=== PATIENT | female | born 1950 | race Caucasian/White ===

== ENCOUNTER 2017-03-22 14:26 | Emergency (ER) | payer MEDICARE, MEDICAID ==
[2017-03-22 15:14] VITALS: BP 153/77
--- NOTE | 2017-03-22 18:45 | CR ---
DATE OF SERVICE: 03/22/2017 CLINICAL DATA: FALL. LEFT KNEE Comparison is made to a prior exam dated 02/10/2016. There is diffuse osteopenia. There are tricompartment osteoarthritic changes of the knee joint with moderate narrowing of the medial compartment joint space. There is a large joint effusion. No acute fracture or dislocation. No focal lytic or blastic bone lesions. [id number] [facility]
--- NOTE | 2017-03-22 18:48 | CR ---
DATE OF SERVICE: 03/22/2017 CLINICAL DATA: FALL. LEFT WRIST There is a healed fracture through the distal radius that is fixed internally. There is diffuse osteopenia. There are osteoarthritic changes involving multiple joints of the hand and wrist. No acute fracture or dislocation. No focal lytic or blastic bone lesions. [id number] [facility]
--- NOTE | 2017-03-23 06:11 | EDM.PDOC ---
ED HPI GENERAL MEDICAL PROBLEM - General Chief Complaint: General Stated Complaint: FELL AT [employer] - LEFT KNEE INJURY/LEFT WRIST Time Seen by Provider: 03/22/17 15:15 Source of Information: Reports: Patient, Family - History of Present Illness INITIAL COMMENTS - FREE TEXT/NARRATIVE: This is a 66yo F here for a recent fall at [employer]. Patient complains of left wrist and left knee pain. Patient was unable to get up or walk without assistance. Patient has had a prior left wrist injury with a plate and screws inserted. Patient has had prior OA of the left knee. Patient denies hitting her head or other complaints today. Onset: Sudden Location: Reports: Upper Extremity, Left, Lower Extremity, Left Severity: Moderate Improves with: Reports: None Worsens with: Reports: Movement Associated Symptoms: Reports: No Other Symptoms Treatments [employer]: Reports: Insulin Knee Pain Score (Numeric/FACES): 10 - Related Data Allergies Allergy/AdvReac Type Severity Reaction Status Date / Time No Known Allergies Allergy Verified 03/22/17 16:44 Home Meds: Home Meds Nitroglycerin [Nitrostat] 0.4 mg SL ASDIRECTED PRN 07/20/15 [History] Aspirin 81 mg PO DAILY 03/22/17 [History] Furosemide [Furosemide] 20 mg PO DAILY 03/22/17 [History] Insulin Glarg,Human.Rec.Analog [Lantus Solostar] 03/22/17 [History] Insulin Glarg,Human.Rec.Analog [Lantus Solostar] 10 units SUBCUT DAILY 03/22/17 [History] Lisinopril 10 mg PO DAILY 03/22/17 [History] Sertraline HCl [Sertraline HCl] 50 mg PO DAILY 03/22/17 [History] Sertraline HCl [Zoloft] 50 mg PO DAILY 03/22/17 [History] Simvastatin [Simvastatin] 20 mg PO DAILY 03/22/17 [History] atorvaSTATin [Lipitor] 80 mg PO BEDTIME 03/22/17 [History] Past Medical History HEENT History: Reports: Impaired Vision Cardiovascular History: Reports: Angina, Hypertension Respiratory History: Reports: None Gastrointestinal History: Reports: GERD, Other (See Below) Other Gastrointestinal History: Constipation related to vicodin Genitourinary History: Reports: None 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: Musculoskeletal History: Reports: Arthritis, Back Pain, Chronic, Osteoarthritis , Osteoporosis Neurological History: Reports: CVA Other Neuro History: 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 Psychiatric History: Reports: None Endocrine/Metabolic History: Reports: Diabetes, Type II Hematologic History: Reports: B12 Deficiency, Other (See Below) Other Hematologic History: gets B 12 shots monthly Immunologic History: Reports: None Oncologic (Cancer) History: Reports: None Dermatologic History: Reports: None - Infectious Disease History Infectious Disease History: Reports: Chicken Pox - Past Surgical History Cardiovascular Surgical History: Reports: None GI Surgical History: Reports: None, Hernia, Abdominal, Hernia Repair/Other Female Surgical History: Reports: Section, Hysterectomy Neurological Surgical History: Reports: None Musculoskeletal Surgical History: Reports: Other (See Below) Social & Family History - Family History Family Medical History: Noncontributory - Tobacco Use Smoking Status *Q: Never Smoker Second Hand Smoke Exposure: Yes - Caffeine Use Caffeine Use: Reports: Coffee, Soda - Recreational Drug Use Recreational Drug Use: No ED ROS GENERAL - Review of Systems Review Of Systems: ROS reveals no pertinent complaints other than HPI. ED EXAM, GENERAL - Physical Exam Exam: See Below Exam Limited By: No Limitations General Appearance: Alert, WD/WN, Mild Distress Eye Exam: Bilateral Eye: EOMI Ears: Normal External Exam Nose: Normal Inspection Head: Atraumatic, Normocephalic Neck: Normal Inspection Extremities: Arm Pain, Leg Pain Neurological: Alert, Oriented Course - Vital Signs Last Recorded V/S: Last Vital Signs Temp 36.6 C 03/22/17 15:11 Pulse 80 03/22/17 15:11 Resp 18 03/22/17 15:11 BP 153/77 H 03/22/17 15:11 Pulse Ox 98 03/22/17 15:11 Departure - Departure Time of Disposition: 16:30 Disposition: Home, Self-Care 01 Condition: good Clinical Impression: Contusion of knee, left Qualifiers: Encounter type: initial encounter Qualified Code(s): S80.02XA - Contusion of left knee, initial encounter Left wrist sprain Qualifiers: Encounter type: initial encounter Qualified Code(s): S63.502A - Unspecified sprain of left wrist, initial encounter - Discharge Information Instructions: Knee Pain, Knee Sprain, [id number], Wrist Sprain, Wrist Pain Referrals: PCP,None [Primary Care Provider] - Forms: ED Department Discharge - Problem List Review Problem List Initiated/Reviewed/Updated: Yes - Assessment/Plan Plan: Counseled on supportive and conservative care. Patient will increase tramadol use from 1 pill QID as needed to 2 pills up to QID as needed and when symptoms resolve to return back to her 1 pill regiment. Patient counseled on side effects of increased use of tramadol and for f/u with her PCP this week and as needed if symptoms worsen or persist. Patient and family agree with plan of care and f/u.
== END 2017-03-22 15:35 | disposition home or self-care (01) ==
LOC: LB.ED 14:26
DX: S63.502A Unspecified sprain of left wrist, initial encounter (principal); S80.02XA Contusion of left knee, initial encounter; I10 Essential (primary) hypertension; K21.9 Gastro-esophageal reflux disease without esophagitis; M19.90 Unspecified osteoarthritis, unspecified site; E11.9 Type 2 diabetes mellitus without complications; Z79.82 Long term (current) use of aspirin; Z79.4 Long term (current) use of insulin; Z79.899 Other long term (current) drug therapy; Z86.73 Personal history of transient ischemic attack (TIA), and cerebral infarction without residual deficits; Z90.710 Acquired absence of both cervix and uterus; W19.XXXA Unspecified fall, initial encounter; Y92.511 Restaurant or cafe as the place of occurrence of the external cause
CPT/HCPCS: 73110-LT; 73560-LT; 99283

== ENCOUNTER 2017-03-26 18:15 | Emergency (ER) | payer MEDICARE, MEDICAID ==
[2017-03-26] MEDS ORDERED: Ketorolac 60 MG/2 ML SDV IM ONE (18:52)
[2017-03-26] MEDS ORDERED: Acetaminophen/HYDROcodone 325-5 MG Tab ONE (19:00)
[2017-03-26] MEDS ORDERED: Amoxicillin/Clavulanate K 875-125 MG Tab ONE (19:00)
[2017-03-26] MEDS ORDERED: Sodium Chloride 0.9% 1,000 ML IV ONE (19:34)
[2017-03-26] MEDS ORDERED: cefTRIAXone 1 GM in Sodium Chloride 0.9% 50 ML IV ONE (20:00)
[2017-03-26 21:05] VITALS: BP 132/64
--- NOTE | 2017-03-26 21:14 | CR ---
DATE OF SERVICE: 03/26/2017 CLINICAL DATA: Ongoing pain after falling. LEFT KNEE Comparison is made to a prior exam dated 03/22/2017. No significant changes. [id number] [facility]
--- NOTE | 2017-03-27 00:50 | ER ---
HPI: This is a 66-year-old lady who comes in by ambulance with complaints of swelling of the left knee and extreme pain. The patient fell last weekend, on Thursday. She was seen here in the emergency room for left knee injury and wrist injury. X-rays were obtained which were negative for fracture. The patient was treated conservatively and told to follow up in a week. She states that her pain is getting worse. She has been taking Ultram for pain control, which she uses chronically. The patient states that today her pain is worse, she rates it at 10/10 and she has noticed more swelling involving the left knee. She has not noticed any redness or rash areas and states that she has not been able to get in and out of her house very well. She has a few steps to do this and this is not going well. She therefore called the ambulance to come in for a recheck. PAST MEDICAL HISTORY: Includes: 1. Diabetes, insulin dependent. 2. History of osteoarthritis of the left knee and left hip. OBJECTIVE: GENERAL APPEARANCE: The patient is awake and alert. She is slightly uncomfortable at rest. VITAL SIGNS: Reviewed. Temp of 100.2 degrees, pulse is 99, initial blood pressure is 95/72, respirations are 20, O2 sats are good at 98%. Examining the left knee and leg reveals [id number] swelling involving the left knee. There is pain with palpation diffusely of the left knee that radiates up to the mid anterior thigh. Guarding is noted with even light touch. Skin is warm and dry and intact. Examining the left foot and ankle reveals the circulation is good. Skin is warm. Pedal pulse is present. Capillary refill is good involving the toes. LAB AND X-RAY: X-ray of the left knee was obtained. I do not see any acute fracture or acute bony abnormality. There is osteoarthritis fairly advanced. Labs include a CBC showing a slightly elevated white count of 12.9. Neutrophils are also elevated at 71.4. D- dimer is normal at 296. Metabolic panel is unremarkable. Lactic acid is normal at 1.43. At this point, a fluid bolus was given, about 800 mL. Toradol 60 mg was given IM and over the course of the next hour, the patient's pain dropped down to a 4. She states she is very comfortable and the pain is minimal at this point. Vital signs improved. Temp is now 99.9, blood pressure 132/64, respirations dropped to 18, and pulse is 82. Patient is feeling much better. Palpation of the left knee now reveals there is minimal tenderness. The skin is just slightly automatic line set up mechanic this area. DIAGNOSIS: 1. Contusion injury to left knee with a questionable early stage infection developing. 2. Hypotension. 3. Mild dehydration. TREATMENT PLAN: A small knee immobilizer was fitted on the patient's legs and with a walker she was able to ambulate without any increase in discomfort. At this point, she will be discharged to go home with her daughter. She does have help to get in and out of her home and she can get around the house with a walker that she has at home. I will give her hydrocodone tablets to take, 5/325, 1 tablet every 6 hours. She can alternate with the Ultram that she has at home if her pain is not as severe. I also gave the patient Rocephin 1 g here in the emergency room and she will be started on Augmentin 875 b.i.d. I want the patient to follow up early next week in the clinic. If her condition gets worse, followup is going to be in the emergency room over the weekend. The patient and her daughter agree with the treatment plan and have no further questions. SHARONA/ARABELLA /[id number]
== END 2017-03-26 21:30 | disposition home or self-care (01) ==
LOC: LB.ED 18:15
DX: S80.02XA Contusion of left knee, initial encounter (principal); I95.9 Hypotension, unspecified; E86.0 Dehydration; E11.9 Type 2 diabetes mellitus without complications; M17.12 Unilateral primary osteoarthritis, left knee; M16.12 Unilateral primary osteoarthritis, left hip; Z79.4 Long term (current) use of insulin; X58.XXXA Exposure to other specified factors, initial encounter
CPT/HCPCS: 36415; 73560; 80048; 83605; 85025; 85379; 96361; 96365; 96372; 99283; A9270; J0696; J1885; J7040; J7050; A0425; A0429

== ENCOUNTER 2017-05-21 06:30 | Emergency (ER) | payer MEDICARE, MEDICAID ==
[2017-05-21 06:43] VITALS: BP 155/86
[2017-05-21] MEDS ORDERED: Ketorolac 30 MG/ML SDV IM ONE (07:03)
--- NOTE | 2017-05-21 07:09 | EDM.PDOC ---
ED HPI GENERAL MEDICAL PROBLEM - General Chief Complaint: General Stated Complaint: LEFT KNEE PAIN Time Seen by Provider: 05/21/17 07:00 Source of Information: Reports: Patient History Limitations: Reports: No Limitations - History of Present Illness INITIAL COMMENTS - FREE TEXT/NARRATIVE: This is a 66yo F brought in by EMS for left knee pain. Patient states she has had left knee issues in the past and hurt her knee this time by falling out of bed. Per patient the bed was not very high up and she was able to get back up into bed. She states she currently is unable to put weight on the left leg but has full movement of the leg and knee with pain at the knee. Patient denies other injuries at this time. Onset: Sudden Duration: Minutes:, Constant Location: Reports: Lower Extremity, Left Quality: Reports: Ache, Same as Previous Episode Severity: Mild Improves with: Reports: None Worsens with: Reports: None Associated Symptoms: Reports: No Other Symptoms Left Knee Pain Score (Numeric/FACES): 5 - Related Data Allergies Allergy/AdvReac Type Severity Reaction Status Date / Time No Known Allergies Allergy Verified 05/21/17 07:00 Home Meds: Home Meds Nitroglycerin [Nitrostat] 0.4 mg SL ASDIRECTED PRN 07/20/15 [History] Aspirin 81 mg PO DAILY 03/22/17 [History] Furosemide [Furosemide] 20 mg PO DAILY 03/22/17 [History] Insulin Glarg,Human.Rec.Analog [Lantus Solostar] 10 unit SUBCUT QPM 03/22/17 [ History] Lisinopril 10 mg PO DAILY 03/22/17 [History] Sertraline HCl [Zoloft] 50 mg PO DAILY 03/22/17 [History] atorvaSTATin [Lipitor] 80 mg PO BEDTIME 03/22/17 [History] Clopidogrel Bisulfate [Clopidogrel] 75 mg PO DAILY 03/26/17 [History] Mirtazapine 7.5 mg PO QPM 03/26/17 [History] Past Medical History HEENT History: Reports: Impaired Vision Cardiovascular History: Reports: Angina, Hypertension Respiratory History: Reports: None Gastrointestinal History: Reports: GERD, Other (See Below) Other Gastrointestinal History: Constipation related to vicodin Genitourinary History: Reports: None 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: Musculoskeletal History: Reports: Arthritis, Back Pain, Chronic, Osteoarthritis , Osteoporosis Neurological History: Reports: CVA Other Neuro History: 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 Psychiatric History: Reports: Depression Endocrine/Metabolic History: Reports: Diabetes, Type II Hematologic History: Reports: B12 Deficiency, Other (See Below) Other Hematologic History: gets B 12 shots monthly Immunologic History: Reports: None Oncologic (Cancer) History: Reports: None Dermatologic History: Reports: None - Infectious Disease History Infectious Disease History: Reports: Chicken Pox - Past Surgical History Cardiovascular Surgical History: Reports: None GI Surgical History: Reports: None, Hernia, Abdominal, Hernia Repair/Other Female Surgical History: Reports: Section, Hysterectomy Neurological Surgical History: Reports: None Musculoskeletal Surgical History: Reports: Other (See Below) Social & Family History - Family History Family Medical History: Noncontributory - Tobacco Use Smoking Status *Q: Never Smoker Second Hand Smoke Exposure: No - Caffeine Use Caffeine Use: Reports: Coffee, Soda - Recreational Drug Use Recreational Drug Use: No ED ROS GENERAL - Review of Systems Review Of Systems: ROS reveals no pertinent complaints other than HPI. ED EXAM, GENERAL - Physical Exam Exam: See Below Exam Limited By: No Limitations General Appearance: Alert, WD/WN, No Apparent Distress Eye Exam: Bilateral Eye: EOMI, PERRL Ears: Normal External Exam Nose: Normal Inspection Throat/Mouth: Normal Inspection Head: Atraumatic, Normocephalic Neck: Normal Inspection Respiratory/Chest: No Respiratory Distress Cardiovascular: Normal Peripheral Pulses Peripheral Pulses: 2+: Dorsalis Pedis (L), Dorsalis Pedis (R) GI/Abdominal: Normal Bowel Sounds Extremities: Leg Pain Neurological: Alert, Oriented Psychiatric: Normal Affect, Normal Mood Skin Exam: Warm, Dry Course - Vital Signs Last Recorded V/S: Last Vital Signs Temp 37.2 C 05/21/17 06:53 Pulse 84 05/21/17 06:53 Resp 20 05/21/17 06:53 BP 155/86 H 05/21/17 06:53 Pulse Ox 99 05/21/17 06:53 - Orders/Labs/Meds Orders: Active Orders 24 hr Category Date Time Status Knee 1V or 2V Lt [CR] Stat Exams 05/21/17 07:02 Taken Meds: Medications Discontinued Medications Generic Name Dose Route Start Last Admin Trade Name Freq PRN Reason Stop Dose Admin Ketorolac Tromethamine 30 mg 05/21/17 07:03 05/21/17 07:06 Toradol IM 05/21/17 07:04 30 mg ONETIME ONE Administration Departure - Departure Time of Disposition: 07:51 Disposition: Home, Self-Care 01 Condition: Good Clinical Impression: Pain of left patella - Discharge Information Instructions: Knee Pain Referrals: Jermaine Moreno MD [Primary Care Provider] - Forms: ED Department Discharge Additional Instructions: Wear the brace for another 4 weeks. Be sure to take the brace off a few times a day and exercise the leg as well. Continue to take the Ultram as needed for the pain. - Problem List Review Problem List Initiated/Reviewed/Updated: Yes - My Orders Last 24 Hours: My Active Orders 05/21/17 07:02 Knee 1V or 2V Lt [CR] Stat - Assessment/Plan Last 24 Hours: My Active Orders 05/21/17 07:02 Knee 1V or 2V Lt [CR] Stat Plan: Counseled on likely left patella reinjury. No changes compared to prior xrays. Discussed supportive/conservative care and use of immobilizer she already has at home. Patient offered to be immobilized here but states she will just use the one at home. Daughter present and both agree with plan of care. F/u in clinic as routine with PCP and as needed. Counseled on fall precautions and family agree to be extremely vigilant and cautious.
--- NOTE | 2017-05-22 08:57 | CR ---
DATE OF SERVICE: 05/21/17 CLINICAL DATA: left knee injury - knee cap pain LEFT KNEE: Comparison is made to a prior exam dated 03/26/17. There is diffuse osteopenia. There are tricompartment osteoarthritic changes of the knee joint with severe narrowing of the medial compartment joint space and mild genu vara deformity. There is a large joint effusion. There is a comminuted mildly displaced fracture through the mid and upper pole of the patella. No other acute abnormalities. [id number] [facility]
== END 2017-05-21 07:42 | disposition home or self-care (01) ==
LOC: LB.ED 06:30
DX: M25.562 Pain in left knee (principal); I10 Essential (primary) hypertension; K21.9 Gastro-esophageal reflux disease without esophagitis; M19.90 Unspecified osteoarthritis, unspecified site; E11.9 Type 2 diabetes mellitus without complications; M81.0 Age-related osteoporosis without current pathological fracture; Z90.710 Acquired absence of both cervix and uterus; Z98.890 Other specified postprocedural states; Z79.82 Long term (current) use of aspirin; Z79.899 Other long term (current) drug therapy
CPT/HCPCS: 73560; 96372; 99283; A0425; A0429; J1885

== ENCOUNTER 2018-12-08 10:39 | Observation (INO) | payer MEDICARE ==
--- NOTE | 2018-12-08 11:56 | EDM.PDOC ---
ED HPI GENERAL MEDICAL PROBLEM - General Stated Complaint: AFIB; CAME OVER FROM RADIOLOGY Time Seen by Provider: 12/08/18 10:50 Source of Information: Reports: Patient History Limitations: Reports: No Limitations - History of Present Illness INITIAL COMMENTS - FREE TEXT/NARRATIVE: Pt was here for her scheduled ECHO cardiogram today for her recurrent dizziness. Apparently when she was here on [facility] it was noted that she is in Afib with RVR. Pt was sent to emergency room. Pt claims that she has had short spells of dizziness and presyncopal episodes on and off since 2006 when she had stroke. Does not feel extremely fatigue or short of breath. No chest pain or chest tightness. She claims she did have Possible heart attack several years ago and did not have stent placed, but has been on Plavix. Her only cardiology visit, seems to be from [address] Rodriguez. Pt claims that she feels fine. Onset: Today Duration: Constant Severity: Mild Improves with: Reports: None Worsens with: Reports: None Associated Symptoms: Reports: Weakness. Denies: Confusion, Chest Pain, Cough, Diaphoresis, Fever/Chills, Headaches, Nausea/Vomiting, Rash, Seizure, Shortness of Breath - Related Data Allergies Allergy/AdvReac Type Severity Reaction Status Date / Time No Known Allergies Allergy Verified 12/08/18 10:59 Home Meds: Home Meds Nitroglycerin [Nitrostat] 0.4 mg SL ASDIRECTED PRN 07/20/15 [History] Aspirin 81 mg PO DAILY 03/22/17 [History] Furosemide 20 mg PO DAILY 03/22/17 [History] Insulin Glarg,Human.Rec.Analog [Lantus Solostar] 10 unit SUBCUT QPM 03/22/17 [ History] Lisinopril 10 mg PO DAILY 03/22/17 [History] Sertraline HCl [Zoloft] 50 mg PO DAILY 03/22/17 [History] atorvaSTATin [Lipitor] 80 mg PO BEDTIME 03/22/17 [History] Clopidogrel Bisulfate [Clopidogrel] 75 mg PO DAILY 03/26/17 [History] Mirtazapine 7.5 mg PO QPM 03/26/17 [History] Clotrimazole [Clotrimazole 1%] 1 applic TOP TID PRN 12/08/18 [History] Levothyroxine 25 mcg PO ACBREAKFAST 12/08/18 [History] Triamcinolone Acetonide [Triamcinolone Acetonide 0.1% Crm] 1 applic TOP TID PRN 12/08/18 [History] traMADol HCl [Tramadol HCl] 50 mg PO Q8H PRN 12/08/18 [History] Past Medical History HEENT History: Reports: Impaired Vision Cardiovascular History: Reports: Afib, Angina, CAD, High Cholesterol, Hypertension, [place], Other (See Below) Other Cardiovascular History: Cartotid artery syndrome Respiratory History: Reports: None Gastrointestinal History: Reports: GERD Other Gastrointestinal History: Constipation related to vicodin Genitourinary History: Reports: None 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 History: Reports: Musculoskeletal History: Reports: Arthritis, Back Pain, Chronic, Fracture, Osteoarthritis, Osteoporosis Neurological History: Reports: CVA Other Neuro History: 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 Psychiatric History: Reports: Depression Endocrine/Metabolic History: Reports: Diabetes, Type II, Hypothyroidism Hematologic History: Reports: B12 Deficiency, Other (See Below) Other Hematologic History: gets B 12 shots monthly Immunologic History: Reports: None Oncologic (Cancer) History: Reports: None Dermatologic History: Reports: Eczema - Infectious Disease History Infectious Disease History: Reports: Chicken Pox - Past Surgical History Cardiovascular Surgical History: Reports: None GI Surgical History: Reports: Bariatric Procedure, Hernia, Abdominal, Hernia Repair/Other Female Surgical History: Reports: Section, Hysterectomy Neurological Surgical History: Reports: None Musculoskeletal Surgical History: Reports: Other (See Below) Other Musculoskeletal Surgeries/Procedures:: Surgery to fix L wrist Social & Family History - Family History Family Medical History: Noncontributory - Caffeine Use Caffeine Use: Reports: Coffee, Soda ED ROS GENERAL - Review of Systems Review Of Systems: See Below Constitutional: Reports: Weakness. Denies: Fever, Chills HEENT: Denies: Rhinitis, Throat Pain, Throat Swelling Respiratory: Denies: Shortness of Breath, Wheezing, Cough, Sputum Cardiovascular: Reports: Edema, Syncope. Denies: Chest Pain, Claudication, Dyspnea on Exertion, Lightheadedness Endocrine: Denies: Fatigue GI/Abdominal: Denies: Abdominal Pain, Nausea, Vomiting Musculoskeletal: Denies: Joint Pain, Joint Swelling Skin: Denies: Bruising, Pruritis, Rash Neurological: Reports: Pre-Existing Deficit (from previous stroke-minimal). Denies: Confusion, Dizziness, Headache, Numbness, Tingling ED EXAM, GENERAL - Physical Exam Exam: See Below Exam Limited By: No Limitations General Appearance: Alert, WD/WN, No Apparent Distress Eye Exam: Bilateral Eye: EOMI, PERRL Ears: Normal External Exam, Normal Canal, Hearing Grossly Normal, Normal TMs Ear Exam: Bilateral Ear: Auricle Normal, Canal Normal, TM normal Nose: Normal Inspection, Normal Mucosa, No Blood Throat/Mouth: Normal Inspection, Normal Lips, Normal Teeth, Normal Gums, Normal Oropharynx, Normal Voice, No Airway Compromise Head: Atraumatic, Normocephalic Neck: Normal Inspection, Supple, Non-Tender, Full Range of Motion Respiratory/Chest: No Respiratory Distress, Lungs Clear, Normal Breath Sounds, No Accessory Muscle Use, Chest Non-Tender Cardiovascular: Normal Peripheral Pulses, Irregularly Irregular, Other (RVR afib ) Peripheral Pulses: 2+: Carotid (L), Carotid (R), Radial (L), Radial (R) GI/Abdominal: Normal Bowel Sounds, Soft, Non-Tender, No Organomegaly, No Distention, No Abnormal Bruit, No Mass Extremities: Normal Inspection, Normal Range of Motion, Non-Tender, Normal Capillary Refill, Pedal Edema (1+ pitting lower 1/3 leg B/l) Neurological: Alert, Oriented, CN II-XII Intact Skin Exam: Warm, Intact EKG INTERPRETATION EKG Date: 12/08/18 Rhythm: A-Fib Rate (Beats/Min): 140 P-Wave: Present QRS: Normal ST-T: Normal QT: Normal EKG Interpretation Comments: Afib with RVR Course - Vital Signs Text/Narrative:: Pt was placed on monitor, she is asymptomatic. Th reason her primary care provider set her up for ECHO was for her chronic dizziness for past 11 year, which last for few seconds. No fall attack or weakness, syncope or chest pain asso with it. Her CBC, CMP are normal, troponin is normal., BNP is 1550. TSh is 4.6, has been just started on synthroid last week. Pt is not keen on hospitalization for treatment as she does not feel sick or tired. I did contact Dr. Tyler at [facility], and discuss patient with him. His recommendation for inpatient monitoring of patient on oral betablocker , considering her history of coronary artery disease. Also she is on aspirin and statin therapy. Recommended carotid ultrasound to make sure she does not have carotid stenosis or plaque. Anticoagulation for stroke prophylaxis. I have given patient the options to patient and she does prefer to be inpatient. Pt will be admitted for observation. Will start with oral metoprolol 25mg and have her on cardiac monitoring. Also will stat Xarelto 20mg daily for stroke prophylaxis. Will get carotid ultrasound. If her rate is controlled by titrating Betablocker, under 110/min, will plan on discharge and outpatient cardiology followup. Pt does agree and understand the plan. Last Recorded V/S: Last Vital Signs Temp 98.1 F 12/08/18 11:00 Pulse 141 H 12/08/18 12:32 Resp 16 12/08/18 12:04 BP 127/107 H 12/08/18 12:32 Pulse Ox 97 12/08/18 12:04 - Orders/Labs/Meds Orders: Active Orders 24 hr Category Date Time Status Carotid Comp [US] Stat Exams 12/08/18 12:34 Ordered Rivaroxaban [Xarelto] Med 12/08/18 18:00 Ordered 20 mg PO WITHDINNER Labs: Laboratory Tests 12/08/18 12/08/18 12/08/18 Range/Units 11:15 11:15 11:15 WBC 14.8 H (4.0-11.0) K/uL RBC 6.12 H (3.80-5.80) M/uL Hgb 13.4 (11.5-16.5) g/dL Hct 43.7 (37.0-47.0) % MCV 71 L (76-96) fL MCH 21.9 L (27.0-32.0) pg MCHC 30.7 L (31.0-35.0) g/dL RDW 20.6 H (11.0-16.0) % Plt Count 368 (150-500) K/uL MPV 10.8 H (6.0-10.0) fL Neut % (Auto) 72.3 H (45.0-70.0) % Lymph % (Auto) 19.4 L (20.0-40.0) % [place] % (Auto) 5.8 (3.0-10.0) % Eos % (Auto) 1.8 (1.0-5.0) % Baso % (Auto) 0.7 H (0.0-0.5) % Neut # (Auto) 10.69 H (2.00-7.50) K/uL Lymph # (Auto) 2.87 (1.50-4.00) K/uL [place] # (Auto) 0.86 H (0.20-0.80) K/uL Eos # (Auto) 0.27 (0.04-0.40) K/uL Baso # (Auto) 0.10 (0.02-0.10) K/uL Sodium (136-145) mmol/L Potassium (3.5-5.1) mmol/L Chloride (98-107) mmol/L Carbon Dioxide (21.0-32.0) mmol/L Anion Gap (5.0-15.0) mmol/L BUN (8-26) mg/dL Creatinine (0.55-1.02) mg/dL Est Cr Clr Drug Dosing Estimated GFR (MDRD) (>60) MLS/MIN BUN/Creatinine Ratio (6-25) Glucose (74-100) mg/dL Calcium (8.5-10.1) mg/dL Total Bilirubin (0.0-1.0) mg/dL AST (15-37) U/L ALT (12-78) U/L Alkaline Phosphatase (46-116) U/L Troponin I (0.000-0.060) ng/mL B-Natriuretic Peptide 1550 H (0-125) pg/mL Total Protein (6.4-8.2) g/dL Albumin (3.4-5.0) g/dL Globulin (2.2-4.2) g/dL Albumin/Globulin Ratio (0.8-2.0) TSH, Ultra Sensitive 4.857 H (0.358-3.740) uIU/mL 12/08/18 Range/Units 11:17 WBC (4.0-11.0) K/uL RBC (3.80-5.80) M/uL Hgb (11.5-16.5) g/dL Hct (37.0-47.0) % MCV (76-96) fL MCH (27.0-32.0) pg MCHC (31.0-35.0) g/dL RDW (11.0-16.0) % Plt Count (150-500) K/uL MPV (6.0-10.0) fL Neut % (Auto) (45.0-70.0) % Lymph % (Auto) (20.0-40.0) % [place] % (Auto) (3.0-10.0) % Eos % (Auto) (1.0-5.0) % Baso % (Auto) (0.0-0.5) % Neut # (Auto) (2.00-7.50) K/uL Lymph # (Auto) (1.50-4.00) K/uL [place] # (Auto) (0.20-0.80) K/uL Eos # (Auto) (0.04-0.40) K/uL Baso # (Auto) (0.02-0.10) K/uL Sodium 144 (136-145) mmol/L Potassium 3.8 D (3.5-5.1) mmol/L Chloride 107 (98-107) mmol/L Carbon Dioxide 20.8 L (21.0-32.0) mmol/L Anion Gap 20.0 H (5.0-15.0) mmol/L BUN 22 (8-26) mg/dL Creatinine 0.93 (0.55-1.02) mg/dL Est Cr Clr Drug Dosing TNP Estimated GFR (MDRD) > 60 (>60) MLS/MIN BUN/Creatinine Ratio 23.7 (6-25) Glucose 180 H (74-100) mg/dL Calcium 7.1 L (8.5-10.1) mg/dL Total Bilirubin 0.4 (0.0-1.0) mg/dL AST 19 (15-37) U/L ALT 25 (12-78) U/L Alkaline Phosphatase 290 H (46-116) U/L Troponin I 0.057 (0.000-0.060) ng/mL B-Natriuretic Peptide (0-125) pg/mL Total Protein 7.0 (6.4-8.2) g/dL Albumin 3.0 L (3.4-5.0) g/dL Globulin 4.0 (2.2-4.2) g/dL Albumin/Globulin Ratio 0.8 (0.8-2.0) TSH, Ultra Sensitive (0.358-3.740) uIU/mL Meds: Medications Discontinued Medications Generic Name Dose Route Start Last Admin Trade Name Brittany PRN Reason Stop Dose Admin Metoprolol Tartrate 25 mg 12/08/18 12:27 12/08/18 12:32 Lopressor PO 12/08/18 12:28 25 mg ONETIME ONE Administration Metoprolol Tartrate Confirm 12/08/18 12:36 Lopressor Administered 12/08/18 12:37 Dose 25 mg .ROUTE .STK-MED ONE Departure - Departure Time of Disposition: 12:30 Disposition: Refer to Observation Condition: Fair Clinical Impression: Atrial fibrillation with RVR - Discharge Information *PRESCRIPTION DRUG MONITORING PROGRAM REVIEWED*: Not Applicable *COPY OF PRESCRIPTION DRUG MONITORING REPORT IN PATIENT SUSAN: Not Applicable Instructions: Atrial Fibrillation, [id number] Referrals: Hanna Estrada DOCUMENT CONTROL COORDINATOR [Primary Care Provider] - Forms: ED Department Discharge - Problem List & Annotations (1) Atrial fibrillation with RVR SNOMED Code(s): 128791100823276 Code(s): I48.91 - UNSPECIFIED ATRIAL FIBRILLATION Status: Acute Current Visit: Yes - Problem List Review Problem List Initiated/Reviewed/Updated: Yes - My Orders Last 24 Hours: My Active Orders 12/08/18 12:34 Carotid Comp [US] Stat 12/08/18 18:00 Rivaroxaban [Xarelto] 20 mg PO WITHDINNER - Assessment/Plan Last 24 Hours: My Active Orders 12/08/18 12:34 Carotid Comp [US] Stat 12/08/18 18:00 Rivaroxaban [Xarelto] 20 mg PO WITHDINNER Assessment:: Asymptomatic Afib with RVR Plan: Pt was placed on monitor, she is asymptomatic. Th reason her primary care provider set her up for ECHO was for her chronic dizziness for past 11 year, which last for few seconds. No fall attack or weakness, syncope or chest pain asso with it. Her CBC, CMP are normal, troponin is normal., BNP is 1550. TSh is 4.6, has been just started on synthroid last week. Pt is not keen on hospitalization for treatment as she does not feel sick or tired. I did contact Dr. Tyler at [facility], and discuss patient with him. His recommendation for inpatient monitoring of patient on oral betablocker , considering her history of coronary artery disease. Also she is on aspirin and statin therapy. Recommended carotid ultrasound to make sure she does not have carotid stenosis or plaque. Anticoagulation for stroke prophylaxis. I have given patient the options to patient and she does prefer to be inpatient. Pt will be admitted for observation. Will start with oral metoprolol 25mg and have her on cardiac monitoring. Also will stat Xarelto 20mg daily for stroke prophylaxis. Will get carotid ultrasound. If her rate is controlled by titrating Betablocker, under 110/min, will plan on discharge and outpatient cardiology followup. Pt does agree and understand the plan.
[2018-12-08] MEDS ORDERED: Metoprolol Tartrate 25 MG Tab PO ONE (12:27)
[2018-12-08] MEDS ORDERED: Metoprolol Tartrate 25 MG Tab ONE (12:36)
[2018-12-08] MEDS ORDERED: Sodium Chloride 0.9% 10 ML Syringe FLUSH PRN (12:47)
[2018-12-08] MEDS ORDERED: Nitroglycerin 0.4 MG Tab.SL SL PRN (14:43)
[2018-12-08] MEDS ORDERED: Clotrimazole 1% Crm 15 GM Tube TOP PRN (14:43)
[2018-12-08] MEDS ORDERED: Triamcinolone Acetonide 0.1% Crm 15 GM Tube TOP PRN (14:43)
[2018-12-08] MEDS ORDERED: Rivaroxaban 15 MG Tab PO ONE (16:00)
[2018-12-08] MEDS ORDERED: ATORVASTATIN 80 MG PO SCH (20:00)
[2018-12-08] MEDS ORDERED: Mirtazapine 15 MG Tab*PT OWN MED PO SCH (20:00)
[2018-12-08] MEDS ORDERED: INSULIN GLARGINE HUMAN REC ANALOG 100 UNIT/ML SUBCUT SCH (20:00)
[2018-12-08] MEDS: Metoprolol Tartrate 25 MG Tab PO SCH (20:11)
[2018-12-08] MEDS: Sodium Chloride 0.9% 10 ML Syringe FLUSH SCH (21:09)
[2018-12-09] MEDS ORDERED: LEVOTHYROXINE 25 MCG PO SCH (07:00)
[2018-12-09] MEDS: Metoprolol Tartrate 25 MG Tab PO SCH (07:59)
[2018-12-09 08:00] VITALS: BP 150/94
[2018-12-09] MEDS ORDERED: Lisinopril 10 MG Tab PO SCH (08:00)
[2018-12-09] MEDS ORDERED: Aspirin 81 MG Tab.EC*PT OWN MED PO SCH (08:00)
[2018-12-09] MEDS ORDERED: Clopidogrel 75 MG Tab PO SCH (08:00)
[2018-12-09] MEDS ORDERED: Furosemide 20 MG Tab PO SCH (08:00)
[2018-12-09] MEDS ORDERED: Sertraline 50 MG Tab PO SCH (08:00)
[2018-12-09] MEDS: Sodium Chloride 0.9% 10 ML Syringe FLUSH SCH (08:03)
--- NOTE | 2018-12-09 11:29 | PCM.DCSUM1 ---
Discharge Summary - Hospital Course Free Text/Narrative:: Pt presented to emergency room in Afib with RVR of 140s. Pt was asymptomatic. Her Cardiac workup was negative. Her TSH was elevated, but she was just diagnosed with hypothyroidism last week and started on synthroid. I did contact Dr. Tyler and discuss patient with him. Per Dr. Tyler's recommendation, patient was started on oral Lopressor 25mg BID and anticoagulation for stroke prophylaxis.Pt was admitted for observation to monitor patient and to get heart rate under control. Pt has had uneventful day , here heart rate did gradually drop down to 70s over the day and continue to stay around 70s through last night. On today's visit. Pt claims she feels fine and also she does not have dizziness. Clinical exam is normal, Her EKG shows normal sinus rhythm rate controlled.. Pt did have her carotid ultrasound done today. Plan is to discharge patient home today on Lopressor 25mg BID and Xarelto 15mg daily. Bleeding precautions discussed with patient. She should followup in clinic next for recheck. Also she should have cardiology appointment scheduled in 1-2 wks for evaluation. Brief History: Presented to emergency room from Radiology department with Afib in [facility]. Kindly see H&P for details. Diagnosis: Stroke: No - Discharge Data Discharge Date: 12/09/18 Discharge Disposition: Home, Self-Care 01 Condition: Good - Discharge Diagnosis/Problem(s) (1) Atrial fibrillation with RVR SNOMED Code(s): 465192875290826 ICD Code: I48.91 - UNSPECIFIED ATRIAL FIBRILLATION Status: Acute Current Visit: Yes - Patient Instructions Diet: Heart Healthy Diet Fluid Restriction: 1500 mL Activity: As Tolerated Driving: May Drive Today Showering/Bathing: May Shower - Discharge Plan *PRESCRIPTION DRUG MONITORING PROGRAM REVIEWED*: Not Applicable *COPY OF PRESCRIPTION DRUG MONITORING REPORT IN PATIENT SUSAN: Not Applicable Prescriptions/Med Rec: Rivaroxaban [Xarelto] 15 mg PO WITHDINNER 30 Days #30 tablet Home Medications: Home Meds Nitroglycerin [Nitrostat] 0.4 mg SL ASDIRECTED PRN 07/20/15 [History] Aspirin 81 mg PO DAILY 03/22/17 [History] Furosemide 20 mg PO DAILY 03/22/17 [History] Insulin Glarg,Human.Rec.Analog [Lantus Solostar] 23 unit SUBCUT QPM 03/22/17 [ History] Lisinopril 10 mg PO DAILY 03/22/17 [History] Sertraline HCl [Zoloft] 50 mg PO DAILY 03/22/17 [History] atorvaSTATin [Lipitor] 80 mg PO BEDTIME 03/22/17 [History] Clopidogrel Bisulfate [Clopidogrel] 75 mg PO DAILY 03/26/17 [History] Mirtazapine 15 mg PO QPM 03/26/17 [History] Clotrimazole [Clotrimazole 1%] 1 applic TOP TID PRN 12/08/18 [History] Levothyroxine 25 mcg PO ACBREAKFAST 12/08/18 [History] Triamcinolone Acetonide [Triamcinolone Acetonide 0.1% Crm] 1 applic TOP TID PRN 12/08/18 [History] traMADol HCl [Tramadol HCl] 50 mg PO Q8H PRN 12/08/18 [History] Rivaroxaban [Xarelto] 15 mg PO WITHDINNER 30 Days #30 tablet 12/09/18 [Rx] Patient Handouts: Metoprolol tablets, Rivaroxaban oral tablets, Atrial Fibrillation, [id number] Forms: ED Department Discharge Referrals: Hanna Estrada PRINCIPAL PLANNER [Primary Care Provider] - - Discharge Summary/Plan Comment DC Time >30 min.: Yes Discharge Summary/Plan Comment: Plan is to discharge patient home today on Lopressor 25mg BID and Xarelto 15mg daily. Bleeding precautions discussed with patient. She should followup in clinic next for recheck. Also she should have cardiology appointment scheduled in 1-2 wks for evaluation. - General Info Date of Service: 12/09/18 Functional Status: Reports: Pain Controlled, Tolerating Diet, Ambulating, Urinating - Review of Systems General: Denies: Fever, Weakness, Fatigue HEENT: Denies: Sinus Congestion, Sore Throat, Rhinitis Pulmonary: Denies: Shortness of Breath, Sputum, Hemoptysis Cardiovascular: Denies: Chest Pain, Lightheadedness Gastrointestinal: Denies: Abdominal Pain, Nausea, Vomiting Genitourinary: Denies: Dysuria Musculoskeletal: Denies: Joint Pain, Joint Swelling Skin: Denies: Bruising, Pruritis, Rash - Patient Data Vitals - Most Recent: Last Vital Signs Temp 97.2 F 12/09/18 08:00 Pulse 68 12/09/18 08:00 Resp 16 12/09/18 08:00 BP 150/94 H 12/09/18 09:18 Pulse Ox 97 12/09/18 08:00 Weight - Most Recent: 94.619 kg I&O - Last 24 hours: Intake & Output 12/08/18 12/09/18 12/09/18 22:59 06:59 14:59 Intake Total 230 750 Output Total 300 675 Balance -70 75 Lab Results - Last 24 hrs: Laboratory Results - last 24 hr 12/08/18 12/08/18 12/08/18 Range/Units 11:15 11:15 11:15 WBC 14.8 H (4.0-11.0) K/uL RBC 6.12 H (3.80-5.80) M/uL Hgb 13.4 (11.5-16.5) g/dL Hct 43.7 (37.0-47.0) % MCV 71 L (76-96) fL MCH 21.9 L (27.0-32.0) pg MCHC 30.7 L (31.0-35.0) g/dL RDW 20.6 H (11.0-16.0) % Plt Count 368 (150-500) K/uL MPV 10.8 H (6.0-10.0) fL Neut % (Auto) 72.3 H (45.0-70.0) % Lymph % (Auto) 19.4 L (20.0-40.0) % [place] % (Auto) 5.8 (3.0-10.0) % Eos % (Auto) 1.8 (1.0-5.0) % Baso % (Auto) 0.7 H (0.0-0.5) % Neut # (Auto) 10.69 H (2.00-7.50) K/uL Lymph # (Auto) 2.87 (1.50-4.00) K/uL [place] # (Auto) 0.86 H (0.20-0.80) K/uL Eos # (Auto) 0.27 (0.04-0.40) K/uL Baso # (Auto) 0.10 (0.02-0.10) K/uL Sodium (136-145) mmol/L Potassium (3.5-5.1) mmol/L Chloride (98-107) mmol/L Carbon Dioxide (21.0-32.0) mmol/L Anion Gap (5.0-15.0) mmol/L BUN (8-26) mg/dL Creatinine (0.55-1.02) mg/dL Est Cr Clr Drug Dosing Estimated GFR (MDRD) (>60) MLS/MIN BUN/Creatinine Ratio (6-25) Glucose (74-100) mg/dL POC Glucose (74-110) mg/dL Calcium (8.5-10.1) mg/dL Total Bilirubin (0.0-1.0) mg/dL AST (15-37) U/L ALT (12-78) U/L Alkaline Phosphatase (46-116) U/L Troponin I (0.000-0.060) ng/mL B-Natriuretic Peptide 1550 H (0-125) pg/mL Total Protein (6.4-8.2) g/dL Albumin (3.4-5.0) g/dL Globulin (2.2-4.2) g/dL Albumin/Globulin Ratio (0.8-2.0) TSH, Ultra Sensitive 4.857 H (0.358-3.740) uIU/mL 12/08/18 12/09/18 Range/Units 11:17 06:51 WBC (4.0-11.0) K/uL RBC (3.80-5.80) M/uL Hgb (11.5-16.5) g/dL Hct (37.0-47.0) % MCV (76-96) fL MCH (27.0-32.0) pg MCHC (31.0-35.0) g/dL RDW (11.0-16.0) % Plt Count (150-500) K/uL MPV (6.0-10.0) fL Neut % (Auto) (45.0-70.0) % Lymph % (Auto) (20.0-40.0) % [place] % (Auto) (3.0-10.0) % Eos % (Auto) (1.0-5.0) % Baso % (Auto) (0.0-0.5) % Neut # (Auto) (2.00-7.50) K/uL Lymph # (Auto) (1.50-4.00) K/uL [place] # (Auto) (0.20-0.80) K/uL Eos # (Auto) (0.04-0.40) K/uL Baso # (Auto) (0.02-0.10) K/uL Sodium 144 (136-145) mmol/L Potassium 3.8 D (3.5-5.1) mmol/L Chloride 107 (98-107) mmol/L Carbon Dioxide 20.8 L (21.0-32.0) mmol/L Anion Gap 20.0 H (5.0-15.0) mmol/L BUN 22 (8-26) mg/dL Creatinine 0.93 (0.55-1.02) mg/dL Est Cr Clr Drug Dosing TNP Estimated GFR (MDRD) > 60 (>60) MLS/MIN BUN/Creatinine Ratio 23.7 (6-25) Glucose 180 H (74-100) mg/dL POC Glucose 96 (74-110) mg/dL Calcium 7.1 L (8.5-10.1) mg/dL Total Bilirubin 0.4 (0.0-1.0) mg/dL AST 19 (15-37) U/L ALT 25 (12-78) U/L Alkaline Phosphatase 290 H (46-116) U/L Troponin I 0.057 (0.000-0.060) ng/mL B-Natriuretic Peptide (0-125) pg/mL Total Protein 7.0 (6.4-8.2) g/dL Albumin 3.0 L (3.4-5.0) g/dL Globulin 4.0 (2.2-4.2) g/dL Albumin/Globulin Ratio 0.8 (0.8-2.0) TSH, Ultra Sensitive (0.358-3.740) uIU/mL Med Orders - Current: Current Medications Aspirin (Halfprin) 81 mg PO DAILY [facility] Last Admin: 12/09/18 08:00 Dose: 81 mg Atorvastatin Calcium (Lipitor) 80 mg PO BEDTIME [facility] Last Admin: 12/08/18 20:06 Dose: 80 mg Clopidogrel Bisulfate (Plavix) 75 mg PO DAILY [facility] Last Admin: 12/09/18 09:17 Dose: 75 mg Clotrimazole (Clotrimazole 1%) gm TOP TID PRN PRN Reason: Rash Furosemide (Lasix) 20 mg PO DAILY [facility] Last Admin: 12/09/18 09:18 Dose: 20 mg Insulin Glargine (Lantus Solostar) 23 units SUBCUT QPM [facility] Last Admin: 12/08/18 20:03 Dose: 23 units Levothyroxine Sodium (Levothyroxine) 25 mcg PO ACBREAKFAST [facility] Last Admin: 12/09/18 07:57 Dose: 25 mcg Lisinopril (Prinivil) 10 mg PO DAILY [facility] Last Admin: 12/09/18 09:18 Dose: 10 mg Metoprolol Tartrate (Lopressor) 25 mg PO Q12H [facility] Last Admin: 12/09/18 07:59 Dose: 25 mg Mirtazapine (Remeron) 15 mg PO QPM [facility] Last Admin: 12/08/18 20:06 Dose: 15 mg Nitroglycerin (Nitrostat) 0.4 mg SL ASDIRECTED PRN PRN Reason: Chest Pain [facility] Sertraline HCl (Zoloft) 50 mg PO DAILY [facility] Last Admin: 12/09/18 09:18 Dose: 50 mg Sodium Chloride (Saline Flush) 10 ml FLUSH BID [facility] Last Admin: 12/09/18 08:03 Dose: 10 ml Tramadol HCl (Ultram) 50 mg PO Q8H PRN PRN Reason: Pain Last Admin: 12/08/18 18:36 Dose: 50 mg Triamcinolone Acetonide (Triamcinolone Acetonide 0.1% Crm) gm TOP TID PRN PRN Reason: Rash Discontinued Medications Metoprolol Tartrate (Lopressor) 25 mg PO ONETIME ONE Stop: 12/08/18 12:28 Last Admin: 12/08/18 12:32 Dose: 25 mg Metoprolol Tartrate (Lopressor) Confirm Administered Dose 25 mg .ROUTE .STK-MED ONE Stop: 12/08/18 12:37 Last Admin: 12/08/18 14:16 Dose: Not Given [facility] Rivaroxaban (Xarelto) 15 mg PO ONETIME ONE Stop: 12/08/18 16:01 Last Admin: 12/08/18 16:06 Dose: 15 mg Sodium Chloride (Saline Flush) 10 ml FLUSH ASDIRECTED PRN PRN Reason: Keep Vein Open - Exam General: Reports: Alert, Oriented HEENT: Reports: Pupils Equal, Pupils Reactive, EOMI, Mucous Membr. Moist/[place] Neck: Reports: Supple Lungs: Reports: Clear to Auscultation, Normal Respiratory Effort Cardiovascular: Reports: Regular Rate, Regular Rhythm GI/Abdominal Exam: Normal Bowel Sounds, Soft, Non-Tender, No Organomegaly, No Distention, No Abnormal Bruit, No Mass, Pelvis Stable Skin: Reports: Warm, Intact Neurological: Reports: No New Focal Deficit Psy/Mental Status: Reports: Alert, Normal Affect EKG INTERPRETATION EKG Date: 12/09/18 Rhythm: NSR Rate (Beats/Min): 70 [place]: Normal P-Wave: Present QRS: Normal ST-T: Normal QT: Normal
--- NOTE | 2018-12-09 12:58 | US ---
DATE OF SERVICE: 12/09/18 CLINICAL DATA: Dizziness DUPLEX CAROTID ULTRASOUND: RIGHT CAROTID SYSTEM: There is antegrade flow. There is atherosclerotic plaquing in the carotid bulb and proximal ICA. The flow velocities are within normal limits. The findings are consistent with 0%-50% stenosis. LEFT CAROTID SYSTEM: There is antegrade flow. Minimal atherosclerotic plaquing. The flow velocities are within normal limits. The findings are consistent with 0%-50% stenosis. VERTEBRAL SYSTEM: There is bilateral antegrade vertebral flow. Incidentally noted is a left thyroid nodule. Thyroid ultrasound is recommended. [id number] [facility]
[2018-12-09] MEDS ORDERED: Rivaroxaban 15 MG Tab PO SCH (18:00)
== END 2018-12-09 13:57 | disposition home or self-care (01) ==
LOC: LB.ED 10:39 → LB.MS 12:47
PROVIDERS: ADMIT Family Medicine; ATTEND Family Medicine
DX: I48.91 Unspecified atrial fibrillation (principal); E11.9 Type 2 diabetes mellitus without complications; I10 Essential (primary) hypertension; E78.00 Pure hypercholesterolemia, unspecified; E03.9 Hypothyroidism, unspecified; K21.9 Gastro-esophageal reflux disease without esophagitis; Z86.73 Personal history of transient ischemic attack (TIA), and cerebral infarction without residual deficits; Z79.82 Long term (current) use of aspirin; Z79.02 Long term (current) use of antithrombotics/antiplatelets; Z79.4 Long term (current) use of insulin; Z79.899 Other long term (current) drug therapy
CPT/HCPCS: 36415; 80053; 82962; 83880; 84443; 84484; 85025; 93005; 93880; 99285-25; A9270-GY; G0378

== ENCOUNTER 2018-12-15 01:03 | Emergency (ER) | payer MEDICARE ==
[2018-12-15] MEDS ORDERED: Sodium Chloride 0.9% 10 ML Syringe FLUSH PRN (01:16)
[2018-12-15] MEDS ORDERED: Nitroglycerin 0.4 MG Tab.SL SL PRN ×2 (01:16→02:39)
[2018-12-15] MEDS ORDERED: Aspirin 81 MG Tab.Chew PO ONE (01:16)
--- NOTE | 2018-12-15 01:23 | EDM.PDOC ---
ED HPI GENERAL MEDICAL PROBLEM - General Chief Complaint: Chest Pain Stated Complaint: CHEST PAIN Time Seen by Provider: 12/15/18 01:18 Source of Information: Reports: Patient, EMS, Family, RN History Limitations: Reports: No Limitations - History of Present Illness INITIAL COMMENTS - FREE TEXT/NARRATIVE: 68 yr female presents with chest pain since about 12mn. States she does have a recent history of atrial fibrillation and is taking Metoprolol and blood thinner medications. States she had 4 ASA and nitro X2 in ambulance. Family is here and states she/daughter just got home from work around 1130 tonight and then the pain started when she was taking her/pt BP States she/pt has been resting today. States she recently was in to the Dr office and carotid U/S done. States her pain in the chest is 10/. Daughter states pt hasn't had her Metoprolol this afternoon. States she sometimes doesn't get this and forgets to take it. She is diabetic and takes Lantus 23 units at hs every night. States blood sugar has been under 200 but has been running high lately. States she is new to thyroid medication and started it about 1 week ago. Pt is alert and talking and moving extremities well. Chest Pain Score (Numeric/FACES): 5 - Related Data Allergies Allergy/AdvReac Type Severity Reaction Status Date / Time No Known Allergies Allergy Verified 12/15/18 01:35 Home Meds: Home Meds Nitroglycerin [Nitrostat] 0.4 mg SL ASDIRECTED PRN 07/20/15 [History] Aspirin 81 mg PO DAILY 03/22/17 [History] Furosemide 20 mg PO DAILY 03/22/17 [History] Insulin Glarg,Human.Rec.Analog [Lantus Solostar] 23 unit SUBCUT QPM 03/22/17 [ History] Lisinopril 10 mg PO DAILY 03/22/17 [History] Sertraline HCl [Zoloft] 50 mg PO DAILY 03/22/17 [History] atorvaSTATin [Lipitor] 80 mg PO BEDTIME 03/22/17 [History] Clopidogrel Bisulfate [Clopidogrel] 75 mg PO DAILY 03/26/17 [History] Mirtazapine 15 mg PO QPM 03/26/17 [History] Clotrimazole [Clotrimazole 1%] 1 applic TOP TID PRN 12/08/18 [History] Levothyroxine 25 mcg PO ACBREAKFAST 12/08/18 [History] Triamcinolone Acetonide [Triamcinolone Acetonide 0.1% Crm] 1 applic TOP TID PRN 12/08/18 [History] traMADol HCl [Tramadol HCl] 50 mg PO Q8H PRN 12/08/18 [History] Rivaroxaban [Xarelto] 15 mg PO WITHDINNER 30 Days #30 tablet 12/09/18 [Rx] Latanoprost/Pf [Latanoprost 0.005% Eye Drop] 1 drop EYEBOTH QPM 12/15/18 [ History] Metoprolol Tartrate 25 mg PO BID 12/15/18 [History] Past Medical History HEENT History: Reports: Impaired Vision Cardiovascular History: Reports: Afib, Angina, CAD, High Cholesterol, Hypertension, SD, Other (See Below) Other Cardiovascular History: Cartotid artery syndrome Respiratory History: Reports: None Gastrointestinal History: Reports: GERD Other Gastrointestinal History: Constipation related to vicodin Genitourinary History: Reports: None MANAGER SURGICAL History: Reports: Musculoskeletal History: Reports: Arthritis, Back Pain, Chronic, Fracture, Osteoarthritis, Osteoporosis Neurological History: Reports: CVA Other Neuro History: 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 Psychiatric History: Reports: Depression Endocrine/Metabolic History: Reports: Diabetes, Type II, Hypothyroidism Hematologic History: Reports: B12 Deficiency, Other (See Below) Other Hematologic History: gets B 12 shots monthly Immunologic History: Reports: None Oncologic (Cancer) History: Reports: None Dermatologic History: Reports: Eczema - Infectious Disease History Infectious Disease History: Reports: Chicken Pox - Past Surgical History Cardiovascular Surgical History: Reports: None GI Surgical History: Reports: Bariatric Procedure, Hernia, Abdominal, Hernia Repair/Other Female Surgical History: Reports: Section, Hysterectomy Neurological Surgical History: Reports: None Musculoskeletal Surgical History: Reports: Other (See Below) Other Musculoskeletal Surgeries/Procedures:: Surgery to fix L wrist Social & Family History - Family History Family Medical History: Noncontributory - Caffeine Use Caffeine Use: Reports: Coffee, Soda ED ROS GENERAL - Review of Systems Review Of Systems: See Below Constitutional: Reports: No Symptoms, Weakness HEENT: Reports: Other (pain in throat, poor dentition) Respiratory: Reports: Shortness of Breath. Denies: Cough, Sputum Cardiovascular: Reports: Chest Pain, Dyspnea on Exertion, Edema Musculoskeletal: Reports: Neck Pain, Other (states needs her walker to walk and feels unsteady, muscle rupture to right upper shoulder/chest area.) Skin: Reports: Dryness Neurological: Reports: Other (previous history of stroke and neurology visits) Hematologic/Lymphatic: Reports: Other (takes blood thinner, new to this medication) ED EXAM, GENERAL - Physical Exam Exam: See Below Exam Limited By: No Limitations General Appearance: Alert, No Apparent Distress Ears: Normal External Exam, Hearing Grossly Normal Ear Exam: Bilateral Ear: Auricle Normal Nose: Normal Inspection, Normal Mucosa. No: Nasal Tenderness, Nasal Drainage Throat/Mouth: Normal Inspection, Normal Lips, Normal Voice, No Airway Compromise Head: Atraumatic, Normocephalic Neck: Supple, Non-Tender Respiratory/Chest: No Respiratory Distress, Lungs Clear, Normal Breath Sounds Cardiovascular: Tachycardia, Other (heart rate of 164) GI/Abdominal: Normal Bowel Sounds, Soft, Non-Tender (Female) Exam: Other (wears depends) Back Exam: Normal Inspection, Full Range of Motion Extremities: Pedal Edema. No: Leg Pain Neurological: Alert, Oriented, Normal Cognition, Other (uncertain about her medications) Psychiatric: Normal Affect, Normal Mood Skin Exam: Warm, Dry. No: Diaphoretic Lymphatic: No Adenopathy EKG INTERPRETATION EKG Date: 12/15/18 Time: 01:21 Rate (Beats/Min): 164 EKG Interpretation Comments: SVT Course - Vital Signs Last Recorded V/S: Last Vital Signs Temp 98.8 F 12/15/18 06:42 Pulse 72 12/15/18 06:42 Resp 18 12/15/18 06:42 BP 109/68 12/15/18 06:42 Pulse Ox 97 12/15/18 06:42 - Orders/Labs/Meds Orders: Active Orders 24 hr Category Date Time Status Chest 1V Frontal [CR] Stat Exams 12/15/18 01:10 Taken TROPONIN I [CHEM] Routine Lab 12/15/18 07:40 Received Clopidogrel [Plavix] Med 12/15/18 08:00 Active 75 mg PO DAILY Insulin Glarg,Human.Rec.Analog [LantUS Solostar] Med 12/15/18 20:00 Active 0 units SUBCUT QPM Latanoprost [Xalatan 0.005% Ophth Soln] Med 12/15/18 20:00 Active 0 ml EYEBOTH QPM Levothyroxine Med 12/15/18 07:00 Active 25 mcg PO ACBREAKFAST Metoprolol Tartrate [Lopressor] Med 12/15/18 08:00 Active 25 mg PO BID Mirtazapine [Remeron] Med 12/15/18 20:00 Active 15 mg PO QPM Rivaroxaban [Xarelto] Med 12/15/18 18:00 Active 15 mg PO WITHDINNER Sertraline [Zoloft] Med 12/15/18 08:00 Active 50 mg PO DAILY Sodium Chloride 0.9% [Normal Saline] 1,000 ml Med 12/15/18 01:30 Active IV ASDIRECTED Sodium Chloride 0.9% [Saline Flush] Med 12/15/18 01:16 Active 10 ml FLUSH ASDIRECTED PRN Triamcinolone Acetonide [Triamcinolone Acetonide 0.1% Med 12/15/18 02:39 Pending Crm] 1 applic TOP TID PRN traMADol [Ultram] Med 12/15/18 02:39 Active 50 mg PO Q8H PRN Saline Lock Insert [OM.PC] Stat Oth 12/15/18 01:16 Ordered Medication Orders Clopidogrel Bisulfate (Plavix) 75 mg PO DAILY [facility] Sodium Chloride (Normal Saline) 1,000 mls @ 125 mls/hr IV ASDIRECTED DANN Last Admin: 12/15/18 01:26 Dose: 125 mls/hr Insulin Glargine (Lantus Solostar) 0 units SUBCUT QPM [facility] Insulin Human Regular (Humulin R) 0 unit SUBCUT TIDAC [facility]; Protocol Latanoprost (Xalatan 0.005% Ophth Soln) 0 ml EYEBOTH QPM DANN Levothyroxine Sodium (Levothyroxine) 25 mcg PO ACBREAKFAST DANN Metoprolol Tartrate (Lopressor) 25 mg PO BID DANN Mirtazapine (Remeron) 15 mg PO QPM DANN Nitroglycerin (Nitrostat) 0.4 mg SL Q5M PRN PRN Reason: Chest Pain Non-Formulary Medication (Triamcinolone Acetonide [Triamcinolone Acetonide 0.1% Crm]) 1 applic TOP TID PRN PRN Reason: Rash Rivaroxaban (Xarelto) 15 mg PO WITHDINNER DANN Sertraline HCl (Zoloft) 50 mg PO DAILY DANN Sodium Chloride (Saline Flush) 10 ml FLUSH ASDIRECTED PRN PRN Reason: Keep Vein Open Tramadol HCl (Ultram) 50 mg PO Q8H PRN PRN Reason: Pain Labs: Laboratory Tests 12/15/18 12/15/18 12/15/18 Range/Units 01:25 01:25 01:25 WBC 14.3 H (4.0-11.0) K/uL RBC 5.88 H (3.80-5.80) M/uL Hgb 12.9 (11.5-16.5) g/dL Hct 41.6 (37.0-47.0) % MCV 71 L (76-96) fL MCH 21.9 L (27.0-32.0) pg MCHC 31.0 (31.0-35.0) g/dL RDW 20.3 H (11.0-16.0) % Plt Count 342 (150-500) K/uL MPV 10.8 H (6.0-10.0) fL Neut % (Auto) 74.3 H (45.0-70.0) % Lymph % (Auto) 18.5 L (20.0-40.0) % Anson % (Auto) 4.8 (3.0-10.0) % Eos % (Auto) 1.8 (1.0-5.0) % Baso % (Auto) 0.6 H (0.0-0.5) % Neut # (Auto) 10.61 H (2.00-7.50) K/uL Lymph # (Auto) 2.64 (1.50-4.00) K/uL Anson # (Auto) 0.69 (0.20-0.80) K/uL Eos # (Auto) 0.26 (0.04-0.40) K/uL Baso # (Auto) 0.09 (0.02-0.10) K/uL PT 11.3 (9.0-11.5) sec INR 1.2 (1.0-3.5) Sodium 139 (136-145) mmol/L Potassium 3.8 (3.5-5.1) mmol/L Chloride 106 (98-107) mmol/L Carbon Dioxide 23.1 (21.0-32.0) mmol/L Anion Gap 13.7 (5.0-15.0) mmol/L BUN 20 (8-26) mg/dL Creatinine 0.97 (0.55-1.02) mg/dL Est Cr Clr Drug Dosing TNP Estimated GFR (MDRD) 57 L (>60) MLS/MIN BUN/Creatinine Ratio 20.6 (6-25) Glucose 288 H D (74-100) mg/dL Calcium 6.9 L (8.5-10.1) mg/dL Total Bilirubin 0.4 (0.0-1.0) mg/dL AST 37 (15-37) U/L ALT 33 (12-78) U/L Alkaline Phosphatase 319 H (46-116) U/L Troponin I 0.031 D (0.000-0.060) ng/mL Total Protein 6.7 (6.4-8.2) g/dL Albumin 2.9 L (3.4-5.0) g/dL Globulin 3.8 (2.2-4.2) g/dL Albumin/Globulin Ratio 0.8 (0.8-2.0) TSH, Ultra Sensitive (0.358-3.740) uIU/mL 12/15/18 Range/Units 01:25 WBC (4.0-11.0) K/uL RBC (3.80-5.80) M/uL Hgb (11.5-16.5) g/dL Hct (37.0-47.0) % MCV (76-96) fL MCH (27.0-32.0) pg MCHC (31.0-35.0) g/dL RDW (11.0-16.0) % Plt Count (150-500) K/uL MPV (6.0-10.0) fL Neut % (Auto) (45.0-70.0) % Lymph % (Auto) (20.0-40.0) % Anson % (Auto) (3.0-10.0) % Eos % (Auto) (1.0-5.0) % Baso % (Auto) (0.0-0.5) % Neut # (Auto) (2.00-7.50) K/uL Lymph # (Auto) (1.50-4.00) K/uL Anson # (Auto) (0.20-0.80) K/uL Eos # (Auto) (0.04-0.40) K/uL Baso # (Auto) (0.02-0.10) K/uL PT (9.0-11.5) sec INR (1.0-3.5) Sodium (136-145) mmol/L Potassium (3.5-5.1) mmol/L Chloride (98-107) mmol/L Carbon Dioxide (21.0-32.0) mmol/L Anion Gap (5.0-15.0) mmol/L BUN (8-26) mg/dL Creatinine (0.55-1.02) mg/dL Est Cr Clr Drug Dosing Estimated GFR (MDRD) (>60) MLS/MIN BUN/Creatinine Ratio (6-25) Glucose (74-100) mg/dL Calcium (8.5-10.1) mg/dL Total Bilirubin (0.0-1.0) mg/dL AST (15-37) U/L ALT (12-78) U/L Alkaline Phosphatase (46-116) U/L Troponin I (0.000-0.060) ng/mL Total Protein (6.4-8.2) g/dL Albumin (3.4-5.0) g/dL Globulin (2.2-4.2) g/dL Albumin/Globulin Ratio (0.8-2.0) TSH, Ultra Sensitive 7.012 H D (0.358-3.740) uIU/mL Meds: Medications Generic Name Dose Route Start Last Admin Trade Name Freq PRN Reason Stop Dose Admin Clopidogrel Bisulfate 75 mg 12/15/18 08:00 Plavix PO DAILY [facility] Sodium Chloride 1,000 mls @ 125 mls/hr 12/15/18 01:30 12/15/18 01:26 Normal Saline IV 125 mls/hr ASDIRECTED DANN Administration Insulin Glargine 0 units 12/15/18 20:00 Lantus Solostar SUBCUT QPM [facility] Insulin Human Regular 0 unit 12/15/18 07:00 Humulin R SUBCUT TIDAC [facility] Protocol Latanoprost 0 ml 02/20/19 20:00 Xalatan 0.005% Ophth Soln EYEBOTH QPM DANN Levothyroxine Sodium 25 mcg 12/15/18 07:00 Levothyroxine PO ACBREAKFAST [facility] Metoprolol Tartrate 25 mg 12/15/18 08:00 Lopressor PO BID DANN Mirtazapine 15 mg 12/15/18 20:00 Remeron PO QPM DANN Nitroglycerin 0.4 mg 12/15/18 04:10 Nitrostat SL Q5M PRN Chest Pain Non-Formulary Medication 1 applic 12/15/18 02:39 Triamcinolone Acetonide [Triamcinolone Acetonide 0.1% Crm] TOP TID PRN Rash Rivaroxaban 15 mg 12/15/18 18:00 Xarelto PO WITHDINNER [facility] Sertraline HCl 50 mg 12/15/18 08:00 Zoloft PO DAILY [facility] Sodium Chloride 10 ml 12/15/18 01:16 Saline Flush FLUSH ASDIRECTED PRN Keep Vein Open Tramadol HCl 50 mg 12/15/18 02:39 Ultram PO Q8H PRN Pain Discontinued Medications Generic Name Dose Route Start Last Admin Trade Name Freq PRN Reason Stop Dose Admin Aspirin 324 mg 12/15/18 01:16 12/15/18 01:43 Aspirin PO 12/15/18 01:17 Not Given ONETIME ONE Metoprolol Tartrate 25 mg 12/15/18 01:45 12/15/18 01:42 Lopressor PO 25 mg Q12H DANN Administration Nitroglycerin 0.4 mg 12/15/18 01:16 Nitrostat SL 12/16/18 01:17 Q5M PRN Chest Pain - Re-Assessments/Exams Free Text/Narrative Re-Assessment/Exam: 12/15/18 02:04 EKG shows SVT with rate of 164. Pt hasn't had her Metoprolol this afternoon/evening. Dose given in ER. Chest x-ray completed. Heart rate 130-160 now and pt is resting. Troponins are negative. EMS staff state chest pain was reported to start around 10/1030pm last night. Departure - Departure Time of Disposition: 02:35 Disposition: Refer to Observation Condition: Good Clinical Impression: Paroxysmal supraventricular tachycardia, Atypical chest pain - Problem List & Annotations (1) Atypical chest pain SNOMED Code(s): 550446468 Code(s): R07.89 - OTHER CHEST PAIN Status: Acute Current Visit: No (2) Paroxysmal supraventricular tachycardia SNOMED Code(s): 96793032 Code(s): I47.1 - SUPRAVENTRICULAR TACHYCARDIA Status: Acute Current Visit : No (3) Hypothyroid SNOMED Code(s): 02829323 Code(s): E03.9 - HYPOTHYROIDISM, UNSPECIFIED Status: Acute Current Visit : Yes (4) Diabetes mellitus, type II, insulin dependent SNOMED Code(s): 146987390 Code(s): E11.9 - TYPE 2 DIABETES MELLITUS WITHOUT COMPLICATIONS; Z79.4 - SNF (CURRENT) USE OF INSULIN Status: Acute Current Visit: Yes - Problem List Review Problem List Initiated/Reviewed/Updated: Yes - My Orders Last 24 Hours: My Active Orders 12/15/18 01:10 Chest 1V Frontal [CR] Stat 12/15/18 01:16 Sodium Chloride 0.9% [Saline Flush] 10 ml FLUSH ASDIRECTED PRN Saline Lock Insert [OM.PC] Stat 12/15/18 01:30 Sodium Chloride 0.9% [Normal Saline] 1,000 ml IV ASDIRECTED 12/15/18 02:39 Triamcinolone Acetonide [Triamcinolone Acetonide 0.1% Crm] 1 applic TOP TID PRN traMADol [Ultram] 50 mg PO Q8H PRN 12/15/18 07:00 Levothyroxine 25 mcg PO ACBREAKFAST 12/15/18 07:40 TROPONIN I [CHEM] Routine 12/15/18 08:00 Clopidogrel [Plavix] 75 mg PO DAILY Metoprolol Tartrate [Lopressor] 25 mg PO BID Sertraline [Zoloft] 50 mg PO DAILY 12/15/18 18:00 Rivaroxaban [Xarelto] 15 mg PO WITHDINNER 12/15/18 20:00 Insulin Glarg,Human.Rec.Analog [LantUS Solostar] 0 units SUBCUT QPM Latanoprost [Xalatan 0.005% Ophth Soln] 0 ml EYEBOTH QPM Mirtazapine [Remeron] 15 mg PO QPM - Assessment/Plan Last 24 Hours: My Active Orders 12/15/18 01:10 Chest 1V Frontal [CR] Stat 12/15/18 01:16 Sodium Chloride 0.9% [Saline Flush] 10 ml FLUSH ASDIRECTED PRN Saline Lock Insert [OM.PC] Stat 12/15/18 01:30 Sodium Chloride 0.9% [Normal Saline] 1,000 ml IV ASDIRECTED 12/15/18 02:39 Triamcinolone Acetonide [Triamcinolone Acetonide 0.1% Crm] 1 applic TOP TID PRN traMADol [Ultram] 50 mg PO Q8H PRN 12/15/18 07:00 Levothyroxine 25 mcg PO ACBREAKFAST 12/15/18 07:40 TROPONIN I [CHEM] Routine 12/15/18 08:00 Clopidogrel [Plavix] 75 mg PO DAILY Metoprolol Tartrate [Lopressor] 25 mg PO BID Sertraline [Zoloft] 50 mg PO DAILY 12/15/18 18:00 Rivaroxaban [Xarelto] 15 mg PO WITHDINNER 12/15/18 20:00 Insulin Glarg,Human.Rec.Analog [LantUS Solostar] 0 units SUBCUT QPM Latanoprost [Xalatan 0.005% Ophth Soln] 0 ml EYEBOTH QPM Mirtazapine [Remeron] 15 mg PO QPM Plan: Will place on observation for this chest pain and SVT. She had missed her evening dose of Metoprolol last night. Pt states no more chest pain. HR is 110 now. pt is resting well and daughter left her phone number and she went home. IV fluids at 125cc/hr. Will taper dose as BP is monitored. monitoring coordinator. Metoprolol 25 mg PO given and will continue bid dose. Home medications ordered. Will hold Lisinopril if BP continues to be low. Repeat troponins today in am.
[2018-12-15] MEDS: Sodium Chloride 0.9% 1,000 ML IV SCH ×2 (01:26→10:23)
[2018-12-15] MEDS ORDERED: Metoprolol Tartrate 25 MG Tab PO SCH (01:45)
[2018-12-15] MEDS ORDERED: Non-Formulary Medication 1 Each (Triamcinolone Acetonide [Triamcinolone Acetonide 0.1% Crm TOP PRN (02:39)
[2018-12-15] MEDS ORDERED: traMADol 50 MG Tab ** OWN MED PO PRN (02:39)
[2018-12-15] MEDS ORDERED: Nitroglycerin 0.4 MG Tab.SL **OWN MED SL PRN (04:10)
[2018-12-15] MEDS ORDERED: Insulin Regular, Human 100 Units/ML 3 ML Vial SUBCUT SCH (07:00)
[2018-12-15] MEDS ORDERED: Levothyroxine 25 MCG Tab **OWN MED PO SCH (07:00)
[2018-12-15] MEDS ORDERED: Clopidogrel 75 MG Tab **OWN MED PO SCH (08:00)
[2018-12-15] MEDS ORDERED: METOPROLOL TARTRATE 25 MG PO SCH (08:00)
[2018-12-15] MEDS ORDERED: Sertraline 50 MG Tab **OWN MED PO SCH (08:00)
[2018-12-15 08:01] VITALS: BP 121/64
[2018-12-15] MEDS ORDERED: Heparin Sodium/D5W 25,000 UNITS/500 ML BAG IV SCH (09:00)
--- NOTE | 2018-12-15 09:09 | CR ---
AP PORTABLE CHEST, 12/15/18 Comparison is made to a prior exam dated 05/12/13. The patient has taken a poor inspiration. The heart size is normal. There are interstitial infiltrates throughout both lungs. Pulmonary edema/ congestive failure should be considered. Interstitial pneumonia should also be considered. No pneumothorax. No pleural effusions. No areas of consolidation. [id number] MTDD
--- NOTE | 2018-12-15 09:10 | PCM.DCSUM1 ---
Discharge Summary - Hospital Course HPI Initial Comments: 68 yr female presented to ER this am with chest pain, and tachy/Afib RRR. Pt received nitro and ASA in ambulance, IV fluids started, Metoprolol given and chest pain was relieved. Pt had missed a dose of the Metoprolol last evening. Daughter had held the medication related to lower BP at home. Troponins were negative and chest pain was relieved. Placed pt on observation and repeat troponin this am are elevated 3.307. Consult with cardiology, Dr Teran and recommend transfer with chest pain, Afib w RRR, history of CHF, diabetes Type II controlled w insulin, hypothyroid and elevated troponins this am. Discussion with pt and in agreement with plan, Consult with Dr Lazar, hospitalist, [facility] and is accepting pt for transfer. Recommend start of Heparin bolus and heparin qtt and dose of Plavix this am. Will transfer pt per [facility] when a bed is available at [facility]. Diagnosis: Stroke: No - Discharge Data Discharge Date: 12/15/18 Discharge Disposition: DC/Tfer to Acute Hospital 02 Condition: Stable - Discharge Diagnosis/Problem(s) (1) Elevated troponin SNOMED Code(s): 583018764, 433758412, 400123549 ICD Code: R74.8 - ABNORMAL LEVELS OF OTHER SERUM ENZYMES Status: Acute (2) Atrial fibrillation SNOMED Code(s): 56050429 ICD Code: I48.91 - UNSPECIFIED ATRIAL FIBRILLATION Status: Acute (3) Atypical chest pain SNOMED Code(s): 994262768 ICD Code: R07.89 - OTHER CHEST PAIN Status: Acute (4) Hypothyroid SNOMED Code(s): 41699129 ICD Code: E03.9 - HYPOTHYROIDISM, UNSPECIFIED Status: Acute (5) Diabetes mellitus, type II, insulin dependent SNOMED Code(s): 673028986 ICD Code: E11.9 - TYPE 2 DIABETES MELLITUS WITHOUT COMPLICATIONS; 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 Status: Acute - Discharge Plan *PRESCRIPTION DRUG MONITORING PROGRAM REVIEWED*: Not Applicable *COPY OF PRESCRIPTION DRUG MONITORING REPORT IN PATIENT SUSAN: Not Applicable Home Medications: Home Meds Nitroglycerin [Nitrostat] 0.4 mg SL ASDIRECTED PRN 07/20/15 [History] Aspirin 81 mg PO DAILY 03/22/17 [History] Furosemide 20 mg PO DAILY 03/22/17 [History] Insulin Glarg,Human.Rec.Analog [Lantus Solostar] 23 unit SUBCUT QPM 03/22/17 [ History] Lisinopril 10 mg PO DAILY 03/22/17 [History] Sertraline HCl [Zoloft] 50 mg PO DAILY 03/22/17 [History] atorvaSTATin [Lipitor] 80 mg PO BEDTIME 03/22/17 [History] Clopidogrel Bisulfate [Clopidogrel] 75 mg PO DAILY 03/26/17 [History] Mirtazapine 15 mg PO QPM 03/26/17 [History] Clotrimazole [Clotrimazole 1%] 1 applic TOP TID PRN 12/08/18 [History] Levothyroxine 25 mcg PO ACBREAKFAST 12/08/18 [History] Triamcinolone Acetonide [Triamcinolone Acetonide 0.1% Crm] 1 applic TOP TID PRN 12/08/18 [History] traMADol HCl [Tramadol HCl] 50 mg PO Q8H PRN 12/08/18 [History] Rivaroxaban [Xarelto] 15 mg PO WITHDINNER 30 Days #30 tablet 12/09/18 [Rx] Latanoprost/Pf [Latanoprost 0.005% Eye Drop] 1 drop EYEBOTH QPM 12/15/18 [ History] Metoprolol Tartrate 25 mg PO BID 12/15/18 [History] Forms: ED Department Discharge Referrals: PCP,None [Primary Care Provider] - - Discharge Summary/Plan Comment DC Time >30 min.: Yes (Counseled on elevated troponin and atrial fibrillation and start of heparin) - General Info Date of Service: 12/15/18 Admission Dx/Problem (Free Text: chest pain, atrial fib Subjective Update: Pt states she did get some rest this am, but does have problems sleeping in hospital. States no more chest pain and is feeling improved. Functional Status: Reports: Pain Controlled - Review of Systems General: Reports: No Symptoms HEENT: Reports: Glasses (at home) Pulmonary: Denies: Shortness of Breath, Cough Cardiovascular: Reports: Edema. Denies: Chest Pain, Palpitations Gastrointestinal: Reports: No Symptoms Genitourinary: Reports: Incontinence (wears depends) Musculoskeletal: Reports: Neck Pain Skin: Reports: No Symptoms Neurological: Denies: Confusion, Headache, Trouble Speaking Psychiatric: Reports: No Symptoms - Patient Data Vitals - Most Recent: Last Vital Signs Temp 98.8 F 12/15/18 06:42 Pulse 80 12/15/18 08:01 Resp 18 12/15/18 06:42 BP 121/64 12/15/18 08:01 Pulse Ox 97 12/15/18 06:42 Weight - Most Recent: 212 lb 3.2 oz I&O - Last 24 hours: Intake & Output 12/14/18 12/15/18 12/15/18 22:59 06:59 14:59 Intake Total 336 Balance 336 Lab Results - Last 24 hrs: Laboratory Results - last 24 hr 12/15/18 12/15/18 12/15/18 Range/Units 01:25 01:25 01:25 WBC 14.3 H (4.0-11.0) K/uL RBC 5.88 H (3.80-5.80) M/uL Hgb 12.9 (11.5-16.5) g/dL Hct 41.6 (37.0-47.0) % MCV 71 L (76-96) fL MCH 21.9 L (27.0-32.0) pg MCHC 31.0 (31.0-35.0) g/dL RDW 20.3 H (11.0-16.0) % Plt Count 342 (150-500) K/uL MPV 10.8 H (6.0-10.0) fL Neut % (Auto) 74.3 H (45.0-70.0) % Lymph % (Auto) 18.5 L (20.0-40.0) % [place] % (Auto) 4.8 (3.0-10.0) % Eos % (Auto) 1.8 (1.0-5.0) % Baso % (Auto) 0.6 H (0.0-0.5) % Neut # (Auto) 10.61 H (2.00-7.50) K/uL Lymph # (Auto) 2.64 (1.50-4.00) K/uL [place] # (Auto) 0.69 (0.20-0.80) K/uL Eos # (Auto) 0.26 (0.04-0.40) K/uL Baso # (Auto) 0.09 (0.02-0.10) K/uL PT 11.3 (9.0-11.5) sec INR 1.2 (1.0-3.5) Sodium 139 (136-145) mmol/L Potassium 3.8 (3.5-5.1) mmol/L Chloride 106 (98-107) mmol/L Carbon Dioxide 23.1 (21.0-32.0) mmol/L Anion Gap 13.7 (5.0-15.0) mmol/L BUN 20 (8-26) mg/dL Creatinine 0.97 (0.55-1.02) mg/dL Est Cr Clr Drug Dosing TNP Estimated GFR (MDRD) 57 L (>60) MLS/MIN BUN/Creatinine Ratio 20.6 (6-25) Glucose 288 H D (74-100) mg/dL POC Glucose (74-110) mg/dL Calcium 6.9 L (8.5-10.1) mg/dL Total Bilirubin 0.4 (0.0-1.0) mg/dL AST 37 (15-37) U/L ALT 33 (12-78) U/L Alkaline Phosphatase 319 H (46-116) U/L Troponin I 0.031 D (0.000-0.060) ng/mL Total Protein 6.7 (6.4-8.2) g/dL Albumin 2.9 L (3.4-5.0) g/dL Globulin 3.8 (2.2-4.2) g/dL Albumin/Globulin Ratio 0.8 (0.8-2.0) TSH, Ultra Sensitive (0.358-3.740) uIU/mL 12/15/18 12/15/18 12/15/18 Range/Units 01:25 06:57 07:40 WBC (4.0-11.0) K/uL RBC (3.80-5.80) M/uL Hgb (11.5-16.5) g/dL Hct (37.0-47.0) % MCV (76-96) fL MCH (27.0-32.0) pg MCHC (31.0-35.0) g/dL RDW (11.0-16.0) % Plt Count (150-500) K/uL MPV (6.0-10.0) fL Neut % (Auto) (45.0-70.0) % Lymph % (Auto) (20.0-40.0) % [place] % (Auto) (3.0-10.0) % Eos % (Auto) (1.0-5.0) % Baso % (Auto) (0.0-0.5) % Neut # (Auto) (2.00-7.50) K/uL Lymph # (Auto) (1.50-4.00) K/uL [place] # (Auto) (0.20-0.80) K/uL Eos # (Auto) (0.04-0.40) K/uL Baso # (Auto) (0.02-0.10) K/uL PT (9.0-11.5) sec INR (1.0-3.5) Sodium (136-145) mmol/L Potassium (3.5-5.1) mmol/L Chloride (98-107) mmol/L Carbon Dioxide (21.0-32.0) mmol/L Anion Gap (5.0-15.0) mmol/L BUN (8-26) mg/dL Creatinine (0.55-1.02) mg/dL Est Cr Clr Drug Dosing Estimated GFR (MDRD) (>60) MLS/MIN BUN/Creatinine Ratio (6-25) Glucose (74-100) mg/dL POC Glucose 201 H (74-110) mg/dL Calcium (8.5-10.1) mg/dL Total Bilirubin (0.0-1.0) mg/dL AST (15-37) U/L ALT (12-78) U/L Alkaline Phosphatase (46-116) U/L Troponin I 3.307 H* D (0.000-0.060) ng/mL Total Protein (6.4-8.2) g/dL Albumin (3.4-5.0) g/dL Globulin (2.2-4.2) g/dL Albumin/Globulin Ratio (0.8-2.0) TSH, Ultra Sensitive 7.012 H D (0.358-3.740) uIU/mL Med Orders - Current: Current Medications Clopidogrel Bisulfate (Plavix) 75 mg PO DAILY DANN Last Admin: 12/15/18 08:00 Dose: 75 mg Sodium Chloride (Normal Saline) 1,000 mls @ 125 mls/hr IV ASDIRECTED [facility] Last Admin: 12/15/18 01:26 Dose: 125 mls/hr Heparin Sodium/Dextrose (Heparin 25,000 Units In D5w 500 Ml) 25,000 units in 500 mls @ 20 mls/hr IV TITRATE DANN; Protocol Insulin Aspart (Novolog) 0 unit SUBCUT TIDAC [facility]; Protocol Insulin Glargine (Lantus Solostar) 0 units SUBCUT QPM [facility] Latanoprost (Xalatan 0.005% Ophth Soln) 0 ml EYEBOTH QPM [facility] Levothyroxine Sodium (Levothyroxine) 25 mcg PO ACBREAKFAST [facility] Last Admin: 12/15/18 07:59 Dose: 25 mcg Metoprolol Tartrate (Lopressor) 25 mg PO BID [facility] Last Admin: 12/15/18 08:01 Dose: 25 mg Mirtazapine (Remeron) 15 mg PO QPM [facility] Nitroglycerin (Nitrostat) 0.4 mg SL Q5M PRN PRN Reason: Chest Pain Non-Formulary Medication (Triamcinolone Acetonide [Triamcinolone Acetonide 0.1% Crm]) 1 applic TOP TID PRN PRN Reason: Rash Rivaroxaban (Xarelto) 15 mg PO WITHDINNER [facility] Sertraline HCl (Zoloft) 50 mg PO DAILY [facility] Last Admin: 12/15/18 08:00 Dose: 50 mg Sodium Chloride (Saline Flush) 10 ml FLUSH ASDIRECTED PRN PRN Reason: Keep Vein Open Tramadol HCl (Ultram) 50 mg PO Q8H PRN PRN Reason: Pain Discontinued Medications Aspirin (Aspirin) 324 mg PO ONETIME ONE Stop: 12/15/18 01:17 Last Admin: 12/15/18 01:43 Dose: Not Given Metoprolol Tartrate (Lopressor) 25 mg PO Q12H [facility] Last Admin: 12/15/18 01:42 Dose: 25 mg Nitroglycerin (Nitrostat) 0.4 mg SL Q5M PRN PRN Reason: Chest Pain Stop: 12/16/18 01:17 - Exam General: Reports: Alert, Oriented, Cooperative HEENT: Reports: Pupils Equal, Mucous Membr. Moist/[place] Neck: Reports: Supple, Trachea Midline Lungs: Reports: Normal Respiratory Effort, Crackles (to bases) Cardiovascular: Reports: Irregular Rhythm (rate 80-100) GI/Abdominal Exam: Normal Bowel Sounds, Soft, Non-Tender (Female) Exam: Deferred Rectal (Female) Exam: Deferred Back Exam: Reports: Normal Inspection, Full Range of Motion Extremities: Non-Tender, Normal Capillary Refill, Pedal Edema Skin: Reports: Warm, Dry, Other (rash, intertrigo, under right breast) Neurological: Reports: No New Focal Deficit, Normal Speech, Reflexes Equal Bilateral Psy/Mental Status: Reports: Alert, Normal Affect, Normal Mood EKG INTERPRETATION EKG Date: 12/15/18 Rhythm: Other (sinus tachy) [place]: Normal P-Wave: Present QRS: Normal ST-T: Normal Comparison: Change From Previous EKG (Previous EKG with SVT or atrial fib w RR)
[2018-12-15] MEDS ORDERED: Heparin Sodium 5,000 UNITS/0.5 ML Syringe IVPUSH ONE (09:15)
[2018-12-15] MEDS ORDERED: Morphine 10 MG/ML Syringe ONE (10:55)
[2018-12-15] MEDS ORDERED: Ondansetron 4 MG/2 ML SDV ONE (10:55)
[2018-12-15] MEDS ORDERED: Insulin Aspart 100 Units/ML 3 ML Pen SUBCUT SCH (11:00)
[2018-12-15] MEDS ORDERED: RIVAROXABAN 15 MG PO SCH (18:00)
[2018-12-15] MEDS ORDERED: [UNRECOGNIZED DRUG - OTHER] SUBCUT SCH (20:00)
[2018-12-15] MEDS ORDERED: Mirtazapine 15 MG Tab **OWN MED PO SCH (20:00)
[2018-12-15] MEDS ORDERED: Latanoprost 0.005% Ophth **OWN MED EYEBOTH SCH (20:00)
== END 2018-12-15 11:15 ==
LOC: LB.ED 01:03 → LB.MS 02:25 → UNDOADMOB 02:25 → LB.MS 02:44
PROVIDERS: ADMIT Nurse Practitioner Family; ATTEND Nurse Practitioner Family
DX: I47.1 Supraventricular tachycardia (principal); I10 Essential (primary) hypertension; E78.00 Pure hypercholesterolemia, unspecified; I48.91 Unspecified atrial fibrillation; E11.9 Type 2 diabetes mellitus without complications; E03.9 Hypothyroidism, unspecified; F32.9 Major depressive disorder, single episode, unspecified; K21.0 Gastro-esophageal reflux disease with esophagitis; Z79.899 Other long term (current) drug therapy; Z79.82 Long term (current) use of aspirin
CPT/HCPCS: 36415; 71045; 80048; 80053; 82962; 84443; 84484; 85025; 85610; 85730; 93005; 96360; 96361; 96365; 96366; 99285-25; A0425; A0429; A9270-GY; G0378; J1644; J1644-GY; J1815-GY; J7030

== ENCOUNTER 2018-12-22 12:32 | Observation (INO) | payer MEDICARE ==
[2018-12-22] MEDS ORDERED: Sodium Chloride 0.9% 10 ML Syringe FLUSH PRN (12:35)
[2018-12-22] MEDS ORDERED: Sodium Chloride 0.9% 1,000 ML IV SCH ×2 (12:45→16:15)
--- NOTE | 2018-12-22 12:49 | EDM.PDOC ---
ED HPI GENERAL MEDICAL PROBLEM - General Chief Complaint: Neuro Symptoms/Deficits Stated Complaint: light headed and fall in the home Time Seen by Provider: 12/22/18 12:35 Source of Information: Reports: EMS, Family, RN - History of Present Illness INITIAL COMMENTS - FREE TEXT/NARRATIVE: 68 yr female presents with a fall in the home. She was standing in the kitchen and became light headed and fell and hit head on the fridge at home. She recently had 4 cardiac stents placed on Thursday and was discharged to home last night. States pt got up this am and had breakfast and medications and went to bathroom and became dizzy and came out of the room and fell. States some nausea last night. States she hurts all over. EMS reports left shoulder pain and left hip pain. Daughter reports pt is taking Cleocin and was reported to have positive blood cultures in hospital and did receive some Vancomycin while at [place]. Pt states pain to neck and left knee. Left Pain Score (Numeric/FACES): 2 - Related Data Allergies Allergy/AdvReac Type Severity Reaction Status Date / Time No Known Allergies Allergy Verified 12/22/18 13:08 Home Meds: Home Meds Nitroglycerin [Nitrostat] 0.4 mg SL ASDIRECTED PRN 07/20/15 [History] Aspirin 81 mg PO DAILY 03/22/17 [History] Furosemide 20 mg PO DAILY 03/22/17 [History] Insulin Glarg,Human.Rec.Analog [Lantus Solostar] 23 unit SUBCUT QPM 03/22/17 [ History] Lisinopril 10 mg PO DAILY 03/22/17 [History] Sertraline HCl [Zoloft] 50 mg PO DAILY 03/22/17 [History] atorvaSTATin [Lipitor] 80 mg PO BEDTIME 03/22/17 [History] Clopidogrel Bisulfate [Clopidogrel] 75 mg PO DAILY 03/26/17 [History] Mirtazapine 30 mg PO QPM 03/26/17 [History] Clotrimazole [Clotrimazole 1%] 1 applic TOP TID PRN 12/08/18 [History] Levothyroxine 12.5 mcg PO ACBREAKFAST 12/08/18 [History] Triamcinolone Acetonide [Triamcinolone Acetonide 0.1% Crm] 1 applic TOP TID PRN 12/08/18 [History] traMADol HCl [Tramadol HCl] 50 mg PO Q8H PRN 12/08/18 [History] Rivaroxaban [Xarelto] 15 mg PO WITHDINNER 30 Days #30 tablet 12/09/18 [Rx] Latanoprost/Pf [Latanoprost 0.005% Eye Drop] 1 drop EYEBOTH QPM 12/15/18 [ History] Metoprolol Tartrate 50 mg PO BID 12/15/18 [History] Carvedilol [Coreg] 50 mg PO BID 12/22/18 [History] Clindamycin HCl 450 mg PO QID 12/22/18 [History] NIFEdipine [Nifedipine ER] 60 mg PO DAILY 12/22/18 [History] Pantoprazole [ProTONIX] 40 mg PO DAILY 12/22/18 [History] Spironolactone [Aldactone] 25 mg PO DAILY 12/22/18 [History] Past Medical History HEENT History: Reports: Impaired Vision Cardiovascular History: Reports: Afib, Angina, CAD, High Cholesterol, Hypertension, [place], Other (See Below) Other Cardiovascular History: Cartotid artery syndrome Respiratory History: Reports: None Gastrointestinal History: Reports: GERD Other Gastrointestinal History: Constipation related to vicodin Genitourinary History: Reports: None 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: Musculoskeletal History: Reports: Arthritis, Back Pain, Chronic, Fracture, Osteoarthritis, Osteoporosis Neurological History: Reports: CVA Other Neuro History: 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 Psychiatric History: Reports: Depression Endocrine/Metabolic History: Reports: Diabetes, Type II, Hypothyroidism Hematologic History: Reports: B12 Deficiency, Other (See Below) Other Hematologic History: gets B 12 shots monthly Immunologic History: Reports: None Oncologic (Cancer) History: Reports: None Dermatologic History: Reports: Eczema - Infectious Disease History Infectious Disease History: Reports: Chicken Pox - Past Surgical History Cardiovascular Surgical History: Reports: None GI Surgical History: Reports: Bariatric Procedure, Hernia, Abdominal, Hernia Repair/Other Female Surgical History: Reports: Section, Hysterectomy Neurological Surgical History: Reports: None Musculoskeletal Surgical History: Reports: Other (See Below) Other Musculoskeletal Surgeries/Procedures:: Surgery to fix L wrist Social & Family History - Family History Family Medical History: Noncontributory - Caffeine Use Caffeine Use: Reports: Coffee, Soda ED ROS GENERAL - Review of Systems Review Of Systems: See Below HEENT: Reports: Other (dizziness) Cardiovascular: Reports: Blood Pressure Problem GI/Abdominal: Reports: Nausea Musculoskeletal: Reports: Neck Pain, Shoulder Pain (left ), Other (left hip pain , left knee pain) Skin: Reports: Other (various bruising to forearms from venipuncture) Neurological: Reports: Headache Psychiatric: Reports: No Symptoms ED EXAM, NEURO - Physical Exam Exam: See Below General Appearance: Other (opens eyes to voice.) Respiratory/Chest: Lungs Clear, Normal Breath Sounds Cardiovascular: Regular Rate, Rhythm, Other (mild nonpitting edema noted to legs , bilaterally) GI/Abdominal: Soft, Non-Tender EKG INTERPRETATION EKG Date: 12/22/18 Time: 12:56 Rate (Beats/Min): 92 [place]: LAD-Left [place] Deviation Course - Vital Signs Last Recorded V/S: Last Vital Signs Temp 97 F 12/22/18 16:06 Pulse 97 12/22/18 16:06 Resp 16 12/22/18 16:06 BP 141/80 H 12/22/18 16:06 Pulse Ox 97 12/22/18 16:06 - Orders/Labs/Meds Orders: Active Orders 24 hr Category Date Time Status Cardiac Monitoring [RC] .As Directed Care 12/22/18 13:57 Inactive EKG Documentation Completion [RC] ASDIRECTED Care 12/22/18 12:52 Active Cervical Spine wo Cont [CT] Stat Exams 12/22/18 13:07 Taken Sodium Chloride 0.9% [Normal Saline] 1,000 ml Med 12/22/18 12:45 Active IV ASDIRECTED Sodium Chloride 0.9% [Saline Flush] Med 12/22/18 12:35 Active 10 ml FLUSH ASDIRECTED PRN Saline Lock Insert [OM.PC] Routine Oth 12/22/18 12:35 Ordered Medication Orders Sodium Chloride (Normal Saline) 1,000 mls @ 50 mls/hr IV ASDIRECTED DANN Last Admin: 12/22/18 13:00 Dose: 125 mls/hr Sodium Chloride (Normal Saline) 1,000 mls @ 50 mls/hr IV ASDIRECTED DANN Non-Formulary Medication (Aspirin [Aspirin]) 81 mg PO DAILY DANN Non-Formulary Medication (Atorvastatin [Lipitor]) 80 mg PO BEDTIME DANN Non-Formulary Medication (Carvedilol [Coreg]) 50 mg PO BID DANN Non-Formulary Medication (Clindamycin Hcl [Clindamycin Hcl]) 450 mg PO QID DANN Non-Formulary Medication (Clopidogrel Bisulfate [Clopidogrel]) 75 mg PO DAILY DANN Non-Formulary Medication (Clotrimazole [Clotrimazole 1%]) 1 applic TOP TID PRN PRN Reason: Rash Non-Formulary Medication (Furosemide [Furosemide]) 20 mg PO DAILY DANN Non-Formulary Medication (Insulin Glarg,Human.Rec.Analog [Lantus Solostar]) 23 unit SUBCUT QPM DANN Non-Formulary Medication (Latanoprost/Pf [Latanoprost 0.005% Eye Drop]) 1 drop EYEBOTH QPM DANN Non-Formulary Medication (Levothyroxine [Levothyroxine]) 12.5 mcg PO ACBREAKFAST DANN Non-Formulary Medication (Lisinopril [Lisinopril]) 10 mg PO DAILY DANN Non-Formulary Medication (Metoprolol Tartrate [Metoprolol Tartrate]) 50 mg PO BID DANN Non-Formulary Medication (Mirtazapine [Mirtazapine]) 30 mg PO QPM DANN Non-Formulary Medication (Nifedipine [Nifedipine Er]) 60 mg PO DAILY DANN Non-Formulary Medication (Nitroglycerin [Nitrostat]) 0.4 mg SL ASDIRECTED PRN PRN Reason: Chest Pain Non-Formulary Medication (Pantoprazole [Protonix]) 40 mg PO DAILY DANN Non-Formulary Medication (Rivaroxaban [Xarelto]) 15 mg PO WITHDINNER DANN Non-Formulary Medication (Sertraline Hcl [Zoloft]) 50 mg PO DAILY DANN Non-Formulary Medication (Spironolactone [Aldactone]) 25 mg PO DAILY DANN Non-Formulary Medication (Tramadol Hcl [Tramadol Hcl]) 50 mg PO Q8H PRN PRN Reason: Pain Sodium Chloride (Saline Flush) 10 ml FLUSH ASDIRECTED PRN PRN Reason: Keep Vein Open Last Admin: 12/22/18 13:00 Dose: 10 ml Labs: Laboratory Tests 12/22/18 12/22/18 12/22/18 Range/Units 13:00 13:00 13:00 WBC 17.4 H D (4.0-11.0) K/uL RBC 6.30 H (3.80-5.80) M/uL Hgb 14.1 (11.5-16.5) g/dL Hct 44.8 (37.0-47.0) % MCV 71 L (76-96) fL MCH 22.4 L (27.0-32.0) pg MCHC 31.5 (31.0-35.0) g/dL RDW 21.3 H (11.0-16.0) % Plt Count 342 (150-500) K/uL MPV 10.9 H (6.0-10.0) fL Neut % (Auto) 86.8 H (45.0-70.0) % Lymph % (Auto) 7.2 L (20.0-40.0) % [place] % (Auto) 5.2 (3.0-10.0) % Eos % (Auto) 0.5 L (1.0-5.0) % Baso % (Auto) 0.3 (0.0-0.5) % Neut # (Auto) 15.10 H (2.00-7.50) K/uL Lymph # (Auto) 1.25 L (1.50-4.00) K/uL [place] # (Auto) 0.91 H (0.20-0.80) K/uL Eos # (Auto) 0.08 (0.04-0.40) K/uL Baso # (Auto) 0.05 (0.02-0.10) K/uL PT 12.1 H (9.0-11.5) sec INR 1.2 (1.0-3.5) Sodium 142 (136-145) mmol/L Potassium 4.1 (3.5-5.1) mmol/L Chloride 106 (98-107) mmol/L Carbon Dioxide 20.6 L (21.0-32.0) mmol/L Anion Gap 19.5 H (5.0-15.0) mmol/L BUN 16 (8-26) mg/dL Creatinine 0.88 (0.55-1.02) mg/dL Est Cr Clr Drug Dosing TNP Estimated GFR (MDRD) > 60 (>60) MLS/MIN BUN/Creatinine Ratio 18.2 (6-25) Glucose 187 H (74-100) mg/dL Calcium 7.8 L (8.5-10.1) mg/dL Total Bilirubin 0.6 D (0.0-1.0) mg/dL AST 57 H (15-37) U/L ALT 26 (12-78) U/L Alkaline Phosphatase 293 H (46-116) U/L Total Protein 6.8 (6.4-8.2) g/dL Albumin 3.0 L (3.4-5.0) g/dL Globulin 3.8 (2.2-4.2) g/dL Albumin/Globulin Ratio 0.8 (0.8-2.0) Meds: Medications Generic Name Dose Route Start Last Admin Trade Name Freq PRN Reason Stop Dose Admin Sodium Chloride 1,000 mls @ 50 mls/hr 12/22/18 12:45 12/22/18 13:00 Normal Saline IV 125 mls/hr ASDIRECTED DANN Administration Sodium Chloride 1,000 mls @ 50 mls/hr 12/22/18 16:15 Normal Saline IV ASDIRECTED DANN Non-Formulary Medication 81 mg 12/23/18 08:00 Aspirin [Aspirin] PO DAILY DANN Non-Formulary Medication 80 mg 12/22/18 20:00 Atorvastatin [Lipitor] PO BEDTIME DANN Non-Formulary Medication 50 mg 12/22/18 20:00 Carvedilol [Coreg] PO BID DANN Non-Formulary Medication 450 mg 12/22/18 20:00 Clindamycin Hcl [Clindamycin Hcl] PO QID DANN Non-Formulary Medication 75 mg 12/23/18 08:00 Clopidogrel Bisulfate [Clopidogrel] PO DAILY DANN Non-Formulary Medication 1 applic 12/22/18 16:13 Clotrimazole [Clotrimazole 1%] TOP TID PRN Rash Non-Formulary Medication 20 mg 12/23/18 08:00 Furosemide [Furosemide] PO DAILY DANN Non-Formulary Medication 23 unit 12/22/18 20:00 Insulin Glarg,Human.Rec.Analog [Lantus Solostar] SUBCUT QPM DANN Non-Formulary Medication 1 drop 12/22/18 20:00 Latanoprost/Pf [Latanoprost 0.005% Eye Drop] EYEBOTH QPM DANN Non-Formulary Medication 12.5 mcg 12/23/18 07:00 Levothyroxine [Levothyroxine] PO ACBREAKFAST [facility] Non-Formulary Medication 10 mg 12/23/18 08:00 Lisinopril [Lisinopril] PO DAILY [facility] Non-Formulary Medication 50 mg 12/22/18 20:00 Metoprolol Tartrate [Metoprolol Tartrate] PO BID [facility] Non-Formulary Medication 30 mg 12/22/18 20:00 Mirtazapine [Mirtazapine] PO QPM DANN Non-Formulary Medication 60 mg 12/23/18 08:00 Nifedipine [Nifedipine Er] PO DAILY [facility] Non-Formulary Medication 0.4 mg 12/22/18 16:13 Nitroglycerin [Nitrostat] SL ASDIRECTED PRN Chest Pain Non-Formulary Medication 40 mg 12/23/18 08:00 Pantoprazole [Protonix] PO DAILY [facility] Non-Formulary Medication 15 mg 12/22/18 18:00 Rivaroxaban [Xarelto] PO WITHDINNER [facility] Non-Formulary Medication 50 mg 12/23/18 08:00 Sertraline Hcl [Zoloft] PO DAILY [facility] Non-Formulary Medication 25 mg 12/23/18 08:00 Spironolactone [Aldactone] PO DAILY [facility] Non-Formulary Medication 50 mg 12/22/18 16:13 Tramadol Hcl [Tramadol Hcl] PO Q8H PRN Pain Sodium Chloride 10 ml 12/22/18 12:35 12/22/18 13:00 Saline Flush FLUSH 10 ml ASDIRECTED PRN Administration Keep Vein Open Discontinued Medications Generic Name Dose Route Start Last Admin Trade Name Freq PRN Reason Stop Dose Admin Hydromorphone HCl Confirm 12/22/18 14:08 12/22/18 14:37 Dilaudid Administered 12/22/18 14:09 Not Given Dose 2 mg .ROUTE .STK-MED ONE Hydromorphone HCl 0.5 mg 12/22/18 14:32 12/22/18 14:10 Dilaudid IVPUSH 12/22/18 14:33 0.5 mg ONETIME ONE Administration - Re-Assessments/Exams Free Text/Narrative Re-Assessment/Exam: 12/22/18 15:[address], neck CT, shoulder, knee and hip x-ray and labs are reviewed. No hemorrhage, no infarct, no fracture, no dislocations noted. WBC continues to be elevated. Pt had bacterimia with staph and is on Cleocin for this. Will place on observation overnight and repeat CBC in am. Will monitor vital signs and any increase in symptoms. Pt states she is feeling better and pain is improved. Departure - Departure Time of Disposition: 15:45 Disposition: Refer to Observation Condition: Good Clinical Impression: Light headedness, Head contusion - Discharge Information *PRESCRIPTION DRUG MONITORING PROGRAM REVIEWED*: Not Applicable *COPY OF PRESCRIPTION DRUG MONITORING REPORT IN PATIENT SUSAN: Not Applicable - Problem List & Annotations (1) Light headedness SNOMED Code(s): 334642998 Code(s): R42 - DIZZINESS AND GIDDINESS Status: Acute Current Visit: Yes (2) Head contusion SNOMED Code(s): 592313376 Code(s): S00.93XA - CONTUSION OF UNSPECIFIED PART OF HEAD, INITIAL ENCOUNTER Status: Acute Current Visit: Yes - Problem List Review Problem List Initiated/Reviewed/Updated: Yes - My Orders Last 24 Hours: My Active Orders 12/22/18 12:35 Sodium Chloride 0.9% [Saline Flush] 10 ml FLUSH ASDIRECTED PRN Saline Lock Insert [OM.PC] Routine 12/22/18 12:45 Sodium Chloride 0.9% [Normal Saline] 1,000 ml IV ASDIRECTED 12/22/18 12:52 EKG Documentation Completion [RC] ASDIRECTED 12/22/18 13:07 Cervical Spine wo Cont [CT] Stat 12/22/18 13:57 Cardiac Monitoring [RC] .As Directed - Assessment/Plan Last 24 Hours: My Active Orders 12/22/18 12:35 Sodium Chloride 0.9% [Saline Flush] 10 ml FLUSH ASDIRECTED PRN Saline Lock Insert [OM.PC] Routine 12/22/18 12:45 Sodium Chloride 0.9% [Normal Saline] 1,000 ml IV ASDIRECTED 12/22/18 12:52 EKG Documentation Completion [RC] ASDIRECTED 12/22/18 13:07 Cervical Spine wo Cont [CT] Stat 12/22/18 13:57 Cardiac Monitoring [RC] .As Directed Plan: Head CT, neck CT, shoulder, knee and hip x-ray and labs are reviewed. No hemorrhage, no infarct, no fracture, no dislocations noted. WBC continues to be elevated. Pt had bacterimia with staph and is on Cleocin for this. Will place on observation overnight and repeat CBC in am. Will monitor vital signs and any increase in symptoms.
[2018-12-22] MEDS ORDERED: HYDROmorphone 2 MG/ML Syringe ONE (14:08)
[2018-12-22] MEDS ORDERED: HYDROmorphone 2 MG/ML Syringe IVPUSH ONE (14:32)
[2018-12-22] MEDS ORDERED: Non-Formulary Medication 1 Each (Nitroglycerin [Nitrostat] 0.4 MG) SL PRN (16:13)
[2018-12-22] MEDS ORDERED: CLOTRIMAZOLE TOP PRN (16:13)
--- NOTE | 2018-12-22 17:47 | CT ---
UNENHANCED BRAIN CT, 12/22/18 Multislice acquisition through the brain without IV contrast was performed. Comparison is made to a prior exam dated 01/12/12. There are periventricular lucencies bilaterally consistent with small vessel ischemic change. No masses or mass effect. No intracranial hemorrhage. No evidence of acute or subacute infarct. There is minimal mucosal thickening in the right maxillary sinus and ethmoid sinuses consistent with chronic sinusitis. No osseous abnormalities. No fractures. IMPRESSION: No acute intracranial abnormalities. [id number] [facility]
--- NOTE | 2018-12-22 17:51 | CR ---
LEFT SHOULDER, 12/22/18 A single AP view was performed. There is stretcher artifact noted. There is diffuse osteopenia. There are osteoarthritic changes of the AC and glenohumeral joints. I see no evidence of acute fracture or dislocation, however, a single view is inadequate to exclude traumatic injury. [id number] [facility]
--- NOTE | 2018-12-22 17:55 | CR ---
LEFT KNEE An oblique AP and lateral view were obtained. No priors. There is diffuse osteopenia. There are tricompartment osteoarthritic changes of the knee joint. There is a small joint effusion. No acute fracture or dislocation is noted, however, the AP view is rotated. [id number] [facility]
--- NOTE | 2018-12-22 17:58 | CR ---
PELVIS AND LEFT HIP The right iliac wing and right proximal femur is cut off. There is also stretcher artifact. There is diffuse osteopenia. There are mild osteoarthritic changes of the hip joints bilaterally. I do not see a definite fracture or dislocation. [id number] [facility]
[2018-12-22] MEDS ORDERED: RIVAROXABAN 15 MG PO SCH (18:00)
[2018-12-22] MEDS ORDERED: Non-Formulary Medication 1 Each (Latanoprost/Pf [Latanoprost 0.005% Eye Drop] 1 DROP) EYEBOTH SCH (20:00)
[2018-12-22] MEDS ORDERED: INSULIN GLARGINE SUBCUT SCH (20:00)
[2018-12-22] MEDS ORDERED: Non-Formulary Medication 1 Each (Atorvastatin [Lipitor] 80 MG) PO SCH (20:00)
[2018-12-22] MEDS ORDERED: Non-Formulary Medication 1 Each (Mirtazapine [Mirtazapine] 30 MG) PO SCH (20:00)
[2018-12-22] MEDS ORDERED: [UNRECOGNIZED DRUG - OTHER] SUBCUT SCH (20:00)
[2018-12-22] MEDS: CARVEDILOL 50 MG PO SCH (20:39)
[2018-12-22] MEDS: Non-Formulary Medication 1 Each (Metoprolol Tartrate [Metoprolol Tartrate] 50 MG) PO SCH (20:39)
[2018-12-22] MEDS: CLINDAMYCIN HCL PO SCH (20:39)
[2018-12-22] MEDS: traMADol 50 MG Tab**OWN MED PO PRN (23:50)
[2018-12-23] MEDS ORDERED: LEVOTHYROXINE PO SCH (07:00)
[2018-12-23] MEDS: CARVEDILOL 50 MG PO SCH (07:50)
[2018-12-23] MEDS: CLINDAMYCIN HCL PO SCH (07:50)
[2018-12-23] MEDS: Non-Formulary Medication 1 Each (Metoprolol Tartrate [Metoprolol Tartrate] 50 MG) PO SCH (07:52)
[2018-12-23] MEDS: traMADol 50 MG Tab**OWN MED PO PRN (07:53)
[2018-12-23] MEDS ORDERED: NIFEDIPINE 60 MG PO SCH (08:00)
[2018-12-23] MEDS ORDERED: Non-Formulary Medication 1 Each (Clopidogrel Bisulfate [Clopidogrel] 75 MG) PO SCH (08:00)
[2018-12-23] MEDS ORDERED: Non-Formulary Medication 1 Each (Furosemide [Furosemide] 20 MG) PO SCH (08:00)
[2018-12-23] MEDS ORDERED: Non-Formulary Medication 1 Each (Pantoprazole [Protonix***] 40 MG) PO SCH (08:00)
[2018-12-23] MEDS ORDERED: Non-Formulary Medication 1 Each (Lisinopril [Lisinopril] 10 MG) PO SCH (08:00)
[2018-12-23] MEDS ORDERED: Non-Formulary Medication 1 Each (Spironolactone [Aldactone] 25 MG) PO SCH (08:00)
[2018-12-23] MEDS ORDERED: Non-Formulary Medication 1 Each (Aspirin [Aspirin] 81 MG) PO SCH (08:00)
[2018-12-23 08:07] VITALS: BP 118/70
--- NOTE | 2018-12-23 08:33 | PCM.DCSUM1 ---
Discharge Summary - Hospital Course HPI Initial Comments: 68 yr female presented to ER via ambulance with lightheadedness and fall in home with head contusion. CT of head and x-ray to left shoulder, left hip and left knee completed and no significant findings noted. Pt was just discharged Thursday afternoon post cardiac stent, change in medications, and bacteremia treated with Cleocin. She was place on observation over night. She has been alert and oriented and ambulatory with assist of walker and stand by assist. Minimal bruise to left cheek. WBC has improved. Will continue medications as discharged from [facility]. Cardiac rehab will contact her to set up visits. Recommend F/U with PCP next week. Pt should F/U in ER if any increase symptoms of head injury. Pt may be up as tolerated in home. Continue to monitor blood sugars. Rest and relax today and continue diet for diabetes and cardiac diet. Diagnosis: Stroke: No - Discharge Data Discharge Date: 12/23/18 Discharge Disposition: Home, Self-Care 01 Condition: Good - Discharge Diagnosis/Problem(s) (1) Light headedness SNOMED Code(s): 504577374 ICD Code: R42 - DIZZINESS AND GIDDINESS Status: Acute Current Visit: Yes (2) Head contusion SNOMED Code(s): 077551302 ICD Code: S00.93XA - CONTUSION OF UNSPECIFIED PART OF HEAD, INITIAL ENCOUNTER Status: Acute Current Visit: Yes - Patient Instructions Diet: Heart Healthy Diet, Diabetic Diet Activity: Apply Ice, Cough & Deep Breathe, No Strenuous Activities, Rest and Relax Today Driving: Do Not Drive Notify Provider of: Increased Pain, Nausea and/or Vomiting Other/Special Instructions: Make appointment next week with primary care provider. Follow instructions from cardiology and discharge from [facility]. Cardiac rehab will contact you. Apply ice to head, shoulder, hip and knee as needed. CT of head next week at PCP visit. F/U sooner if any change of increase in headache or change in mentation or one sided weakness - Discharge Plan *PRESCRIPTION DRUG MONITORING PROGRAM REVIEWED*: Not Applicable *COPY OF PRESCRIPTION DRUG MONITORING REPORT IN PATIENT SUSAN: Not Applicable Home Medications: Home Meds Nitroglycerin [Nitrostat] 0.4 mg SL ASDIRECTED PRN 07/20/15 [History] Aspirin 81 mg PO DAILY 03/22/17 [History] Furosemide 20 mg PO DAILY 03/22/17 [History] Insulin Glarg,Human.Rec.Analog [Lantus Solostar] 23 unit SUBCUT QPM 03/22/17 [ History] Lisinopril 10 mg PO DAILY 03/22/17 [History] Sertraline HCl [Zoloft] 50 mg PO DAILY 03/22/17 [History] atorvaSTATin [Lipitor] 80 mg PO BEDTIME 03/22/17 [History] Clopidogrel Bisulfate [Clopidogrel] 75 mg PO DAILY 03/26/17 [History] Mirtazapine 30 mg PO QPM 03/26/17 [History] Clotrimazole [Clotrimazole 1%] 1 applic TOP TID PRN 12/08/18 [History] Levothyroxine 12.5 mcg PO ACBREAKFAST 12/08/18 [History] Triamcinolone Acetonide [Triamcinolone Acetonide 0.1% Crm] 1 applic TOP TID PRN 12/08/18 [History] traMADol HCl [Tramadol HCl] 50 mg PO Q8H PRN 12/08/18 [History] Rivaroxaban [Xarelto] 15 mg PO WITHDINNER 30 Days #30 tablet 12/09/18 [Rx] Latanoprost/Pf [Latanoprost 0.005% Eye Drop] 1 drop EYEBOTH QPM 12/15/18 [ History] Metoprolol Tartrate 50 mg PO BID 12/15/18 [History] Clindamycin HCl 450 mg PO QID 12/22/18 [History] NIFEdipine [Nifedipine ER] 60 mg PO DAILY 12/22/18 [History] Pantoprazole [ProTONIX] 40 mg PO DAILY 12/22/18 [History] Spironolactone [Aldactone] 25 mg PO DAILY 12/22/18 [History] Forms: ED Department Discharge Referrals: PCP,None [Primary Care Provider] - - Discharge Summary/Plan Comment DC Time >30 min.: No (RTC next week w PCP or sooner to ER if symptoms of head injury.) Discharge Summary/Plan Comment: Will continue medications as discharged from [facility]. Cardiac rehab will contact her to set up visits. Recommend F/U with PCP next week. Pt should F/U in ER if any increase symptoms of head injury. Pt may be up as tolerated in home. Continue to monitor blood sugars. Rest and relax today and continue diet for diabetes and cardiac diet. Recommend CT of head next week with PCP. - General Info Date of Service: 12/23/18 Admission Dx/Problem (Free Text: lightheadedness and fall in home with head contusion Functional Status: Reports: Pain Controlled, Tolerating Diet, Ambulating, Urinating - Review of Systems General: Reports: Fatigue HEENT: Denies: Ear Pain, Eye Pain, Visual Changes Pulmonary: Denies: Shortness of Breath, Cough Cardiovascular: Denies: Chest Pain, Palpitations, Edema Gastrointestinal: Denies: Abdominal Pain, Decreased Appetite Genitourinary: Denies: Dysuria Musculoskeletal: Reports: Neck Pain Neurological: Denies: Confusion, Trouble Speaking, Difficulty Walking, Change in Speech Psychiatric: Reports: Other (states she did have some change in thoughts and did quit taking her medications in the past) - Patient Data Vitals - Most Recent: Last Vital Signs Temp 99 F 12/23/18 08:00 Pulse 68 12/23/18 08:00 Resp 18 12/23/18 08:00 BP 118/70 12/23/18 08:00 Pulse Ox 94 L 12/23/18 08:00 Weight - Most Recent: 203 lb 4 oz I&O - Last 24 hours: Intake & Output 12/22/18 12/23/18 12/23/18 22:59 06:59 14:59 Intake Total 650 240 Output Total 200 Balance 650 40 Lab Results - Last 24 hrs: Laboratory Results - last 24 hr 12/22/18 12/22/18 12/22/18 Range/Units 13:00 13:00 13:00 WBC 17.4 H D (4.0-11.0) K/uL RBC 6.30 H (3.80-5.80) M/uL Hgb 14.1 (11.5-16.5) g/dL Hct 44.8 (37.0-47.0) % MCV 71 L (76-96) fL MCH 22.4 L (27.0-32.0) pg MCHC 31.5 (31.0-35.0) g/dL RDW 21.3 H (11.0-16.0) % Plt Count 342 (150-500) K/uL MPV 10.9 H (6.0-10.0) fL Neut % (Auto) 86.8 H (45.0-70.0) % Lymph % (Auto) 7.2 L (20.0-40.0) % [place] % (Auto) 5.2 (3.0-10.0) % Eos % (Auto) 0.5 L (1.0-5.0) % Baso % (Auto) 0.3 (0.0-0.5) % Neut # (Auto) 15.10 H (2.00-7.50) K/uL Lymph # (Auto) 1.25 L (1.50-4.00) K/uL [place] # (Auto) 0.91 H (0.20-0.80) K/uL Eos # (Auto) 0.08 (0.04-0.40) K/uL Baso # (Auto) 0.05 (0.02-0.10) K/uL PT 12.1 H (9.0-11.5) sec INR 1.2 (1.0-3.5) Sodium 142 (136-145) mmol/L Potassium 4.1 (3.5-5.1) mmol/L Chloride 106 (98-107) mmol/L Carbon Dioxide 20.6 L (21.0-32.0) mmol/L Anion Gap 19.5 H (5.0-15.0) mmol/L BUN 16 (8-26) mg/dL Creatinine 0.88 (0.55-1.02) mg/dL Est Cr Clr Drug Dosing TNP Estimated GFR (MDRD) > 60 (>60) MLS/MIN BUN/Creatinine Ratio 18.2 (6-25) Glucose 187 H (74-100) mg/dL POC Glucose (74-110) mg/dL Calcium 7.8 L (8.5-10.1) mg/dL Total Bilirubin 0.6 D (0.0-1.0) mg/dL AST 57 H (15-37) U/L ALT 26 (12-78) U/L Alkaline Phosphatase 293 H (46-116) U/L Total Protein 6.8 (6.4-8.2) g/dL Albumin 3.0 L (3.4-5.0) g/dL Globulin 3.8 (2.2-4.2) g/dL Albumin/Globulin Ratio 0.8 (0.8-2.0) 12/22/18 12/23/18 12/23/18 Range/Units 19:34 07:05 07:46 WBC 13.7 H D (4.0-11.0) K/uL RBC 5.51 (3.80-5.80) M/uL Hgb 12.4 (11.5-16.5) g/dL Hct 39.5 (37.0-47.0) % MCV 72 L (76-96) fL MCH 22.5 L (27.0-32.0) pg MCHC 31.4 (31.0-35.0) g/dL RDW 20.4 H (11.0-16.0) % Plt Count 309 (150-500) K/uL MPV 10.5 H (6.0-10.0) fL Neut % (Auto) 76.0 H (45.0-70.0) % Lymph % (Auto) 16.0 L (20.0-40.0) % [place] % (Auto) 6.5 (3.0-10.0) % Eos % (Auto) 1.1 (1.0-5.0) % Baso % (Auto) 0.4 (0.0-0.5) % Neut # (Auto) 10.39 H (2.00-7.50) K/uL Lymph # (Auto) 2.19 (1.50-4.00) K/uL [place] # (Auto) 0.89 H (0.20-0.80) K/uL Eos # (Auto) 0.15 (0.04-0.40) K/uL Baso # (Auto) 0.05 (0.02-0.10) K/uL PT (9.0-11.5) sec INR (1.0-3.5) Sodium (136-145) mmol/L Potassium (3.5-5.1) mmol/L Chloride (98-107) mmol/L Carbon Dioxide (21.0-32.0) mmol/L Anion Gap (5.0-15.0) mmol/L BUN (8-26) mg/dL Creatinine (0.55-1.02) mg/dL Est Cr Clr Drug Dosing Estimated GFR (MDRD) (>60) MLS/MIN BUN/Creatinine Ratio (6-25) Glucose (74-100) mg/dL POC Glucose 217 H 106 (74-110) mg/dL Calcium (8.5-10.1) mg/dL Total Bilirubin (0.0-1.0) mg/dL AST (15-37) U/L ALT (12-78) U/L Alkaline Phosphatase (46-116) U/L Total Protein (6.4-8.2) g/dL Albumin (3.4-5.0) g/dL Globulin (2.2-4.2) g/dL Albumin/Globulin Ratio (0.8-2.0) Med Orders - Current: Current Medications Non-Formulary Medication (Aspirin [Aspirin]) 81 mg PO DAILY [facility] Last Admin: 12/23/18 07:50 Dose: 81 mg Non-Formulary Medication (Atorvastatin [Lipitor]) 80 mg PO BEDTIME [facility] Last Admin: 12/22/18 20:39 Dose: 80 mg Non-Formulary Medication (Carvedilol [Coreg]) 50 mg PO BID [facility] Last Admin: 12/23/18 07:50 Dose: Not Given Non-Formulary Medication (Clindamycin Hcl [Clindamycin Hcl]) 450 mg PO QID [facility] Last Admin: 12/23/18 07:50 Dose: 450 mg Non-Formulary Medication (Clopidogrel Bisulfate [Clopidogrel]) 75 mg PO DAILY [facility] Last Admin: 12/23/18 07:51 Dose: 75 mg Non-Formulary Medication (Clotrimazole [Clotrimazole 1%]) 1 applic TOP TID PRN PRN Reason: Rash Non-Formulary Medication (Furosemide [Furosemide]) 20 mg PO DAILY [facility] Last Admin: 12/23/18 07:51 Dose: 20 mg Non-Formulary Medication (Insulin Glarg,Human.Rec.Analog [Lantus Solostar]) 23 unit SUBCUT QPM [facility] Last Admin: 12/22/18 20:39 Dose: 23 unit Non-Formulary Medication (Latanoprost/Pf [Latanoprost 0.005% Eye Drop]) 1 drop EYEBOTH QPM [facility] Last Admin: 12/22/18 20:39 Dose: 1 drop Non-Formulary Medication (Levothyroxine [Levothyroxine]) 12.5 mcg PO ACBREAKFAST [facility] Last Admin: 12/23/18 07:49 Dose: 12.5 mcg Non-Formulary Medication (Lisinopril [Lisinopril]) 10 mg PO DAILY [facility] Last Admin: 12/23/18 07:51 Dose: 10 mg Non-Formulary Medication (Metoprolol Tartrate [Metoprolol Tartrate]) 50 mg PO BID [facility] Last Admin: 12/23/18 07:52 Dose: 50 mg Non-Formulary Medication (Mirtazapine [Mirtazapine]) 30 mg PO QPM [facility] Last Admin: 12/22/18 20:40 Dose: 30 mg Non-Formulary Medication (Nifedipine [Nifedipine Er]) 60 mg PO DAILY [facility] Last Admin: 12/23/18 07:52 Dose: 60 mg Non-Formulary Medication (Nitroglycerin [Nitrostat]) 0.4 mg SL ASDIRECTED PRN PRN Reason: Chest Pain Non-Formulary Medication (Pantoprazole [Protonix]) 40 mg PO DAILY [facility] Last Admin: 12/23/18 07:52 Dose: 40 mg Non-Formulary Medication (Rivaroxaban [Xarelto]) 15 mg PO WITHDINNER [facility] Last Admin: 12/22/18 19:26 Dose: 15 mg Non-Formulary Medication (Sertraline Hcl [Zoloft]) 50 mg PO DAILY [facility] Last Admin: 12/23/18 07:53 Dose: 50 mg Non-Formulary Medication (Spironolactone [Aldactone]) 25 mg PO DAILY [facility] Last Admin: 12/23/18 07:53 Dose: 25 mg Sodium Chloride (Saline Flush) 10 ml FLUSH ASDIRECTED PRN PRN Reason: Keep Vein Open Last Admin: 12/22/18 13:00 Dose: 10 ml Tramadol HCl (Ultram) 50 mg PO Q8H PRN PRN Reason: Pain Last Admin: 12/23/18 07:53 Dose: 50 mg Discontinued Medications Hydromorphone HCl (Dilaudid) Confirm Administered Dose 2 mg .ROUTE .STK-MED ONE Stop: 12/22/18 14:09 Last Admin: 12/22/18 14:37 Dose: Not Given Hydromorphone HCl (Dilaudid) 0.5 mg IVPUSH ONETIME ONE Stop: 12/22/18 14:33 Last Admin: 12/22/18 14:10 Dose: 0.5 mg Sodium Chloride (Normal Saline) 1,000 mls @ 50 mls/hr IV ASDIRECTED DANN Last Admin: 12/22/18 13:00 Dose: 125 mls/hr Sodium Chloride (Normal Saline) 1,000 mls @ 50 mls/hr IV ASDIRECTED DANN - Exam General: Reports: Alert, Oriented, Cooperative, No Acute Distress HEENT: Reports: Pupils Equal, Pupils Reactive, Mucous Membr. Moist/[place] Neck: Reports: Supple, Trachea Midline, No JVD Lungs: Reports: Clear to Auscultation, Normal Respiratory Effort. Denies: Rales , Rhonchi Cardiovascular: Reports: Regular Rate, Irregular Rhythm GI/Abdominal Exam: Normal Bowel Sounds, Soft, Non-Tender Back Exam: Reports: Normal Inspection. Denies: CVA Tenderness (R), CVA Tenderness (L) Extremities: Normal Inspection, Non-Tender, No Pedal Edema, Normal Capillary Refill Skin: Reports: Warm, Dry Neurological: Reports: No New Focal Deficit, Normal Gait, Normal Speech, Strength Equal Bilateral Psy/Mental Status: Reports: Alert, Normal Affect, Normal Mood
--- NOTE | 2018-12-23 10:22 | CT ---
CERVICAL SPINE CT, 12/22/18 Multislice axial acquisition was performed. Axial images and sagittal and coronal reformations are reviewed. The vertebral bodies are of average height and in good alignment. No acute fracture or dislocation. There is degenerative disk disease at multiple levels. There is a hard disk protrusion at the C6-7 level posterolaterally on the right. It does produce ventral effacement of the dural sac and contacts the spinal cord. It also encroaches the lateral recess on the right. There are degenerative changes involving the atlantoaxial articulation. There is a low density lesion in the right lobe of the thyroid. There is a partially calcified mass in the left lobe of the thyroid. Thyroid ultrasound is recommended. There are mild atelectatic changes in the dependent portion of both upper lungs. The visualized lungs are otherwise clear. No other significant findings. [id number] [facility]
== END 2018-12-23 09:55 | disposition home or self-care (01) ==
LOC: LB.ED 12:32 → UNDOADMOB 15:59 → LB.MS 15:59
PROVIDERS: ADMIT Nurse Practitioner Family; ATTEND Nurse Practitioner Family
DX: R42 Dizziness and giddiness (principal); S00.93XA Contusion of unspecified part of head, initial encounter; I10 Essential (primary) hypertension; E11.9 Type 2 diabetes mellitus without complications; K21.9 Gastro-esophageal reflux disease without esophagitis; E78.00 Pure hypercholesterolemia, unspecified; I25.10 Atherosclerotic heart disease of native coronary artery without angina pectoris; I25.2 Old myocardial infarction; E03.9 Hypothyroidism, unspecified; F32.9 Major depressive disorder, single episode, unspecified; I69.392 Facial weakness following cerebral infarction; Z79.82 Long term (current) use of aspirin; Z79.4 Long term (current) use of insulin; Z79.899 Other long term (current) drug therapy
CPT/HCPCS: 36415; 70450; 72125; 73020-LT; 73502-LT; 73560-LT; 80053; 82962; 85025; 85610; 93005; 96372; A0425; A0429; A9270-GY; J1170; J7030

== ENCOUNTER 2019-01-14 15:20 | Inpatient (IN) | payer MEDICAID, MEDICARE ==
[2019-01-14] MEDS ORDERED: Sodium Chloride 0.9% 10 ML Syringe FLUSH PRN (17:18)
[2019-01-14] MEDS ORDERED: Lactated Ringers 1,000 ML IV SCH (17:30)
[2019-01-14] MEDS ORDERED: Insulin Regular, Human 100 Units/ML 3 ML Vial IV ONE (17:54)
--- NOTE | 2019-01-14 18:06 | PCM.HP ---
H&P History of Present Illness - General Date of Service: 01/14/19 Admit Problem/Dx: Admission Diagnosis/Problem Admission Diagnosis/Problem Hyperkalemia hypercalcemia hyperglycemia Source of Information: Patient, Old Records, Provider History Limitations: Reports: No Limitations - History of Present Illness Initial Comments - Free Text/Narative: This patient presents from the outpatient clinic for admission to the medical- surgical service. She was seen in the clinic this afternoon for a post- hospitalization followup. She was recently hospitalized for atrial fibrillation with stent placements and states that she has been doing well at home. She has noticed a decreased in fatigue and has resumed most of her regular activities. She has been taking her medications as prescribed and states her daughter helps her to remember all of them. She denies headache, nausea, vomiting, diarrhea. She denies pain, palpitations, other unusual symptoms and denies other concerns or complaints. Today in the clinic, routine lab assessment found hyperkalemia, hypercalcemia, and hyperglycemia. Onset of Symptoms: Reports: Today Symptom Onset Date: 01/14/19 Symptom Onset Time: 16:00 - Related Data Allergies/Adverse Reactions: Allergies Allergy/AdvReac Type Severity Reaction Status Date / Time No Known Allergies Allergy Verified 12/22/18 13:08 Home Medications: Home Meds Furosemide 20 mg PO DAILY 03/22/17 [History] Insulin Glarg,Human.Rec.Analog [Lantus Solostar] 23 unit SUBCUT QPM 03/22/17 [ History] Sertraline HCl [Zoloft] 50 mg PO DAILY 03/22/17 [History] atorvaSTATin [Lipitor] 80 mg PO BEDTIME 03/22/17 [History] Clopidogrel Bisulfate [Clopidogrel] 75 mg PO DAILY 03/26/17 [History] Levothyroxine 12.5 mcg PO ACBREAKFAST 12/08/18 [History] traMADol HCl [Tramadol HCl] 50 mg PO Q6H PRN 12/08/18 [History] Rivaroxaban [Xarelto] 15 mg PO WITHDINNER 30 Days #30 tablet 12/09/18 [Rx] Latanoprost/Pf [Latanoprost 0.005% Eye Drop] 1 drop EYEBOTH QPM 12/15/18 [ History] Pantoprazole [ProTONIX] 40 mg PO DAILY 12/22/18 [History] Lisinopril 2.5 mg PO DAILY 01/14/19 [History] Metoprolol Tartrate 12.5 mg PO BID 01/14/19 [History] Mirtazapine 15 mg PO BEDTIME 01/14/19 [History] Past Medical History HEENT History: Reports: Impaired Vision Cardiovascular History: Reports: Afib, Angina, CAD, High Cholesterol, Hypertension, NE, Other (See Below) Other Cardiovascular History: Cartotid artery syndrome Respiratory History: Reports: None Gastrointestinal History: Reports: GERD Other Gastrointestinal History: Constipation related to vicodin Genitourinary History: Reports: None FACILITIES COORDINATOR History: Reports: Musculoskeletal History: Reports: Arthritis, Back Pain, Chronic, Fracture, Osteoarthritis, Osteoporosis Neurological History: Reports: CVA Other Neuro History: 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 Psychiatric History: Reports: Depression Endocrine/Metabolic History: Reports: Diabetes, Type II, Hypothyroidism Hematologic History: Reports: B12 Deficiency, Other (See Below) Other Hematologic History: gets B 12 shots monthly Immunologic History: Reports: None Oncologic (Cancer) History: Reports: None Dermatologic History: Reports: Eczema Other Dermatologic History: Rash under abdominal fold and breasts - Infectious Disease History Infectious Disease History: Reports: Chicken Pox - Past Surgical History Cardiovascular Surgical History: Reports: None GI Surgical History: Reports: Bariatric Procedure, Hernia, Abdominal, Hernia Repair/Other Female Surgical History: Reports: Section, Hysterectomy Neurological Surgical History: Reports: None Musculoskeletal Surgical History: Reports: Other (See Below) Other Musculoskeletal Surgeries/Procedures:: Surgery to fix L wrist Social & Family History - Family History Family Medical History: Noncontributory - Caffeine Use Caffeine Use: Reports: Coffee, Soda H&P Review of Systems - Review of Systems: Review Of Systems: See Below General: Denies: Fever, Chills, Weakness, Fatigue, Decreased Appetite HEENT: Denies: Ear Pain, Eye Pain, Headaches, Sore Throat, Visual Changes Pulmonary: Denies: Shortness of Breath, Pleuritic Chest Pain, Cough Cardiovascular: Denies: Chest Pain, Palpitations, Dyspnea on Exertion, Orthopnea , Edema, Syncope Gastrointestinal: Denies: Abdominal Pain, Constipation, Diarrhea, Decreased Appetite, Nausea, Vomiting Genitourinary: Denies: Dysuria Musculoskeletal: Denies: Arm Pain, Back Pain, Leg Pain, Joint Pain Skin: Reports: No Symptoms Neurological: Denies: Confusion, Dizziness, Numbness, Tingling Exam - Exam Exam: See Below - Exam General: Alert, Oriented, Cooperative HEENT: PERRLA, Conjunctiva Clear, EOMI, Hearing Intact, Mucosa Moist & [place], Nares Patent, Normal Nasal Septum, Posterior Pharynx Clear, Pupils Equal, Pupils Reactive, TMs Clear Neck: Supple, Trachea Midline Lungs: Clear to Auscultation, Normal Respiratory Effort Cardiovascular: Regular Rate, Regular Rhythm GI/Abdominal Exam: Normal Bowel Sounds, Soft, Non-Tender, No Distention Back Exam: Normal Inspection, Full Range of Motion Extremities: Normal Inspection, Normal Range of Motion, Non-Tender, Normal Capillary Refill Skin: Warm, Dry, Intact Neuro Extensive - Mental Status: Alert, Oriented x3, Normal Mood/Affect, Normal Cognition Psychiatric: Normal Affect - Patient Data Lab Results Last 24 hrs: Laboratory Results - last 24 hr 01/14/19 01/14/19 01/14/19 Range/Units 15:33 15:33 15:33 WBC 11.3 H (4.0-11.0) K/uL RBC 5.71 (3.80-5.80) M/uL Hgb 12.7 (11.5-16.5) g/dL Hct 41.2 (37.0-47.0) % MCV 72 L (76-96) fL MCH 22.2 L (27.0-32.0) pg MCHC 30.8 L (31.0-35.0) g/dL RDW 20.7 H (11.0-16.0) % Plt Count 289 (150-500) K/uL MPV 10.5 H (6.0-10.0) fL Neut % (Auto) 74.1 H (45.0-70.0) % Lymph % (Auto) 17.4 L (20.0-40.0) % [place] % (Auto) 5.2 (3.0-10.0) % Eos % (Auto) 2.6 (1.0-5.0) % Baso % (Auto) 0.7 H (0.0-0.5) % Neut # (Auto) 8.35 H (2.00-7.50) K/uL Lymph # (Auto) 1.96 (1.50-4.00) K/uL [place] # (Auto) 0.58 (0.20-0.80) K/uL Eos # (Auto) 0.29 (0.04-0.40) K/uL Baso # (Auto) 0.08 (0.02-0.10) K/uL Sodium 137 (136-145) mmol/L Potassium 5.9 H D (3.5-5.1) mmol/L Chloride 107 (98-107) mmol/L Carbon Dioxide 21.4 (21.0-32.0) mmol/L Anion Gap 14.5 (5.0-15.0) mmol/L BUN 19 (8-26) mg/dL Creatinine 1.01 (0.55-1.02) mg/dL Est Cr Clr Drug Dosing TNP Estimated GFR (MDRD) 55 L (>60) MLS/MIN BUN/Creatinine Ratio 18.8 (6-25) Glucose 400 H D (74-100) mg/dL Lactic Acid 1.72 H (0.90-1.70) mmol/L Calcium 6.6 L (8.5-10.1) mg/dL Total Bilirubin 0.4 D (0.0-1.0) mg/dL AST 17 (15-37) U/L ALT 30 (12-78) U/L Alkaline Phosphatase 305 H (46-116) U/L Total Protein 7.0 (6.4-8.2) g/dL Albumin 2.9 L (3.4-5.0) g/dL Globulin 4.1 (2.2-4.2) g/dL Albumin/Globulin Ratio 0.7 L (0.8-2.0) TSH, Ultra Sensitive 3.522 D (0.358-3.740) uIU/mL Result Diagrams: 01/14/19 15:33 01/14/19 15:33 EKG INTERPRETATION EKG Date: 01/14/19 Time: 17:40 Rhythm: NSR [place]: LAD-Left [place] Deviation P-Wave: Present QRS: Normal ST-T: Normal QT: Normal Comparison: No Change - Problem List (1) Hyperkalemia SNOMED Code(s): 55471558 ICD Code: E87.5 - HYPERKALEMIA Status: Acute Current Visit: Yes (2) Hypercalcemia SNOMED Code(s): 56873037 ICD Code: E83.52 - HYPERCALCEMIA Status: Acute Current Visit: Yes (3) Hyperglycemia SNOMED Code(s): 30581671 ICD Code: R73.9 - HYPERGLYCEMIA, UNSPECIFIED Status: Acute Current Visit : Yes Problem List Initiated/Reviewed/Updated: Yes Orders Last 24hrs: Active Orders 24 hr Category Date Time Status Admission Diagnosis [ADT] Routine ADT 01/14/19 17:10 Active Change Admitting Physician [ADT] Routine ADT 01/14/19 17:10 Active Patient Status [ADT] Routine ADT 01/14/19 17:10 Active EKG Documentation Completion [RC] AMPROC Care 01/15/19 08:00 Active EKG Documentation Completion [RC] ASDIRECTED Care 01/14/19 17:16 Active Intake and Output [RC] ASDIRECTED Care 01/14/19 17:10 Active POC Glucose [Blood Glucose Check, Bedside] [RC] Q4HR Care 01/14/19 17:52 Active CULTURE BLOOD [BC] Routine Lab 01/14/19 15:33 Received CULTURE BLOOD [BC] Routine Lab 01/14/19 15:55 Received Insulin Regular, Human [HumuLIN R] Med 01/14/19 17:54 Once 5 unit IV ONETIME ONE Lactated Ringers [Ringers, Lactated] 1,000 ml Med 01/14/19 17:30 Active IV ASDIRECTED Sodium Chloride 0.9% [Saline Flush] Med 01/14/19 17:18 Active 10 ml FLUSH ASDIRECTED PRN Saline Lock Insert [OM.PC] Routine Oth 01/14/19 17:18 Ordered EKG 12 Lead [EK] Routine Ther 01/14/19 17:16 Ordered Medication Orders Lactated Ringer's (Ringers, Lactated) 1,000 mls @ 250 mls/hr IV ASDIRECTED DANN Insulin Human Regular (Humulin R) 5 unit IV ONETIME ONE Stop: 01/14/19 17:55 Sodium Chloride (Saline Flush) 10 ml FLUSH ASDIRECTED PRN PRN Reason: Keep Vein Open Assessment/Plan Comment:: 1) Admit to medical-surgical; status: stable. FULL CODE 2) IVF: LR 1000 mL over 4 hours 3) POC glucose q. 4 hours 5) 5 units regular insulin IV 6) Continue all home medications as previously prescribed. Including regular insulin of 23 units q. hs. 7) Repeat electrolytes and EKG in the morning; sooner for acute change.
[2019-01-14] MEDS ORDERED: traMADol 50 MG Tab PO PRN (19:24)
[2019-01-14] MEDS ORDERED: Insulin Regular, Human 100 Units/ML 3 ML Vial ONE (19:30)
[2019-01-14] MEDS: Insulin Detemir 100 Units/ML 3 ML Pen SUBCUT SCH (21:10)
[2019-01-14] MEDS: Mirtazapine 15 MG Tab PO SCH (21:13)
[2019-01-14] MEDS: atorvaSTATin 80 MG Tab PO SCH (21:13)
[2019-01-14] MEDS: Metoprolol Tartrate 25 MG Tab PO SCH (21:13)
[2019-01-14] MEDS: Latanoprost 0.005% Ophth Soln 2.5 ML Bottle EYEBOTH SCH (21:17)
[2019-01-15] MEDS: Levothyroxine 25 MCG Tab PO SCH (06:44)
[2019-01-15] MEDS: Pantoprazole 40 MG Tab.CR PO SCH (06:45)
[2019-01-15] MEDS: Furosemide 20 MG Tab PO SCH (07:55)
[2019-01-15] MEDS: Metoprolol Tartrate 25 MG Tab PO SCH ×2 (07:56→20:17)
[2019-01-15] MEDS: Clopidogrel 75 MG Tab PO SCH (07:57)
[2019-01-15] MEDS: Lisinopril 2.5 MG Tab PO SCH (07:58)
[2019-01-15] MEDS: Sertraline 50 MG Tab PO SCH (07:58)
[2019-01-15] MEDS ORDERED: Calcium Chloride 10% 1 GM/10 ML Syringe IV ONE (11:36)
--- NOTE | 2019-01-15 12:38 | PCM.PN ---
- General Info Date of Service: 01/15/19 Admission Dx/Problem (Free Text): Admission Diagnosis/Problem Admission Diagnosis/Problem Hyperkalemia hypercalcemia hyperglycemia Subjective Update: Patient has had several loose stools since admission and is complaining of "gas pains" and states that her abdomen is rumbling. Denies abdominal pain or nausea. Afebrile, denies other concerns. Functional Status: Reports: Pain Controlled - Patient Data Vitals - Most Recent: Last Vital Signs Temp 36.6 C 01/15/19 08:00 Pulse 77 01/15/19 08:00 Resp 16 01/15/19 08:00 BP 119/73 01/15/19 08:00 Pulse Ox 100 01/15/19 08:00 Weight - Most Recent: 90.265 kg I&O - Last 24 Hours: Intake & Output 01/14/19 01/15/19 01/15/19 22:59 06:59 14:59 Intake Total 1350 Output Total 150 1850 Balance -150 -500 Lab Results Last 24 Hours: Laboratory Results - last 24 hr 01/14/19 01/14/19 01/14/19 Range/Units 15:33 15:33 15:33 WBC 11.3 H (4.0-11.0) K/uL RBC 5.71 (3.80-5.80) M/uL Hgb 12.7 (11.5-16.5) g/dL Hct 41.2 (37.0-47.0) % MCV 72 L (76-96) fL MCH 22.2 L (27.0-32.0) pg MCHC 30.8 L (31.0-35.0) g/dL RDW 20.7 H (11.0-16.0) % Plt Count 289 (150-500) K/uL MPV 10.5 H (6.0-10.0) fL Neut % (Auto) 74.1 H (45.0-70.0) % Lymph % (Auto) 17.4 L (20.0-40.0) % [place] % (Auto) 5.2 (3.0-10.0) % Eos % (Auto) 2.6 (1.0-5.0) % Baso % (Auto) 0.7 H (0.0-0.5) % Neut # (Auto) 8.35 H (2.00-7.50) K/uL Lymph # (Auto) 1.96 (1.50-4.00) K/uL [place] # (Auto) 0.58 (0.20-0.80) K/uL Eos # (Auto) 0.29 (0.04-0.40) K/uL Baso # (Auto) 0.08 (0.02-0.10) K/uL Sodium 137 (136-145) mmol/L Potassium 5.9 H D (3.5-5.1) mmol/L Chloride 107 (98-107) mmol/L Carbon Dioxide 21.4 (21.0-32.0) mmol/L Anion Gap 14.5 (5.0-15.0) mmol/L BUN 19 (8-26) mg/dL Creatinine 1.01 (0.55-1.02) mg/dL Est Cr Clr Drug Dosing TNP Estimated GFR (MDRD) 55 L (>60) MLS/MIN BUN/Creatinine Ratio 18.8 (6-25) Glucose 400 H D (74-100) mg/dL POC Glucose (74-110) mg/dL Lactic Acid 1.72 H (0.90-1.70) mmol/L Calcium 6.6 L (8.5-10.1) mg/dL Total Bilirubin 0.4 D (0.0-1.0) mg/dL AST 17 (15-37) U/L ALT 30 (12-78) U/L Alkaline Phosphatase 305 H (46-116) U/L Total Protein 7.0 (6.4-8.2) g/dL Albumin 2.9 L (3.4-5.0) g/dL Globulin 4.1 (2.2-4.2) g/dL Albumin/Globulin Ratio 0.7 L (0.8-2.0) TSH, Ultra Sensitive 3.522 D (0.358-3.740) uIU/mL 01/14/19 01/14/19 01/15/19 Range/Units 19:14 20:11 01:59 WBC (4.0-11.0) K/uL RBC (3.80-5.80) M/uL Hgb (11.5-16.5) g/dL Hct (37.0-47.0) % MCV (76-96) fL MCH (27.0-32.0) pg MCHC (31.0-35.0) g/dL RDW (11.0-16.0) % Plt Count (150-500) K/uL MPV (6.0-10.0) fL Neut % (Auto) (45.0-70.0) % Lymph % (Auto) (20.0-40.0) % [place] % (Auto) (3.0-10.0) % Eos % (Auto) (1.0-5.0) % Baso % (Auto) (0.0-0.5) % Neut # (Auto) (2.00-7.50) K/uL Lymph # (Auto) (1.50-4.00) K/uL [place] # (Auto) (0.20-0.80) K/uL Eos # (Auto) (0.04-0.40) K/uL Baso # (Auto) (0.02-0.10) K/uL Sodium (136-145) mmol/L Potassium (3.5-5.1) mmol/L Chloride (98-107) mmol/L Carbon Dioxide (21.0-32.0) mmol/L Anion Gap (5.0-15.0) mmol/L BUN (8-26) mg/dL Creatinine (0.55-1.02) mg/dL Est Cr Clr Drug Dosing Estimated GFR (MDRD) (>60) MLS/MIN BUN/Creatinine Ratio (6-25) Glucose (74-100) mg/dL POC Glucose 295 H 127 H 75 (74-110) mg/dL Lactic Acid (0.90-1.70) mmol/L Calcium (8.5-10.1) mg/dL Total Bilirubin (0.0-1.0) mg/dL AST (15-37) U/L ALT (12-78) U/L Alkaline Phosphatase (46-116) U/L Total Protein (6.4-8.2) g/dL Albumin (3.4-5.0) g/dL Globulin (2.2-4.2) g/dL Albumin/Globulin Ratio (0.8-2.0) TSH, Ultra Sensitive (0.358-3.740) uIU/mL 01/15/19 01/15/19 01/15/19 Range/Units 02:33 06:43 07:03 WBC (4.0-11.0) K/uL RBC (3.80-5.80) M/uL Hgb (11.5-16.5) g/dL Hct (37.0-47.0) % MCV (76-96) fL MCH (27.0-32.0) pg MCHC (31.0-35.0) g/dL RDW (11.0-16.0) % Plt Count (150-500) K/uL MPV (6.0-10.0) fL Neut % (Auto) (45.0-70.0) % Lymph % (Auto) (20.0-40.0) % [place] % (Auto) (3.0-10.0) % Eos % (Auto) (1.0-5.0) % Baso % (Auto) (0.0-0.5) % Neut # (Auto) (2.00-7.50) K/uL Lymph # (Auto) (1.50-4.00) K/uL [place] # (Auto) (0.20-0.80) K/uL Eos # (Auto) (0.04-0.40) K/uL Baso # (Auto) (0.02-0.10) K/uL Sodium (136-145) mmol/L Potassium (3.5-5.1) mmol/L Chloride (98-107) mmol/L Carbon Dioxide (21.0-32.0) mmol/L Anion Gap (5.0-15.0) mmol/L BUN (8-26) mg/dL Creatinine (0.55-1.02) mg/dL Est Cr Clr Drug Dosing Estimated GFR (MDRD) (>60) MLS/MIN BUN/Creatinine Ratio (6-25) Glucose (74-100) mg/dL POC Glucose 138 H 83 148 H (74-110) mg/dL Lactic Acid (0.90-1.70) mmol/L Calcium (8.5-10.1) mg/dL Total Bilirubin (0.0-1.0) mg/dL AST (15-37) U/L ALT (12-78) U/L Alkaline Phosphatase (46-116) U/L Total Protein (6.4-8.2) g/dL Albumin (3.4-5.0) g/dL Globulin (2.2-4.2) g/dL Albumin/Globulin Ratio (0.8-2.0) TSH, Ultra Sensitive (0.358-3.740) uIU/mL 01/15/19 01/15/19 Range/Units 09:00 10:59 WBC (4.0-11.0) K/uL RBC (3.80-5.80) M/uL Hgb (11.5-16.5) g/dL Hct (37.0-47.0) % MCV (76-96) fL MCH (27.0-32.0) pg MCHC (31.0-35.0) g/dL RDW (11.0-16.0) % Plt Count (150-500) K/uL MPV (6.0-10.0) fL Neut % (Auto) (45.0-70.0) % Lymph % (Auto) (20.0-40.0) % [place] % (Auto) (3.0-10.0) % Eos % (Auto) (1.0-5.0) % Baso % (Auto) (0.0-0.5) % Neut # (Auto) (2.00-7.50) K/uL Lymph # (Auto) (1.50-4.00) K/uL [place] # (Auto) (0.20-0.80) K/uL Eos # (Auto) (0.04-0.40) K/uL Baso # (Auto) (0.02-0.10) K/uL Sodium 136 (136-145) mmol/L Potassium 4.9 (3.5-5.1) mmol/L Chloride 108 H (98-107) mmol/L Carbon Dioxide 18.3 L (21.0-32.0) mmol/L Anion Gap 14.6 (5.0-15.0) mmol/L BUN 16 (8-26) mg/dL Creatinine 0.83 (0.55-1.02) mg/dL Est Cr Clr Drug Dosing TNP Estimated GFR (MDRD) > 60 (>60) MLS/MIN BUN/Creatinine Ratio 19.3 (6-25) Glucose 266 H D (74-100) mg/dL POC Glucose 137 H (74-110) mg/dL Lactic Acid (0.90-1.70) mmol/L Calcium 6.8 L (8.5-10.1) mg/dL Total Bilirubin (0.0-1.0) mg/dL AST (15-37) U/L ALT (12-78) U/L Alkaline Phosphatase (46-116) U/L Total Protein (6.4-8.2) g/dL Albumin (3.4-5.0) g/dL Globulin (2.2-4.2) g/dL Albumin/Globulin Ratio (0.8-2.0) TSH, Ultra Sensitive (0.358-3.740) uIU/mL [place] Results Last 24 Hours: Microbiology 01/15/19 04:12 Clostridioides difficile (PCR) - Final Stool / Feces NEGATIVE CDIFF TOXIN Med Orders - Current: Current Medications Atorvastatin Calcium (Lipitor) 80 mg PO BEDTIME [facility] Last Admin: 01/14/19 21:13 Dose: 80 mg Clopidogrel Bisulfate (Plavix) 75 mg PO DAILY [facility] Last Admin: 01/15/19 07:57 Dose: 75 mg Furosemide (Lasix) 20 mg PO DAILY [facility] Last Admin: 01/15/19 07:55 Dose: 20 mg Lactated Ringer's (Ringers, Lactated) 1,000 mls @ 250 mls/hr IV ASDIRECTED [facility] Last Admin: 01/14/19 18:58 Dose: 250 mls/hr Insulin Detemir (Levemir) 23 unit SUBCUT QPM [facility] Last Admin: 01/14/19 21:10 Dose: 23 unit Latanoprost (Xalatan 0.005% Ophth Soln) 0 ml EYEBOTH BEDTIME [facility] Last Admin: 01/14/19 21:17 Dose: Not Given Levothyroxine Sodium (Levothyroxine) 12.5 mcg PO ACBREAKFAST [facility] Last Admin: 01/15/19 06:44 Dose: 12.5 mcg Lisinopril (Prinivil) 2.5 mg PO DAILY [facility] Last Admin: 01/15/19 07:58 Dose: 2.5 mg Metoprolol Tartrate (Lopressor) 12.5 mg PO BID [facility] Last Admin: 01/15/19 07:56 Dose: 12.5 mg Mirtazapine (Remeron) 15 mg PO BEDTIME [facility] Last Admin: 01/14/19 21:13 Dose: 15 mg Pantoprazole Sodium (Protonix) 40 mg PO ACBREAKFAST [facility] Last Admin: 01/15/19 06:45 Dose: 40 mg Rivaroxaban (Xarelto) 15 mg PO WITHDINNER [facility] Sertraline HCl (Zoloft) 50 mg PO DAILY [facility] Last Admin: 01/15/19 07:58 Dose: 50 mg Sodium Chloride (Saline Flush) 10 ml FLUSH ASDIRECTED PRN PRN Reason: Keep Vein Open Tramadol HCl (Ultram) 50 mg PO Q6H PRN PRN Reason: Pain Discontinued Medications Calcium Chloride (Calcium Chloride 10%) 1 gm IV ONETIME ONE Stop: 01/15/19 11:37 Levofloxacin 250 mg/ Dextrose/ (Water) 110 mls @ 220 mls/hr IV DAILY [facility] Last Admin: 01/14/19 21:25 Dose: Not Given Levofloxacin 250 mg/ Dextrose/ (Water) 110 mls @ 220 mls/hr IV DAILY@1999 [facility] Last Admin: 01/14/19 21:17 Dose: 220 mls/hr Insulin Human Regular (Humulin R) 5 unit IV ONETIME ONE Stop: 01/14/19 17:55 Last Admin: 01/14/19 19:21 Dose: 5 intunit Insulin Human Regular (Humulin R) Confirm Administered Dose 300 unit .ROUTE .STK -MED ONE Stop: 01/14/19 19:31 Last Admin: 01/14/19 19:39 Dose: Not Given - Exam General: Alert, Oriented, Cooperative, No Acute Distress HEENT: Pupils Equal, Pupils Reactive, Mucous Membr. Moist/[place] Neck: Supple Lungs: Clear to Auscultation, Normal Respiratory Effort Cardiovascular: Regular Rate, Regular Rhythm GI/Abdominal Exam: Normal Bowel Sounds, Soft, Non-Tender, No Distention Extremities: Normal Range of Motion Skin: Warm, Dry Neurological: No New Focal Deficit Psy/Mental Status: Alert, Normal Affect, Normal Mood EKG INTERPRETATION EKG Date: 01/15/19 Time: 10:10 Rhythm: NSR Rate (Beats/Min): 60 [place]: LAD-Left Toyah Deviation P-Wave: Present QRS: Normal ST-T: Normal QT: Normal Comparison: No Change - Problem List & Annotations (1) Hyperkalemia SNOMED Code(s): 03268670 Code(s): E87.5 - HYPERKALEMIA Status: Resolved Current Visit: Yes (2) Hypercalcemia SNOMED Code(s): 59268233 Code(s): E83.52 - HYPERCALCEMIA Status: Acute Current Visit: Yes (3) Hyperglycemia SNOMED Code(s): 46893790 Code(s): R73.9 - HYPERGLYCEMIA, UNSPECIFIED Status: Acute Current Visit: Yes - Problem List Review Problem List Initiated/Reviewed/Updated: Yes - My Orders Last 24 Hours: My Active Orders 01/14/19 17:10 Admission Diagnosis [ADT] Routine Change Admitting Physician [ADT] Routine Patient Status [ADT] Routine Intake and Output [RC] ,18 01/14/19 17:16 EKG Documentation Completion [RC] ASDIRECTED EKG 12 Lead [EK] Routine 01/14/19 17:18 Sodium Chloride 0.9% [Saline Flush] 10 ml FLUSH ASDIRECTED PRN Saline Lock Insert [OM.PC] Routine 01/14/19 17:30 Lactated Ringers [Ringers, Lactated] 1,000 ml IV ASDIRECTED 01/14/19 17:52 POC Glucose [Blood Glucose Check, Bedside] [RC] Q4HR 01/14/19 19:24 traMADol [Ultram] 50 mg PO Q6H PRN 01/14/19 19:32 Guaiac [OCCULT BLOOD DIAGNOSTIC] [OP] Routine 01/14/19 20:00 Insulin Detemir [Levemir] 23 unit SUBCUT QPM Latanoprost [Xalatan 0.005% Ophth Soln] 0 ml EYEBOTH BEDTIME Metoprolol Tartrate [Lopressor] 12.5 mg PO BID Mirtazapine [Remeron] 15 mg PO BEDTIME atorvaSTATin [Lipitor] 80 mg PO BEDTIME 01/14/19 20:01 Cardiac Monitoring [RC] 06,08,18,20 01/15/19 07:00 CULTURE MRSA SURVEY [RM] Routine Levothyroxine 12.5 mcg PO ACBREAKFAST Pantoprazole [ProTONIX] 40 mg PO ACBREAKFAST 01/15/19 08:00 EKG Documentation Completion [RC] AMPROC Clopidogrel [Plavix] 75 mg PO DAILY Furosemide [Lasix] 20 mg PO DAILY Lisinopril [Prinivil] 2.5 mg PO DAILY Sertraline [Zoloft] 50 mg PO DAILY 01/15/19 18:00 Rivaroxaban [Xarelto] 15 mg PO WITHDINNER - Assessment Assessment:: Patient feeling good with no new concerns in particular. Hypokalemia resolved with serum K 4.9 this morning. Continues to have hypocalcemia (6.8) and hyperglycemia. Plan: 1) Calcium gluconate infusion per consultation with pharmacist. 2) Continue diabetic education and reeducation. 3) Recheck serum electrolytes on 01/16. - Plan Plan:: 1) Admit to medical-surgical; status: stable. FULL CODE 2) IVF: LR 1000 mL over 4 hours 3) POC glucose q. 4 hours 5) 5 units regular insulin IV 6) Continue all home medications as previously prescribed. Including regular insulin of 23 units q. hs. 7) Repeat electrolytes and EKG in the morning; sooner for acute change.
[2019-01-15] MEDS ORDERED: Rivaroxaban 15 MG Tab PO SCH (18:00)
[2019-01-15] MEDS ORDERED: Loperamide 2 MG Cap PO PRN (19:45)
[2019-01-15] MEDS: atorvaSTATin 80 MG Tab PO SCH (20:18)
[2019-01-15] MEDS: Latanoprost 0.005% Ophth Soln 2.5 ML Bottle EYEBOTH SCH (20:19)
[2019-01-15] MEDS: Mirtazapine 15 MG Tab PO SCH (20:19)
[2019-01-15] MEDS: Insulin Detemir 100 Units/ML 3 ML Pen SUBCUT SCH (20:28)
[2019-01-16] MEDS: Pantoprazole 40 MG Tab.CR PO SCH (09:17)
[2019-01-16] MEDS: Furosemide 20 MG Tab PO SCH (09:18)
[2019-01-16] MEDS: Metoprolol Tartrate 25 MG Tab PO SCH ×2 (09:18→09:25)
[2019-01-16] MEDS: Sertraline 50 MG Tab PO SCH (09:18)
[2019-01-16 09:22] VITALS: BP 123/66
[2019-01-16] MEDS: Levothyroxine 25 MCG Tab PO SCH (09:22)
[2019-01-16] MEDS: Lisinopril 2.5 MG Tab PO SCH (09:22)
[2019-01-16] MEDS: Clopidogrel 75 MG Tab PO SCH (09:23)
--- NOTE | 2019-01-16 11:50 | PCM.DCSUM1 ---
Discharge Summary - Hospital Course Free Text/Narrative:: This patient was hospitalized for electrolyte disturbances and hyperglycemia. 1) Hypokalemia Resolved with additional regular insulin. EKG remained unchanged. 2) Hypocalcemia Improved but still low at 7.2. Patient's past medical records reveal chronic low -low normal results for Ca. She was given 1 gram of CaCl while inpatient. Patient instructed to add daily oral supplement of calcium citrate. 3) Hyperglycemia Resolved with increased monitoring and use of regular insulin for hypokalemia. Patient was instructed to follow up with her PCP this week in the clinic. Diagnosis: Stroke: No Modified [place] Scale: No Symptoms at All Modified [place] Scale Score: 0 - Discharge Data Discharge Date: 01/16/19 Discharge Disposition: Home, Self-Care 01 Condition: Good - Discharge Diagnosis/Problem(s) (1) Hyperkalemia SNOMED Code(s): 67040978 ICD Code: E87.5 - HYPERKALEMIA Status: Resolved Current Visit: Yes (2) Hypercalcemia SNOMED Code(s): 93681643 ICD Code: E83.52 - HYPERCALCEMIA Status: Chronic Priority: Medium Current Visit: Yes (3) Hyperglycemia SNOMED Code(s): 74989458 ICD Code: R73.9 - HYPERGLYCEMIA, UNSPECIFIED Status: Chronic Priority: High Current Visit: Yes - Patient Instructions Diet: Regular Diet as Tolerated Activity: As Tolerated Notify Provider of: Fever, Increased Pain, Nausea and/or Vomiting Other/Special Instructions: Start taking oral calcium citrate daily. Continue with your regular medications as previously prescribed. Make an appointment with Hanna in the clinic for a recheck in 3-4 days. - Discharge Plan *PRESCRIPTION DRUG MONITORING PROGRAM REVIEWED*: No *COPY OF PRESCRIPTION DRUG MONITORING REPORT IN PATIENT SUSAN: No Home Medications: Home Meds Furosemide 20 mg PO DAILY 03/22/17 [History] Insulin Glarg,Human.Rec.Analog [Lantus Solostar] 23 unit SUBCUT QPM 03/22/17 [ History] Sertraline HCl [Zoloft] 50 mg PO DAILY 03/22/17 [History] atorvaSTATin [Lipitor] 80 mg PO BEDTIME 03/22/17 [History] Clopidogrel Bisulfate [Clopidogrel] 75 mg PO DAILY 03/26/17 [History] Levothyroxine 12.5 mcg PO ACBREAKFAST 12/08/18 [History] traMADol HCl [Tramadol HCl] 50 mg PO Q6H PRN 12/08/18 [History] Rivaroxaban [Xarelto] 15 mg PO WITHDINNER 30 Days #30 tablet 12/09/18 [Rx] Latanoprost/Pf [Latanoprost 0.005% Eye Drop] 1 drop EYEBOTH QPM 12/15/18 [ History] Pantoprazole [ProTONIX] 40 mg PO DAILY 12/22/18 [History] Lisinopril 2.5 mg PO DAILY 01/14/19 [History] Metoprolol Tartrate 12.5 mg PO BID 01/14/19 [History] Mirtazapine 15 mg PO BEDTIME 01/14/19 [History] Patient Handouts: Form - Daily Diabetes Record, Hyperkalemia, [id number], Coping With Diabetes, Insulin Injection Instructions, Using Insulin Pens, Adult , Type 2 Diabetes Mellitus, Self Care, Adult, [id number], Carbohydrate Counting for Diabetes Mellitus, Adult, Type 2 Diabetes Mellitus, Diagnosis, Adult, [id number], Blood Glucose Monitoring, Adult, Diabetes Mellitus and Exercise, Diabetes Mellitus and Nutrition - Discharge Summary/Plan Comment DC Time >30 min.: Yes - Patient Data Vitals - Most Recent: Last Vital Signs Temp 36.8 C 01/16/19 09:31 Pulse 67 01/16/19 09:31 Resp 16 01/16/19 09:31 BP 123/66 01/16/19 09:31 Pulse Ox 99 01/16/19 09:31 Weight - Most Recent: 90.265 kg I&O - Last 24 hours: Intake & Output 01/15/19 01/16/19 01/16/19 22:59 06:59 14:59 Intake Total 1350 300 Output Total 1250 1700 Balance 100 -1400 Lab Results - Last 24 hrs: Laboratory Results - last 24 hr 01/15/19 01/15/19 01/15/19 Range/Units 10:59 17:31 23:19 Sodium (136-145) mmol/L Potassium (3.5-5.1) mmol/L Chloride (98-107) mmol/L Carbon Dioxide (21.0-32.0) mmol/L Anion Gap (5.0-15.0) mmol/L BUN (8-26) mg/dL Creatinine (0.55-1.02) mg/dL Est Cr Clr Drug Dosing Estimated GFR (MDRD) (>60) MLS/MIN BUN/Creatinine Ratio (6-25) Glucose (74-100) mg/dL POC Glucose 137 H 204 H 234 H (74-110) mg/dL Calcium (8.5-10.1) mg/dL 01/16/19 01/16/19 Range/Units 08:14 09:25 Sodium 143 (136-145) mmol/L Potassium 4.8 (3.5-5.1) mmol/L Chloride 110 H (98-107) mmol/L Carbon Dioxide 22.9 D (21.0-32.0) mmol/L Anion Gap 14.9 (5.0-15.0) mmol/L BUN 13 (8-26) mg/dL Creatinine 0.82 (0.55-1.02) mg/dL Est Cr Clr Drug Dosing TNP Estimated GFR (MDRD) > 60 (>60) MLS/MIN BUN/Creatinine Ratio 15.9 (6-25) Glucose 101 H D (74-100) mg/dL POC Glucose 97 (74-110) mg/dL Calcium 7.2 L (8.5-10.1) mg/dL HOWIE Results - Last 24 hrs: Microbiology 01/15/19 07:00 MRSA Surveillance Culture - Final Nasal, Unspecified NO MRSA ISOLATED 01/14/19 15:55 Aerobic Blood Culture - Preliminary Blood NO GROWTH AFTER 1 DAY Anaerobic Blood Culture - Preliminary NO GROWTH AFTER 1 DAY 01/14/19 15:33 Aerobic Blood Culture - Preliminary Blood NO GROWTH AFTER 1 DAY Anaerobic Blood Culture - Preliminary NO GROWTH AFTER 1 DAY 01/15/19 04:12 Clostridioides difficile (PCR) - Final Stool / Feces NEGATIVE CDIFF TOXIN Med Orders - Current: Current Medications Discontinued Medications Atorvastatin Calcium (Lipitor) 80 mg PO BEDTIME [facility] Last Admin: 01/15/19 20:18 Dose: 80 mg Calcium Chloride (Calcium Chloride 10%) 1 gm IV ONETIME ONE Stop: 01/15/19 11:37 Last Admin: 01/15/19 13:20 Dose: 1 gm Clopidogrel Bisulfate (Plavix) 75 mg PO DAILY [facility] Last Admin: 01/16/19 09:23 Dose: 75 mg Furosemide (Lasix) 20 mg PO DAILY [facility] Last Admin: 01/16/19 09:18 Dose: 20 mg Lactated Ringer's (Ringers, Lactated) 1,000 mls @ 250 mls/hr IV ASDIRECTED [facility] Last Admin: 01/14/19 18:58 Dose: 250 mls/hr Levofloxacin 250 mg/ Dextrose/ (Water) 110 mls @ 220 mls/hr IV DAILY [facility] Last Admin: 01/14/19 21:25 Dose: Not Given Levofloxacin 250 mg/ Dextrose/ (Water) 110 mls @ 220 mls/hr IV DAILY@1999 [facility] Last Admin: 01/14/19 21:17 Dose: 220 mls/hr Insulin Detemir (Levemir) 23 unit SUBCUT QPM [facility] Last Admin: 01/15/19 20:28 Dose: 23 unit Insulin Human Regular (Humulin R) 5 unit IV ONETIME ONE Stop: 01/14/19 17:55 Last Admin: 01/14/19 19:21 Dose: 5 intunit Insulin Human Regular (Humulin R) Confirm Administered Dose 300 unit .ROUTE .K -MED ONE Stop: 01/14/19 19:31 Last Admin: 01/14/19 19:39 Dose: Not Given Latanoprost (Xalatan 0.005% Ophth Soln) 0 ml EYEBOTH BEDTIME [facility] Last Admin: 01/15/19 20:19 Dose: 1 drop Levothyroxine Sodium (Levothyroxine) 12.5 mcg PO ACBREAKFAST [facility] Last Admin: 01/16/19 09:22 Dose: 12.5 mcg Lisinopril (Prinivil) 2.5 mg PO DAILY [facility] Last Admin: 01/16/19 09:22 Dose: 2.5 mg Loperamide HCl (Imodium) 4 mg PO Q6H PRN PRN Reason: Diarrhea Last Admin: 01/15/19 20:16 Dose: 4 mg Metoprolol Tartrate (Lopressor) 12.5 mg PO BID [facility] Last Admin: 01/16/19 09:25 Dose: 12.5 mg Mirtazapine (Remeron) 15 mg PO BEDTIME [facility] Last Admin: 01/15/19 20:19 Dose: 15 mg Pantoprazole Sodium (Protonix) 40 mg PO ACBREAKFAST [facility] Last Admin: 01/16/19 09:17 Dose: 40 mg Rivaroxaban (Xarelto) 15 mg PO WITHDINNER [facility] Last Admin: 01/15/19 19:10 Dose: 15 mg Sertraline HCl (Zoloft) 50 mg PO DAILY [facility] Last Admin: 01/16/19 09:18 Dose: 50 mg Sodium Chloride (Saline Flush) 10 ml FLUSH ASDIRECTED PRN PRN Reason: Keep Vein Open Tramadol HCl (Ultram) 50 mg PO Q6H PRN PRN Reason: Pain Last Admin: 01/16/19 00:47 Dose: 50 mg
== END 2019-01-16 11:00 | disposition home or self-care (01) | DRG 641 ==
LOC: LB.CLINIC 15:20 → UNDOADMIN 16:33 → LB.MS 16:33
PROVIDERS: ADMIT Nurse Practitioner; ATTEND Nurse Practitioner
DX: E87.5 Hyperkalemia (principal); E83.51 Hypocalcemia; I48.91 Unspecified atrial fibrillation; I25.10 Atherosclerotic heart disease of native coronary artery without angina pectoris; E83.52 Hypercalcemia; R73.9 Hyperglycemia, unspecified; I10 Essential (primary) hypertension; E11.65 Type 2 diabetes mellitus with hyperglycemia; Z79.4 Long term (current) use of insulin; Z79.01 Long term (current) use of anticoagulants; E53.8 Deficiency of other specified B group vitamins; I69.998 Other sequelae following unspecified cerebrovascular disease; Z95.5 Presence of coronary angioplasty implant and graft; E78.00 Pure hypercholesterolemia, unspecified; I25.2 Old myocardial infarction; K21.9 Gastro-esophageal reflux disease without esophagitis; M19.90 Unspecified osteoarthritis, unspecified site; M54.9 Dorsalgia, unspecified; G89.29 Other chronic pain; F32.9 Major depressive disorder, single episode, unspecified; Z98.84 Bariatric surgery status; H54.7 Unspecified visual loss; Z90.710 Acquired absence of both cervix and uterus
CPT/HCPCS: 36415; 80048; 80053; 82962; 83605; 84443; 85025; 87040; 87493; 93005; A9270-GY; J1815-GY; J7060; J7120

== ENCOUNTER 2019-03-12 06:07 | Emergency (ER) | payer MEDICARE ==
--- NOTE | 2019-03-12 06:53 | EDM.PDOC ---
ED HPI GENERAL MEDICAL PROBLEM - General Chief Complaint: General Stated Complaint: FELL Time Seen by Provider: 03/12/19 06:25 Source of Information: Reports: Patient History Limitations: Reports: No Limitations - History of Present Illness INITIAL COMMENTS - FREE TEXT/NARRATIVE: According to patient she claims she woke up today morning and went to use the bath room, felt weak in her leg and fell forward and to the left, his her hip against the ground and bumped her forehead against the wall, and landed on the ground. Pt claims she might have has short episodes of loss of consciousness, woke up immediately. Could not move and hence called ambulance. C/o both shoulder pain, pain over the left hip, and c/o pain over the left forehead and posterior neck pain. No tingling or numbness in the extremities. No blurry vison, nausea or vomiting, No confusion. Generalized Pain Score (Numeric/FACES): 10 - Related Data Allergies Allergy/AdvReac Type Severity Reaction Status Date / Time No Known Allergies Allergy Verified 03/12/19 06:20 Home Meds: Home Meds Furosemide 20 mg PO DAILY 03/22/17 [History] Insulin Glarg,Human.Rec.Analog [Lantus Solostar] 23 unit SUBCUT QPM 03/22/17 [ History] Sertraline HCl [Zoloft] 50 mg PO DAILY 03/22/17 [History] atorvaSTATin [Lipitor] 80 mg PO BEDTIME 03/22/17 [History] Clopidogrel Bisulfate [Clopidogrel] 75 mg PO DAILY 03/26/17 [History] Levothyroxine 12.5 mcg PO ACBREAKFAST 12/08/18 [History] traMADol HCl [Tramadol HCl] 50 mg PO Q6H PRN 12/08/18 [History] Rivaroxaban [Xarelto] 15 mg PO WITHDINNER 30 Days #30 tablet 12/09/18 [Rx] Latanoprost/Pf [Latanoprost 0.005% Eye Drop] 1 drop EYEBOTH QPM 12/15/18 [ History] Pantoprazole [ProTONIX] 40 mg PO DAILY 12/22/18 [History] Lisinopril 2.5 mg PO DAILY 01/14/19 [History] Metoprolol Tartrate 12.5 mg PO BID 01/14/19 [History] Mirtazapine 15 mg PO BEDTIME 01/14/19 [History] Past Medical History HEENT History: Reports: Impaired Vision Cardiovascular History: Reports: Afib, Angina, CAD, High Cholesterol, Hypertension, [place], Other (See Below) Other Cardiovascular History: Cartotid artery syndrome Respiratory History: Reports: None Gastrointestinal History: Reports: GERD Other Gastrointestinal History: Constipation related to vicodin Genitourinary History: Reports: None [employer] SPECIALIST History: Reports: Musculoskeletal History: Reports: Arthritis, Back Pain, Chronic, Fracture, Osteoarthritis, Osteoporosis Neurological History: Reports: CVA Other Neuro History: 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 Psychiatric History: Reports: Depression Endocrine/Metabolic History: Reports: Diabetes, Type II, Hypothyroidism Hematologic History: Reports: B12 Deficiency, Other (See Below) Other Hematologic History: gets B 12 shots monthly Immunologic History: Reports: None Oncologic (Cancer) History: Reports: None Dermatologic History: Reports: Eczema Other Dermatologic History: Rash under abdominal fold and breasts - Infectious Disease History Infectious Disease History: Reports: Chicken Pox - Past Surgical History Cardiovascular Surgical History: Reports: None GI Surgical History: Reports: Bariatric Procedure, Hernia, Abdominal, Hernia Repair/Other Female Surgical History: Reports: Section, Hysterectomy Neurological Surgical History: Reports: None Musculoskeletal Surgical History: Reports: Other (See Below) Other Musculoskeletal Surgeries/Procedures:: Surgery to fix L wrist Social & Family History - Family History Family Medical History: Noncontributory - Tobacco Use Smoking Status *Q: Never Smoker Second Hand Smoke Exposure: No - Caffeine Use Caffeine Use: Reports: Soda - Recreational Drug Use Recreational Drug Use: No ED ROS GENERAL - Review of Systems Review Of Systems: See Below Constitutional: Denies: Fever, Chills, Malaise, Diaphoresis HEENT: Denies: Ear Pain, Rhinitis, Throat Pain Respiratory: Denies: Cough, Sputum Cardiovascular: Denies: Chest Pain, Lightheadedness GI/Abdominal: Denies: Abdominal Pain, Nausea, Vomiting Musculoskeletal: Reports: Neck Pain, Shoulder Pain, Joint Pain, Muscle Pain. Denies: Joint Swelling Skin: Denies: Bruising, Pruritis, Rash Neurological: Denies: Confusion, Dizziness, Headache, Numbness, Tingling ED EXAM, GENERAL - Physical Exam Exam: See Below Exam Limited By: No Limitations General Appearance: Alert, Mild Distress, Obese Eye Exam: Bilateral Eye: EOMI, PERRL Ears: Normal External Exam, Normal Canal, Hearing Grossly Normal, Normal TMs Ear Exam: Bilateral Ear: Auricle Normal, Canal Normal, TM normal Nose: Normal Inspection, Normal Mucosa, No Blood Throat/Mouth: Normal Inspection, Normal Lips, Normal Teeth, Normal Gums, Normal Oropharynx, Normal Voice, No Airway Compromise Head: Atraumatic, Normocephalic, Other (mild left frontal tenderness, no hematoma noted). No: Facial Swelling, Facial Tenderness, Sinus Tenderness Neck: Other (presently in Neck stablisation. tender over the lower nape of the neck.No crepitus felt.) Respiratory/Chest: No Respiratory Distress, Lungs Clear, Normal Breath Sounds, No Accessory Muscle Use, Chest Non-Tender Cardiovascular: Normal Peripheral Pulses, Regular Rate, Rhythm, No Edema, No Gallop, No JVD, No Murmur, No Rub Back Exam: Normal Inspection, Full Range of Motion Extremities: Other (Right Hip> pt is tender over the femoral head and the greater trochanter. Limited ROm around the hip. Shoulder tender over the anterior shoulder to palpation. Painful ROM of both shoulder. Head: No deformity noted, mild tenderness over the left forehead. Neck: tender over the lower cervical spine.) Neurological: Alert, Oriented, CN II-XII Intact, Normal Cognition Course - Vital Signs Text/Narrative:: Pt's Left hip And pelvis Xray appears normal. Her B/L shoulder Xray shows no fracture. Also CT head and C-spine are negative. Pt did receive dilaudid 1mg in the emergency room. Patient reassured that she does not have any acute fractures other then soft tissue injury. Pt advised cold compresses to the area of pain. Also started on vicodin 5/325 3 times daily as needed ( as patient is on palvix and Xarellto cannot used NSAIDS) and flexeril 5mg twice daily. Family to closely monitor patient for fall.. Advised to take it easy. Followup in clinic next week for recheck. Last Recorded V/S: Last Vital Signs Temp 97.8 F 03/12/19 06:15 Pulse 68 03/12/19 07:54 Resp 16 03/12/19 07:54 BP 160/70 H 03/12/19 07:54 Pulse Ox 92 L 03/12/19 07:54 - Orders/Labs/Meds Orders: Active Orders 24 hr Category Date Time Status Cervical Spine wo Cont [CT] Stat Exams 03/12/19 06:40 Taken Head wo Cont [CT] Stat Exams 03/12/19 06:40 Taken Hip Min 1V w Pelvis Lt [CR] Stat Exams 03/12/19 06:40 Taken Shoulder 1V Bi [CR] Stat Exams 03/12/19 07:18 Taken Sodium Chloride 0.9% [Saline Flush] Med 03/12/19 06:54 Active 10 ml FLUSH ASDIRECTED PRN Peripheral IV Insertion Adult [OM.PC] Routine Oth 03/12/19 06:54 Ordered Medication Orders Sodium Chloride (Saline Flush) 10 ml FLUSH ASDIRECTED PRN PRN Reason: Keep Vein Open Labs: Laboratory Tests 03/12/19 Range/Units 06:50 WBC 12.6 H (4.0-11.0) K/uL RBC 5.60 (3.80-5.80) M/uL Hgb 11.9 (11.5-16.5) g/dL Hct 38.9 (37.0-47.0) % MCV 70 L (76-96) fL MCH 21.3 L (27.0-32.0) pg MCHC 30.6 L (31.0-35.0) g/dL RDW 19.7 H (11.0-16.0) % Plt Count 306 (150-500) K/uL MPV 10.1 H (6.0-10.0) fL Neut % (Auto) 73.6 H (45.0-70.0) % Lymph % (Auto) 18.2 L (20.0-40.0) % [place] % (Auto) 5.9 (3.0-10.0) % Eos % (Auto) 1.7 (1.0-5.0) % Baso % (Auto) 0.6 H (0.0-0.5) % Neut # (Auto) 9.28 H (2.00-7.50) K/uL Lymph # (Auto) 2.30 (1.50-4.00) K/uL [place] # (Auto) 0.75 (0.20-0.80) K/uL Eos # (Auto) 0.22 (0.04-0.40) K/uL Baso # (Auto) 0.08 (0.02-0.10) K/uL Meds: Medications Generic Name Dose Route Start Last Admin Trade Name Freq PRN Reason Stop Dose Admin Sodium Chloride 10 ml 03/12/19 06:54 Saline Flush FLUSH ASDIRECTED PRN Keep Vein Open Discontinued Medications Generic Name Dose Route Start Last Admin Trade Name Freq PRN Reason Stop Dose Admin Hydromorphone HCl 1 mg 03/12/19 06:55 03/12/19 07:01 Dilaudid IM 03/12/19 06:56 1 mg ONETIME ONE Administration Departure - Departure Time of Disposition: 08:45 Disposition: Home, Self-Care 01 Condition: Good Clinical Impression: Pain of soft tissue of extremity, Neck strain, Fall - Discharge Information *PRESCRIPTION DRUG MONITORING PROGRAM REVIEWED*: Not Applicable *COPY OF PRESCRIPTION DRUG MONITORING REPORT IN PATIENT SUSAN: Not Applicable Referrals: PCP,None [Primary Care Provider] - Forms: ED Department Discharge Additional Instructions: Pt's Left hip And pelvis Xray appears normal. Her B/L shoulder Xray shows no fracture. Also CT head and C-spine are negative. Pt did receive dilaudid 1mg in the emergency room. Patient reassured that she does not have any acute fractures other then soft tissue injury. Pt advised cold compresses to the area of pain. Also started on vicodin 5/325 3 times daily as needed ( as patient is on palvix and Xarellto cannot used NSAIDS) and flexeril 5mg twice daily. Family to closely monitor patient for fall.. Advised to take it easy. Followup in clinic next week for recheck. - Problem List & Annotations (1) Fall SNOMED Code(s): 6483023, 368722246 Code(s): W19.XXXA - UNSPECIFIED FALL, INITIAL ENCOUNTER Status: Acute Current Visit: Yes (2) Neck strain SNOMED Code(s): 367592501 Code(s): S16.1XXA - STRAIN OF MUSCLE, FASCIA AND TENDON AT NECK LEVEL, INIT Status: Acute Current Visit: Yes (3) Pain of soft tissue of extremity SNOMED Code(s): 37386848, 16588983 Code(s): M79.609 - PAIN IN UNSPECIFIED LIMB Status: Acute Current Visit: Yes - Problem List Review Problem List Initiated/Reviewed/Updated: Yes - My Orders Last 24 Hours: My Active Orders 05/18/19 06:40 Cervical Spine wo Cont [CT] Stat Head wo Cont [CT] Stat Hip Min 1V w Pelvis Lt [CR] Stat 03/12/19 06:54 Sodium Chloride 0.9% [Saline Flush] 10 ml FLUSH ASDIRECTED PRN Peripheral IV Insertion Adult [OM.PC] Routine 03/12/19 07:18 Shoulder 1V Bi [CR] Stat - Assessment/Plan Last 24 Hours: My Active Orders 03/12/19 06:40 Cervical Spine wo Cont [CT] Stat Head wo Cont [CT] Stat Hip Min 1V w Pelvis Lt [CR] Stat 03/12/19 06:54 Sodium Chloride 0.9% [Saline Flush] 10 ml FLUSH ASDIRECTED PRN Peripheral IV Insertion Adult [OM.PC] Routine 03/12/19 07:18 Shoulder 1V Bi [CR] Stat Assessment:: S/P fall Neck strain Soft tissue injury of the extremities Plan: Pt's Left hip And pelvis Xray appears normal. Her B/L shoulder Xray shows no fracture. Also CT head and C-spine are negative. Pt did receive dilaudid 1mg in the emergency room. Patient reassured that she does not have any acute fractures other then soft tissue injury. Pt advised cold compresses to the area of pain. Also started on vicodin 5/325 3 times daily as needed ( as patient is on palvix and Xarellto cannot used NSAIDS) and flexeril 5mg twice daily. Family to closely monitor patient for fall.. Advised to take it easy. Followup in clinic next week for recheck.
[2019-03-12] MEDS ORDERED: Sodium Chloride 0.9% 10 ML Syringe FLUSH PRN (06:54)
[2019-03-12] MEDS ORDERED: HYDROmorphone 2 MG/ML SDV IM ONE (06:55)
[2019-03-12] MEDS ORDERED: Acetaminophen/HYDROcodone 325-5 MG Tab ONE (07:10)
[2019-03-12] MEDS ORDERED: Cyclobenzaprine 10 MG Tab ONE (07:10)
[2019-03-12 07:55] VITALS: BP 160/70
--- NOTE | 2019-03-13 10:34 | CRLCT ---
DATE OF SERVICE: 03/12/19 CLINICAL DATA: fall and hit head with short episodes of LOC UNENHANCED BRAIN CT: Nontraditional positioning was utilized. No priors. There is diffuse cerebral atrophy. There are periventricular lucencies bilaterally, consistent with small vessel ischemic change. No masses or mass effect. No intracranial hemorrhage. No evidence of acute or subacute infarct. No fractures. There is mucosal thickening in the right sphenoid and ethmoid sinuses, consistent with chronic sinusitis. No air fluid levels. IMPRESSION: No acute intracranial abnormalities. [id number] [facility]
--- NOTE | 2019-03-13 10:36 | CR ---
DATE OF SERVICE: 03/12/19 CLINICAL DATA: fall with hip pain PELVIS AND LEFT HIP: No acute fracture or dislocation. No lytic or blastic bone lesions. [id number] [facility]
--- NOTE | 2019-03-13 10:38 | CR ---
DATE OF SERVICE: 03/12/19 CLINICAL DATA: fall RIGHT SHOULDER: A single AP view was performed. There are osteoarthritic changes of the AC and glenohumeral joints. I do not see evidence of a fracture or dislocation, however a single view is inadequate to evaluate for traumatic injury. IMPRESSION: Incomplete exam. LEFT SHOULDER: A single view was performed. No evidence of fracture or dislocation, however a single view is inadequate to exclude traumatic injury. IMPRESSION: Incomplete exam. [id number] [facility]
--- NOTE | 2019-03-13 10:44 | CRLCT ---
DATE OF SERVICE: 03/12/19 CLINICAL DATA: fall with posterior neck pain CERVICAL SPINE CT: Multislice axial acquisition was performed. Axial images and sagittal and coronal reformations are reviewed. No acute fracture or dislocation. No lytic or blastic bone lesions. There is degenerative disc disease at multiple levels. There is a partially calcified nodule in the left lobe of the thyroid. Thyroid ultrasound is recommended. No other significant findings. IMPRESSION: No acute abnormalities. [id number] [facility]
== END 2019-03-12 09:10 | disposition home or self-care (01) ==
LOC: LB.ED 06:07
DX: S16.1XXA Strain of muscle, fascia and tendon at neck level, initial encounter (principal); M25.511 Pain in right shoulder; M25.512 Pain in left shoulder; M25.551 Pain in right hip; R51 Headache; I48.91 Unspecified atrial fibrillation; I25.10 Atherosclerotic heart disease of native coronary artery without angina pectoris; E78.00 Pure hypercholesterolemia, unspecified; I10 Essential (primary) hypertension; K21.9 Gastro-esophageal reflux disease without esophagitis; E11.9 Type 2 diabetes mellitus without complications; E03.9 Hypothyroidism, unspecified; Z79.899 Other long term (current) drug therapy; Z79.4 Long term (current) use of insulin; W18.39XA Other fall on same level, initial encounter; Z79.01 Long term (current) use of anticoagulants
CPT/HCPCS: 36415; 70450; 72125; 73020; 73501; 85025; 96372; 99284; A0425; A0429; A9270; J1170; 99283

== ENCOUNTER 2020-04-27 03:16 | Emergency (ER) | payer MEDICARE ==
--- NOTE | 2020-04-27 03:38 | EDM.PDOC ---
ED HPI GENERAL MEDICAL PROBLEM - General Chief Complaint: Neurological Problem Stated Complaint: unresponsive Time Seen by Provider: 04/27/20 03:16 Source of Information: Reports: Patient, EMS, Old Records History Limitations: Reports: Altered Mental Status - History of Present Illness INITIAL COMMENTS - FREE TEXT/NARRATIVE: Patient is a 69 y/o female, with PMHx significant for IDDM, HTN, HLD, AFIB (on Xarelto), CAD, [place], CVA (2006), B12 deficiency, and hypothyroidism, who presents via EMS for altered mental status. Mental alarm company was activated. Patient lives alone and it is unknown if patient is wheelchair bound. EMS talked with daughter, MAK, and she stated that patient needed help off the toilet last night and was at her baseline prior to going to bed. Patient normally alert and talking/answering questions appropriately. EMS administered narcan, as patient takes tramadol, without any improvement. EMS state that patient was initially non-verbal, but began answering yes/no questions on the ride to the ED. She occasionally would move her upper extremities, but not purposefully and was not assisting with her transport. Patient states that she is not having any pain, denies vision changes, N/V, chest pain, abdominal pain, or headache. When asked if she can move her extremities, she said no. - Related Data Allergies Allergy/AdvReac Type Severity Reaction Status Date / Time No Known Allergies Allergy Verified 03/12/19 06:20 Home Meds: Home Meds Furosemide 20 mg PO DAILY 03/22/17 [History] Insulin Glarg,Human.Rec.Analog [Lantus Solostar] 23 unit SUBCUT QPM 03/22/17 [History] Sertraline HCl [Zoloft] 50 mg PO DAILY 03/22/17 [History] atorvaSTATin [Lipitor] 80 mg PO BEDTIME 03/22/17 [History] Clopidogrel Bisulfate [Clopidogrel] 75 mg PO DAILY 03/26/17 [History] Levothyroxine 12.5 mcg PO ACBREAKFAST 12/08/18 [History] traMADol HCl [Tramadol HCl] 50 mg PO Q6H PRN 12/08/18 [History] Rivaroxaban [Xarelto] 15 mg PO WITHDINNER 30 Days #30 tablet 12/09/18 [Rx] Latanoprost/Pf [Latanoprost 0.005% Eye Drop] 1 drop EYEBOTH QPM 12/15/18 [History] Pantoprazole [ProTONIX] 40 mg PO DAILY 12/22/18 [History] Lisinopril 2.5 mg PO DAILY 01/14/19 [History] Metoprolol Tartrate 12.5 mg PO BID 01/14/19 [History] Mirtazapine 15 mg PO BEDTIME 01/14/19 [History] Past Medical History HEENT History: Reports: Impaired Vision Cardiovascular History: Reports: Afib, Angina, CAD, High Cholesterol, Hypertension, [place], Other (See Below) Other Cardiovascular History: Cartotid artery syndrome Respiratory History: Reports: None Gastrointestinal History: Reports: GERD Other Gastrointestinal History: Constipation related to vicodin Genitourinary History: Reports: None FLAT SURFACER History: Reports: Musculoskeletal History: Reports: Arthritis, Back Pain, Chronic, Fracture, Osteoarthritis, Osteoporosis Neurological History: Reports: CVA Other Neuro History: 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 Psychiatric History: Reports: Depression Endocrine/Metabolic History: Reports: Diabetes, Type II, Hypothyroidism Hematologic History: Reports: B12 Deficiency, Other (See Below) Other Hematologic History: gets B 12 shots monthly Immunologic History: Reports: None Oncologic (Cancer) History: Reports: None Dermatologic History: Reports: Eczema Other Dermatologic History: Rash under abdominal fold and breasts - Infectious Disease History Infectious Disease History: Reports: Chicken Pox - Past Surgical History Cardiovascular Surgical History: Reports: None GI Surgical History: Reports: Bariatric Procedure, Hernia, Abdominal, Hernia Repair/Other Female Surgical History: Reports: Section, Hysterectomy Neurological Surgical History: Reports: None Musculoskeletal Surgical History: Reports: Other (See Below) Other Musculoskeletal Surgeries/Procedures:: Surgery to fix L wrist Social & Family History - Family History Family Medical History: Noncontributory - Caffeine Use Caffeine Use: Reports: Soda ED ROS GENERAL - Review of Systems Review Of Systems: Comprehensive ROS is negative, except as noted in HPI. (patient states she is unable to move her extremities, but denies any sensory abnormalities) - Physical Exam Exam: See Below Exam Limited By: Altered Mental Status General Appearance: Lethargic Eye Exam: Bilateral Eye: PERRL Ears: Normal External Exam Nose: Normal Inspection, Normal Mucosa, No Blood Head Exam: Atraumatic, Normocephalic Neck: Normal Inspection, Supple, Non-Tender Respiratory/Chest: No Respiratory Distress, Lungs Clear, Normal Breath Sounds, No Accessory Muscle Use, Chest Non-Tender Cardiovascular: Normal Peripheral Pulses, No JVD, No Murmur, Tachycardia, Irregularly Irregular, Other GI/Abdominal: Normal Bowel Sounds, Soft, Non-Tender, No Distention Neuro Exam (Abbreviated): Inattentive, Sensory/Motor Deficit, Other Extremities: Normal Inspection, Normal Capillary Refill, Pedal Edema, Redness, Other Skin Exam: Warm, Dry, Rash (Large, mobile mass to right chest that is non- tender. Patient unable to squeeze my hands when asked or move lower extremities. pitting edema +2 bilateral lower extremities. Contusion to right lateral [place]. Erythematous rash under bilateral breast with white discharge. Patient lethargic, but responds with verbal stimulation and can answer yes/no questions. Winces with pain, but no purposefully movements to avoid pain. Speech isn't slurred and no facial droop. When asked to move extremities or participate in exam, patient states she can't. ) Course - Vital Signs Text/Narrative:: Patient was alert and oriented after CT HEAD. She was moving her extremities and GCS is 15 and NIH scale is 0. Labs with leukocytosis, hyperglycemia, and elevated BNP. Discussed with Dr. Acosta ([facility]). Cardizem gtt started, Rocephin and Vanco started, and 1 L bolus fluid given. COVID negative. HR is more controlled in the 110s-120s. BP improved to 113/64. Patient in the 90s on 4 L NC. No ACLS ambulance available for transport, will fly patient by helicopter to [facility] for direct admission to telemetry (accepting physician, Dr. Acosta). Patient updated, understands and agreeable to treatment plan. Left another message for daughter, Mak. - Orders/Labs/Meds Orders: Active Orders 24 hr Category Date Time Status EKG Documentation Completion [RC] ASDIRECTED Care 04/27/20 03:26 Active Chest 1V Frontal [CR] Stat Exams 04/27/20 03:19 Taken Head wo Cont [CT] Stat Exams 04/27/20 03:21 Taken CULTURE BLOOD [BC] Stat Lab 04/27/20 03:26 Received CULTURE BLOOD [BC] Stat Lab 04/27/20 04:00 Received Diltiazem [Cardizem] 100 mg Med 04/27/20 05:15 Active Sodium Chloride 0.9% [Normal Saline] 100 ml IV TITRATE cefTRIAXone [Rocephin] Med 04/27/20 05:15 Active 1 gm IVPUSH Q24H Medication Orders Ceftriaxone Sodium (Rocephin) 1 gm IVPUSH Q24H DANN Last Admin: 04/27/20 05:36 Dose: 1 gm Documented by: DOUG Diltiazem HCl 100 mg/ Sodium (Chloride) 100 mls @ 5 mls/hr IV TITRATE DANN; Protocol Last Admin: 04/27/20 05:30 Dose: 5 mg/hr, 5 mls/hr Documented by: DOUG Labs: Laboratory Tests 04/27/20 04/27/20 04/27/20 Range/Units 03:21 03:21 03:21 WBC 15.1 H (4.0-11.0) K/uL RBC 4.68 (3.80-5.80) M/uL Hgb 13.5 (11.5-16.5) g/dL Hct 42.0 (37.0-47.0) % MCV 90 D (76-96) fL MCH 28.8 D (27.0-32.0) pg MCHC 32.1 (31.0-35.0) g/dL RDW 17.5 H (11.0-16.0) % Plt Count 154 D (150-500) K/uL MPV 13.1 H (6.0-10.0) fL Neut % (Auto) 83.1 H (45.0-70.0) % Lymph % (Auto) 10.1 L (20.0-40.0) % [place] % (Auto) 4.9 (3.0-10.0) % Eos % (Auto) 1.4 (1.0-5.0) % Baso % (Auto) 0.5 (0.0-0.5) % Neut # (Auto) 12.52 H (2.00-7.50) K/uL Lymph # (Auto) 1.52 (1.50-4.00) K/uL [place] # (Auto) 0.74 (0.20-0.80) K/uL Eos # (Auto) 0.21 (0.04-0.40) K/uL Baso # (Auto) 0.08 (0.02-0.10) K/uL PT (9.0-11.5) sec INR (1.0-3.5) APTT (24.4-33.2) SECONDS Sodium 140 (136-145) mmol/L Potassium 3.9 D (3.5-5.1) mmol/L Chloride 106 (98-107) mmol/L Carbon Dioxide 26.0 (21.0-32.0) mmol/L Anion Gap 11.9 (5.0-15.0) mmol/L BUN 19 (8-26) mg/dL Creatinine 1.15 H (0.55-1.02) mg/dL Est Cr Clr Drug Dosing TNP Estimated GFR (MDRD) 47 L (>60) MLS/MIN BUN/Creatinine Ratio 16.5 (6-25) Glucose 321 H D (74-100) mg/dL Lactic Acid 2.4 H (0.4-2.0) mmol/L Calcium 8.3 L (8.5-10.1) mg/dL Total Bilirubin 0.4 (0.0-1.0) mg/dL AST 14 L (15-37) U/L ALT 24 (12-78) U/L Alkaline Phosphatase 173 H (46-116) U/L Lactate Dehydrogenase (81-234) U/L B-Natriuretic Peptide 1128 H D (0-125) pg/mL Total Protein 6.6 (6.4-8.2) g/dL Albumin 2.9 L (3.4-5.0) g/dL Globulin 3.7 (2.2-4.2) g/dL Albumin/Globulin Ratio 0.8 (0.8-2.0) Urine Color Urine Appearance (CLEAR) Urine pH (5.0-8.0) Ur Specific [place] (1.003-1.030) Urine Protein (NEGATIVE) mg/dL Urine Glucose (UA) (NEGATIVE) mg/dL Urine Ketones (NEGATIVE) mg/dL Urine Occult Blood (NEGATIVE) Urine Nitrite (NEGATIVE) Urine Bilirubin (NEGATIVE) Urine Urobilinogen (0.2-1.0) E.U./dL Ur Leukocyte Esterase (NEGATIVE) U Hyaline Cast (Auto) /HPF Urine RBC /HPF Urine WBC Ur Epithelial Cells /HPF Urine Bacteria /HPF Fine Granular Casts /HPF Urine Opiates Screen (NEGATIVE) Ur Oxycodone Screen (NEGATIVE) Urine Methadone Screen (NEGATIVE) Ur Barbiturates Screen (NEGATIVE) Ur Tricyclics Screen (NEGATIVE) Ur Phencyclidine Scrn (NEGATIVE) Ur Amphetamine Screen (NEGATIVE) U Methamphetamines Scrn (NEGATIVE) Urine MDMA Screen (NEGATIVE) U Benzodiazepines Scrn (NEGATIVE) U Cocaine Metab Screen (NEGATIVE) U Marijuana (THC) Screen (NEGATIVE) SARS-CoV-2 RNA (RT-PCR) 04/27/20 04/27/20 04/27/20 Range/Units 03:24 03:26 04:10 WBC (4.0-11.0) K/uL RBC (3.80-5.80) M/uL Hgb (11.5-16.5) g/dL Hct (37.0-47.0) % MCV (76-96) fL MCH (27.0-32.0) pg MCHC (31.0-35.0) g/dL RDW (11.0-16.0) % Plt Count (150-500) K/uL MPV (6.0-10.0) fL Neut % (Auto) (45.0-70.0) % Lymph % (Auto) (20.0-40.0) % [place] % (Auto) (3.0-10.0) % Eos % (Auto) (1.0-5.0) % Baso % (Auto) (0.0-0.5) % Neut # (Auto) (2.00-7.50) K/uL Lymph # (Auto) (1.50-4.00) K/uL [place] # (Auto) (0.20-0.80) K/uL Eos # (Auto) (0.04-0.40) K/uL Baso # (Auto) (0.02-0.10) K/uL PT 11.6 H (9.0-11.5) sec INR 1.1 (1.0-3.5) APTT 25.9 (24.4-33.2) SECONDS Sodium (136-145) mmol/L Potassium (3.5-5.1) mmol/L Chloride (98-107) mmol/L Carbon Dioxide (21.0-32.0) mmol/L Anion Gap (5.0-15.0) mmol/L BUN (8-26) mg/dL Creatinine (0.55-1.02) mg/dL Est Cr Clr Drug Dosing Estimated GFR (MDRD) (>60) MLS/MIN BUN/Creatinine Ratio (6-25) Glucose (74-100) mg/dL Lactic Acid (0.4-2.0) mmol/L Calcium (8.5-10.1) mg/dL Total Bilirubin (0.0-1.0) mg/dL AST (15-37) U/L ALT (12-78) U/L Alkaline Phosphatase (46-116) U/L Lactate Dehydrogenase 210 (81-234) U/L B-Natriuretic Peptide (0-125) pg/mL Total Protein (6.4-8.2) g/dL Albumin (3.4-5.0) g/dL Globulin (2.2-4.2) g/dL Albumin/Globulin Ratio (0.8-2.0) Urine Color Urine Appearance (CLEAR) Urine pH (5.0-8.0) Ur Specific [place] (1.003-1.030) Urine Protein (NEGATIVE) mg/dL Urine Glucose (UA) (NEGATIVE) mg/dL Urine Ketones (NEGATIVE) mg/dL Urine Occult Blood (NEGATIVE) Urine Nitrite (NEGATIVE) Urine Bilirubin (NEGATIVE) Urine Urobilinogen (0.2-1.0) E.U./dL Ur Leukocyte Esterase (NEGATIVE) U Hyaline Cast (Auto) /HPF Urine RBC /HPF Urine WBC Ur Epithelial Cells /HPF Urine Bacteria /HPF Fine Granular Casts /HPF Urine Opiates Screen Negative (NEGATIVE) Ur Oxycodone Screen Negative (NEGATIVE) Urine Methadone Screen Negative (NEGATIVE) Ur Barbiturates Screen Negative (NEGATIVE) Ur Tricyclics Screen Negative (NEGATIVE) Ur Phencyclidine Scrn Negative (NEGATIVE) Ur Amphetamine Screen Negative (NEGATIVE) U Methamphetamines Scrn Negative (NEGATIVE) Urine MDMA Screen Negative (NEGATIVE) U Benzodiazepines Scrn Negative (NEGATIVE) U Cocaine Metab Screen Negative (NEGATIVE) U Marijuana (THC) Screen Negative (NEGATIVE) SARS-CoV-2 RNA (RT-PCR) 04/27/20 04/27/20 Range/Units 04:10 05:20 WBC (4.0-11.0) K/uL RBC (3.80-5.80) M/uL Hgb (11.5-16.5) g/dL Hct (37.0-47.0) % MCV (76-96) fL MCH (27.0-32.0) pg MCHC (31.0-35.0) g/dL RDW (11.0-16.0) % Plt Count (150-500) K/uL MPV (6.0-10.0) fL Neut % (Auto) (45.0-70.0) % Lymph % (Auto) (20.0-40.0) % [place] % (Auto) (3.0-10.0) % Eos % (Auto) (1.0-5.0) % Baso % (Auto) (0.0-0.5) % Neut # (Auto) (2.00-7.50) K/uL Lymph # (Auto) (1.50-4.00) K/uL [place] # (Auto) (0.20-0.80) K/uL Eos # (Auto) (0.04-0.40) K/uL Baso # (Auto) (0.02-0.10) K/uL PT (9.0-11.5) sec INR (1.0-3.5) APTT (24.4-33.2) SECONDS Sodium (136-145) mmol/L Potassium (3.5-5.1) mmol/L Chloride (98-107) mmol/L Carbon Dioxide (21.0-32.0) mmol/L Anion Gap (5.0-15.0) mmol/L BUN (8-26) mg/dL Creatinine (0.55-1.02) mg/dL Est Cr Clr Drug Dosing Estimated GFR (MDRD) (>60) MLS/MIN BUN/Creatinine Ratio (6-25) Glucose (74-100) mg/dL Lactic Acid (0.4-2.0) mmol/L Calcium (8.5-10.1) mg/dL Total Bilirubin (0.0-1.0) mg/dL AST (15-37) U/L ALT (12-78) U/L Alkaline Phosphatase (46-116) U/L Lactate Dehydrogenase (81-234) U/L B-Natriuretic Peptide (0-125) pg/mL Total Protein (6.4-8.2) g/dL Albumin (3.4-5.0) g/dL Globulin (2.2-4.2) g/dL Albumin/Globulin Ratio (0.8-2.0) Urine Color Yellow Urine Appearance Clear (CLEAR) Urine pH 5.5 (5.0-8.0) Ur Specific [place] 1.025 (1.003-1.030) Urine Protein Trace H (NEGATIVE) mg/dL Urine Glucose (UA) 250 H (NEGATIVE) mg/dL Urine Ketones Negative (NEGATIVE) mg/dL Urine Occult Blood Negative (NEGATIVE) Urine Nitrite Negative (NEGATIVE) Urine Bilirubin Negative (NEGATIVE) Urine Urobilinogen 0.2 (0.2-1.0) E.U./dL Ur Leukocyte Esterase Negative (NEGATIVE) U Hyaline Cast (Auto) Rare /HPF Urine RBC 0-5 H /HPF Urine WBC Not Reportable Ur Epithelial Cells Few /HPF Urine Bacteria Few /HPF Fine Granular Casts Rare /HPF Urine Opiates Screen (NEGATIVE) Ur Oxycodone Screen (NEGATIVE) Urine Methadone Screen (NEGATIVE) Ur Barbiturates Screen (NEGATIVE) Ur Tricyclics Screen (NEGATIVE) Ur Phencyclidine Scrn (NEGATIVE) Ur Amphetamine Screen (NEGATIVE) U Methamphetamines Scrn (NEGATIVE) Urine MDMA Screen (NEGATIVE) U Benzodiazepines Scrn (NEGATIVE) U Cocaine Metab Screen (NEGATIVE) U Marijuana (THC) Screen (NEGATIVE) SARS-CoV-2 RNA (RT-PCR) Negative Meds: Medications Generic Name Dose Route Start Last Admin Trade Name Freq PRN Reason Stop Dose Admin Ceftriaxone Sodium 1 gm 04/27/20 05:15 04/27/20 05:36 Rocephin IVPUSH 1 gm Q24H DANN Administration Diltiazem HCl 100 mg/ Sodium 100 mls @ 5 mls/hr 04/27/20 05:15 04/27/20 05:30 Chloride IV 5 mg/hr TITRATE DANN 5 mls/hr Administration Protocol 5 MG/HR Discontinued Medications Generic Name Dose Route Start Last Admin Trade Name Freq PRN Reason Stop Dose Admin Ceftriaxone Sodium Confirm 04/27/20 05:37 Rocephin Administered 04/27/20 05:38 Dose 1 gm .ROUTE .STK-MED ONE Sodium Chloride 500 mls @ 500 mls/sec 04/27/20 04:17 04/27/20 05:44 Normal Saline IV 04/27/20 04:18 500 mls/sec .BOLUS ONE Administration Vancomycin HCl 1 gm/ Sodium 250 mls @ 167 mls/hr 04/27/20 05:07 Chloride IV 04/27/20 06:36 ONETIME ONE Departure - Departure Time of Disposition: 07:00 Disposition: DC/Tfer to [facility] 02 Condition: Fair Clinical Impression: Sepsis Qualifiers: Sepsis type: sepsis due to unspecified organism Sepsis acute organ dysfunction status: unspecified Qualified Code(s): A41.9 - Sepsis, unspecified organism - Discharge Information *PRESCRIPTION DRUG MONITORING PROGRAM REVIEWED*: Not Applicable *COPY OF PRESCRIPTION DRUG MONITORING REPORT IN PATIENT SUSAN: Not Applicable - My Orders Last 24 Hours: My Active Orders 04/27/20 03:19 Chest 1V Frontal [CR] Stat 04/27/20 03:21 Head wo Cont [CT] Stat 04/27/20 03:26 EKG Documentation Completion [RC] ASDIRECTED CULTURE BLOOD [BC] Stat 04/27/20 04:00 CULTURE BLOOD [BC] Stat 04/27/20 05:15 Diltiazem [Cardizem] 100 mg Sodium Chloride 0.9% [Normal Saline] 100 ml IV TITRATE cefTRIAXone [Rocephin] 1 gm IVPUSH Q24H - Assessment/Plan Last 24 Hours: My Active Orders 04/27/20 03:19 Chest 1V Frontal [CR] Stat 04/27/20 03:21 Head wo Cont [CT] Stat 04/27/20 03:26 EKG Documentation Completion [RC] ASDIRECTED CULTURE BLOOD [BC] Stat 04/27/20 04:00 CULTURE BLOOD [BC] Stat 04/27/20 05:15 Diltiazem [Cardizem] 100 mg Sodium Chloride 0.9% [Normal Saline] 100 ml IV TITRATE cefTRIAXone [Rocephin] 1 gm IVPUSH Q24H Assessment:: Patient with altered mental status and unable to participate in examination. Patient tachycardic, hypoxic (requiring 4 L via NC), and hypotensive (105/58). Infection vs Stroke. Plan: Called daughter, MAK, and left message to call back ([phone]). CBC, CMP, LACTATE, BLOOD CULTURES X2, PTT, PT/INR, UA, DRUG SCREEN, EKG, CXR, CT HEAD W/O CONTRAST.
[2020-04-27] MEDS: Diltiazem 100 MG in Sodium Chloride 0.9% 100 ML IV SCH (05:30)
[2020-04-27] MEDS: cefTRIAXone 1 GM Vial IVPUSH SCH (05:36)
[2020-04-27] MEDS: Sodium Chloride 0.9% 500 ML IV ONE (05:44)
[2020-04-27 06:53] VITALS: BP 96/72; PULSE 125
--- NOTE | 2020-04-27 08:07 | CT ---
DATE OF SERVICE: 04/27/20 CLINICAL DATA: decreased LOC UNENHANCED BRAIN CT: Multislice acquisition through the brain without IV contrast was performed. Comparison is made to a prior exam dated 03/12/19. There is diffuse cerebral atrophy. There is a basal ganglia lucency on the right consistent with an old lacunar infarct. There are periventricular lucencies bilaterally consistent with small vessel ischemic change. No masses or mass effect. No intracranial hemorrhage. No evidence of acute or subacute infarct. No osseous abnormalities. IMPRESSION: No acute intracranial abnormalities. [id number] [facility]
--- NOTE | 2020-04-27 08:21 | CR ---
DATE OF SERVICE: 04/27/20 CLINICAL DATA: SOB AP CHEST: Comparison is made to a prior exam dated 12/15/18. The patient has taken a poor inspiration. The heart size is within normal limits. There is a subtle ground glass opacity in the right perihilar region suspicious for pneumonia/pneumonitis. The lungs are otherwise clear. No peripheral consolidation or effusions. No pneumothorax. No other significant findings. [id number] [facility]
[2020-04-30] MEDS: cefTRIAXone 1 GM Vial ONE (00:31)
== END 2020-04-27 07:45 ==
LOC: LB.ED 03:16
DX: A41.9 Sepsis, unspecified organism (principal); I48.91 Unspecified atrial fibrillation; I25.10 Atherosclerotic heart disease of native coronary artery without angina pectoris; E78.00 Pure hypercholesterolemia, unspecified; I10 Essential (primary) hypertension; I25.2 Old myocardial infarction; K21.9 Gastro-esophageal reflux disease without esophagitis; E11.9 Type 2 diabetes mellitus without complications; E03.9 Hypothyroidism, unspecified; F32.9 Major depressive disorder, single episode, unspecified; Z79.02 Long term (current) use of antithrombotics/antiplatelets; Z79.01 Long term (current) use of anticoagulants; Z79.4 Long term (current) use of insulin; Z79.899 Other long term (current) drug therapy; Z20.828 Contact with and (suspected) exposure to other viral communicable diseases; Z86.73 Personal history of transient ischemic attack (TIA), and cerebral infarction without residual deficits
CPT/HCPCS: 36415; 70450; 71045; 80053; 80307; 81001; 83605; 83615; 83880; 85025; 85610; 85730; 87040; 93005; 96361; 96365; 96366; 96368; 99285; A0425; A0429; J0696; J3370; J3490; J7040; J7050; U0002

== ENCOUNTER 2020-05-02 09:43 | Inpatient (IN) | payer MEDICARE, OTHER ==
[2020-05-02] MEDS ORDERED: Tuberculin, PPD 5 Units/0.1 ML 1 ML MDV IDERM ONE (19:30)
--- NOTE | 2020-05-02 21:05 | PCM.HP.2 ---
H&P History of Present Illness - General Date of Service: 05/02/20 Admit Problem/Dx: Admission Diagnosis/Problem Admission Diagnosis/Problem Weakness Source of Information: Patient, Old Records History Limitations: Reports: No Limitations - History of Present Illness Initial Comments - Free Text/Narative: pt was originally seen in [place] [facility] for Afib with RVR and transferred to [facility] where she was treated with amlodipine and her metoprolol was changed to succinate and dose increased to 50mg. during her hospital course she was found to be quite physically deconditioned with a Vit D deficiency. pt also treated for cellulitis with rocephin then changed to keflex upon discharge from inpatient. pt states she experiences most of her problems with balance and is here for therapy to improve that. - Related Data Allergies/Adverse Reactions: Allergies Allergy/AdvReac Type Severity Reaction Status Date / Time No Known Allergies Allergy Verified 03/12/19 06:20 Home Medications: Home Meds Furosemide 20 mg PO DAILY 03/22/17 [History] Insulin Glarg,Human.Rec.Analog [Lantus Solostar] 23 unit SUBCUT QPM 03/22/17 [History] Sertraline HCl [Zoloft] 50 mg PO DAILY 03/22/17 [History] atorvaSTATin [Lipitor] 80 mg PO BEDTIME 03/22/17 [History] Clopidogrel Bisulfate [Clopidogrel] 75 mg PO DAILY 03/26/17 [History] Levothyroxine 12.5 mcg PO ACBREAKFAST 12/08/18 [History] traMADol HCl [Tramadol HCl] 50 mg PO Q6H PRN 12/08/18 [History] Rivaroxaban [Xarelto] 15 mg PO WITHDINNER 30 Days #30 tablet 12/09/18 [Rx] Latanoprost/Pf [Latanoprost 0.005% Eye Drop] 1 drop EYEBOTH QPM 12/15/18 [History] Pantoprazole [ProTONIX] 40 mg PO DAILY 12/22/18 [History] Lisinopril 2.5 mg PO DAILY 01/14/19 [History] Metoprolol Tartrate 12.5 mg PO BID 01/14/19 [History] Mirtazapine 15 mg PO BEDTIME 01/14/19 [History] Past Medical History HEENT History: Reports: Impaired Vision Cardiovascular History: Reports: Afib, Angina, CAD, High Cholesterol, Hypertension, [place], Other (See Below) Other Cardiovascular History: Cartotid artery syndrome Respiratory History: Reports: None Gastrointestinal History: Reports: GERD Other Gastrointestinal History: Constipation related to vicodin Genitourinary History: Reports: None [employer] History: Reports: Musculoskeletal History: Reports: Arthritis, Back Pain, Chronic, Fracture, Osteoarthritis, Osteoporosis Neurological History: Reports: CVA Other Neuro History: 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 Psychiatric History: Reports: Depression Endocrine/Metabolic History: Reports: Diabetes, Type II, Hypothyroidism Hematologic History: Reports: B12 Deficiency, Other (See Below) Other Hematologic History: gets B 12 shots monthly Immunologic History: Reports: None Oncologic (Cancer) History: Reports: None Dermatologic History: Reports: Eczema Other Dermatologic History: Rash under abdominal fold and breasts - Infectious Disease History Infectious Disease History: Reports: Chicken Pox - Past Surgical History Cardiovascular Surgical History: Reports: None GI Surgical History: Reports: Bariatric Procedure, Hernia, Abdominal, Hernia Repair/Other Female Surgical History: Reports: Section, Hysterectomy Neurological Surgical History: Reports: None Musculoskeletal Surgical History: Reports: Other (See Below) Other Musculoskeletal Surgeries/Procedures:: Surgery to fix L wrist Social & Family History - Family History Family Medical History: Noncontributory - Tobacco Use Smoking Status *Q: Never Smoker Second Hand Smoke Exposure: Yes - Caffeine Use Caffeine Use: Reports: Coffee, Soda H&P Review of Systems - Review of Systems: Review Of Systems: Comprehensive ROS is negative, except as noted in HPI. Exam - Exam Exam: See Below - Vital Signs Weight: 250 lb - Exam Quality Assessment: Supplemental Oxygen General: Alert, Oriented HEENT: PERRLA, EOMI, Hearing Intact Lungs: Clear to Auscultation, Normal Respiratory Effort Cardiovascular: Regular Rate, Regular Rhythm, Normal S1, Normal S2, Other (+2 pitting edema bilateral LE) Extremities: Leg Pain (bilateral), Redness (right LE cellulitis. erythema retreating from previous skin marker lines.) Peripheral Pulses: 2+: Radial (L), Radial (R) Skin: Warm, Dry, Intact Neuro Extensive - Mental Status: Alert, Oriented x3 Neuro Extensive - Motor, Sensory, Reflexes: CN II-XII Intact Psychiatric: Alert, Normal Affect, Normal Mood Sepsis Event Note - Focused Exam Date Exam was Performed: 05/02/20 Time Exam was Performed: 20:59 - Problem List (1) Physical deconditioning SNOMED Code(s): 31967587862608 ICD Code: R53.81 - OTHER MALAISE Status: Acute Current Visit: Yes (2) Diabetes mellitus, type II, insulin dependent SNOMED Code(s): 591058232 ICD Code: E11.9 - TYPE 2 DIABETES MELLITUS WITHOUT COMPLICATIONS; Z79.4 - CORRECTION (CURRENT) USE OF INSULIN Status: Acute Current Visit: Yes (3) Cellulitis of lower leg SNOMED Code(s): 170461640 ICD Code: L03.119 - CELLULITIS OF UNSPECIFIED PART OF LIMB Status: Acute Current Visit: Yes Problem List Initiated/Reviewed/Updated: Yes Orders Last 24hrs: Active Orders 24 hr Category Date Time Status Patient Status [ADT] Routine ADT 05/02/20 20:42 Ordered Blood Glucose Check, Bedside [RC] TIDMEALS Care 05/02/20 20:54 Ordered Oxygen Therapy [RC] PRN Care 05/02/20 20:42 Ordered Oxygen Therapy [RC] PRN Care 05/02/20 20:54 Ordered Up With Assistance [RC] ASDIRECTED Care 05/02/20 20:54 Ordered VTE/DVT Education [RC] Per Unit Routine Care 05/02/20 20:42 Ordered Vital Signs [RC] Q4H Care 05/02/20 20:42 Ordered OT Evaluation and Treatment [CONS] Routine Cons 05/02/20 20:54 Ordered PT Evaluation and Treatment [CONS] Routine Cons 05/02/20 20:54 Ordered Heart Healthy Diet [DIET] Diet 05/03/20 Breakfast Ordered CULTURE MRSA SURVEY [RM] Routine Lab 05/02/20 19:30 Ordered Clopidogrel [Plavix] Med 05/03/20 08:00 Ordered 75 mg PO DAILY Clotrimazole [Clotrimazole 1%] Med 05/03/20 08:00 Ordered See Dose Instructions TOP BID Furosemide [Lasix] Med 05/03/20 08:00 Ordered 20 mg PO DAILY Insulin Glarg,Human.Rec.Analog [LantUS Solostar] Med 05/03/20 20:00 Ordered 25 units SUBCUT QPM Latanoprost/Pf [Latanoprost 0.005% Eye Drop] Med 05/03/20 20:00 Ordered 1 drop EYEBOTH QPM Levothyroxine Med 05/03/20 07:00 Ordered 12.5 mcg PO ACBREAKFAST Metoprolol Succinate [Toprol XL] Med 05/03/20 08:00 Ordered 50 mg PO DAILY Mirtazapine [Remeron] Med 05/03/20 20:00 Ordered 15 mg PO BEDTIME Pantoprazole [ProTONIX] Med 05/03/20 08:00 Ordered 40 mg PO DAILY Rivaroxaban [Xarelto] Med 05/03/20 18:00 Ordered 15 mg PO WITHDINNER Sertraline [Zoloft] Med 05/03/20 08:00 Ordered 50 mg PO DAILY amLODIPine [Norvasc] Med 05/03/20 08:00 Ordered 5 mg PO DAILY atorvaSTATin [Lipitor] Med 05/03/20 20:00 Ordered 80 mg PO BEDTIME cephALEXin [Keflex] Med 05/03/20 08:00 Ordered 500 mg PO BID glipiZIDE [Glucotrol] Med 05/03/20 08:00 Ordered 5 mg PO DAILY lisinopriL [Prinivil] Med 05/03/20 08:00 Ordered 2.5 mg PO DAILY traMADol [Ultram] Med 05/02/20 20:24 Ordered 50 mg PO Q6H PRN Resuscitation Status Routine Resus Stat 05/02/20 20:42 Ordered Medication Orders Amlodipine Besylate (Norvasc) 5 mg PO DAILY DANN Atorvastatin Calcium (Lipitor) 80 mg PO BEDTIME DANN Cephalexin (Keflex) 500 mg PO BID [facility] Clopidogrel Bisulfate (Plavix) 75 mg PO DAILY [facility] Clotrimazole (Clotrimazole 1%) 0 gm TOP BID DANN Furosemide (Lasix) 20 mg PO DAILY D[facility] Glipizide (Glucotrol) 5 mg PO DAILY D[facility] Insulin Glargine (Lantus Solostar) 25 units SUBCUT QPM D[facility] Levothyroxine Sodium (Levothyroxine) 12.5 mcg PO ACBREAKFAST DANN Lisinopril (Prinivil) 2.5 mg PO DAILY D[facility] Metoprolol Succinate (Toprol Xl) 50 mg PO DAILY D[facility] Mirtazapine (Remeron) 15 mg PO BEDTIME DANN Non-Formulary Medication (Latanoprost/Pf [Latanoprost 0.005% Eye Drop]) 1 drop EYEBOTH QPM [facility] Pantoprazole Sodium (Protonix) 40 mg PO DAILY [facility] Rivaroxaban (Xarelto) 15 mg PO WITHDINNER [facility] Sertraline HCl (Zoloft) 50 mg PO DAILY [facility] Tramadol HCl (Ultram) 50 mg PO Q6H PRN PRN Reason: Pain Assessment/Plan Comment:: assessment/plan: 1. deconditioning; PT OT starting tomorrow 2. diabetes; TID blood glucose monitoring x24 hours then daily 3. cellulitis of right lower leg: PO keflex, monitor for treatment success. - Mortality Measure Prognosis:: Good
[2020-05-02] MEDS ORDERED: Clotrimazole 1% Crm 15 GM Tube ONE (21:58)
[2020-05-03] MEDS: Cephalexin 500 MG Cap PO SCH ×3 (05:35→19:34)
[2020-05-03] MEDS: Pantoprazole 40 MG Tab.CR PO SCH (07:24)
[2020-05-03] MEDS: Levothyroxine 25 MCG Tab PO SCH (07:24)
[2020-05-03] MEDS: Clopidogrel 75 MG Tab PO SCH (09:00)
[2020-05-03] MEDS: Furosemide 20 MG Tab PO SCH (09:00)
[2020-05-03] MEDS: Lisinopril 2.5 MG Tab PO SCH (09:00)
[2020-05-03] MEDS: Sertraline 50 MG Tab PO SCH (09:00)
[2020-05-03] MEDS: glipiZIDE 5 MG Tab PO SCH (09:00)
[2020-05-03] MEDS: amLODIPine 5 MG Tab PO SCH (09:00)
[2020-05-03] MEDS: Metoprolol Succinate 50 MG Tab.ER PO SCH (09:00)
[2020-05-03] MEDS: Clotrimazole 1% Crm 15 GM Tube TOP SCH ×2 (11:01→21:03)
[2020-05-03] MEDS: traMADol 50 MG Tab PO PRN (15:51)
[2020-05-03] MEDS ORDERED: Rivaroxaban 15 MG Tab PO SCH (18:00)
[2020-05-03] MEDS ORDERED: Rivaroxaban 10 MG Tab ONE (18:23)
[2020-05-03] MEDS: Mirtazapine 15 MG Tab PO SCH (19:34)
[2020-05-03] MEDS: atorvaSTATin 80 MG Tab PO SCH (19:34)
[2020-05-03] MEDS: Insulin Glargine,Human Rec. Analog 100 Units/ML 3 ML Pen SUBCUT SCH (19:38)
[2020-05-03] MEDS: Latanoprost 0.005% Ophth Soln 2.5 ML Bottle EYEBOTH SCH (19:43)
[2020-05-04] MEDS: Pantoprazole 40 MG Tab.CR PO SCH (06:50)
[2020-05-04] MEDS: Levothyroxine 25 MCG Tab PO SCH (06:50)
[2020-05-04] MEDS: traMADol 50 MG Tab PO PRN ×2 (06:50→16:38)
[2020-05-04] MEDS: Metoprolol Succinate 50 MG Tab.ER PO SCH (07:44)
[2020-05-04] MEDS: Furosemide 20 MG Tab PO SCH (07:44)
[2020-05-04] MEDS: amLODIPine 5 MG Tab PO SCH (07:47)
[2020-05-04] MEDS: Lisinopril 2.5 MG Tab PO SCH (07:47)
[2020-05-04] MEDS: Sertraline 50 MG Tab PO SCH (07:48)
[2020-05-04] MEDS: Clopidogrel 75 MG Tab PO SCH (07:48)
[2020-05-04] MEDS: Cephalexin 500 MG Cap PO SCH ×2 (07:48→19:19)
[2020-05-04] MEDS: glipiZIDE 5 MG Tab PO SCH (07:48)
[2020-05-04] MEDS ORDERED: Cyanocobalamin (Vitamin B12) 1,000 MCG/ML SDV IM ONE (09:44)
[2020-05-04] MEDS: Clotrimazole 1% Crm 15 GM Tube TOP SCH ×2 (10:31→20:08)
[2020-05-04] MEDS ORDERED: Rivaroxaban 10 MG Tab PO SCH (18:00)
[2020-05-04] MEDS ORDERED: Rivaroxaban 15 MG Tab PO SCH (18:00)
[2020-05-04] MEDS: Mirtazapine 15 MG Tab PO SCH (19:18)
[2020-05-04] MEDS: Acetaminophen 650 MG Tab.ER PO PRN (19:18)
[2020-05-04] MEDS: atorvaSTATin 80 MG Tab PO SCH (19:18)
[2020-05-04] MEDS: Rivaroxaban 10 MG Tab PO SCH (19:18)
[2020-05-04] MEDS: Insulin Glargine,Human Rec. Analog 100 Units/ML 3 ML Pen SUBCUT SCH (19:24)
[2020-05-05] MEDS: traMADol 50 MG Tab PO PRN ×2 (02:50→20:15)
[2020-05-05] MEDS: Pantoprazole 40 MG Tab.CR PO SCH (07:12)
[2020-05-05] MEDS: Levothyroxine 25 MCG Tab PO SCH (07:12)
[2020-05-05] MEDS: Furosemide 20 MG Tab PO SCH (08:06)
[2020-05-05] MEDS: Sertraline 50 MG Tab PO SCH (08:06)
[2020-05-05] MEDS: Lisinopril 2.5 MG Tab PO SCH (08:07)
[2020-05-05] MEDS: Metoprolol Succinate 50 MG Tab.ER PO SCH (08:07)
[2020-05-05] MEDS: amLODIPine 5 MG Tab PO SCH (08:08)
[2020-05-05] MEDS: Cephalexin 500 MG Cap PO SCH ×2 (08:09→20:10)
[2020-05-05] MEDS: glipiZIDE 5 MG Tab PO SCH (08:09)
[2020-05-05] MEDS: Clopidogrel 75 MG Tab PO SCH (08:11)
[2020-05-05] MEDS: Clotrimazole 1% Crm 15 GM Tube TOP SCH ×2 (16:32→20:48)
[2020-05-05] MEDS: Rivaroxaban 10 MG Tab PO SCH (17:17)
[2020-05-05] MEDS: Insulin Glargine,Human Rec. Analog 100 Units/ML 3 ML Pen SUBCUT SCH (20:12)
[2020-05-05] MEDS: atorvaSTATin 80 MG Tab PO SCH (20:15)
[2020-05-05] MEDS: Acetaminophen 650 MG Tab.ER PO PRN (20:16)
[2020-05-05] MEDS: Mirtazapine 15 MG Tab PO SCH (20:16)
[2020-05-05] MEDS ORDERED: Clotrimazole 1% Crm 15 GM Tube TOP PRN (20:51)
[2020-05-06] MEDS: Pantoprazole 40 MG Tab.CR PO SCH (07:22)
[2020-05-06] MEDS: Levothyroxine 25 MCG Tab PO SCH (07:22)
[2020-05-06] MEDS: Lisinopril 2.5 MG Tab PO SCH (08:54)
[2020-05-06] MEDS: amLODIPine 5 MG Tab PO SCH (08:54)
[2020-05-06] MEDS: Sertraline 50 MG Tab PO SCH (08:54)
[2020-05-06] MEDS: glipiZIDE 5 MG Tab PO SCH (08:54)
[2020-05-06] MEDS: Cephalexin 500 MG Cap PO SCH ×2 (08:54→19:32)
[2020-05-06] MEDS: Furosemide 20 MG Tab PO SCH (08:55)
[2020-05-06] MEDS: Clopidogrel 75 MG Tab PO SCH (08:55)
[2020-05-06] MEDS: Metoprolol Succinate 50 MG Tab.ER PO SCH (08:55)
[2020-05-06] MEDS: traMADol 50 MG Tab PO PRN ×2 (12:53→19:32)
[2020-05-06] MEDS: Acetaminophen 650 MG Tab.ER PO PRN (15:59)
[2020-05-06] MEDS: Rivaroxaban 10 MG Tab PO SCH (17:10)
[2020-05-06] MEDS: atorvaSTATin 80 MG Tab PO SCH (19:32)
[2020-05-06] MEDS: Mirtazapine 15 MG Tab PO SCH (19:32)
[2020-05-06] MEDS: Insulin Glargine,Human Rec. Analog 100 Units/ML 3 ML Pen SUBCUT SCH (19:36)
[2020-05-07] MEDS: Acetaminophen 650 MG Tab.ER PO PRN ×2 (03:01→09:28)
[2020-05-07] MEDS: traMADol 50 MG Tab PO PRN ×3 (03:01→17:16)
[2020-05-07] MEDS: Pantoprazole 40 MG Tab.CR PO SCH (06:27)
[2020-05-07] MEDS: Levothyroxine 25 MCG Tab PO SCH (06:27)
[2020-05-07] MEDS: amLODIPine 5 MG Tab PO SCH (08:22)
[2020-05-07] MEDS: Clopidogrel 75 MG Tab PO SCH (08:22)
[2020-05-07] MEDS: Furosemide 20 MG Tab PO SCH (08:22)
[2020-05-07] MEDS: glipiZIDE 5 MG Tab PO SCH (08:22)
[2020-05-07] MEDS: Lisinopril 2.5 MG Tab PO SCH (08:23)
[2020-05-07] MEDS: Metoprolol Succinate 50 MG Tab.ER PO SCH (08:23)
[2020-05-07] MEDS: Sertraline 50 MG Tab PO SCH (08:24)
[2020-05-07] MEDS: Cephalexin 500 MG Cap PO SCH ×2 (08:24→19:30)
--- NOTE | 2020-05-07 08:32 | PCM.PN ---
- General Info Date of Service: 05/07/20 Functional Status: Reports: Pain Controlled, Tolerating Diet, Ambulating - Review of Systems General: Reports: Weakness HEENT: Reports: No Symptoms Pulmonary: Reports: No Symptoms Cardiovascular: Reports: No Symptoms Gastrointestinal: Reports: No Symptoms Genitourinary: Reports: No Symptoms Musculoskeletal: Reports: No Symptoms Skin: Reports: No Symptoms Neurological: Reports: Weakness - Patient Data Vitals - Most Recent: Last Vital Signs Temp 36.3 C 05/06/20 10:00 Pulse 63 05/07/20 08:23 Resp 20 05/06/20 10:00 BP 133/64 05/07/20 08:23 Pulse Ox 95 05/06/20 10:00 Weight - Most Recent: 111.584 kg Lab Results Last 24 Hours: Laboratory Results - last 24 hr 05/06/20 Range/Units 18:35 POC Glucose 170 H (74-110) mg/dL Med Orders - Current: Current Medications Acetaminophen (Tylenol Arthritis Pain) 650 mg PO Q6HR PRN PRN Reason: Pain Last Admin: 05/07/20 03:01 Dose: 650 mg Documented by: Amlodipine Besylate (Norvasc) 5 mg PO DAILY [facility] Last Admin: 05/07/20 08:22 Dose: 5 mg Documented by: Atorvastatin Calcium (Lipitor) 80 mg PO BEDTIME [facility] Last Admin: 05/06/20 19:32 Dose: 80 mg Documented by: Cephalexin (Keflex) 500 mg PO BID [facility] Stop: 05/10/20 08:01 Last Admin: 05/07/20 08:24 Dose: 500 mg Documented by: Clopidogrel Bisulfate (Plavix) 75 mg PO DAILY [facility] Last Admin: 05/07/20 08:22 Dose: 75 mg Documented by: Clotrimazole (Clotrimazole 1%) 0 gm TOP BID PRN PRN Reason: Rash Ergocalciferol (Vitamin D2) 1.25 mg PO Q7D [facility] Stop: 07/24/20 08:01 Furosemide (Lasix) 20 mg PO DAILY [facility] Last Admin: 05/07/20 08:22 Dose: 20 mg Documented by: Glipizide (Glucotrol) 5 mg PO DAILY [facility] Last Admin: 05/07/20 08:22 Dose: 5 mg Documented by: Insulin Glargine (Lantus Solostar) 25 units SUBCUT QPM [facility] Last Admin: 05/06/20 19:36 Dose: 25 units Documented by: Latanoprost (Xalatan 0.005% Ophth Soln) 0 ml EYEBOTH QPM [facility] Last Admin: 05/03/20 19:43 Dose: Not Given Documented by: Levothyroxine Sodium (Levothyroxine) 12.5 mcg PO ACBREAKFAST [facility] Last Admin: 05/07/20 06:27 Dose: 12.5 mcg Documented by: Lisinopril (Prinivil) 2.5 mg PO DAILY [facility] Last Admin: 05/07/20 08:23 Dose: 2.5 mg Documented by: Metoprolol Succinate (Toprol Xl) 50 mg PO DAILY [facility] Last Admin: 05/07/20 08:23 Dose: 50 mg Documented by: Mirtazapine (Remeron) 15 mg PO BEDTIME [facility] Last Admin: 05/06/20 19:32 Dose: 15 mg Documented by: Pantoprazole Sodium (Protonix) 40 mg PO ACBREAKFAST [facility] Last Admin: 05/07/20 06:27 Dose: 40 mg Documented by: Rivaroxaban (Xarelto) 15 mg PO WITHDINNER [facility] Last Admin: 05/06/20 17:10 Dose: 15 mg Documented by: Sertraline HCl (Zoloft) 50 mg PO DAILY [facility] Last Admin: 05/07/20 08:24 Dose: 50 mg Documented by: Tramadol HCl (Ultram) 50 mg PO Q6H PRN PRN Reason: Pain Last Admin: 05/07/20 03:01 Dose: 50 mg Documented by: Discontinued Medications Cephalexin (Keflex) 500 mg PO BID [facility] Last Admin: 05/03/20 19:34 Dose: 500 mg Documented by: Clotrimazole (Clotrimazole 1%) 0 gm TOP BID [facility] Last Admin: 05/05/20 20:48 Dose: Not Given Documented by: Clotrimazole (Clotrimazole 1%) Confirm Administered Dose 15 gm .ROUTE .STK-MED ONE Stop: 05/02/20 21:59 Last Admin: 05/02/20 22:24 Dose: 1 applic Documented by: Cyanocobalamin (Vitamin B12) 1,000 mcg IM ONETIME ONE Stop: 05/04/20 09:45 Last Admin: 05/04/20 11:24 Dose: 1,000 mcg Documented by: Rivaroxaban (Xarelto) 15 mg PO WITHDINNER [facility] Last Admin: 05/03/20 18:27 Dose: 15 mg Documented by: Rivaroxaban (Xarelto) Confirm Administered Dose 20 mg .ROUTE .STK-MED ONE Stop: 05/03/20 18:24 Last Admin: 05/03/20 18:26 Dose: Not Given Documented by: Rivaroxaban (Xarelto) 15 mg PO WITHDINNER [facility] Rivaroxaban (Xarelto) 15 mg PO WITHDINNER [facility] Tuberculin PPD (Aplisol) 5 unit IDERM ONETIME ONE Stop: 05/02/20 19:31 Last Admin: 05/02/20 21:10 Dose: 5 unit Documented by: - Exam General: Alert, Oriented, Cooperative HEENT: Pupils Equal, Pupils Reactive, EOMI Neck: Supple Lungs: Clear to Auscultation, Normal Respiratory Effort Cardiovascular: Regular Rate, Irregular Rhythm Extremities: Normal Inspection Skin: Warm, Dry, Intact Neurological: No New Focal Deficit Sepsis Event Note - Evaluation Sepsis Screening Result: No Definite Risk - Focused Exam Vital Signs: Vital Signs Pulse BP 05/07/20 08:23 63 133/64 05/07/20 08:22 133/64 Date Exam was Performed: 05/07/20 Time Exam was Performed: 08:27 - Problem List & Annotations (1) Generalized muscle weakness SNOMED Code(s): 09563082, 39666554 Code(s): M62.81 - MUSCLE WEAKNESS (GENERALIZED) Status: Acute Current Visit: Yes (2) Atrial fibrillation with RVR SNOMED Code(s): 593788844655408 Code(s): I48.91 - UNSPECIFIED ATRIAL FIBRILLATION Status: Acute Current Visit: No - Problem List Review Problem List Initiated/Reviewed/Updated: Yes - My Orders Last 24 Hours: My Active Orders 05/06/20 16:40 Skin Care [OM.PC] DAILY 05/07/20 16:40 Skin Care [OM.PC] DAILY 05/08/20 16:40 Skin Care [OM.PC] DAILY 05/09/20 16:40 Skin Care [OM.PC] DAILY 05/10/20 16:40 Skin Care [OM.PC] DAILY 05/11/20 16:40 Skin Care [OM.PC] DAILY 05/12/20 16:40 Skin Care [OM.PC] DAILY - Plan Plan:: assessment/plan: 1. deconditioning; PT OT starting tomorrow 2. diabetes; TID blood glucose monitoring x24 hours then daily 3. cellulitis of right lower leg: PO keflex, monitor for treatment success. 05/07/20 Patient to continue PT/OT for generalized weakness and deconditioning. Improvement gradual, no changes to this plan of care. Continue with current DM monitoring and schedule. F/u Cellulitis as directed. Improvement seen with no changes to care.
[2020-05-07] MEDS: Rivaroxaban 10 MG Tab PO SCH (17:12)
[2020-05-07] MEDS: Mirtazapine 15 MG Tab PO SCH (19:30)
[2020-05-07] MEDS: Insulin Glargine,Human Rec. Analog 100 Units/ML 3 ML Pen SUBCUT SCH (19:30)
[2020-05-07] MEDS: atorvaSTATin 80 MG Tab PO SCH (19:30)
[2020-05-08] MEDS: traMADol 50 MG Tab PO PRN ×3 (00:10→17:37)
[2020-05-08] MEDS: Levothyroxine 25 MCG Tab PO SCH (07:38)
[2020-05-08] MEDS: Pantoprazole 40 MG Tab.CR PO SCH (07:38)
[2020-05-08] MEDS: glipiZIDE 5 MG Tab PO SCH (08:22)
[2020-05-08] MEDS: Cephalexin 500 MG Cap PO SCH ×2 (08:24→20:02)
[2020-05-08] MEDS: Furosemide 20 MG Tab PO SCH (08:24)
[2020-05-08] MEDS: Clopidogrel 75 MG Tab PO SCH (08:25)
[2020-05-08] MEDS: Sertraline 50 MG Tab PO SCH (08:27)
[2020-05-08] MEDS: Metoprolol Succinate 50 MG Tab.ER PO SCH (08:33)
[2020-05-08] MEDS: Lisinopril 2.5 MG Tab PO SCH (08:34)
[2020-05-08] MEDS: amLODIPine 5 MG Tab PO SCH (08:34)
[2020-05-08] MEDS: Acetaminophen 650 MG Tab.ER PO PRN ×2 (08:36→17:36)
[2020-05-08] MEDS: Ergocalciferol (Vitamin D2) 1.25 MG Cap PO SCH (12:46)
--- NOTE | 2020-05-08 16:56 | PCM.PRNOTE ---
- Free Text/Narrative Note: Prepped right big toe nail sterilely and injected 1% lidocaine around nail bed and nail. Spatula used to lift nail and hemostat used to remove nail. Phenol used at nailbed. Dressed, bacitracin used and wrapped. No complications.
[2020-05-08] MEDS: Rivaroxaban 10 MG Tab PO SCH (17:36)
[2020-05-08] MEDS: atorvaSTATin 80 MG Tab PO SCH (20:02)
[2020-05-08] MEDS: Mirtazapine 15 MG Tab PO SCH (20:02)
[2020-05-08] MEDS: Insulin Glargine,Human Rec. Analog 100 Units/ML 3 ML Pen SUBCUT SCH (20:04)
[2020-05-09] MEDS: Acetaminophen 650 MG Tab.ER PO PRN ×3 (03:15→19:42)
[2020-05-09] MEDS: traMADol 50 MG Tab PO PRN ×3 (03:15→19:42)
[2020-05-09] MEDS: Pantoprazole 40 MG Tab.CR PO SCH (06:37)
[2020-05-09] MEDS: Levothyroxine 25 MCG Tab PO SCH (06:38)
[2020-05-09] MEDS: Metoprolol Succinate 50 MG Tab.ER PO SCH (09:04)
[2020-05-09] MEDS: Cephalexin 500 MG Cap PO SCH ×2 (09:04→19:42)
[2020-05-09] MEDS: Lisinopril 2.5 MG Tab PO SCH (09:09)
[2020-05-09] MEDS: Clopidogrel 75 MG Tab PO SCH (09:10)
[2020-05-09] MEDS: amLODIPine 5 MG Tab PO SCH (09:10)
[2020-05-09] MEDS: Sertraline 50 MG Tab PO SCH (09:11)
[2020-05-09] MEDS: Furosemide 20 MG Tab PO SCH (09:11)
[2020-05-09] MEDS: glipiZIDE 5 MG Tab PO SCH (09:14)
[2020-05-09] MEDS: Rivaroxaban 10 MG Tab PO SCH (17:33)
[2020-05-09] MEDS: atorvaSTATin 80 MG Tab PO SCH (19:41)
[2020-05-09] MEDS: Mirtazapine 15 MG Tab PO SCH (19:42)
[2020-05-09] MEDS: Insulin Glargine,Human Rec. Analog 100 Units/ML 3 ML Pen SUBCUT SCH (19:46)
[2020-05-10] MEDS: Pantoprazole 40 MG Tab.CR PO SCH ×2 (05:32→06:04)
[2020-05-10] MEDS: Acetaminophen 650 MG Tab.ER PO PRN ×2 (05:32→19:38)
[2020-05-10] MEDS: Levothyroxine 25 MCG Tab PO SCH ×2 (05:32→06:04)
[2020-05-10] MEDS: Clopidogrel 75 MG Tab PO SCH (07:27)
[2020-05-10] MEDS: Sertraline 50 MG Tab PO SCH (07:27)
[2020-05-10] MEDS: Furosemide 20 MG Tab PO SCH (07:27)
[2020-05-10] MEDS: Lisinopril 2.5 MG Tab PO SCH (07:27)
[2020-05-10] MEDS: amLODIPine 5 MG Tab PO SCH (07:28)
[2020-05-10] MEDS: glipiZIDE 5 MG Tab PO SCH (07:28)
[2020-05-10] MEDS: Metoprolol Succinate 50 MG Tab.ER PO SCH (07:28)
[2020-05-10] MEDS: Cephalexin 500 MG Cap PO SCH (07:28)
[2020-05-10 09:45] LABS: HEMOGLOBIN A1C 8.8 % (< 5.7)
[2020-05-10] MEDS: Rivaroxaban 10 MG Tab PO SCH (18:54)
[2020-05-10] MEDS: Insulin Glargine,Human Rec. Analog 100 Units/ML 3 ML Pen SUBCUT SCH (19:35)
[2020-05-10] MEDS: Mirtazapine 15 MG Tab PO SCH (19:38)
[2020-05-10] MEDS: traMADol 50 MG Tab PO PRN (19:38)
[2020-05-10] MEDS: atorvaSTATin 80 MG Tab PO SCH (19:38)
[2020-05-10] MEDS: Latanoprost 0.005% Ophth Soln 2.5 ML Bottle EYEBOTH SCH (21:26)
[2020-05-11] MEDS: traMADol 50 MG Tab PO PRN ×3 (01:02→18:26)
[2020-05-11] MEDS: Acetaminophen 650 MG Tab.ER PO PRN (06:33)
[2020-05-11] MEDS: Pantoprazole 40 MG Tab.CR PO SCH (07:16)
[2020-05-11] MEDS: Levothyroxine 25 MCG Tab PO SCH (07:17)
[2020-05-11] MEDS: Metoprolol Succinate 50 MG Tab.ER PO SCH (08:00)
[2020-05-11] MEDS: Lisinopril 2.5 MG Tab PO SCH (08:49)
[2020-05-11] MEDS: glipiZIDE 5 MG Tab PO SCH (08:49)
[2020-05-11] MEDS: amLODIPine 5 MG Tab PO SCH (08:52)
[2020-05-11] MEDS: Clopidogrel 75 MG Tab PO SCH (08:53)
[2020-05-11] MEDS: Furosemide 20 MG Tab PO SCH (08:53)
[2020-05-11] MEDS: Sertraline 50 MG Tab PO SCH (08:53)
[2020-05-11] MEDS: Rivaroxaban 10 MG Tab PO SCH (18:00)
[2020-05-11] MEDS: Mirtazapine 15 MG Tab PO SCH (20:12)
[2020-05-11] MEDS: atorvaSTATin 80 MG Tab PO SCH (20:12)
[2020-05-11] MEDS: Insulin Glargine,Human Rec. Analog 100 Units/ML 3 ML Pen SUBCUT SCH (20:12)
[2020-05-12] MEDS: Pantoprazole 40 MG Tab.CR PO SCH (07:18)
[2020-05-12] MEDS: traMADol 50 MG Tab PO PRN ×3 (07:18→22:53)
[2020-05-12] MEDS: Levothyroxine 25 MCG Tab PO SCH (07:20)
[2020-05-12] MEDS: glipiZIDE 5 MG Tab PO SCH (08:04)
[2020-05-12] MEDS: Sertraline 50 MG Tab PO SCH (08:05)
[2020-05-12] MEDS: amLODIPine 5 MG Tab PO SCH (08:05)
[2020-05-12] MEDS: Lisinopril 2.5 MG Tab PO SCH (08:05)
[2020-05-12] MEDS: Furosemide 20 MG Tab PO SCH (08:06)
[2020-05-12] MEDS: Metoprolol Succinate 50 MG Tab.ER PO SCH (08:06)
[2020-05-12] MEDS: Clopidogrel 75 MG Tab PO SCH (08:06)
[2020-05-12] MEDS: Rivaroxaban 10 MG Tab PO SCH (17:42)
[2020-05-12] MEDS: Insulin Glargine,Human Rec. Analog 100 Units/ML 3 ML Pen SUBCUT SCH (19:46)
[2020-05-12] MEDS: Mirtazapine 15 MG Tab PO SCH (19:46)
[2020-05-12] MEDS: atorvaSTATin 80 MG Tab PO SCH (19:46)
[2020-05-13] MEDS: amLODIPine 5 MG Tab PO SCH (07:42)
[2020-05-13] MEDS: Sertraline 50 MG Tab PO SCH (07:42)
[2020-05-13] MEDS: Clopidogrel 75 MG Tab PO SCH (07:42)
[2020-05-13] MEDS: glipiZIDE 5 MG Tab PO SCH (07:42)
[2020-05-13] MEDS: Pantoprazole 40 MG Tab.CR PO SCH (07:42)
[2020-05-13] MEDS: Lisinopril 2.5 MG Tab PO SCH (07:42)
[2020-05-13] MEDS: Levothyroxine 25 MCG Tab PO SCH (07:42)
[2020-05-13] MEDS: Furosemide 20 MG Tab PO SCH (07:43)
[2020-05-13] MEDS: Metoprolol Succinate 50 MG Tab.ER PO SCH (07:43)
[2020-05-13] MEDS: traMADol 50 MG Tab PO PRN ×2 (07:43→17:14)
[2020-05-13] MEDS: Latanoprost 0.005% Ophth Soln 2.5 ML Bottle EYEBOTH SCH ×3 (10:02→19:41)
[2020-05-13] MEDS: Rivaroxaban 10 MG Tab PO SCH (19:56)
[2020-05-13] MEDS: Mirtazapine 15 MG Tab PO SCH (19:57)
[2020-05-13] MEDS: atorvaSTATin 80 MG Tab PO SCH (19:57)
[2020-05-13] MEDS: Insulin Glargine,Human Rec. Analog 100 Units/ML 3 ML Pen SUBCUT SCH (19:59)
[2020-05-14] MEDS: traMADol 50 MG Tab PO PRN ×5 (00:24→21:54)
[2020-05-14] MEDS: Acetaminophen 650 MG Tab.ER PO PRN ×4 (06:06→21:54)
[2020-05-14] MEDS: amLODIPine 5 MG Tab PO SCH (08:00)
[2020-05-14] MEDS: Levothyroxine 25 MCG Tab PO SCH (08:00)
[2020-05-14] MEDS: Sertraline 50 MG Tab PO SCH (08:00)
[2020-05-14] MEDS: Clopidogrel 75 MG Tab PO SCH (08:00)
[2020-05-14] MEDS: Pantoprazole 40 MG Tab.CR PO SCH (08:00)
[2020-05-14] MEDS: Furosemide 20 MG Tab PO SCH (08:00)
[2020-05-14] MEDS: Metoprolol Succinate 50 MG Tab.ER PO SCH (09:28)
[2020-05-14] MEDS: glipiZIDE 5 MG Tab PO SCH (09:32)
[2020-05-14] MEDS: Lisinopril 2.5 MG Tab PO SCH (09:32)
[2020-05-14] MEDS: Rivaroxaban 10 MG Tab PO SCH (18:14)
[2020-05-14] MEDS: Insulin Glargine,Human Rec. Analog 100 Units/ML 3 ML Pen SUBCUT SCH (19:48)
[2020-05-14] MEDS: Mirtazapine 15 MG Tab PO SCH (19:48)
[2020-05-14] MEDS: atorvaSTATin 80 MG Tab PO SCH (19:48)
[2020-05-14] MEDS: Latanoprost 0.005% Ophth Soln 2.5 ML Bottle EYEBOTH SCH (21:50)
[2020-05-15] MEDS ORDERED: Menthol/Zinc Oxide Ointment 113 GM Tube TOP ONE (04:04)
[2020-05-15] MEDS: traMADol 50 MG Tab PO PRN ×3 (04:09→23:07)
[2020-05-15] MEDS: Levothyroxine 25 MCG Tab PO SCH (07:45)
[2020-05-15] MEDS: glipiZIDE 5 MG Tab PO SCH (07:45)
[2020-05-15] MEDS: Sertraline 50 MG Tab PO SCH (07:45)
[2020-05-15] MEDS: Clopidogrel 75 MG Tab PO SCH (07:46)
[2020-05-15] MEDS: Metoprolol Succinate 50 MG Tab.ER PO SCH (07:46)
[2020-05-15] MEDS: Lisinopril 2.5 MG Tab PO SCH (07:46)
[2020-05-15] MEDS: amLODIPine 5 MG Tab PO SCH (07:46)
[2020-05-15] MEDS: Pantoprazole 40 MG Tab.CR PO SCH (07:46)
[2020-05-15] MEDS: Furosemide 20 MG Tab PO SCH ×2 (07:47→09:45)
[2020-05-15] MEDS: Ergocalciferol (Vitamin D2) 1.25 MG Cap PO SCH (09:56)
[2020-05-15] MEDS: Menthol/Zinc Oxide Ointment 113 GM Tube TOP PRN (09:57)
--- NOTE | 2020-05-15 14:11 | PCM.PN ---
- General Info Date of Service: 05/15/20 Admission Dx/Problem (Free Text): Admission Diagnosis/Problem Admission Diagnosis/Problem Weakness Subjective Update: Patient is currently swing bed status at [facility] for strengthening and ADL techniques with physical therapy and Occupational Therapy. Therapies states patient is not successful currently with activities daily living such as self care including transfers to wheelchair, transfers to toilet, ambulation. When questioned to this patient states earning factor is her left great toe and the toenail that was removed, patient states that this is keeping her from pivoting, but she states that her activity and tolerance is improving.. Patient denies shortness of breath, fever, chest pain, cough. Functional Status: Reports: Pain Controlled, Tolerating Diet, Urinating - Review of Systems General: Reports: No Symptoms HEENT: Reports: No Symptoms Pulmonary: Reports: No Symptoms Cardiovascular: Reports: No Symptoms Gastrointestinal: Reports: No Symptoms Genitourinary: Reports: No Symptoms Musculoskeletal: Reports: Foot Pain (Left foot great toe pain) Neurological: Reports: No Symptoms Psychiatric: Reports: No Symptoms - Patient Data Vitals - Most Recent: Last Vital Signs Temp 97.3 F 05/15/20 07:54 Pulse 59 L 05/15/20 07:54 Resp 18 05/15/20 07:54 BP 137/50 L 05/15/20 07:54 Pulse Ox 98 05/15/20 07:54 Weight - Most Recent: 255 lb 4 oz Lab Results Last 24 Hours: Laboratory Results - last 24 hr 05/14/20 05/14/20 05/15/20 Range/Units 17:09 18:43 06:41 POC Glucose 278 H 183 H 76 (74-110) mg/dL 05/15/20 Range/Units 10:42 POC Glucose 88 (74-110) mg/dL Med Orders - Current: Current Medications Acetaminophen (Tylenol Arthritis Pain) 650 mg PO Q6HR PRN PRN Reason: Pain Last Admin: 05/14/20 21:54 Dose: 650 mg Documented by: Amlodipine Besylate (Norvasc) 5 mg PO DAILY [facility] Last Admin: 05/15/20 07:46 Dose: 5 mg Documented by: Atorvastatin Calcium (Lipitor) 80 mg PO BEDTIME [facility] Last Admin: 05/14/20 19:48 Dose: 80 mg Documented by: Calamine/Phenol (Calmoseptine) 0 gm TOP QID PRN PRN Reason: Rash Last Admin: 05/15/20 09:57 Dose: 1 applic Documented by: Clopidogrel Bisulfate (Plavix) 75 mg PO DAILY [facility] Last Admin: 05/15/20 07:46 Dose: 75 mg Documented by: Clotrimazole (Clotrimazole 1%) 0 gm TOP BID PRN PRN Reason: Rash Last Admin: 05/13/20 09:56 Dose: 1 applic Documented by: Ergocalciferol (Vitamin D2) 1.25 mg PO Q7D [facility] Stop: 07/24/20 08:01 Last Admin: 05/15/20 09:56 Dose: 1.25 mg Documented by: Furosemide (Lasix) 20 mg PO DAILY [facility] Last Admin: 05/15/20 07:47 Dose: 20 mg Documented by: Furosemide (Lasix) 20 mg PO DAILY [facility] Stop: 05/18/20 10:00 Glipizide (Glucotrol) 5 mg PO DAILY [facility] Last Admin: 05/15/20 07:45 Dose: 5 mg Documented by: Insulin Glargine (Lantus Solostar) 20 units SUBCUT QPM [facility] Last Admin: 05/14/20 19:48 Dose: 20 units Documented by: Latanoprost (Xalatan 0.005% Ophth Soln) 0 ml EYEBOTH QPM [facility] Last Admin: 05/14/20 21:50 Dose: Not Given Documented by: Levothyroxine Sodium (Levothyroxine) 12.5 mcg PO ACBREAKFAST [facility] Last Admin: 05/15/20 07:45 Dose: 12.5 mcg Documented by: Lisinopril (Prinivil) 2.5 mg PO DAILY [facility] Last Admin: 05/15/20 07:46 Dose: 2.5 mg Documented by: Metoprolol Succinate (Toprol Xl) 50 mg PO DAILY [facility] Last Admin: 05/15/20 07:46 Dose: 50 mg Documented by: Mirtazapine (Remeron) 15 mg PO BEDTIME [facility] Last Admin: 05/14/20 19:48 Dose: 15 mg Documented by: Pantoprazole Sodium (Protonix) 40 mg PO ACBREAKFAST [facility] Last Admin: 05/15/20 07:46 Dose: 40 mg Documented by: Rivaroxaban (Xarelto) 15 mg PO WITHDINNER [facility] Last Admin: 05/14/20 18:14 Dose: 15 mg Documented by: Sertraline HCl (Zoloft) 50 mg PO DAILY [facility] Last Admin: 05/15/20 07:45 Dose: 50 mg Documented by: Tramadol HCl (Ultram) 50 mg PO Q6H PRN PRN Reason: Pain Last Admin: 05/15/20 04:09 Dose: 50 mg Documented by: Discontinued Medications Calamine/Phenol (Calmoseptine) Confirm Administered Dose 113 gm TOP .STK-MED ONE Stop: 05/15/20 04:05 Last Admin: 05/15/20 04:17 Dose: Not Given Documented by: Cephalexin (Keflex) 500 mg PO BID [facility] Last Admin: 05/03/20 19:34 Dose: 500 mg Documented by: Cephalexin (Keflex) 500 mg PO BID [facility] Stop: 05/10/20 08:01 Last Admin: 05/10/20 07:28 Dose: 500 mg Documented by: Clotrimazole (Clotrimazole 1%) 0 gm TOP BID [facility] Last Admin: 05/05/20 20:48 Dose: Not Given Documented by: Clotrimazole (Clotrimazole 1%) Confirm Administered Dose 15 gm .ROUTE .STK-MED ONE Stop: 05/02/20 21:59 Last Admin: 05/02/20 22:24 Dose: 1 applic Documented by: Cyanocobalamin (Vitamin B12) 1,000 mcg IM ONETIME ONE Stop: 05/04/20 09:45 Last Admin: 05/04/20 11:24 Dose: 1,000 mcg Documented by: Insulin Glargine (Lantus Solostar) 25 units SUBCUT QPM [facility] Last Admin: 05/09/20 19:46 Dose: 25 units Documented by: [facility] Last Admin: 05/03/20 18:27 Dose: 15 mg Documented by: Rivaroxaban (Xarelto) Confirm Administered Dose 20 mg .ROUTE .STK-MED ONE Stop: 05/03/20 18:24 Last Admin: 05/03/20 18:26 Dose: Not Given Documented by: Rivaroxaban (Xarelto) 15 mg PO [facility] Rivaroxaban (Xarelto) 15 mg PO [facility] Tuberculin PPD (Aplisol) 5 unit IDERM ONETIME ONE Stop: 05/02/20 19:31 Last Admin: 05/02/20 21:10 Dose: 5 unit Documented by: - Exam General: Alert, Oriented, Cooperative, No Acute Distress HEENT: Pupils Equal, Pupils Reactive, EOMI Lungs: Clear to Auscultation, Normal Respiratory Effort Cardiovascular: Regular Rate, Regular Rhythm GI/Abdominal Exam: Soft, Non-Tender Extremities: Normal Inspection, Normal Range of Motion, Non-Tender, Pedal Edema (2+ bilateral) Peripheral Pulses: 2+: Radial (L), Radial (R), Posterior Tibial (L), Posterior Tibial (R) Skin: Warm, Dry, Intact Wound/Incisions: Other (Resolution of cellulitis noted. Left great toe dressing remains clean dry and intact.) Neurological: No New Focal Deficit Psy/Mental Status: Alert, Normal Affect, Normal Mood Sepsis Event Note - Evaluation Sepsis Screening Result: No Definite Risk - Focused Exam Vital Signs: Vital Signs Temp Pulse Pulse Resp BP BP Pulse Ox 05/15/20 07:54 97.3 F 59 L 18 137/50 L 98 05/15/20 07:46 59 L 137/50 L Date Exam was Performed: 05/15/20 Time Exam was Performed: 14:05 - Problem List & Annotations (1) Physical deconditioning SNOMED Code(s): 54438836353480 Code(s): R53.81 - OTHER MALAISE Status: Acute Current Visit: Yes (2) Diabetes mellitus, type II, insulin dependent SNOMED Code(s): 326809662 Code(s): E11.9 - TYPE 2 DIABETES MELLITUS WITHOUT COMPLICATIONS; Z79.4 - RESIDENTIAL (CURRENT) USE OF INSULIN Status: Acute Current Visit: Yes (3) Cellulitis of lower leg SNOMED Code(s): 970075210 Code(s): L03.119 - CELLULITIS OF UNSPECIFIED PART OF LIMB Status: Resolved Current Visit: Yes (4) Congestive heart failure (CHF) SNOMED Code(s): 24175990 Code(s): I50.9 - HEART FAILURE, UNSPECIFIED Status: Acute Current Visit: Yes Qualifiers: Heart failure type: diastolic Heart failure chronicity: chronic Qualified Code(s): I50.32 - Chronic diastolic (congestive) heart failure - Problem List Review Problem List Initiated/Reviewed/Updated: Yes - My Orders Last 24 Hours: My Active Orders 05/15/20 03:57 Menthol/Zinc Oxide [Calmoseptine] See Dose Instructions TOP QID PRN 05/15/20 09:45 Furosemide [Lasix] 20 mg PO DAILY - Plan Plan:: assessment/plan: 1. deconditioning; PT OT starting tomorrow 2. diabetes; TID blood glucose monitoring x24 hours then daily 3. cellulitis of right lower leg: Resolved 4. Congestive heart failure: Currently Lasix 20 mg daily, will change to 40 mg daily as patient is exhibiting increased lower leg edema and lung sounds reveal bilateral rales 05/15/20 Patient to continue PT/OT for generalized weakness and deconditioning. Improvement gradual, no changes to this plan of care. Continue with current DM monitoring and schedule. Discharge planning currently as are expecting patient to not be approved for another swing bed rotation. Patient and family refuse fdc or correction facility admission with patient showing very little improvement with ADLs since her swing bed admit. Recommendation from social work, physical and Occupational Therapy and myself is correction facility admission where patient can receive 24-hour care, if not permanently then at least until patient can transfer safely to wheelchair and bathroom on her own. Patient does state she has a 7-year-old granddaughter who can assist with some ADLs while at home while her older children and grandchildren are away.
[2020-05-15] MEDS: Rivaroxaban 10 MG Tab PO SCH (18:49)
[2020-05-15] MEDS: Insulin Glargine,Human Rec. Analog 100 Units/ML 3 ML Pen SUBCUT SCH (19:20)
[2020-05-15] MEDS: atorvaSTATin 80 MG Tab PO SCH (19:23)
[2020-05-15] MEDS: Mirtazapine 15 MG Tab PO SCH (19:23)
[2020-05-15] MEDS: Acetaminophen 650 MG Tab.ER PO PRN (19:24)
[2020-05-15] MEDS: Latanoprost 0.005% Ophth Soln 2.5 ML Bottle EYEBOTH SCH (19:52)
[2020-05-16] MEDS: Acetaminophen 650 MG Tab.ER PO PRN ×2 (02:04→14:18)
[2020-05-16] MEDS: Pantoprazole 40 MG Tab.CR PO SCH (06:52)
[2020-05-16] MEDS: Levothyroxine 25 MCG Tab PO SCH (06:52)
[2020-05-16] MEDS: Furosemide 20 MG Tab PO SCH ×2 (07:26)
[2020-05-16] MEDS: Clopidogrel 75 MG Tab PO SCH (07:26)
[2020-05-16] MEDS: glipiZIDE 5 MG Tab PO SCH (07:26)
[2020-05-16] MEDS: Lisinopril 2.5 MG Tab PO SCH (07:27)
[2020-05-16] MEDS: Sertraline 50 MG Tab PO SCH (07:27)
[2020-05-16] MEDS: Metoprolol Succinate 50 MG Tab.ER PO SCH (07:27)
[2020-05-16] MEDS: amLODIPine 5 MG Tab PO SCH (07:27)
[2020-05-16] MEDS: traMADol 50 MG Tab PO PRN ×2 (09:35→18:51)
[2020-05-16] MEDS: Rivaroxaban 10 MG Tab PO SCH (19:26)
[2020-05-16] MEDS: Mirtazapine 15 MG Tab PO SCH (20:14)
[2020-05-16] MEDS: Insulin Glargine,Human Rec. Analog 100 Units/ML 3 ML Pen SUBCUT SCH (20:14)
[2020-05-16] MEDS: atorvaSTATin 80 MG Tab PO SCH (20:14)
[2020-05-17] MEDS: Pantoprazole 40 MG Tab.CR PO SCH (07:22)
[2020-05-17] MEDS: Levothyroxine 25 MCG Tab PO SCH (07:22)
[2020-05-17] MEDS: Furosemide 20 MG Tab PO SCH ×2 (08:04→08:05)
[2020-05-17] MEDS: Lisinopril 2.5 MG Tab PO SCH (08:05)
[2020-05-17] MEDS: Metoprolol Succinate 50 MG Tab.ER PO SCH (08:06)
[2020-05-17] MEDS: Sertraline 50 MG Tab PO SCH (08:06)
[2020-05-17] MEDS: amLODIPine 5 MG Tab PO SCH (08:06)
[2020-05-17] MEDS: Clopidogrel 75 MG Tab PO SCH (08:06)
[2020-05-17] MEDS: glipiZIDE 5 MG Tab PO SCH (08:31)
[2020-05-17] MEDS: Menthol/Zinc Oxide Ointment 113 GM Tube TOP PRN (10:45)
[2020-05-17] MEDS: traMADol 50 MG Tab PO PRN ×2 (14:17→20:44)
[2020-05-17] MEDS ORDERED: Calcium Carbonate 500 MG Tab.Chew PO PRN (14:46)
[2020-05-17] MEDS ORDERED: Calcium Carbonate 500 MG Tab.Chew ONE (14:50)
[2020-05-17] MEDS: Rivaroxaban 10 MG Tab PO SCH (17:55)
[2020-05-17] MEDS: Mirtazapine 15 MG Tab PO SCH (19:40)
[2020-05-17] MEDS: atorvaSTATin 80 MG Tab PO SCH (19:40)
[2020-05-17] MEDS: Insulin Glargine,Human Rec. Analog 100 Units/ML 3 ML Pen SUBCUT SCH (19:41)
[2020-05-18] MEDS: Acetaminophen 650 MG Tab.ER PO PRN ×3 (02:06→13:57)
[2020-05-18] MEDS: Pantoprazole 40 MG Tab.CR PO SCH (07:21)
[2020-05-18] MEDS: Levothyroxine 25 MCG Tab PO SCH (07:21)
[2020-05-18] MEDS: Furosemide 20 MG Tab PO SCH ×2 (07:44→08:07)
[2020-05-18] MEDS: Metoprolol Succinate 50 MG Tab.ER PO SCH (07:44)
[2020-05-18] MEDS: traMADol 50 MG Tab PO PRN ×3 (07:45→21:27)
[2020-05-18] MEDS: amLODIPine 5 MG Tab PO SCH (07:45)
[2020-05-18] MEDS: Lisinopril 2.5 MG Tab PO SCH (07:47)
[2020-05-18] MEDS: Clopidogrel 75 MG Tab PO SCH (07:47)
[2020-05-18] MEDS: Sertraline 50 MG Tab PO SCH (07:47)
[2020-05-18] MEDS: glipiZIDE 5 MG Tab PO SCH (07:47)
[2020-05-18] MEDS ORDERED: Vancomycin 500 MG SDV SCH (12:30)
--- NOTE | 2020-05-18 14:23 | PCM.PN ---
- General Info Date of Service: 05/18/20 Admission Dx/Problem (Free Text): Admission Diagnosis/Problem Admission Diagnosis/Problem Weakness Subjective Update: Nurses report patietn ith 4-5 epiodes daily of loose stoo; C diff testing positive for C diff Diagnosis C difficile Plan Vancomycin 125 mg po q6h x 14 days - Patient Data Vitals - Most Recent: Last Vital Signs Temp 97.7 F 05/18/20 02:13 Pulse 66 05/18/20 07:44 Resp 16 05/18/20 02:13 BP 145/70 H 05/18/20 07:47 Pulse Ox 97 05/18/20 05:40 Weight - Most Recent: 112.236 kg Lab Results Last 24 Hours: Laboratory Results - last 24 hr 05/17/20 05/18/20 Range/Units 18:35 11:00 POC Glucose 183 H 66 L (74-110) mg/dL [place] Results Last 24 Hours: Microbiology 05/18/20 10:00 Clostridioides difficile (PCR) - Final Stool / Feces Med Orders - Current: Current Medications Acetaminophen (Tylenol Arthritis Pain) 650 mg PO Q6HR PRN PRN Reason: Pain Last Admin: 05/18/20 13:57 Dose: 650 mg Documented by: Amlodipine Besylate (Norvasc) 5 mg PO DAILY [facility] Last Admin: 05/18/20 07:45 Dose: 5 mg Documented by: Atorvastatin Calcium (Lipitor) 80 mg PO BEDTIME [facility] Last Admin: 05/17/20 19:40 Dose: 80 mg Documented by: Calamine/Phenol (Calmoseptine) 0 gm TOP QID PRN PRN Reason: Rash Last Admin: 05/17/20 10:45 Dose: 1 applic Documented by: Calcium Carbonate/Glycine (Tums) 1,000 mg PO Q2HR PRN PRN Reason: Indigestion Last Admin: 05/17/20 15:43 Dose: 1,000 mg Documented by: Clopidogrel Bisulfate (Plavix) 75 mg PO DAILY [facility] Last Admin: 05/18/20 07:47 Dose: 75 mg Documented by: Clotrimazole (Clotrimazole 1%) 0 gm TOP BID PRN PRN Reason: Rash Last Admin: 05/13/20 09:56 Dose: 1 applic Documented by: Ergocalciferol (Vitamin D2) 1.25 mg PO Q7D [facility] Stop: 07/24/20 08:01 Last Admin: 05/15/20 09:56 Dose: 1.25 mg Documented by: Furosemide (Lasix) 20 mg PO DAILY [facility] Last Admin: 05/18/20 07:44 Dose: 20 mg Documented by: Glipizide (Glucotrol) 5 mg PO DAILY [facility] Last Admin: 05/18/20 07:47 Dose: 5 mg Documented by: Insulin Glargine (Lantus Solostar) 20 units SUBCUT QPM [facility] Last Admin: 05/17/20 19:41 Dose: 20 units Documented by: Levothyroxine Sodium (Levothyroxine) 12.5 mcg PO ACBREAKFAST [facility] Last Admin: 05/18/20 07:21 Dose: 12.5 mcg Documented by: Lisinopril (Prinivil) 2.5 mg PO DAILY [facility] Last Admin: 05/18/20 07:47 Dose: 2.5 mg Documented by: Metoprolol Succinate (Toprol Xl) 50 mg PO DAILY [facility] Last Admin: 05/18/20 07:44 Dose: 50 mg Documented by: Mirtazapine (Remeron) 15 mg PO BEDTIME [facility] Last Admin: 05/17/20 19:40 Dose: 15 mg Documented by: Pantoprazole Sodium (Protonix) 40 mg PO ACBREAKFAST [facility] Last Admin: 05/18/20 07:21 Dose: 40 mg Documented by: Rivaroxaban (Xarelto) 15 mg PO WITHDINNER [facility] Last Admin: 05/17/20 17:55 Dose: 15 mg Documented by: Sertraline HCl (Zoloft) 50 mg PO DAILY [facility] Last Admin: 05/18/20 07:47 Dose: 50 mg Documented by: Tramadol HCl (Ultram) 50 mg PO Q6H PRN PRN Reason: Pain Last Admin: 05/18/20 13:57 Dose: 50 mg Documented by: Vancomycin HCl (Vancomycin) 125 mg .XX Q6HR [facility] Stop: 06/01/20 06:01 Last Admin: 05/18/20 13:56 Dose: 125 mg Documented by: Discontinued Medications Calamine/Phenol (Calmoseptine) Confirm Administered Dose 113 gm TOP .STK-MED ONE Stop: 05/15/20 04:05 Last Admin: 05/15/20 04:17 Dose: Not Given Documented by: Calcium Carbonate/Glycine (Tums) Confirm Administered Dose 1,000 mg .ROUTE .STK- MED ONE Stop: 05/17/20 14:51 Cephalexin (Keflex) 500 mg PO BID [facility] Last Admin: 05/03/20 19:34 Dose: 500 mg Documented by: Cephalexin (Keflex) 500 mg PO BID [facility] Stop: 05/10/20 08:01 Last Admin: 05/10/20 07:28 Dose: 500 mg Documented by: Clotrimazole (Clotrimazole 1%) 0 gm TOP BID [facility] Last Admin: 05/05/20 20:48 Dose: Not Given Documented by: Clotrimazole (Clotrimazole 1%) Confirm Administered Dose 15 gm .ROUTE .[facility]-MED ONE Stop: 05/02/20 21:59 Last Admin: 05/02/20 22:24 Dose: 1 applic Documented by: Cyanocobalamin (Vitamin B12) 1,000 mcg IM ONETIME ONE Stop: 05/04/20 09:45 Last Admin: 05/04/20 11:24 Dose: 1,000 mcg Documented by: Furosemide (Lasix) 20 mg PO DAILY [facility] Stop: 05/18/20 10:00 Last Admin: 05/18/20 08:07 Dose: 20 mg Documented by: Insulin Glargine (Lantus Solostar) 25 units SUBCUT QPM [facility] Last Admin: 05/09/20 19:46 Dose: 25 units Documented by: Latanoprost (Xalatan 0.005% Ophth Soln) 0 ml EYEBOTH QPM [facility] Last Admin: 05/15/20 19:52 Dose: Not Given Documented by: Rivaroxaban (Xarelto) 15 mg PO [facility] Last Admin: 05/03/20 18:27 Dose: 15 mg Documented by: Rivaroxaban (Xarelto) Confirm Administered Dose 20 mg .ROUTE .STK-MED ONE Stop: 05/03/20 18:24 Last Admin: 05/03/20 18:26 Dose: Not Given Documented by: Rivaroxaban (Xarelto) 15 mg PO WITHBANNER Rivaroxaban (Xarelto) 15 mg PO WITHBANNER Tuberculin PPD (Aplisol) 5 unit IDERM ONETIME ONE Stop: 05/02/20 19:31 Last Admin: 05/02/20 21:10 Dose: 5 unit Documented by: Sepsis Event Note - Evaluation Sepsis Screening Result: No Definite Risk - Focused Exam Vital Signs: Vital Signs Pulse BP Pulse Ox 05/18/20 07:47 145/70 H 05/18/20 07:45 145/70 H 05/18/20 07:44 66 145/70 H 05/18/20 05:40 97 Date Exam was Performed: 05/18/20 Time Exam was Performed: 14:23 - Problem List & Annotations (1) C. difficile diarrhea SNOMED Code(s): 6742084282603 Code(s): A04.72 - ENTEROCOLITIS D/T CLOSTRIDIUM DIFFICILE, NOT SPCF RECUR Status: Acute Current Visit: Yes (2) C. difficile diarrhea SNOMED Code(s): 1458351890756 Code(s): A04.72 - ENTEROCOLITIS D/T CLOSTRIDIUM DIFFICILE, NOT SPCF RECUR Status: Acute Current Visit: Yes (3) C. difficile diarrhea SNOMED Code(s): 0088372069604 Code(s): A04.72 - ENTEROCOLITIS D/T CLOSTRIDIUM DIFFICILE, NOT SPCF RECUR Status: Acute Current Visit: Yes - Problem List Review Problem List Initiated/Reviewed/Updated: Yes - My Orders Last 24 Hours: My Active Orders 05/17/20 14:46 Calcium Carbonate [Tums] 1,000 mg PO Q2HR PRN 05/18/20 12:30 Vancomycin 125 mg .XX Q6HR - Assessment Assessment:: C diffcile diarrhea - Plan Plan:: assessment/plan: 1. deconditioning; PT OT starting tomorrow 2. diabetes; TID blood glucose monitoring x24 hours then daily 3. cellulitis of right lower leg: Resolved 4. Congestive heart failure: Currently Lasix 20 mg daily, will change to 40 mg daily as patient is exhibiting increased lower leg edema and lung sounds reveal bilateral rales 05/15/20 Patient to continue PT/OT for generalized weakness and deconditioning. Improvement gradual, no changes to this plan of care. Continue with current DM monitoring and schedule. Discharge planning currently as are expecting patient to not be approved for another swing bed rotation. Patient and family refuse snf or halfway facility admission with patient showing very little improvement with ADLs since her swing bed admit. Recommendation from social work, physical and Occupational Therapy and myself is halfway facility admission where patient can receive 24-hour care, if not permanently then at least until patient can transfer safely to wheelchair and bathroom on her own. Patient does state she has a 7-year-old granddaughter who can assist with some ADLs while at home while her older children and grandchildren are away. Will treat C difficild diarrhea with Vancomycin 125 mg po q6h x 14 days
[2020-05-18] MEDS: Rivaroxaban 10 MG Tab PO SCH (17:35)
[2020-05-18] MEDS: Vancomycin 500 MG SDV SCH (21:00)
[2020-05-18] MEDS: atorvaSTATin 80 MG Tab PO SCH (21:27)
[2020-05-18] MEDS: Mirtazapine 15 MG Tab PO SCH (21:27)
[2020-05-18] MEDS: Insulin Glargine,Human Rec. Analog 100 Units/ML 3 ML Pen SUBCUT SCH (21:28)
[2020-05-19] MEDS: Vancomycin 500 MG SDV SCH ×4 (02:21→20:43)
[2020-05-19] MEDS: glipiZIDE 5 MG Tab PO SCH (07:55)
[2020-05-19] MEDS: Clopidogrel 75 MG Tab PO SCH (07:55)
[2020-05-19] MEDS: Pantoprazole 40 MG Tab.CR PO SCH (07:55)
[2020-05-19] MEDS: Furosemide 20 MG Tab PO SCH (07:55)
[2020-05-19] MEDS: Sertraline 50 MG Tab PO SCH (07:55)
[2020-05-19] MEDS: amLODIPine 5 MG Tab PO SCH (07:56)
[2020-05-19] MEDS: Lisinopril 2.5 MG Tab PO SCH (07:56)
[2020-05-19] MEDS: Metoprolol Succinate 50 MG Tab.ER PO SCH (07:56)
[2020-05-19] MEDS: Levothyroxine 25 MCG Tab PO SCH (07:56)
[2020-05-19] MEDS: Lactobacillus Acidophilus/Lactobacillus Sporogenes (Probiotic) Tab PO SCH (12:11)
[2020-05-19] MEDS: Rivaroxaban 10 MG Tab PO SCH (17:10)
[2020-05-19] MEDS: atorvaSTATin 80 MG Tab PO SCH (20:47)
[2020-05-19] MEDS: Mirtazapine 15 MG Tab PO SCH (20:47)
[2020-05-19] MEDS: Insulin Glargine,Human Rec. Analog 100 Units/ML 3 ML Pen SUBCUT SCH (20:49)
[2020-05-20] MEDS: Vancomycin 500 MG SDV SCH ×4 (02:27→20:30)
[2020-05-20] MEDS: Pantoprazole 40 MG Tab.CR PO SCH (07:17)
[2020-05-20] MEDS: Levothyroxine 25 MCG Tab PO SCH (07:17)
[2020-05-20] MEDS: amLODIPine 5 MG Tab PO SCH (08:02)
[2020-05-20] MEDS: Acetaminophen 650 MG Tab.ER PO PRN ×3 (08:02→20:29)
[2020-05-20] MEDS: Sertraline 50 MG Tab PO SCH (08:03)
[2020-05-20] MEDS: glipiZIDE 5 MG Tab PO SCH (08:05)
[2020-05-20] MEDS: Lactobacillus Acidophilus/Lactobacillus Sporogenes (Probiotic) Tab PO SCH (08:05)
[2020-05-20] MEDS: traMADol 50 MG Tab PO PRN ×2 (08:06→20:28)
[2020-05-20] MEDS: Furosemide 20 MG Tab PO SCH (08:06)
[2020-05-20] MEDS: Clopidogrel 75 MG Tab PO SCH (08:07)
[2020-05-20] MEDS: Lisinopril 2.5 MG Tab PO SCH (08:07)
[2020-05-20] MEDS: Metoprolol Succinate 50 MG Tab.ER PO SCH (08:08)
[2020-05-20] MEDS: Rivaroxaban 10 MG Tab PO SCH (17:25)
[2020-05-20] MEDS: Mirtazapine 15 MG Tab PO SCH (20:30)
[2020-05-20] MEDS: atorvaSTATin 80 MG Tab PO SCH (20:30)
[2020-05-20] MEDS: Insulin Glargine,Human Rec. Analog 100 Units/ML 3 ML Pen SUBCUT SCH (20:36)
[2020-05-21] MEDS: Vancomycin 500 MG SDV SCH ×4 (02:20→20:20)
[2020-05-21] MEDS: traMADol 50 MG Tab PO PRN ×2 (02:21→20:21)
[2020-05-21] MEDS: Levothyroxine 25 MCG Tab PO SCH (07:06)
[2020-05-21] MEDS: Pantoprazole 40 MG Tab.CR PO SCH (07:07)
[2020-05-21] MEDS: glipiZIDE 5 MG Tab PO SCH (08:08)
[2020-05-21] MEDS: Sertraline 50 MG Tab PO SCH (08:08)
[2020-05-21] MEDS: Lisinopril 2.5 MG Tab PO SCH (08:11)
[2020-05-21] MEDS: Clopidogrel 75 MG Tab PO SCH (08:12)
[2020-05-21] MEDS: Lactobacillus Acidophilus/Lactobacillus Sporogenes (Probiotic) Tab PO SCH (08:12)
[2020-05-21] MEDS: Metoprolol Succinate 50 MG Tab.ER PO SCH (08:12)
[2020-05-21] MEDS: Furosemide 20 MG Tab PO SCH (08:12)
[2020-05-21] MEDS: amLODIPine 5 MG Tab PO SCH (08:20)
[2020-05-21] MEDS: Rivaroxaban 10 MG Tab PO SCH (18:00)
[2020-05-21] MEDS: Insulin Glargine,Human Rec. Analog 100 Units/ML 3 ML Pen SUBCUT SCH (20:18)
[2020-05-21] MEDS: Mirtazapine 15 MG Tab PO SCH (20:20)
[2020-05-21] MEDS: atorvaSTATin 80 MG Tab PO SCH (20:20)
[2020-05-22] MEDS: Vancomycin 500 MG SDV SCH ×4 (02:12→20:57)
[2020-05-22] MEDS: traMADol 50 MG Tab PO PRN ×3 (02:21→20:32)
[2020-05-22] MEDS: Metoprolol Succinate 50 MG Tab.ER PO SCH (07:48)
[2020-05-22] MEDS: Lactobacillus Acidophilus/Lactobacillus Sporogenes (Probiotic) Tab PO SCH (07:48)
[2020-05-22] MEDS: amLODIPine 5 MG Tab PO SCH (07:49)
[2020-05-22] MEDS: glipiZIDE 5 MG Tab PO SCH (07:49)
[2020-05-22] MEDS: Clopidogrel 75 MG Tab PO SCH (07:50)
[2020-05-22] MEDS: Pantoprazole 40 MG Tab.CR PO SCH (07:50)
[2020-05-22] MEDS: Lisinopril 2.5 MG Tab PO SCH (07:50)
[2020-05-22] MEDS: Levothyroxine 25 MCG Tab PO SCH (07:50)
[2020-05-22] MEDS: Sertraline 50 MG Tab PO SCH (07:50)
[2020-05-22] MEDS: Furosemide 40 MG Tab PO SCH (08:00)
[2020-05-22] MEDS: Ergocalciferol (Vitamin D2) 1.25 MG Cap PO SCH (12:15)
[2020-05-22] MEDS: Rivaroxaban 10 MG Tab PO SCH (17:14)
--- NOTE | 2020-05-22 17:50 | PCM.SN.2 ---
- Free Text/Narrative Note: Patient verbalizes not acute complaints. She feels improved and reports she is ready to be discharged home. Discussion with Case Management the patient is scheduled to be discharged tomorrow and arrangements are being made to have the appropriate DME at. Prescription written for elevated toilet seat and PO Vancocin until follow-up with Dr. Saavedra.
[2020-05-22] MEDS ORDERED: Potassium Chloride 10 MEQ Tab.ER PO SCH (20:00)
[2020-05-22] MEDS: Acetaminophen 650 MG Tab.ER PO PRN (20:29)
[2020-05-22] MEDS: Mirtazapine 15 MG Tab PO SCH (20:29)
[2020-05-22] MEDS: atorvaSTATin 80 MG Tab PO SCH (20:29)
[2020-05-22] MEDS: Insulin Glargine,Human Rec. Analog 100 Units/ML 3 ML Pen SUBCUT SCH (20:55)
[2020-05-23] MEDS: Vancomycin 500 MG SDV SCH ×2 (02:34→07:47)
[2020-05-23] MEDS: Metoprolol Succinate 50 MG Tab.ER PO SCH (07:41)
[2020-05-23] MEDS: Clopidogrel 75 MG Tab PO SCH (07:42)
[2020-05-23] MEDS: Furosemide 40 MG Tab PO SCH (07:42)
[2020-05-23] MEDS: glipiZIDE 5 MG Tab PO SCH (07:42)
[2020-05-23] MEDS: Pantoprazole 40 MG Tab.CR PO SCH (07:43)
[2020-05-23] MEDS: amLODIPine 5 MG Tab PO SCH (07:43)
[2020-05-23] MEDS: Lisinopril 2.5 MG Tab PO SCH (07:43)
[2020-05-23] MEDS: Sertraline 50 MG Tab PO SCH (07:44)
[2020-05-23] MEDS: Lactobacillus Acidophilus/Lactobacillus Sporogenes (Probiotic) Tab PO SCH (07:44)
[2020-05-23] MEDS: traMADol 50 MG Tab PO PRN (07:45)
[2020-05-23 07:49] VITALS: BP 154/78; PULSE 66
[2020-05-23] MEDS: Levothyroxine 25 MCG Tab PO SCH (09:02)
--- NOTE | 2020-05-23 15:44 | DISCH ---
A 69-year-old lady who has been at our facility for approximately 1 month on swing bed status. She has met all of her requirements with physical therapy and occupational therapy and will be discharged home today. I refilled some of the patient's medications that have been changed since she has been with us refilling Toprol-XL 50 mg a day, Norvasc 5 mg daily, Lasix 40 mg a day, potassium 10 mEq daily, Glucotrol 5 mg daily, probiotic daily, and vancomycin 125 mg q.6 hours giving 40 more tablets. The patient has a followup appointment with her primary care provider coming up in 2 weeks and family member is available to help the patient get settled in at home and to help her with her cares. SHARONA/ARABELLA /[phone]
== END 2020-05-23 11:00 | disposition home or self-care (01) | DRG 948 ==
LOC: LB.MS 19:00
PROVIDERS: ADMIT Family Medicine; ATTEND Family Medicine
PROC: 0HTRXZZ Resection of Toe Nail, External Approach (ICD-10-PCS; principal; 2020-05-08)
DX: R53.81 Other malaise (principal); L03.115 Cellulitis of right lower limb; A04.72 Enterocolitis due to Clostridium difficile, not specified as recurrent; I50.32 Chronic diastolic (congestive) heart failure; E55.9 Vitamin D deficiency, unspecified; I48.91 Unspecified atrial fibrillation; I25.10 Atherosclerotic heart disease of native coronary artery without angina pectoris; E78.00 Pure hypercholesterolemia, unspecified; K21.9 Gastro-esophageal reflux disease without esophagitis; K59.00 Constipation, unspecified; I69.392 Facial weakness following cerebral infarction; E03.9 Hypothyroidism, unspecified; F32.9 Major depressive disorder, single episode, unspecified; E11.9 Type 2 diabetes mellitus without complications; E53.8 Deficiency of other specified B group vitamins; I11.0 Hypertensive heart disease with heart failure; M62.81 Muscle weakness (generalized); Z79.4 Long term (current) use of insulin; Z79.899 Other long term (current) drug therapy; Z79.890 Hormone replacement therapy; I25.2 Old myocardial infarction; Z90.710 Acquired absence of both cervix and uterus
CPT/HCPCS: 36415; 82962; 83036; 86580; 87493; 97110-GO; 97110-GP; 97116-GP; 97161-GP; 97164-GP; 97165-GO; 97530-GO; 97530-GP; 97535-GO; A9270-GY; J1815-GY; J3370; J3420

== ENCOUNTER 2020-08-09 12:05 | Emergency (ER) | payer MEDICARE, OTHER ==
[2020-08-09] MEDS ORDERED: Sodium Chloride 0.9% 10 ML Syringe FLUSH PRN (12:39)
[2020-08-09] MEDS ORDERED: Sodium Chloride 0.9% 500 ML IV ONE (12:42)
--- NOTE | 2020-08-09 13:27 | EDM.PDOC ---
ED HPI GENERAL MEDICAL PROBLEM - General Chief Complaint: Respiratory Problem Stated Complaint: SOB, diaphoresis, chest pain Time Seen by Provider: 08/09/20 12:10 Source of Information: Reports: Patient, Family History Limitations: Reports: No Limitations - History of Present Illness INITIAL COMMENTS - FREE TEXT/NARRATIVE: The patient is a 69-year-old white female with history of C. difficile this summer and more recently in June who presents with complaint of sharp chest pain that started last night was constant through the night and has now become more intermittent. Patient rates the pain 8/10 . Patient reports pain is associated with nausea and gagging. Patient was unable to take her pills this morning due to gagging when she tried to take them. She reports she has been having diarrhea despite being treated twice in the last 40 days for C. difficile. She most recently was treated with vancomycin. She reports the stool has been brown or green in color and has an abnormal odor. She denies abdominal pain but has nausea. She states that she was supposed to have thyroid testing in the near future and is taking thyroid replacement medication. She has history of atrial fibrillation that comes and goes. She has noticed an irregular heartbeat for the past day there is associated with the chest pain. Patient reports ongoing work-up for possible leukemia according to patient's daughter. She states she still not heard the results yet. Onset: Today - Related Data Allergies Allergy/AdvReac Type Severity Reaction Status Date / Time No Known Allergies Allergy Verified 05/02/20 21:17 Home Meds: Home Meds Insulin Glarg,Human.Rec.Analog [Lantus Solostar] 23 unit SUBCUT QPM 03/22/17 [History] Sertraline HCl [Zoloft] 50 mg PO DAILY 03/22/17 [History] atorvaSTATin [Lipitor] 80 mg PO BEDTIME 03/22/17 [History] Clopidogrel Bisulfate [Clopidogrel] 75 mg PO DAILY 03/26/17 [History] Levothyroxine 12.5 mcg PO ACBREAKFAST 12/08/18 [History] traMADol HCl [Tramadol HCl] 50 mg PO Q6H PRN 12/08/18 [History] Rivaroxaban [Xarelto] 15 mg PO WITHDINNER 30 Days #30 tablet 12/09/18 [Rx] Latanoprost/Pf [Latanoprost 0.005% Eye Drop] 1 drop EYEBOTH QPM 12/15/18 [History] Pantoprazole [ProTONIX] 40 mg PO DAILY 12/22/18 [History] Lisinopril 2.5 mg PO DAILY 01/14/19 [History] Metoprolol Tartrate 12.5 mg PO BID 01/14/19 [History] Mirtazapine 15 mg PO BEDTIME 01/14/19 [History] Furosemide [Lasix] 40 mg PO DAILY 05/23/20 [History] Potassium Chloride 10 meq PO DAILY 05/23/20 [History] Past Medical History HEENT History: Reports: Impaired Vision Cardiovascular History: Reports: Afib, Angina, CAD, High Cholesterol, Hypertension, VA, Other (See Below) Other Cardiovascular History: Cartotid artery syndrome Respiratory History: Reports: None Gastrointestinal History: Reports: GERD Other Gastrointestinal History: Constipation related to vicodin Genitourinary History: Reports: None 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: Musculoskeletal History: Reports: Arthritis, Back Pain, Chronic, Fracture, Osteoarthritis, Osteoporosis Neurological History: Reports: CVA Other Neuro History: 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 Psychiatric History: Reports: Depression Endocrine/Metabolic History: Reports: Diabetes, Type II, Hypothyroidism Hematologic History: Reports: B12 Deficiency, Other (See Below) Other Hematologic History: gets B 12 shots monthly Immunologic History: Reports: None Oncologic (Cancer) History: Reports: None Dermatologic History: Reports: Eczema Other Dermatologic History: Rash under abdominal fold and breasts - Infectious Disease History Infectious Disease History: Reports: C-Difficile - Past Surgical History Cardiovascular Surgical History: Reports: None GI Surgical History: Reports: Bariatric Procedure, Hernia, Abdominal, Hernia Repair/Other Female Surgical History: Reports: Section, Hysterectomy Neurological Surgical History: Reports: None Musculoskeletal Surgical History: Reports: Other (See Below) Other Musculoskeletal Surgeries/Procedures:: Surgery to fix L wrist Social & Family History - Family History Family Medical History: Noncontributory - Caffeine Use Caffeine Use: Reports: Coffee, Soda ED ROS GENERAL - Review of Systems Review Of Systems: See Below Constitutional: Reports: Weakness (She had intermittent atrial fib for a while), Other (Weakness started yesterday along with decreased oral intake and inability to take her medications after yesterday in the a.m.). Denies: Fever, Chills Respiratory: Reports: Shortness of Breath, Cough, Other (Nonproductive cough, mild shortness of breath). Denies: Wheezing Cardiovascular: Reports: Chest Pain, Other (Rapid heart rate) GI/Abdominal: Reports: Diarrhea, Difficulty Swallowing, Nausea. Denies: Hematemesis, Hematochezia, Vomiting : Reports: No Symptoms. Denies: Dysuria, Flank Pain, Pain (I just think it is atrial fibrillation easily identified there quick scan all replaced looks like a few ago but but if you look at this 1 if you look at that you do not see any fevers okay so exactly axilla I will see any P waves in the without) Skin: Reports: No Symptoms (With that) ED EXAM, GENERAL - Physical Exam Exam: See Below Exam Limited By: No Limitations General Appearance: Alert, No Apparent Distress, Obese Ears: Normal External Exam Nose: Normal Inspection, Normal Mucosa, No Blood Throat/Mouth: Normal Inspection, Normal Lips, Normal Voice, No Airway Compromise Head: Atraumatic, Normocephalic Neck: Normal Inspection, Supple, Full Range of Motion Respiratory/Chest: No Respiratory Distress, Lungs Clear, No Accessory Muscle Use. No: Rhonchi, Wheezing Cardiovascular: Tachycardia, Irregularly Irregular GI/Abdominal: Soft (Minimal generalized tenderness with tympmitic upper quadrants bilaterally. No rebound or guarding. Minimal distention) (Female) Exam: Deferred Back Exam: Normal Inspection, Other. No: CVA Tenderness (R), CVA Tenderness (L) Extremities: Normal Inspection, Normal Range of Motion, No Pedal Edema Neurological: Alert, Oriented, Normal Cognition Psychiatric: Normal Affect, Normal Mood Skin Exam: Warm, Dry, Other (Multiple ecchymoses on both arms) Lymphatic: No Adenopathy #2 Interpretation Rhythm: A-Fib (With rapid ventricular rate 110-120) [place]: LAD-Left [place] Deviation QRS: Normal ST-T: Normal QT: Normal Comparison: NA - No Prior EKG Course - Vital Signs Text/Narrative:: Patient's pain in the chest cleared after arrival in the ED. she initially was treated with normal saline IV at 500 mils per hour. She had a Londono catheter placed to obtain a urine sample. This was conveyed this was discontinued prior to patient being transferred. The patient's blood pressure ranged from high 80s to 110 systolic. Heart rate from 100 -120 Patient's lab work demonstrated elevated white count of 22,000. H&H were 18/56 Lactic acid was within normal limits. Troponin was 0.033. The case was discussed with Dr. Blood at [facility]. The hospitalist at [facility] agreed to accept the patient in transfer for further evaluation and treatment. Patient was given digoxin 0.25 mg IV to help control rate this will be repeated as needed. C. difficile testing is currently pending. Last Recorded V/S: Last Vital Signs Temp 97.8 F 08/09/20 12:05 Pulse 120 H 08/09/20 14:58 Resp 20 08/09/20 12:05 BP 112/64 08/09/20 12:05 Pulse Ox 95 08/09/20 12:05 - Orders/Labs/Meds Labs: Laboratory Tests 08/09/20 08/09/20 08/09/20 Range/Units 13:00 13:00 13:00 WBC 22.1 H* (4.0-11.0) K/uL RBC 6.72 H (3.80-5.80) M/uL Hgb 18.0 H (11.5-16.5) g/dL Hct 56.2 H (37.0-47.0) % MCV 84 (76-96) fL MCH 26.8 L (27.0-32.0) pg MCHC 32.0 (31.0-35.0) g/dL RDW 21.2 H (11.0-16.0) % Plt Count 200 (150-500) K/uL MPV 12.6 H (6.0-10.0) fL Neut % (Auto) Card Lacer Lymph % (Auto) Card Lacer Ponce % (Auto) Card Lacer Eos % (Auto) Card Lacer Baso % (Auto) Card Lacer Neut # (Auto) Card Lacer Lymph # (Auto) Card Lacer [place] # (Auto) Card Lacer Eos # (Auto) Card Lacer Baso # (Auto) Card Lacer Add Manual Diff Yes Neutrophils % (Manual) 80.0 H (45.0-70.0) % Lymphocytes % (Manual) 14.0 L (20.0-40.0) % Monocytes % (Manual) 5.0 (3.0-10.0) % Eosinophils % (Manual) 1.0 (1.0-5.0) % Platelet Estimate Adequate Sodium 142 (136-145) mmol/L Potassium 4.2 (3.5-5.1) mmol/L Chloride 107 (98-107) mmol/L Carbon Dioxide 26.9 (21.0-32.0) mmol/L Anion Gap 12.3 (5.0-15.0) mmol/L BUN 20 (8-26) mg/dL Creatinine 1.38 H D (0.55-1.02) mg/dL Est Cr Clr Drug Dosing TNP Estimated GFR (MDRD) 38 L (>60) MLS/MIN BUN/Creatinine Ratio 14.5 (6-25) Glucose 194 H D (74-100) mg/dL Lactic Acid 1.7 (0.4-2.0) mmol/L Calcium 8.8 (8.5-10.1) mg/dL Total Bilirubin 0.4 (0.0-1.0) mg/dL AST 21 (15-37) U/L ALT 26 (12-78) U/L Alkaline Phosphatase 207 H (46-116) U/L Troponin I (0.000-0.060) ng/mL Total Protein 7.1 (6.4-8.2) g/dL Albumin 2.8 L (3.4-5.0) g/dL Globulin 4.3 H (2.2-4.2) g/dL Albumin/Globulin Ratio 0.7 L (0.8-2.0) TSH, Ultra Sensitive (0.358-3.740) uIU/mL Urine Color Urine Appearance (CLEAR) Urine pH (5.0-8.0) Ur Specific [place] (1.003-1.030) Urine Protein (NEGATIVE) mg/dL Urine Glucose (UA) (NEGATIVE) mg/dL Urine Ketones (NEGATIVE) mg/dL Urine Occult Blood (NEGATIVE) Urine Nitrite (NEGATIVE) Urine Bilirubin (NEGATIVE) Urine Urobilinogen (0.2-1.0) E.U./dL Ur Leukocyte Esterase (NEGATIVE) SARS CoV-2 RNA Rapid JOSSY 08/09/20 08/09/20 08/09/20 Range/Units 13:10 13:10 13:10 WBC (4.0-11.0) K/uL RBC (3.80-5.80) M/uL Hgb (11.5-16.5) g/dL Hct (37.0-47.0) % MCV (76-96) fL MCH (27.0-32.0) pg MCHC (31.0-35.0) g/dL RDW (11.0-16.0) % Plt Count (150-500) K/uL MPV (6.0-10.0) fL Neut % (Auto) Lymph % (Auto) Ponce % (Auto) Eos % (Auto) Baso % (Auto) Neut # (Auto) Lymph # (Auto) Ponce # (Auto) Eos # (Auto) Baso # (Auto) Add Manual Diff Neutrophils % (Manual) (45.0-70.0) % Lymphocytes % (Manual) (20.0-40.0) % Monocytes % (Manual) (3.0-10.0) % Eosinophils % (Manual) (1.0-5.0) % Platelet Estimate Sodium (136-145) mmol/L Potassium (3.5-5.1) mmol/L Chloride (98-107) mmol/L Carbon Dioxide (21.0-32.0) mmol/L Anion Gap (5.0-15.0) mmol/L BUN (8-26) mg/dL Creatinine (0.55-1.02) mg/dL Est Cr Clr Drug Dosing Estimated GFR (MDRD) (>60) MLS/MIN BUN/Creatinine Ratio (6-25) Glucose (74-100) mg/dL Lactic Acid (0.4-2.0) mmol/L Calcium (8.5-10.1) mg/dL Total Bilirubin (0.0-1.0) mg/dL AST (15-37) U/L ALT (12-78) U/L Alkaline Phosphatase (46-116) U/L Troponin I 0.033 D (0.000-0.060) ng/mL Total Protein (6.4-8.2) g/dL Albumin (3.4-5.0) g/dL Globulin (2.2-4.2) g/dL Albumin/Globulin Ratio (0.8-2.0) TSH, Ultra Sensitive 3.426 (0.358-3.740) uIU/mL Urine Color Urine Appearance (CLEAR) Urine pH (5.0-8.0) Ur Specific [place] (1.003-1.030) Urine Protein (NEGATIVE) mg/dL Urine Glucose (UA) (NEGATIVE) mg/dL Urine Ketones (NEGATIVE) mg/dL Urine Occult Blood (NEGATIVE) Urine Nitrite (NEGATIVE) Urine Bilirubin (NEGATIVE) Urine Urobilinogen (0.2-1.0) E.U./dL Ur Leukocyte Esterase (NEGATIVE) SARS CoV-2 RNA Rapid JOSSY Negative 08/09/20 Range/Units 13:20 WBC (4.0-11.0) K/uL RBC (3.80-5.80) M/uL Hgb (11.5-16.5) g/dL Hct (37.0-47.0) % MCV (76-96) fL MCH (27.0-32.0) pg MCHC (31.0-35.0) g/dL RDW (11.0-16.0) % Plt Count (150-500) K/uL MPV (6.0-10.0) fL Neut % (Auto) Lymph % (Auto) [place]once % (Auto) Eos % (Auto) Baso % (Auto) Neut # (Auto) Lymph # (Auto) [place] # (Auto) Eos # (Auto) Baso # (Auto) Add Manual Diff Neutrophils % (Manual) (45.0-70.0) % Lymphocytes % (Manual) (20.0-40.0) % Monocytes % (Manual) (3.0-10.0) % Eosinophils % (Manual) (1.0-5.0) % Platelet Estimate Sodium (136-145) mmol/L Potassium (3.5-5.1) mmol/L Chloride (98-107) mmol/L Carbon Dioxide (21.0-32.0) mmol/L Anion Gap (5.0-15.0) mmol/L BUN (8-26) mg/dL Creatinine (0.55-1.02) mg/dL Est Cr Clr Drug Dosing Estimated GFR (MDRD) (>60) MLS/MIN BUN/Creatinine Ratio (6-25) Glucose (74-100) mg/dL Lactic Acid (0.4-2.0) mmol/L Calcium (8.5-10.1) mg/dL Total Bilirubin (0.0-1.0) mg/dL AST (15-37) U/L ALT (12-78) U/L Alkaline Phosphatase (46-116) U/L Troponin I (0.000-0.060) ng/mL Total Protein (6.4-8.2) g/dL Albumin (3.4-5.0) g/dL Globulin (2.2-4.2) g/dL Albumin/Globulin Ratio (0.8-2.0) TSH, Ultra Sensitive (0.358-3.740) uIU/mL Urine Color Yellow Urine Appearance Clear (CLEAR) Urine pH 5.0 (5.0-8.0) Ur Specific [place] 1.025 (1.003-1.030) Urine Protein Negative (NEGATIVE) mg/dL Urine Glucose (UA) Negative (NEGATIVE) mg/dL Urine Ketones Negative (NEGATIVE) mg/dL Urine Occult Blood Negative (NEGATIVE) Urine Nitrite Negative (NEGATIVE) Urine Bilirubin Negative (NEGATIVE) Urine Urobilinogen 0.2 (0.2-1.0) E.U./dL Ur Leukocyte Esterase Negative (NEGATIVE) SARS CoV-2 RNA Rapid JOSSY Meds: Medications Discontinued Medications Generic Name Dose Route Start Last Admin Trade Name Freq PRN Reason Stop Dose Admin Digoxin 250 mcg 08/09/20 14:41 08/09/20 14:58 Lanoxin IVPUSH 08/09/20 14:42 250 mcg ONETIME ONE Administration Sodium Chloride 500 mls @ 500 mls/hr 08/09/20 12:42 08/09/20 15:23 Normal Saline IV 08/09/20 13:41 500 mls/hr .BOLUS ONE Administration Sodium Chloride 1,000 mls @ 150 mls/hr 08/09/20 15:45 08/09/20 16:25 Normal Saline IV 150 mls/hr ASDIRECTED DANN Administration Sodium Chloride 1,000 mls @ 150 mls/hr 08/09/20 15:45 Normal Saline IV ASDIRECTED DANN Sodium Chloride 10 ml 08/09/20 12:39 Saline Flush FLUSH ASDIRECTED PRN Keep Vein Open - Radiology Interpretation Free Text/Narrative:: . Cardiomegaly is present CT scan of the abdomen and pelvis Status post hysterectomy. No free air no free fluid no dilated loops of bowel no aortic aneurysm. Fat-containing ventral hernia fat-containing umbilical hernia fat density mass in the left gluteus maximal muscle consistent with a lipoma unchanged from prior exam fat density mass within the anterior abdominal wall laterally on the left unchanged from prior exam consistent with a lipoma. Degenerative disc disease at multiple levels in the thoracic and lumbar spine small hiatal hernia liver with heterogeneous fatty infiltration. subtle hyperdense material in the dependent gallbladder may represent sludge or gallstones. Mild atrophy of both kidneys. 5 mm nonobstructing stone on the left. See report Chest x-ray no infiltrate present by my reading. Cardiomegaly is present - Re-Assessments/Exams Free Text/Narrative Re-Assessment/Exam: 08/09/20 15:14 Patient continued to be pain-free while in the emergency department. Patient and her daughter are in agreement with plan to transfer the patient to [facility]. Patient not appear to be in any acute distress. Unable to provide sample of stool up until now. Departure - Departure Time of Disposition: 17:00 Disposition: DC/Tfer to Acute Hospital 02 Reason for Transfer *Q: Other (Need for higher level of care) Condition: Good Clinical Impression: Atrial fibrillation with rapid ventricular response, C. 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
[2020-08-09 14:34] VITALS: BP 112/64
[2020-08-09] MEDS ORDERED: Digoxin 500 MCG/2 ML Amp IVPUSH ONE (14:41)
--- NOTE | 2020-08-09 14:49 | CT ---
DATE OF SERVICE: 08/09/2020 CLINICAL DATA: Abdominal distention/pain Unenhanced abdomen and pelvic CT: Multi slice acquisition through the abdomen and pelvis without IV or oral contrast was performed. Comparison is made to a prior exam dated 12 Mar 2016. There are minimal atelectatic changes in the dependent portion of both lower lungs. No areas of consolidation. No pleural effusion. The heart size is normal. There are severe coronary artery calcifications. There is a small pericardial effusion. There is a small hiatal hernia. There are surgical changes involving the stomach. The unenhanced liver demonstrates heterogeneous fatty infiltration. The liver is otherwise unremarkable. There is subtle hyperdense material in the dependent gallbladder. This may represent sludge or gallstones. The spleen measures 13.6 cm. It is homogeneous in attenuation. There is a isodense nodule adjacent to the spleen consistent with an accessory spleen. The pancreas is mildly atrophic, otherwise unremarkable. The right and left adrenals appear normal. There is mild atrophy of both kidneys. There is a 5 mm nonobstructing renal calculi on the left. The right and left kidneys are otherwise unremarkable. No hydronephrosis or hydroureter. There is a Londono catheter within the bladder. Bladder appears grossly normal. The patient is status post hysterectomy. No free air. No free fluid. No dilated loops of bowel. No adenopathy. No aortic aneurysm. There is a fat containing ventral hernia. There is a small fat containing umbilical hernia. There is a fat density mass in the left gluteus rodríguez muscle consistent with a lipoma. It is unchanged from the prior exam. There is also a fat density mass within the anterior abdominal wall laterally on the left, unchanged from the prior exam, consistent with a lipoma. There is degenerative disc disease at multiple levels in the thoracic and lumbar spine. No other significant findings. MTDD
[2020-08-09 15:25] VITALS: PULSE 120
[2020-08-09] MEDS ORDERED: Sodium Chloride 0.9% 1,000 ML IV SCH ×2 (15:45)
--- NOTE | 2020-08-09 17:36 | CR ---
DATE OF SERVICE: 08/09/20 CLINICAL DATA: chest pain AP AND LATERAL CHEST: Comparison is made to a prior exam dated 04/27/20. The heart size is normal. The lungs are clear. No pneumothorax. No pleural effusions. No evidence of acute intrathoracic disease. [id number] [facility]
== END 2020-08-09 18:35 ==
LOC: LB.ED 12:05
DX: I48.91 Unspecified atrial fibrillation (principal); A04.72 Enterocolitis due to Clostridium difficile, not specified as recurrent; E11.59 Type 2 diabetes mellitus with other circulatory complications; S40.022A Contusion of left upper arm, initial encounter; S40.021A Contusion of right upper arm, initial encounter; I10 Essential (primary) hypertension; E78.00 Pure hypercholesterolemia, unspecified; I25.10 Atherosclerotic heart disease of native coronary artery without angina pectoris; I25.2 Old myocardial infarction; K21.9 Gastro-esophageal reflux disease without esophagitis; E03.9 Hypothyroidism, unspecified; F32.9 Major depressive disorder, single episode, unspecified; E66.9 Obesity, unspecified; Z90.710 Acquired absence of both cervix and uterus; Z86.73 Personal history of transient ischemic attack (TIA), and cerebral infarction without residual deficits; Z79.4 Long term (current) use of insulin; Z79.899 Other long term (current) drug therapy; Z20.828 Contact with and (suspected) exposure to other viral communicable diseases; Z68.38 Body mass index [BMI] 38.0-38.9, adult; Z79.02 Long term (current) use of antithrombotics/antiplatelets; X58.XXXA Exposure to other specified factors, initial encounter
CPT/HCPCS: 36415; 71046; 74176; 80053; 81003; 83605; 84443; 84484; 85025; 87040; 87493; 96374; 99285; J1160; J7030; J7040; U0002; A0425; A0429

== ENCOUNTER 2020-12-06 08:49 | Inpatient (IN) | payer MEDICARE ==
--- NOTE | 2020-12-06 10:25 | EDM.PDOC ---
ED HPI GENERAL MEDICAL PROBLEM - General Chief Complaint: General Stated Complaint: Hip pain after fall Time Seen by Provider: 12/06/20 09:00 Source of Information: Reports: Patient History Limitations: Reports: Physical Impairment - History of Present Illness INITIAL COMMENTS - FREE TEXT/NARRATIVE: 70 year old female brought by ambulance due to h/o fall ,she was going to wash r oom,tipped her toe & landed on her right side .c/o pain in right shoulder ,right hip & right knee . The pain is sharp ,located on right shoulder ,right knee & right hip ./10 non radiating Denies fever ,nausea ,vomiting ,chest pain,headache ,abdominal pain - Related Data Allergies Allergy/AdvReac Type Severity Reaction Status Date / Time No Known Allergies Allergy Verified 05/02/20 21:17 Home Meds: Home Meds RX: Insulin Glarg,Human.Rec.Analog [Lantus Solostar] 23 unit SUBCUT QPM 03/22/17 [History] RX: Sertraline HCl [Zoloft] 50 mg PO DAILY 03/22/17 [History] RX: atorvaSTATin [Lipitor] 80 mg PO BEDTIME 03/22/17 [History] RX: Clopidogrel Bisulfate [Clopidogrel] 75 mg PO DAILY 03/26/17 [History] RX: Levothyroxine 12.5 mcg PO ACBREAKFAST 12/08/18 [History] RX: traMADol HCl [Tramadol HCl] 50 mg PO Q6H PRN 12/08/18 [History] RX: Rivaroxaban [Xarelto] 15 mg PO WITHDINNER 30 Days #30 tablet 12/09/18 [Rx] Latanoprost/Pf [Latanoprost 0.005% Eye Drop] 1 drop EYEBOTH QPM 12/15/18 [History] RX: Pantoprazole [ProTONIX] 40 mg PO DAILY 12/22/18 [History] RX: Lisinopril 2.5 mg PO DAILY 01/14/19 [History] RX: Metoprolol Tartrate 12.5 mg PO BID 01/14/19 [History] RX: Mirtazapine 15 mg PO BEDTIME 01/14/19 [History] Furosemide [Lasix] 40 mg PO DAILY 05/23/20 [History] RX: Potassium Chloride 10 meq PO DAILY 07/29/20 [History] Past Medical History HEENT History: Reports: Impaired Vision Cardiovascular History: Reports: Afib, Angina, CAD, High Cholesterol, Hypertension, OR, Other (See Below) Other Cardiovascular History: Cartotid artery syndrome Respiratory History: Reports: None Gastrointestinal History: Reports: GERD Other Gastrointestinal History: Constipation related to vicodin Genitourinary History: Reports: None [employer] 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: Musculoskeletal History: Reports: Arthritis, Back Pain, Chronic, Fracture, Osteoarthritis, Osteoporosis Neurological History: Reports: CVA Other Neuro History: 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 Psychiatric History: Reports: Depression Endocrine/Metabolic History: Reports: Diabetes, Type II, Hypothyroidism Hematologic History: Reports: B12 Deficiency, Other (See Below) Other Hematologic History: gets B 12 shots monthly Immunologic History: Reports: None Oncologic (Cancer) History: Reports: None Dermatologic History: Reports: Eczema Other Dermatologic History: Rash under abdominal fold and breasts - Infectious Disease History Infectious Disease History: Reports: C-Difficile - Past Surgical History HEENT Surgical History: Reports: None Cardiovascular Surgical History: Reports: None GI Surgical History: Reports: Bariatric Procedure, Hernia, Abdominal, Hernia Repair/Other Female Surgical History: Reports: Section, Hysterectomy Neurological Surgical History: Reports: None Musculoskeletal Surgical History: Reports: Other (See Below) Other Musculoskeletal Surgeries/Procedures:: Surgery to fix L wrist Social & Family History - Family History Family Medical History: No Pertinent Family History - Tobacco Use Tobacco Use Status *Q: Never Tobacco User Second Hand Smoke Exposure: No - Caffeine Use Caffeine Use: Reports: Coffee - Alcohol Use Days Per Week of Alcohol Use: 1 Number of Drinks Per Day: 1 Total Drinks Per Week: 1 - Recreational Drug Use Recreational Drug Use: No ED ROS GENERAL - Review of Systems Review Of Systems: See Below Constitutional: Reports: No Symptoms HEENT: Reports: No Symptoms Respiratory: Reports: No Symptoms, Other (basal crepts ) Cardiovascular: Reports: No Symptoms GI/Abdominal: Reports: No Symptoms Musculoskeletal: Reports: No Symptoms, Shoulder Pain, Other (h/o fall,pain in right shoulder ,right knee ,right hip) ED EXAM, GENERAL - Physical Exam Exam: See Below Exam Limited By: No Limitations General Appearance: Alert, WD/WN, Anxious Respiratory/Chest: No Respiratory Distress, Normal Breath Sounds, No Accessory Muscle Use, Chest Non-Tender, Crackles Cardiovascular: Normal Peripheral Pulses, Regular Rate, Rhythm, No Edema, No Gallop, No JVD GI/Abdominal: Normal Bowel Sounds, Soft, Non-Tender, No Organomegaly, No Distention, No Abnormal Bruit, No Mass, Pelvis Stable Back Exam: Normal Inspection Extremities: Other (no visivle abnormality on inspection,mild tenderness on right shoulder,right knee ,pain on movemts of left leg ,) Course - Vital Signs Text/Narrative:: 70 year old female came with h/o fall vitals monitored BP 161/87 pulse 93 Labs ordered X ray right shoulder ,rt knee ,& right hip done EKG done & compared with previous one .troponin was .o30 She had high white cell count & high HB & low K IV hydration started with Normal saline + 20 meq of K . spoke with daughter & told her the results basal crep on left side -CXR & covid 19 test ordered . Chest X ray is normal - spoke with E hospitalist -DR lynch ,she is going to put orders antibiotic & pain medication As patient had high leukocyte count ,a decision to admit the patient is made Last Recorded V/S: Last Vital Signs Temp 98.0 F 12/06/20 09:00 Pulse 93 12/06/20 09:00 Resp 16 12/06/20 09:00 BP 161/87 H 12/06/20 09:00 Pulse Ox - Orders/Labs/Meds Orders: Active Orders 24 hr Category Date Time Status Patient Status [ADT] Routine ADT 12/06/20 11:22 Ordered EKG Documentation Completion [RC] ASDIRECTED Care 12/06/20 09:13 Active Insert Urinary Catheter [OM.PC] Q24H Care 12/06/20 10:30 Ordered Oxygen Therapy [RC] PRN Care 12/06/20 11:22 Ordered Urinary Catheter Assessment [RC] ASDIRECTED Care 12/06/20 10:30 Active VTE/DVT Education [RC] Per Unit Routine Care 12/06/20 11:22 Ordered Vital Signs [RC] Q4H Care 12/06/20 11:22 Ordered B-TYPE NATRIURETIC PEPTIDE,BNP [CHEM] Stat Lab 12/06/20 11:36 Ordered C-REACTIVE PROTEIN [CHEM] Stat Lab 12/06/20 11:33 Ordered DD [D-DIMER QUANTITATIVE] [COAG] Stat Lab 12/06/20 11:36 Ordered INR,PT,PROTHROMBIN TIME [COAG] Stat Lab 12/06/20 11:36 Ordered LACTIC ACID [CHEM] Stat Lab 12/06/20 11:33 Ordered Resuscitation Status Routine Resus Stat 12/06/20 11:22 Ordered Labs: Laboratory Tests 12/06/20 12/06/20 12/06/20 Range/Units 09:25 09:35 10:35 WBC 17.5 H D (4.0-11.0) K/uL RBC 7.22 H (3.80-5.80) M/uL Hgb 18.6 H* (11.5-16.5) g/dL Hct 57.2 H (37.0-47.0) % MCV 79 (76-96) fL MCH 25.8 L (27.0-32.0) pg MCHC 32.5 (31.0-35.0) g/dL RDW 23.6 H (11.0-16.0) % Plt Count 147 L D (150-500) K/uL Neut % (Auto) 83.0 H (45.0-70.0) % Lymph % (Auto) 10.7 L (20.0-40.0) % Wolfe % (Auto) 4.0 (3.0-10.0) % Eos % (Auto) 1.8 (1.0-5.0) % Baso % (Auto) 0.5 (0.0-0.5) % Neut # (Auto) 14.51 H (2.00-7.50) K/uL Lymph # (Auto) 1.86 (1.50-4.00) K/uL Wolfe # (Auto) 0.69 (0.20-0.80) K/uL Eos # (Auto) 0.31 (0.04-0.40) K/uL Baso # (Auto) 0.08 (0.02-0.10) K/uL Sodium 144 (136-145) mmol/L Potassium 3.0 L (3.5-5.1) mmol/L Chloride 108 H (98-107) mmol/L Carbon Dioxide 30.4 (21.0-32.0) mmol/L Anion Gap 8.6 (5.0-15.0) mmol/L BUN 14 (8-26) mg/dL Creatinine 0.95 (0.55-1.02) mg/dL Est Cr Clr Drug Dosing TNP Estimated GFR (MDRD) 58 L (>60) MLS/MIN BUN/Creatinine Ratio 14.7 (6-25) Glucose 163 H D (74-100) mg/dL Calcium 7.2 L (8.5-10.1) mg/dL Total Bilirubin 0.6 D (0.0-1.0) mg/dL AST 21 (15-37) U/L ALT 35 (12-78) U/L Alkaline Phosphatase 276 H (46-116) U/L Troponin I 0.030 (0.000-0.060) ng/mL Total Protein 5.4 L (6.4-8.2) g/dL Albumin 2.1 L (3.4-5.0) g/dL Globulin 3.3 (2.2-4.2) g/dL Albumin/Globulin Ratio 0.6 L (0.8-2.0) Urine Color Urine Appearance (CLEAR) Urine pH (5.0-8.0) Ur Specific [place] (1.003-1.030) Urine Protein (NEGATIVE) mg/dL Urine Glucose (UA) (NEGATIVE) mg/dL Urine Ketones (NEGATIVE) mg/dL Urine Occult Blood (NEGATIVE) Urine Nitrite (NEGATIVE) Urine Bilirubin (NEGATIVE) Urine Urobilinogen (0.2-1.0) E.U./dL Ur Leukocyte Esterase (NEGATIVE) SARS-CoV-2 RNA (JOSSY) Negative (NEGATIVE) 12/06/20 Range/Units 10:45 WBC (4.0-11.0) K/uL RBC (3.80-5.80) M/uL Hgb (11.5-16.5) g/dL Hct (37.0-47.0) % MCV (76-96) fL MCH (27.0-32.0) pg MCHC (31.0-35.0) g/dL RDW (11.0-16.0) % Plt Count (150-500) K/uL Neut % (Auto) (45.0-70.0) % Lymph % (Auto) (20.0-40.0) % Wolfe % (Auto) (3.0-10.0) % Eos % (Auto) (1.0-5.0) % Baso % (Auto) (0.0-0.5) % Neut # (Auto) (2.00-7.50) K/uL Lymph # (Auto) (1.50-4.00) K/uL Wolfe # (Auto) (0.20-0.80) K/uL Eos # (Auto) (0.04-0.40) K/uL Baso # (Auto) (0.02-0.10) K/uL Sodium (136-145) mmol/L Potassium (3.5-5.1) mmol/L Chloride (98-107) mmol/L Carbon Dioxide (21.0-32.0) mmol/L Anion Gap (5.0-15.0) mmol/L BUN (8-26) mg/dL Creatinine (0.55-1.02) mg/dL Est Cr Clr Drug Dosing Estimated GFR (MDRD) (>60) MLS/MIN BUN/Creatinine Ratio (6-25) Glucose (74-100) mg/dL Calcium (8.5-10.1) mg/dL Total Bilirubin (0.0-1.0) mg/dL AST (15-37) U/L ALT (12-78) U/L Alkaline Phosphatase (46-116) U/L Troponin I (0.000-0.060) ng/mL Total Protein (6.4-8.2) g/dL Albumin (3.4-5.0) g/dL Globulin (2.2-4.2) g/dL Albumin/Globulin Ratio (0.8-2.0) Urine Color Yellow Urine Appearance Clear (CLEAR) Urine pH 5.5 (5.0-8.0) Ur Specific [place] 1.025 (1.003-1.030) Urine Protein Negative (NEGATIVE) mg/dL Urine Glucose (UA) Negative (NEGATIVE) mg/dL Urine Ketones Negative (NEGATIVE) mg/dL Urine Occult Blood Negative (NEGATIVE) Urine Nitrite Negative (NEGATIVE) Urine Bilirubin Negative (NEGATIVE) Urine Urobilinogen 0.2 (0.2-1.0) E.U./dL Ur Leukocyte Esterase Negative (NEGATIVE) SARS-CoV-2 RNA (JOSSY) (NEGATIVE) Meds: Medications Discontinued Medications Generic Name Dose Route Start Last Admin Trade Name Freq PRN Reason Stop Dose Admin Potassium Chloride/Sodium Chloride Confirm 12/06/20 10:42 12/06/20 10:59 Normal Saline With 20 Meq Kcl Administered 12/06/20 10:43 350 mls/hr Dose Administration 1,000 mls @ as directed .ROUTE .STK-MED ONE Departure - Departure Time of Disposition: 12:00 Disposition: Admitted As Inpatient 67 Clinical Impression: Fall Qualifiers: Encounter type: initial encounter Qualified Code(s): W19.XXXA - Unspecified fall, initial encounter - Discharge Information Referrals: PCP,None [Primary Care Provider] - Sepsis Event Note (ED) - Evaluation Sepsis Screening Result: No Definite Risk - Focused Exam Vital Signs: Vital Signs Temp Pulse Resp BP 12/06/20 09:00 98.0 F 93 16 161/87 H - Problem List & Annotations (1) Fall SNOMED Code(s): 3593853, 667500646 Code(s): W19.XXXA - UNSPECIFIED FALL, INITIAL ENCOUNTER Status: Acute Priority: Medium Current Visit: Yes Onset Date: ~12/06/20 (2) Leucocytosis SNOMED Code(s): 103931582, 041548099 Code(s): D72.829 - ELEVATED WHITE BLOOD CELL COUNT, UNSPECIFIED Status: Acute Current Visit: Yes (3) Hypokalemia SNOMED Code(s): 86684668 Code(s): E87.6 - HYPOKALEMIA Status: Acute Priority: Medium Current Visit: Yes Onset Date: ~12/06/20 - My Orders Last 24 Hours: My Active Orders 12/06/20 09:13 EKG Documentation Completion [RC] ASDIRECTED 12/06/20 10:30 Insert Urinary Catheter [OM.PC] Q24H Urinary Catheter Assessment [RC] ASDIRECTED 12/06/20 11:22 Patient Status [ADT] Routine Oxygen Therapy [RC] PRN VTE/DVT Education [RC] Per Unit Routine Vital Signs [RC] Q4H Resuscitation Status Routine 12/06/20 11:33 C-REACTIVE PROTEIN [CHEM] Stat LACTIC ACID [CHEM] Stat 12/06/20 11:36 B-TYPE NATRIURETIC PEPTIDE,BNP [CHEM] Stat DD [D-DIMER QUANTITATIVE] [COAG] Stat INR,PT,PROTHROMBIN TIME [COAG] Stat - Assessment/Plan Last 24 Hours: My Active Orders 12/06/20 09:13 EKG Documentation Completion [RC] ASDIRECTED 12/06/20 10:30 Insert Urinary Catheter [OM.PC] Q24H Urinary Catheter Assessment [RC] ASDIRECTED 12/06/20 11:22 Patient Status [ADT] Routine Oxygen Therapy [RC] PRN VTE/DVT Education [RC] Per Unit Routine Vital Signs [RC] Q4H Resuscitation Status Routine 12/06/20 11:33 C-REACTIVE PROTEIN [CHEM] Stat LACTIC ACID [CHEM] Stat 12/06/20 11:36 B-TYPE NATRIURETIC PEPTIDE,BNP [CHEM] Stat DD [D-DIMER QUANTITATIVE] [COAG] Stat INR,PT,PROTHROMBIN TIME [COAG] Stat Plan: Admit patient as inpatient Called to E hospitalist Start antibiotics & pain meds Hydrate the patient replace K
[2020-12-06] MEDS ORDERED: NS + KCl 20mEq/L 1,000 ML ONE ×2 (10:42→16:48)
--- NOTE | 2020-12-06 10:46 | CR ---
DATE OF SERVICE: 12/06/2020 CLINICAL DATA: Fall Right Knee: There are tricompartment osteoarthritic changes of the knee joint. There is a small joint effusion. No acute fracture or dislocation. No lytic or blastic bone lesions. There are vascular calcifications in the soft tissues. MTDD
--- NOTE | 2020-12-06 10:47 | CR ---
DATE OF SERVICE: 12/06/2020 CLINICAL DATA: Fall Right shoulder: There is diffuse osteopenia. There are osteoarthritic changes of the AC and glenohumeral joints. No acute abnormalities. MTDD
--- NOTE | 2020-12-06 10:50 | CR ---
DATE OF SERVICE: 12/06/2020 CLINICAL DATA: Fall Pelvis and Right hip: Mild osteoarthritic changes of both hip joints. No acute fracture or dislocation. No lytic or blastic bone lesions. MTDD
--- NOTE | 2020-12-06 11:46 | CR ---
Date of Service: 12/06/20 Clinical Data: history of chf AP CHEST: Comparison is made to a prior exam dated 11/14/20. The patient has taken a very poor inspiration. The heart size is stable. The lungs are clear. No pneumothorax. No pleural effusions. [id number] MTDD
[2020-12-06] MEDS ORDERED: Potassium Chloride 20 MEQ Tab.ER PO ONE (13:00)
[2020-12-06] MEDS ORDERED: Acetaminophen 325 MG Tab ONE (13:08)
[2020-12-06] MEDS: Acetaminophen 325 MG Tab PO PRN ×2 (13:20→19:39)
[2020-12-06] MEDS: Nystatin Topical Powder 15 GM Bottle TOP SCH ×2 (13:21→20:20)
[2020-12-06] MEDS ORDERED: NS + KCl 20mEq/L 1,000 ML IV SCH (16:45)
[2020-12-06] MEDS: Insulin Aspart 100 Units/ML 3 ML Pen SUBCUT SCH (18:01)
[2020-12-06] MEDS ORDERED: Rivaroxaban 10 MG Tab ONE (19:29)
[2020-12-06] MEDS: Ferrous Sulfate 325 MG Tab PO SCH (19:36)
[2020-12-06] MEDS ORDERED: Sodium Chloride 0.9% 10 ML Syringe FLUSH PRN (20:00)
[2020-12-06] MEDS ORDERED: Sertraline 50 MG Tab PO SCH (20:00)
[2020-12-06] MEDS ORDERED: atorvaSTATin 80 MG Tab PO SCH (20:00)
[2020-12-06] MEDS ORDERED: Metoprolol Tartrate 50 MG Tab PO SCH (20:00)
[2020-12-06] MEDS ORDERED: Rivaroxaban 15 MG Tab PO SCH (20:00)
[2020-12-07] MEDS: Acetaminophen 325 MG Tab PO PRN (05:39)
[2020-12-07] MEDS: Pantoprazole 40 MG Tab.CR PO SCH ×2 (05:40→06:42)
[2020-12-07] MEDS: Levothyroxine 25 MCG Tab PO SCH ×2 (05:40→06:42)
[2020-12-07] MEDS: Nystatin Topical Powder 15 GM Bottle TOP SCH (07:44)
[2020-12-07] MEDS: Ferrous Sulfate 325 MG Tab PO SCH (07:44)
[2020-12-07] MEDS: Insulin Aspart 100 Units/ML 3 ML Pen SUBCUT SCH ×2 (07:49→11:45)
[2020-12-07] MEDS ORDERED: Calcium Carbonate 600 MG Tab PO SCH (08:00)
[2020-12-07] MEDS ORDERED: Aspirin 81 MG Tab.EC PO SCH (08:00)
[2020-12-07] MEDS ORDERED: Lisinopril 10 MG Tab PO SCH (08:00)
[2020-12-07 14:14] VITALS: BP 112/82; PULSE 102
--- NOTE | 2020-12-07 15:40 | PCM.DCSUM1 ---
Discharge Summary - Hospital Course Free Text/Narrative:: 70 year old female came with h/o fall landed on right hip ,right knee & right shoulder - c/o pain X ray right shoulder,hip & knee were normal . White cell count elevated we admit to look for the source of infection CXR normal urine came normal Labs today shows increasing trend of whit cell count Spoke with E hospitalist dr Laurent ,he does not want to start antibiotic for rise of white cell count He wants to do blood work repeat & F/u with PCP Disposition = discharge home with family Diagnosis: Stroke: No - Discharge Data Discharge Date: 12/07/20 Discharge Disposition: Home, Self-Care 01 Condition: Stable - Referral to Home Health Primary Care Physician: PCP None - Discharge Diagnosis/Problem(s) (1) Fall SNOMED Code(s): 0809098, 703888204 ICD Code: W19.XXXA - UNSPECIFIED FALL, INITIAL ENCOUNTER Status: Acute Priority: Medium Onset Date: ~12/06/20 (2) Leucocytosis SNOMED Code(s): 289489533, 608075058 ICD Code: D72.829 - ELEVATED WHITE BLOOD CELL COUNT, UNSPECIFIED Status: Acute (3) Hypokalemia SNOMED Code(s): 95087479 ICD Code: E87.6 - HYPOKALEMIA Status: Acute Priority: Medium Onset Date: ~12/06/20 - Patient Summary/Data Consults: Consultations 12/06/20 16:31 OT Evaluation and Treatment [CONS] Routine Please Evaluate and Treat. OT Reason for Consult: ADL's This query below is only for informational purposes and is not editable. Admission Diagnosis/Problem: Fall PT Evaluation and Treatment [CONS] Routine Please Evaluate and Treat. PT Reason for Consult: Strengthening This query below is only for informational purposes and is not editable. Admission Diagnosis/Problem: Fall - Patient Instructions Diet: Diabetic Diet Driving: Do Not Drive Showering/Bathing: May Shower - Discharge Plan *PRESCRIPTION DRUG MONITORING PROGRAM REVIEWED*: No (F/U with PCP for elevated white cell count) Home Medications: Home Meds RX: Sertraline HCl [Zoloft] 50 mg PO BEDTIME 03/22/17 [History] RX: atorvaSTATin [Lipitor] 80 mg PO BEDTIME 03/22/17 [History] RX: Levothyroxine 12.5 mcg PO ACBREAKFAST 12/08/18 [History] RX: Pantoprazole [ProTONIX] 40 mg PO DAILY 12/22/18 [History] RX: Metoprolol Tartrate 50 mg PO BEDTIME 01/14/19 [History] Calcium Carbonate [Calcium] 600 mg PO DAILY 12/06/20 [History] RX: Aspirin 81 mg PO DAILY 12/06/20 [History] RX: Ferrous Sulfate 325 mg PO BID 12/06/20 [History] RX: Rivaroxaban [Xarelto] 15 mg PO BEDTIME 12/06/20 [History] lisinopriL [Lisinopril] 10 mg PO DAILY 12/06/20 [History] Patient Handouts: White Blood Cell Count Test Referrals: PCP,None [Primary Care Provider] - - Discharge Summary/Plan Comment DC Time >30 min.: Yes - Patient Data Vitals - Most Recent: Last Vital Signs Temp 98.0 F 12/07/20 12:00 Pulse 102 H 12/07/20 12:00 Resp 18 12/07/20 12:00 BP 112/82 12/07/20 12:00 Pulse Ox 95 12/07/20 12:00 Weight - Most Recent: 219 lb I&O - Last 24 hours: Intake & Output 12/07/20 12/07/20 12/07/20 06:59 14:59 22:59 Intake Total 1080 Balance 1080 Lab Results - Last 24 hrs: Laboratory Results - last 24 hr 12/06/20 12/07/20 12/07/20 Range/Units 18:46 06:48 07:00 WBC (4.0-11.0) K/uL RBC (3.80-5.80) M/uL Hgb (11.5-16.5) g/dL Hct (37.0-47.0) % MCV (76-96) fL MCH (27.0-32.0) pg MCHC (31.0-35.0) g/dL RDW (11.0-16.0) % Plt Count (150-500) K/uL Neut % (Auto) (45.0-70.0) % Lymph % (Auto) (20.0-40.0) % [place]rent[place] % (Auto) (3.0-10.0) % Eos % (Auto) (1.0-5.0) % Baso % (Auto) (0.0-0.5) % Neut # (Auto) (2.00-7.50) K/uL Lymph # (Auto) (1.50-4.00) K/uL [place] # (Auto) (0.20-0.80) K/uL Eos # (Auto) (0.04-0.40) K/uL Baso # (Auto) (0.02-0.10) K/uL Sodium 144 (136-145) mmol/L Potassium 3.6 (3.5-5.1) mmol/L Chloride 110 H (98-107) mmol/L Carbon Dioxide 26.9 (21.0-32.0) mmol/L Anion Gap 10.7 (5.0-15.0) mmol/L BUN 17 D (8-26) mg/dL Creatinine 0.90 (0.55-1.02) mg/dL Est Cr Clr Drug Dosing 48.80 mL/min Estimated GFR (MDRD) > 60 (>60) MLS/MIN BUN/Creatinine Ratio 18.9 (6-25) Glucose 145 H (74-100) mg/dL POC Glucose 246 H 140 H (74-110) mg/dL Calcium 7.4 L (8.5-10.1) mg/dL 12/07/20 12/07/20 Range/Units 07:00 10:53 WBC 19.8 H (4.0-11.0) K/uL RBC 6.82 H (3.80-5.80) M/uL Hgb 17.7 H (11.5-16.5) g/dL Hct 54.4 H (37.0-47.0) % MCV 80 (76-96) fL MCH 26.0 L (27.0-32.0) pg MCHC 32.5 (31.0-35.0) g/dL RDW 23.2 H (11.0-16.0) % Plt Count 159 (150-500) K/uL Neut % (Auto) 82.2 H (45.0-70.0) % Lymph % (Auto) 11.7 L (20.0-40.0) % [place] % (Auto) 4.2 (3.0-10.0) % Eos % (Auto) 1.5 (1.0-5.0) % Baso % (Auto) 0.4 (0.0-0.5) % Neut # (Auto) 16.30 H (2.00-7.50) K/uL Lymph # (Auto) 2.33 (1.50-4.00) K/uL [place]iss # (Auto) 0.83 H (0.20-0.80) K/uL Eos # (Auto) 0.30 (0.04-0.40) K/uL Baso # (Auto) 0.08 (0.02-0.10) K/uL Sodium (136-145) mmol/L Potassium (3.5-5.1) mmol/L Chloride (98-107) mmol/L Carbon Dioxide (21.0-32.0) mmol/L Anion Gap (5.0-15.0) mmol/L BUN (8-26) mg/dL Creatinine (0.55-1.02) mg/dL Est Cr Clr Drug Dosing mL/min Estimated GFR (MDRD) (>60) MLS/MIN BUN/Creatinine Ratio (6-25) Glucose (74-100) mg/dL POC Glucose 156 H (74-110) mg/dL Calcium (8.5-10.1) mg/dL HOWIE Results - Last 24 hrs: Microbiology 12/06/20 13:03 Aerobic Blood Culture - Preliminary Blood NO GROWTH AFTER 1 DAY Anaerobic Blood Culture - Preliminary NO GROWTH AFTER 1 DAY 12/06/20 13:20 Aerobic Blood Culture - Preliminary Blood NO GROWTH AFTER 1 DAY Anaerobic Blood Culture - Preliminary NO GROWTH AFTER 1 DAY 12/06/20 16:55 MRSA Surveillance Culture - Final Nasal, Unspecified NO MRSA ISOLATED Med Orders - Current: Current Medications Discontinued Medications Acetaminophen (Tylenol) 650 mg PO Q6H PRN PRN Reason: Pain Last Admin: 12/07/20 05:39 Dose: 650 mg Documented by: Acetaminophen (Tylenol) Confirm Administered Dose 650 mg .ROUTE .STK-MED ONE Stop: 12/06/20 13:09 Last Admin: 12/06/20 15:39 Dose: Not Given Documented by: Aspirin (Halfprin) 81 mg PO DAILY [facility] Last Admin: 12/07/20 07:44 Dose: 81 mg Documented by: Atorvastatin Calcium (Lipitor) 80 mg PO BEDTIME [facility] Last Admin: 12/06/20 19:35 Dose: 80 mg Documented by: Calcium Carbonate/Glycine (Calcium Carbonate) 600 mg PO DAILY [facility] Last Admin: 12/07/20 07:44 Dose: 600 mg Documented by: Ferrous Sulfate (Ferrous Sulfate) 325 mg PO BID [facility] Last Admin: 12/07/20 07:44 Dose: 325 mg Documented by: Potassium Chloride/Sodium Chloride (Normal Saline With 20 Meq Kcl) Confirm Administered Dose 1,000 mls @ as directed .ROUTE .[facility] ONE Stop: 12/06/20 10:43 Last Admin: 12/06/20 10:59 Dose: 350 mls/hr Documented by: Potassium Chloride/Sodium Chloride (Normal Saline With 20 Meq Kcl) Confirm Administered Dose 1,000 mls @ as directed .ROUTE .[facility] ONE Stop: 12/06/20 16:49 Last Admin: 12/06/20 17:02 Dose: Not Given Documented by: Potassium Chloride/Sodium Chloride (Normal Saline With 20 Meq Kcl) 1,000 mls @ 75 mls/hr IV ASDIRECTED [facility] Stop: 12/07/20 06:04 Last Admin: 12/06/20 18:03 Dose: 75 mls/hr Documented by: Insulin Aspart (Novolog) 0 unit SUBCUT TIDMEALS [facility]; Protocol Last Admin: 12/07/20 11:45 Dose: 1 units Documented by: Levothyroxine Sodium (Levothyroxine) 12.5 mcg PO ACBREAKFAST [facility] Last Admin: 12/07/20 06:42 Dose: Not Given Documented by: Lisinopril (Prinivil) 10 mg PO DAILY [facility] Last Admin: 12/07/20 07:44 Dose: 10 mg Documented by: Metoprolol Tartrate (Lopressor) 50 mg PO BEDTIME [facility] Last Admin: 12/06/20 19:39 Dose: 50 mg Documented by: Nystatin (Nystop) 0 gm TOP BID [facility] Last Admin: 12/07/20 07:44 Dose: 1 applic Documented by: Pantoprazole Sodium (Protonix) 40 mg PO ACBREAKFAST [facility] Last Admin: 12/07/20 06:42 Dose: Not Given Documented by: Potassium Chloride (Klor-Con M20) 20 meq PO ONETIME ONE Stop: 12/06/20 13:01 Last Admin: 12/06/20 13:25 Dose: 20 meq Documented by: Rivaroxaban (Xarelto) 15 mg PO BEDTIME [facility] Last Admin: 12/06/20 19:41 Dose: 15 mg Documented by: Rivaroxaban (Xarelto) Confirm Administered Dose 20 mg .ROUTE .[facility] ONE Stop: 12/06/20 19:30 Last Admin: 12/06/20 19:41 Dose: Not Given Documented by: Sertraline HCl (Zoloft) 50 mg PO BEDTIME [facility] Last Admin: 12/06/20 19:36 Dose: 50 mg Documented by: Sodium Chloride (Saline Flush) 10 ml FLUSH ASDIRECTED PRN PRN Reason: Keep Vein Open
== END 2020-12-07 13:45 | disposition home or self-care (01) | DRG 816 ==
LOC: LB.ED 08:49 → LB.MS 11:22
PROVIDERS: ADMIT Physician Assistant; ATTEND Physician Assistant
DX: D72.829 Elevated white blood cell count, unspecified (principal); E87.6 Hypokalemia; D72.89 Other specified disorders of white blood cells; M25.551 Pain in right hip; M25.511 Pain in right shoulder; M25.561 Pain in right knee; W01.0XXA Fall on same level from slipping, tripping and stumbling without subsequent striking against object, initial encounter; I48.91 Unspecified atrial fibrillation; Z79.01 Long term (current) use of anticoagulants; Z79.02 Long term (current) use of antithrombotics/antiplatelets; Z79.890 Hormone replacement therapy; Z79.4 Long term (current) use of insulin; Z79.899 Other long term (current) drug therapy; H54.7 Unspecified visual loss; E78.00 Pure hypercholesterolemia, unspecified; I25.10 Atherosclerotic heart disease of native coronary artery without angina pectoris; I10 Essential (primary) hypertension; K21.9 Gastro-esophageal reflux disease without esophagitis; K59.03 Drug induced constipation; M19.90 Unspecified osteoarthritis, unspecified site; G89.29 Other chronic pain; I25.2 Old myocardial infarction; Z86.73 Personal history of transient ischemic attack (TIA), and cerebral infarction without residual deficits; Z90.710 Acquired absence of both cervix and uterus; W19.XXXA Unspecified fall, initial encounter; M54.9 Dorsalgia, unspecified; I69.392 Facial weakness following cerebral infarction; E11.9 Type 2 diabetes mellitus without complications; F32.9 Major depressive disorder, single episode, unspecified; E53.8 Deficiency of other specified B group vitamins; Z20.822 Contact with and (suspected) exposure to COVID-19
CPT/HCPCS: 36415; 71045; 73030-RT; 73502-RT; 73560-RT; 80048; 80053; 81003; 82962; 83605; 83880; 84484; 85025; 85379; 85610; 86140; 87040; 93005; 99221; 99285-25; A0425; A0429; A9270-GY; J1815-GY; J3480; U0002

== ENCOUNTER 2020-12-23 10:19 | Inpatient (IN) | payer MEDICARE ==
[2020-12-23] MEDS ORDERED: Diltiazem 25 MG/5 ML SDV IVPUSH ONE (13:40)
[2020-12-23] MEDS ORDERED: Diltiazem 100 MG in Sodium Chloride 0.9% 100 ML IV SCH (13:45)
[2020-12-23] MEDS ORDERED: Sodium Chloride 0.9% 1,000 ML IV SCH ×2 (13:45→20:45)
[2020-12-23] MEDS ORDERED: Potassium Chloride Riders 100 ML ONE (14:50)
[2020-12-23] MEDS ORDERED: Potassium Chloride 40 MEQ/20 ML SDV IV ONE (15:00)
[2020-12-23] MEDS ORDERED: ESZOPICLONE 2 MG PO PRN (15:02)
[2020-12-23] MEDS: Potassium Chloride Riders 10 MEQ in Premix Bag 1 BAG IV SCH ×2 (15:50→21:31)
[2020-12-23] MEDS: Aspirin 81 MG Tab.EC PO SCH (15:52)
[2020-12-23] MEDS: Sodium Chloride 0.9% 500 ML IV SCH (16:00)
[2020-12-23] MEDS ORDERED: Rivaroxaban 15 MG Tab PO SCH (20:00)
[2020-12-23] MEDS: Metoprolol Tartrate 50 MG Tab PO SCH (20:03)
[2020-12-23] MEDS: atorvaSTATin 80 MG Tab PO SCH (20:03)
[2020-12-23] MEDS: Sertraline 50 MG Tab PO SCH (20:03)
--- NOTE | 2020-12-23 20:04 | HP ---
ADMISSION HISTORY AND PHYSICAL AND EMERGENCY ROOM ADMISSION NOTE: REASON FOR EMERGENCY ROOM VISIT: Sudden weakness and slurred speech. HISTORY: This 70-year-old woman has a history of congestive heart failure and a history of atrial fibrillation with rapid ventricular response. She has a number of other medical problems,(see PMH below), which add to her morbidity. Her daughter lives with her and assists with her cares and this morning her daughter was helping her to the bathroom whereupon she had a normal bowel movement. She was helped, assisted back to the breakfast table where she showed signs of being extremely tired and fatigued. Her daughter felt that she was abnormally somnolent and weak and demonstrated slurred speech, but no facial asymmetry or facial drooping was noted. She did not complain of any paralysis or weakness in any extremity. By the time her daughter assisted her back to bed, she was even more weak and for this reason, an ambulance was called. PAST MEDICAL HISTORY: Significant for 1. CVA in the past with "mini strokes". 2. History of atrial fibrillation with rapid ventricular response. 3. History of myocardial infarction with 3 stents in 2019. 4. History of type 2 diabetes (medications have been discontinued because of controlled by diet). 5. A recent history of leukocytosis of uncertain etiology. According to the daughter, she is being worked up for possible leukemia. She also has history of hypothyroidism and C difficile diarrhea. She has had multiple rib fractures and complications related to osteoarthritis and osteoporosis in the past. PAST OPERATIONS: Include 1. Bariatric procedure. 2. Hernia repair. 3. . 4. Hysterectomy. ALLERGIES: NONE TO MEDICATION. MEDICATIONS: Reviewed. Please see the electronic medical record. They include the followin. Lunesta. 2. Lipitor. 3. Xarelto 15 mg p.o. at bedtime. 4. Protonix 40 mg p.o. daily. 5. Metoprolol tartrate 50 mg p.o. at bedtime. 6. Levothyroxine 12.5 mcg p.o. at breakfast. 7. Aspirin 81 mg p.o. daily. 8. Lisinopril 2.5 mg p.o. daily. 9. Ferrous sulfate. 10.Sertraline 50 mg p.o. at bedtime. REVIEW OF SYSTEMS: Pertinent positives and negatives as listed in the HPI. She has not had any chest pain. She denies any extremity weakness or numbness. PHYSICAL EXAMINATION: GENERAL: She is reasonably alert, but somewhat sleepy initially when she came into the emergency department approximately 3 hours ago. She is afebrile. VITAL SIGNS: Heart rate 120, blood pressure 114/73, respiratory rate 20, and O2 sats 99% on room air. HEENT: No scleral icterus. No conjunctivitis. Oropharynx, she is edentulous. Normal hydration. NECK: Supple. No JVD is noted. No adenopathy. No thyromegaly. CHEST: Clear to auscultation with no wheezes, rhonchi, or rales and good air exchange bilaterally. CARDIAC: Irregular rate with no murmur audible. ABDOMEN: Nondistended, soft, and nontender. No hepatosplenomegaly. EXTREMITIES: Unremarkable with trace edema. The toes are pink and warm. She has palpable foot pulses. NEUROLOGIC: Cranial serves 2 through 12 appear intact. Muscle strength is symmetrical bilaterally in the upper and lower extremities. She does move all 4 extremities to command. Deep tendon reflexes were not tested. Sensory exam is normal to crude touch. LABORATORY DATA: Her CBC shows that she has leukocytosis and an abnormally elevated hemoglobin, but she does not have an elevated platelet count. Her WBC was 18,200. Her hemoglobin is 17.8. Her CMP shows that her potassium is 3.1. The rest of her electrolytes are normal. Her creatinine is 1.01. Her glucose is 136. Her calcium is 8.0, but her albumin is 1.8. A troponin is slightly elevated at 0.022. Her BNP is significantly elevated at 3697. Urinalysis is pending. A COVID-19 swab was negative. A chest x-ray does not show any definite infiltrate. There is a poor inspiratory effort. FURTHER EMERGENCY ROOM COURSE: While on the monitor, her heart rate seemed to bounce high between 117 and 130 and she is in atrial fibrillation at this time with a rapid ventricular response. We went ahead and obtained a CT scan of her head without contrast and it showed no acute intracranial findings. IMPRESSION: 1. Weakness and above symptoms possibly due to reduced cardiac output because of atrial fibrillation with RVR. 2. Hypokalemia. PLAN: We will treat her hypokalemia with intravenous potassium and she will be given a diltiazem bolus of 20 mg followed by a diltiazem drip and we will monitor her. We will recheck her electrolytes in the morning. This was discussed with the patient and her daughter. They understand and agree with this plan. All questions were answered. TRINH/ARABELLA
[2020-12-23] MEDS: Nitroglycerin 0.4 MG Tab.SL SL PRN (21:05)
[2020-12-23] MEDS ORDERED: Lidocaine/Prilocaine 2.5-2.5% Crm 5 GM Tube ONE (21:25)
[2020-12-24] MEDS ORDERED: Furosemide 20 MG/2 ML VIAL IVPUSH ONE ×2 (01:01→16:00)
[2020-12-24] MEDS ORDERED: Sodium Chloride 0.9% 10 ML Syringe FLUSH PRN (01:47)
--- NOTE | 2020-12-24 06:59 | CR ---
Date of Service: 12/23/20 Clinical Data: decreased LOC AP CHEST: The patient has taken a very poor inspiration. Comparison is made to a prior exam dated 12/06/20. The heart and lungs are stable. No evidence of acute intrathoracic disease. [id number] [facility]
--- NOTE | 2020-12-24 07:04 | CT ---
Date of Service: 12/23/20 Clinical Data: decreased LOC UNENHANCED BRAIN CT: Multislice acquisition through the brain without IV contrast was performed. Comparison is made to a prior exam dated 04/27/20. There is diffuse atrophy. There are periventricular lucencies bilaterally consistent with small vessel ischemic change. No masses or mass effect. No intracranial hemorrhage. No evidence of acute or subacute infarct. No osseous abnormalities. IMPRESSION: No acute intracranial abnormalities. [id number] [facility]
[2020-12-24] MEDS: Calcium Carbonate 600 MG Tab PO SCH (09:23)
[2020-12-24] MEDS: Lisinopril 2.5 MG Tab PO SCH (09:23)
[2020-12-24] MEDS: Aspirin 81 MG Tab.EC PO SCH (09:23)
[2020-12-24] MEDS: Levothyroxine 25 MCG Tab PO SCH (09:25)
[2020-12-24] MEDS ORDERED: Potassium Chloride Riders 100 ML ONE (10:07)
[2020-12-24] MEDS ORDERED: Diltiazem 100 MG in Sodium Chloride 0.9% 100 ML IV SCH (10:45)
[2020-12-24] MEDS ORDERED: Sodium Chloride 0.9% with KCl 1,000 ML IV SCH (11:15)
[2020-12-24] MEDS ORDERED: Sodium Chloride 0.9% with KCl 1,000 ML ONE (12:08)
--- NOTE | 2020-12-24 14:10 | PN ---
DATE OF VISIT: 12/24/2020 SUBJECTIVE: Maral did have an episode of chest pain last night that only lasted a few minutes and resolved following nitroglycerin. She otherwise had a reasonably comfortable night that was uneventful. She offers no complaints today. OBJECTIVE: VITAL SIGNS: Her vital signs are stable. Blood pressure 128/60, heart rate is 70, O2 sats 95% on 2 L. Her urine output was 350 mL following 20 mg of Lasix yesterday. This morning her serum potassium is 2.9, so we will give her 40 mEq of potassium chloride in 1 L over 4 hours and follow that with a 20 mg IV dose of Lasix. We will recheck her electrolytes following this. She converted to normal sinus rhythm last night and remained in sinus rhythm, so we will cut her Cardizem down to 3 mg/hour and we can discontinue it later on this afternoon. If she remains stable, she should be able to go home tomorrow. She understands another provider will see her in my absence. TRINH/ARABELLA /[id number]
[2020-12-24] MEDS: Ciprofloxacin 500 MG Tab PO SCH ×2 (15:36→21:06)
[2020-12-24] MEDS ORDERED: Nystatin Topical Powder 15 GM Bottle ONE (16:53)
[2020-12-24] MEDS ORDERED: Calcium Carbonate 500 MG Tab.Chew ONE (21:03)
[2020-12-24] MEDS: atorvaSTATin 80 MG Tab PO SCH (21:06)
[2020-12-24] MEDS: Metoprolol Tartrate 50 MG Tab PO SCH (21:06)
[2020-12-24] MEDS: Nystatin Topical Powder 15 GM Bottle TOP SCH (21:08)
[2020-12-24] MEDS: Rivaroxaban 10 MG Tab PO SCH (21:09)
[2020-12-24] MEDS: Sertraline 50 MG Tab PO SCH (21:09)
[2020-12-24] MEDS ORDERED: Aluminum Hydroxide/Magnesium Hydroxide/Simethicone Susp 30 ML Cup ONE (21:19)
[2020-12-25] MEDS ORDERED: Aluminum Hydroxide/Magnesium Hydroxide/Simethicone Susp 30 ML Cup PO PRN (01:44)
[2020-12-25] MEDS: Nitroglycerin 0.4 MG Tab.SL SL PRN (02:13)
[2020-12-25] MEDS: Levothyroxine 25 MCG Tab PO SCH (06:24)
[2020-12-25] MEDS: Aspirin 81 MG Tab.EC PO SCH (08:58)
[2020-12-25] MEDS: Lisinopril 2.5 MG Tab PO SCH (08:59)
[2020-12-25] MEDS: Calcium Carbonate 600 MG Tab PO SCH (08:59)
[2020-12-25] MEDS: Nystatin Topical Powder 15 GM Bottle TOP SCH ×3 (08:59→20:19)
[2020-12-25] MEDS ORDERED: Levofloxacin/Dextrose 5%-Water 750 MG in Levofloxacin/Dextrose 5%-Water 150 ML IV SCH (10:00)
[2020-12-25] MEDS: Ciprofloxacin 500 MG Tab PO SCH (11:22)
[2020-12-25] MEDS: Levofloxacin/Dextrose 5%-Water 150 ML IV SCH (12:13)
--- NOTE | 2020-12-25 15:39 | PN ---
DATE OF VISIT: 12/24/2020 ADDENDUM: To the progress note. The patient's urinalysis from yesterday demonstrates that she has a pretty obvious UTI. This could have been part of probably one of the precipitating events leading to her admission. Her WBCs are greater than 100 on her urinalysis with moderate bacteria. She is also positive for leukocyte esterase and urine nitrite. She will be started on ciprofloxacin 500 mg p.o. b.i.d. TRINH/ARABELLA /[id number]
[2020-12-25] MEDS: Sodium Chloride 0.9% 500 ML IV SCH (16:50)
--- NOTE | 2020-12-25 18:06 | PCM.PN ---
- General Info Date of Service: 12/25/20 Functional Status: Reports: Pain Controlled - Review of Systems General: Reports: No Symptoms HEENT: Reports: No Symptoms Pulmonary: Reports: No Symptoms Cardiovascular: Reports: No Symptoms Gastrointestinal: Reports: No Symptoms Genitourinary: Reports: No Symptoms Musculoskeletal: Reports: No Symptoms Skin: Reports: No Symptoms Neurological: Reports: No Symptoms Psychiatric: Reports: No Symptoms - Patient Data Vitals - Most Recent: Last Vital Signs Temp 36.3 C 12/25/20 06:58 Pulse 78 12/25/20 16:00 Resp 16 12/25/20 16:00 BP 138/76 12/25/20 16:00 Pulse Ox 99 12/25/20 16:00 Weight - Most Recent: 101.151 kg I&O - Last 24 Hours: Intake & Output 12/25/20 12/25/20 12/25/20 06:59 14:59 22:59 Output Total 700 Balance -700 Lab Results Last 24 Hours: Laboratory Results - last 24 hr 12/25/20 12/25/20 Range/Units 07:00 07:00 WBC 18.7 H (4.0-11.0) K/uL RBC 5.63 (3.80-5.80) M/uL Hgb 15.0 (11.5-16.5) g/dL Hct 46.3 (37.0-47.0) % MCV 82 (76-96) fL MCH 26.6 L (27.0-32.0) pg MCHC 32.4 (31.0-35.0) g/dL RDW 23.3 H (11.0-16.0) % Plt Count 158 (150-500) K/uL MPV 11.8 H (6.0-10.0) fL Neut % (Auto) 85.0 H (45.0-70.0) % Lymph % (Auto) 9.3 L (20.0-40.0) % Mcleod % (Auto) 3.9 (3.0-10.0) % Eos % (Auto) 1.4 (1.0-5.0) % Baso % (Auto) 0.4 (0.0-0.5) % Neut # (Auto) 15.89 H (2.00-7.50) K/uL Lymph # (Auto) 1.73 (1.50-4.00) K/uL Mcleod # (Auto) 0.73 (0.20-0.80) K/uL Eos # (Auto) 0.26 (0.04-0.40) K/uL Baso # (Auto) 0.08 (0.02-0.10) K/uL Sodium 145 (136-145) mmol/L Potassium 3.3 L (3.5-5.1) mmol/L Chloride 111 H (98-107) mmol/L Carbon Dioxide 29.1 (21.0-32.0) mmol/L Anion Gap 8.2 (5.0-15.0) mmol/L BUN 19 D (8-26) mg/dL Creatinine 0.79 (0.55-1.02) mg/dL Est Cr Clr Drug Dosing 55.60 mL/min Estimated GFR (MDRD) > 60 (>60) MLS/MIN BUN/Creatinine Ratio 24.1 (6-25) Glucose 152 H (74-100) mg/dL Calcium 7.1 L (8.5-10.1) mg/dL Yosi Results Last 24 Hours: Microbiology 12/25/20 10:42 Clostridioides difficile (PCR) - Final Stool / Feces Med Orders - Current: Current Medications Al Hydroxide/Mg Hydroxide (Mag-Al Plus) 30 ml PO Q4H PRN PRN Reason: Heartburn Aspirin (Halfprin) 81 mg PO DAILY [facility] Last Admin: 12/25/20 08:58 Dose: 81 mg Documented by: Atorvastatin Calcium (Lipitor) 80 mg PO BEDTIME [facility] Last Admin: 12/24/20 21:06 Dose: 80 mg Documented by: Calcium Carbonate/Glycine (Calcium Carbonate) 600 mg PO DAILY [facility] Last Admin: 12/25/20 08:59 Dose: 600 mg Documented by: Sodium Chloride (Normal Saline) 1,000 mls @ 0 mls/hr IV ASDIRECTED DANN Last Admin: 12/23/20 13:30 Dose: 30 mls/hr Documented by: Sodium Chloride (Normal Saline) 500 mls @ 30 mls/hr IV ASDIRECTED DANN Last Admin: 12/25/20 16:50 Dose: 30 mls/hr Documented by: Potassium Chloride/Sodium Chloride (Normal Saline With 40 Meq Kcl) 1,000 mls @ 250 mls/hr IV ASDIRECTED [facility] Last Admin: 12/24/20 12:15 Dose: 250 mls/hr Documented by: Levofloxacin/Dextrose (Levaquin In D5w 750 Mg/150 Ml) 150 mls @ 100 mls/hr IV DAILY [facility] Stop: 12/27/20 23:59 Last Admin: 12/25/20 12:13 Dose: 100 mls/hr Documented by: Levothyroxine Sodium (Levothyroxine) 12.5 mcg PO ACBREAKFAST [facility] Last Admin: 12/25/20 06:24 Dose: 12.5 mcg Documented by: Lisinopril (Prinivil) 2.5 mg PO DAILY [facility] Last Admin: 12/25/20 08:59 Dose: 2.5 mg Documented by: Metoprolol Tartrate (Lopressor) 50 mg PO BEDTIME [facility] Last Admin: 12/24/20 21:06 Dose: 50 mg Documented by: Nitroglycerin (Nitrostat) 0.4 mg SL Q5M PRN PRN Reason: Chest Pain Last Admin: 12/25/20 02:13 Dose: 0.4 mg Documented by: Non-Formulary Medication (Eszopiclone [Lunesta]) 2 mg PO BEDTIME PRN PRN Reason: Insomnia Nystatin (Nystop) 0 gm TOP TID [facility] Last Admin: 12/25/20 14:43 Dose: 1 applic Documented by: Rivaroxaban (Xarelto) 15 mg PO BEDTIME [facility] Last Admin: 12/24/20 21:09 Dose: 15 mg Documented by: Sertraline HCl (Zoloft) 50 mg PO BEDTIME [facility] Last Admin: 12/24/20 21:09 Dose: 50 mg Documented by: Sodium Chloride (Saline Flush) 10 ml FLUSH ASDIRECTED PRN PRN Reason: Keep Vein Open Discontinued Medications Al Hydroxide/Mg Hydroxide (Mag-Al Plus) Confirm Administered Dose 30 ml .ROUTE .STK-MED ONE Stop: 12/24/20 21:20 Last Admin: 12/24/20 21:35 Dose: 30 ml Documented by: Calcium Carbonate/Glycine (Tums) Confirm Administered Dose 500 mg .ROUTE .STK- MED ONE Stop: 12/24/20 21:04 Last Admin: 12/24/20 21:09 Dose: 500 mg Documented by: Ciprofloxacin (Ciprofloxacin Hcl) 500 mg PO BID [facility] Last Admin: 12/25/20 11:22 Dose: Not Given Documented by: Diltiazem HCl (Diltiazem) 20 mg IVPUSH ONETIME ONE Stop: 12/23/20 13:41 Last Admin: 12/23/20 13:47 Dose: 20 mg Documented by: Furosemide (Lasix) 20 mg IVPUSH NOW ONE Stop: 12/24/20 01:02 Last Admin: 12/24/20 01:35 Dose: 20 mg Documented by: Furosemide (Lasix) 20 mg IVPUSH ONETIME ONE Stop: 12/24/20 16:01 Last Admin: 12/24/20 16:21 Dose: 20 mg Documented by: Diltiazem HCl 100 mg/ Sodium (Chloride) 100 mls @ 5 mls/hr IV TITRATE DANN; Protocol Last Titration: 12/24/20 04:13 Dose: 5 mg/hr, 5 mls/hr Documented by: Sodium Chloride (Normal Saline) 1,000 mls @ 30 mls/hr IV ASDIRECTED DANN Last Admin: 12/23/20 14:00 Dose: 30 mls/hr Documented by: Potassium Chloride (Kcl In Water 10 Meq/50 Ml) Confirm Administered Dose 100 mls @ as directed .ROUTE .STK-MED ONE Stop: 12/23/20 14:51 Last Admin: 12/23/20 15:44 Dose: Not Given Documented by: Potassium Chloride 10 meq/ (Premix) 50 mls @ 50 mls/hr IV Q1H DANN Stop: 12/23/20 17:59 Last Admin: 12/23/20 21:31 Dose: 25 mls/hr Documented by: Potassium Chloride (Kcl In Water 10 Meq/50 Ml) Confirm Administered Dose 100 mls @ as directed .ROUTE .STK-MED ONE Stop: 12/24/20 10:08 Last Admin: 12/24/20 12:05 Dose: Not Given Documented by: Potassium Chloride/Sodium Chloride (Normal Saline With 40 Meq Kcl) Confirm Administered Dose 1,000 mls @ as directed .ROUTE .STK-MED ONE Stop: 12/24/20 12:09 Last Admin: 12/24/20 13:45 Dose: Not Given Documented by: Diltiazem HCl 100 mg/ Sodium (Chloride) 100 mls @ 3 mls/hr IV TITRATE DANN; Protocol Stop: 12/24/20 16:00 Last Admin: 12/24/20 10:45 Dose: 3 mg/hr, 3 mls/hr Documented by: Lidocaine/Prilocaine (Emla Crm) Confirm Administered Dose 5 gm .ROUTE .STK-MED ONE Stop: 12/23/20 21:26 Last Admin: 12/23/20 21:45 Dose: 5 mg Documented by: Nystatin (Nystop) Confirm Administered Dose 15 gm .ROUTE .STK-MED ONE Stop: 12/24/20 16:54 Last Admin: 12/24/20 17:37 Dose: Not Given Documented by: Potassium Chloride (Potassium Chloride) 20 meq IV ONETIME ONE Stop: 12/23/20 15:01 Rivaroxaban (Xarelto) 15 mg PO BEDTIME [facility] Last Admin: 12/23/20 20:03 Dose: 15 mg Documented by: - Exam General: Alert, Oriented HEENT: Pupils Equal, Pupils Reactive Neck: Supple, Trachea Midline Lungs: Clear to Auscultation, Normal Respiratory Effort Cardiovascular: Regular Rate, Regular Rhythm GI/Abdominal Exam: Normal Bowel Sounds, Soft, Non-Tender Extremities: Normal Inspection, Normal Range of Motion Peripheral Pulses: 2+: Radial (L), Radial (R) Skin: Warm, Dry, Intact Neurological: No New Focal Deficit Psy/Mental Status: Alert, Normal Affect, Normal Mood - Patient Data Lab Results Last 24 hrs: Laboratory Results - last 24 hr 12/25/20 12/25/20 Range/Units 07:00 07:00 WBC 18.7 H (4.0-11.0) K/uL RBC 5.63 (3.80-5.80) M/uL Hgb 15.0 (11.5-16.5) g/dL Hct 46.3 (37.0-47.0) % MCV 82 (76-96) fL MCH 26.6 L (27.0-32.0) pg MCHC 32.4 (31.0-35.0) g/dL RDW 23.3 H (11.0-16.0) % Plt Count 158 (150-500) K/uL MPV 11.8 H (6.0-10.0) fL Neut % (Auto) 85.0 H (45.0-70.0) % Lymph % (Auto) 9.3 L (20.0-40.0) % Mcleod % (Auto) 3.9 (3.0-10.0) % Eos % (Auto) 1.4 (1.0-5.0) % Baso % (Auto) 0.4 (0.0-0.5) % Neut # (Auto) 15.89 H (2.00-7.50) K/uL Lymph # (Auto) 1.73 (1.50-4.00) K/uL Mcleod # (Auto) 0.73 (0.20-0.80) K/uL Eos # (Auto) 0.26 (0.04-0.40) K/uL Baso # (Auto) 0.08 (0.02-0.10) K/uL Sodium 145 (136-145) mmol/L Potassium 3.3 L (3.5-5.1) mmol/L Chloride 111 H (98-107) mmol/L Carbon Dioxide 29.1 (21.0-32.0) mmol/L Anion Gap 8.2 (5.0-15.0) mmol/L BUN 19 D (8-26) mg/dL Creatinine 0.79 (0.55-1.02) mg/dL Est Cr Clr Drug Dosing 55.60 mL/min Estimated GFR (MDRD) > 60 (>60) MLS/MIN BUN/Creatinine Ratio 24.1 (6-25) Glucose 152 H (74-100) mg/dL Calcium 7.1 L (8.5-10.1) mg/dL Result Diagrams: 12/25/20 07:00 12/25/20 07:00 Yosi Results Last 24 hrs: Microbiology 12/25/20 10:42 Clostridioides difficile (PCR) - Final Stool / Feces Sepsis Event Note - Evaluation Sepsis Screening Result: No Definite Risk - Focused Exam Vital Signs: Vital Signs Temp Pulse Resp BP BP Pulse Ox 12/25/20 16:00 78 16 138/76 99 12/25/20 12:00 81 16 124/53 L 94 L 12/25/20 08:59 137/66 12/25/20 07:33 71 16 137/66 96 12/25/20 06:58 36.3 C 68 18 151/82 H 96 - Problem List Review Problem List Initiated/Reviewed/Updated: Yes - My Orders Last 24 Hours: My Active Orders 12/25/20 08:00 Levofloxacin/Dextrose 5%-Water [Levaquin in D5W 750 MG/150 ML] 150 ml IV DAILY 12/25/20 10:43 Isolation [COMM] Stat - Assessment Assessment:: A-Fib- resolved. Treating UTI IV ABX. C-Diff- negative. - Plan Plan:: UTI- 750 Levaquin IV x 3 days. Fluids slow drip. AM labs. CBC, CMP. BG- Controlled, monitor. Falls- Monitor, release to respite on discharge, until daughter is back in town. Consider DC . A-Fib- Resolved.
[2020-12-25] MEDS: Metoprolol Tartrate 50 MG Tab PO SCH (20:17)
[2020-12-25] MEDS: Rivaroxaban 10 MG Tab PO SCH (20:17)
[2020-12-25] MEDS: Sertraline 50 MG Tab PO SCH (20:17)
[2020-12-25] MEDS: atorvaSTATin 80 MG Tab PO SCH (20:19)
[2020-12-26] MEDS: Levothyroxine 25 MCG Tab PO SCH ×2 (05:44→06:17)
[2020-12-26] MEDS: Lisinopril 2.5 MG Tab PO SCH (08:26)
[2020-12-26] MEDS: Nystatin Topical Powder 15 GM Bottle TOP SCH ×3 (08:26→20:04)
[2020-12-26] MEDS: Aspirin 81 MG Tab.EC PO SCH (08:26)
[2020-12-26] MEDS: Calcium Carbonate 600 MG Tab PO SCH (08:26)
[2020-12-26] MEDS: Potassium Chloride 20 MEQ Tab.ER PO SCH ×2 (08:42→19:48)
[2020-12-26] MEDS: Levofloxacin/Dextrose 5%-Water 150 ML IV SCH (08:45)
[2020-12-26] MEDS: Sodium Chloride 0.9% 500 ML IV SCH (08:46)
--- NOTE | 2020-12-26 14:48 | PCM.PN ---
- General Info Date of Service: 12/26/20 Admission Dx/Problem (Free Text): A-Fib, UTI Functional Status: Reports: Pain Controlled - Review of Systems General: Reports: No Symptoms HEENT: Reports: No Symptoms Pulmonary: Reports: No Symptoms Cardiovascular: Reports: No Symptoms Gastrointestinal: Reports: Constipation Genitourinary: Reports: No Symptoms Musculoskeletal: Reports: No Symptoms Skin: Reports: No Symptoms Neurological: Reports: No Symptoms Psychiatric: Reports: No Symptoms - Patient Data Vitals - Most Recent: Last Vital Signs Temp 36.6 C 12/26/20 12:00 Pulse 78 12/26/20 12:00 Resp 16 12/26/20 12:00 BP 150/91 H 12/26/20 12:00 Pulse Ox 95 12/26/20 12:00 Weight - Most Recent: 102.058 kg I&O - Last 24 Hours: Intake & Output 12/25/20 12/26/20 12/26/20 22:59 06:59 14:59 Intake Total 1220 100 Output Total 400 400 Balance 820 -300 Lab Results Last 24 Hours: Laboratory Results - last 24 hr 12/26/20 12/26/20 Range/Units 07:00 07:00 WBC 15.5 H (4.0-11.0) K/uL RBC 5.63 (3.80-5.80) M/uL Hgb 15.2 (11.5-16.5) g/dL Hct 46.5 (37.0-47.0) % MCV 83 (76-96) fL MCH 27.0 (27.0-32.0) pg MCHC 32.7 (31.0-35.0) g/dL RDW 23.5 H (11.0-16.0) % Plt Count 151 (150-500) K/uL Neut % (Auto) 83.0 H (45.0-70.0) % Lymph % (Auto) 10.5 L (20.0-40.0) % [place] % (Auto) 4.3 (3.0-10.0) % Eos % (Auto) 1.7 (1.0-5.0) % Baso % (Auto) 0.5 (0.0-0.5) % Neut # (Auto) 12.90 H (2.00-7.50) K/uL Lymph # (Auto) 1.63 (1.50-4.00) K/uL [place] # (Auto) 0.67 (0.20-0.80) K/uL Eos # (Auto) 0.27 (0.04-0.40) K/uL Baso # (Auto) 0.07 (0.02-0.10) K/uL Sodium 145 (136-145) mmol/L Potassium 2.8 L* (3.5-5.1) mmol/L Chloride 110 H (98-107) mmol/L Carbon Dioxide 29.0 (21.0-32.0) mmol/L Anion Gap 8.8 (5.0-15.0) mmol/L BUN 14 D (8-26) mg/dL Creatinine 0.68 (0.55-1.02) mg/dL Est Cr Clr Drug Dosing 64.59 mL/min Estimated GFR (MDRD) > 60 (>60) MLS/MIN BUN/Creatinine Ratio 20.6 (6-25) Glucose 130 H (74-100) mg/dL Calcium 7.2 L (8.5-10.1) mg/dL Total Bilirubin 0.6 (0.0-1.0) mg/dL AST 19 (15-37) U/L ALT 14 (12-78) U/L Alkaline Phosphatase 150 H (46-116) U/L Total Protein 4.7 L (6.4-8.2) g/dL Albumin 1.4 L (3.4-5.0) g/dL Globulin 3.3 (2.2-4.2) g/dL Albumin/Globulin Ratio 0.4 L (0.8-2.0) Yosi Results Last 24 Hours: Microbiology 12/25/20 10:42 Clostridioides difficile (PCR) - Final Stool / Feces Med Orders - Current: Current Medications Al Hydroxide/Mg Hydroxide (Mag-Al Plus) 30 ml PO Q4H PRN PRN Reason: Heartburn Aspirin (Halfprin) 81 mg PO DAILY [facility] Last Admin: 12/26/20 08:26 Dose: 81 mg Documented by: Atorvastatin Calcium (Lipitor) 80 mg PO BEDTIME [facility] Last Admin: 12/25/20 20:19 Dose: 80 mg Documented by: Calcium Carbonate/Glycine (Calcium Carbonate) 600 mg PO DAILY [facility] Last Admin: 12/26/20 08:26 Dose: 600 mg Documented by: Sodium Chloride (Normal Saline) 1,000 mls @ 0 mls/hr IV ASDIRECTED [facility] Last Admin: 12/23/20 13:30 Dose: 30 mls/hr Documented by: Sodium Chloride (Normal Saline) 500 mls @ 30 mls/hr IV ASDIRECTED [facility] Last Admin: 12/26/20 08:46 Dose: 30 mls/hr Documented by: Levofloxacin/Dextrose (Levaquin In D5w 750 Mg/150 Ml) 150 mls @ 100 mls/hr IV DAILY [facility] Stop: 12/27/20 23:59 Last Admin: 12/26/20 08:45 Dose: 100 mls/hr Documented by: Levothyroxine Sodium (Levothyroxine) 12.5 mcg PO ACBREAKFAST [facility] Last Admin: 12/26/20 06:17 Dose: Not Given Documented by: Lisinopril (Prinivil) 2.5 mg PO DAILY [facility] Last Admin: 12/26/20 08:26 Dose: 2.5 mg Documented by: Metoprolol Tartrate (Lopressor) 50 mg PO BEDTIME [facility] Last Admin: 12/25/20 20:17 Dose: 50 mg Documented by: Nitroglycerin (Nitrostat) 0.4 mg SL Q5M PRN PRN Reason: Chest Pain Last Admin: 12/25/20 02:13 Dose: 0.4 mg Documented by: Non-Formulary Medication (Eszopiclone [Lunesta]) 2 mg PO BEDTIME PRN PRN Reason: Insomnia Nystatin (Nystop) 0 gm TOP TID [facility] Last Admin: 12/26/20 08:26 Dose: 1 applic Documented by: Potassium Chloride (Klor-Con M20) 20 meq PO BID [facility] Last Admin: 12/26/20 08:42 Dose: 20 meq Documented by: Rivaroxaban (Xarelto) 15 mg PO BEDTIME [facility] Last Admin: 12/25/20 20:17 Dose: 15 mg Documented by: Sertraline HCl (Zoloft) 50 mg PO BEDTIME [facility] Last Admin: 12/25/20 20:17 Dose: 50 mg Documented by: Sodium Chloride (Saline Flush) 10 ml FLUSH ASDIRECTED PRN PRN Reason: Keep Vein Open Discontinued Medications Al Hydroxide/Mg Hydroxide (Mag-Al Plus) Confirm Administered Dose 30 ml .ROUTE .STK-MED ONE Stop: 12/24/20 21:20 Last Admin: 12/24/20 21:35 Dose: 30 ml Documented by: Calcium Carbonate/Glycine (Tums) Confirm Administered Dose 500 mg .ROUTE .STK- MED ONE Stop: 12/24/20 21:04 Last Admin: 12/24/20 21:09 Dose: 500 mg Documented by: Ciprofloxacin (Ciprofloxacin Hcl) 500 mg PO BID [facility] Last Admin: 12/25/20 11:22 Dose: Not Given Documented by: Diltiazem HCl (Diltiazem) 20 mg IVPUSH ONETIME ONE Stop: 12/23/20 13:41 Last Admin: 12/23/20 13:47 Dose: 20 mg Documented by: Furosemide (Lasix) 20 mg IVPUSH NOW ONE Stop: 12/24/20 01:02 Last Admin: 12/24/20 01:35 Dose: 20 mg Documented by: Furosemide (Lasix) 20 mg IVPUSH ONETIME ONE Stop: 12/24/20 16:01 Last Admin: 12/24/20 16:21 Dose: 20 mg Documented by: Diltiazem HCl 100 mg/ Sodium (Chloride) 100 mls @ 5 mls/hr IV TITRATE [facility]; Protocol Last Titration: 12/24/20 04:13 Dose: 5 mg/hr, 5 mls/hr Documented by: Sodium Chloride (Normal Saline) 1,000 mls @ 30 mls/hr IV ASDIRECTED [facility] Last Admin: 12/23/20 14:00 Dose: 30 mls/hr Documented by: Potassium Chloride (Kcl In Water 10 Meq/50 Ml) Confirm Administered Dose 100 mls @ as directed .ROUTE .STK-MED ONE Stop: 12/23/20 14:51 Last Admin: 12/23/20 15:44 Dose: Not Given Documented by: Potassium Chloride 10 meq/ (Premix) 50 mls @ 50 mls/hr IV Q1H [facility] Stop: 12/23/20 17:59 Last Admin: 12/23/20 21:31 Dose: 25 mls/hr Documented by: Potassium Chloride (Kcl In Water 10 Meq/50 Ml) Confirm Administered Dose 100 mls @ as directed .ROUTE .STK-MED ONE Stop: 12/24/20 10:08 Last Admin: 12/24/20 12:05 Dose: Not Given Documented by: Potassium Chloride/Sodium Chloride (Normal Saline With 40 Meq Kcl) 1,000 mls @ 250 mls/hr IV ASDIRECTED [facility] Last Admin: 12/24/20 12:15 Dose: 250 mls/hr Documented by: Potassium Chloride/Sodium Chloride (Normal Saline With 40 Meq Kcl) Confirm Administered Dose 1,000 mls @ as directed .ROUTE .STK-MED ONE Stop: 12/24/20 12:09 Last Admin: 12/24/20 13:45 Dose: Not Given Documented by: Diltiazem HCl 100 mg/ Sodium (Chloride) 100 mls @ 3 mls/hr IV TITRATE DANN; Protocol Stop: 12/24/20 16:00 Last Admin: 12/24/20 10:45 Dose: 3 mg/hr, 3 mls/hr Documented by: Lidocaine/Prilocaine (Emla Crm) Confirm Administered Dose 5 gm .ROUTE .STK-MED ONE Stop: 12/23/20 21:26 Last Admin: 12/23/20 21:45 Dose: 5 mg Documented by: Nystatin (Nystop) Confirm Administered Dose 15 gm .ROUTE .STK-MED ONE Stop: 12/24/20 16:54 Last Admin: 12/24/20 17:37 Dose: Not Given Documented by: Potassium Chloride (Potassium Chloride) 20 meq IV ONETIME ONE Stop: 12/23/20 15:01 Rivaroxaban (Xarelto) 15 mg PO BEDTIME [facility] Last Admin: 12/23/20 20:03 Dose: 15 mg Documented by: - Exam General: Alert, Oriented HEENT: Pupils Equal, Pupils Reactive Neck: Supple, Trachea Midline, No JVD Lungs: Clear to Auscultation, Normal Respiratory Effort Cardiovascular: Regular Rate, Regular Rhythm GI/Abdominal Exam: Normal Bowel Sounds, Soft, Non-Tender Back Exam: Normal Inspection Extremities: Normal Inspection, Normal Range of Motion, No Pedal Edema Peripheral Pulses: 2+: Brachial (L), Brachial (R) Skin: Warm, Dry, Intact Neurological: No New Focal Deficit Psy/Mental Status: Alert, Normal Affect, Normal Mood - Patient Data Lab Results Last 24 hrs: Laboratory Results - last 24 hr 12/26/20 12/26/20 Range/Units 07:00 07:00 WBC 15.5 H (4.0-11.0) K/uL RBC 5.63 (3.80-5.80) M/uL Hgb 15.2 (11.5-16.5) g/dL Hct 46.5 (37.0-47.0) % MCV 83 (76-96) fL MCH 27.0 (27.0-32.0) pg MCHC 32.7 (31.0-35.0) g/dL RDW 23.5 H (11.0-16.0) % Plt Count 151 (150-500) K/uL Neut % (Auto) 83.0 H (45.0-70.0) % Lymph % (Auto) 10.5 L (20.0-40.0) % [place] % (Auto) 4.3 (3.0-10.0) % Eos % (Auto) 1.7 (1.0-5.0) % Baso % (Auto) 0.5 (0.0-0.5) % Neut # (Auto) 12.90 H (2.00-7.50) K/uL Lymph # (Auto) 1.63 (1.50-4.00) K/uL [place] # (Auto) 0.67 (0.20-0.80) K/uL Eos # (Auto) 0.27 (0.04-0.40) K/uL Baso # (Auto) 0.07 (0.02-0.10) K/uL Sodium 145 (136-145) mmol/L Potassium 2.8 L* (3.5-5.1) mmol/L Chloride 110 H (98-107) mmol/L Carbon Dioxide 29.0 (21.0-32.0) mmol/L Anion Gap 8.8 (5.0-15.0) mmol/L BUN 14 D (8-26) mg/dL Creatinine 0.68 (0.55-1.02) mg/dL Est Cr Clr Drug Dosing 64.59 mL/min Estimated GFR (MDRD) > 60 (>60) MLS/MIN BUN/Creatinine Ratio 20.6 (6-25) Glucose 130 H (74-100) mg/dL Calcium 7.2 L (8.5-10.1) mg/dL Total Bilirubin 0.6 (0.0-1.0) mg/dL AST 19 (15-37) U/L ALT 14 (12-78) U/L Alkaline Phosphatase 150 H (46-116) U/L Total Protein 4.7 L (6.4-8.2) g/dL Albumin 1.4 L (3.4-5.0) g/dL Globulin 3.3 (2.2-4.2) g/dL Albumin/Globulin Ratio 0.4 L (0.8-2.0) Result Diagrams: 12/26/20 07:00 12/26/20 07:00 [place]osi Results Last 24 hrs: Microbiology 12/25/20 10:42 Clostridioides difficile (PCR) - Final Stool / Feces Sepsis Event Note - Evaluation Sepsis Screening Result: No Definite Risk Current Stage of Sepsis: Ruled Out Reason for Ruling Out Sepsis: WBC trending down per labs. Possible Source of Sepsis: Other (WBC trending down) - Focused Exam Vital Signs: Vital Signs Temp Pulse Resp BP BP Pulse Ox 12/26/20 12:00 36.6 C 78 16 150/91 H 95 12/26/20 08:26 158/89 H 12/26/20 08:00 36.6 C 83 18 158/89 H 95 12/26/20 04:00 84 12 134/77 97 - Problem List & Annotations (1) UTI (urinary tract infection) SNOMED Code(s): 86004868 Code(s): N39.0 - URINARY TRACT INFECTION, SITE NOT SPECIFIED Status: Acute Priority: Medium Current Visit: Yes Qualifiers: Urinary tract infection type: acute cystitis Hematuria presence: without hematuria Qualified Code(s): N30.00 - Acute cystitis without hematuria (2) Atrial fibrillation SNOMED Code(s): 05746199 Code(s): I48.91 - UNSPECIFIED ATRIAL FIBRILLATION Status: Acute Priority: Low Current Visit: Yes Qualifiers: Atrial fibrillation type: unspecified chronic Qualified Code(s): I48.20 - Chronic atrial fibrillation, unspecified; I48.2 - Chronic atrial fibrillation - Problem List Review Problem List Initiated/Reviewed/Updated: Yes - My Orders Last 24 Hours: My Active Orders 12/26/20 08:45 Potassium Chloride [Klor-Con M20] 20 meq PO BID 12/26/20 14:00 POTASSIUM,K [CHEM] Routine - Assessment Assessment:: A-Fib- resolved. Treating UTI IV ABX. C-Diff- negative. - Plan Plan:: Assessment and Plan- UTI- 750 Levaquin IV x 1 more day. Fluids slow drip. AM labs. CBC, CMP. BG- Controlled, monitor. Falls- Monitor, release to swing on discharge, until daughter is back in town. Consider DC . A-Fib- Resolved. Neg C-diff
[2020-12-26] MEDS ORDERED: Simethicone 80 MG Tab.Chew PO PRN (19:04)
[2020-12-26] MEDS: atorvaSTATin 80 MG Tab PO SCH (19:48)
[2020-12-26] MEDS: Sertraline 50 MG Tab PO SCH (19:48)
[2020-12-26] MEDS: Rivaroxaban 10 MG Tab PO SCH (19:49)
[2020-12-26] MEDS: Metoprolol Tartrate 50 MG Tab PO SCH (19:53)
[2020-12-27] MEDS: Sodium Chloride 0.9% 500 ML IV SCH (03:52)
[2020-12-27] MEDS: Levothyroxine 25 MCG Tab PO SCH (07:14)
[2020-12-27] MEDS: Nystatin Topical Powder 15 GM Bottle TOP SCH ×2 (08:00→14:19)
[2020-12-27] MEDS ORDERED: Potassium Chloride 20 MEQ Tab.ER PO SCH (08:00)
[2020-12-27] MEDS: Lisinopril 2.5 MG Tab PO SCH (08:03)
[2020-12-27] MEDS: Aspirin 81 MG Tab.EC PO SCH (08:03)
[2020-12-27] MEDS: Calcium Carbonate 600 MG Tab PO SCH (08:04)
[2020-12-27] MEDS: Levofloxacin/Dextrose 5%-Water 150 ML IV SCH (08:04)
[2020-12-27] MEDS ORDERED: Lactobacillus Acidophilus/Lactobacillus Sporogenes (Probiotic) Tab PO SCH (12:00)
[2020-12-27 13:59] VITALS: BP 142/71; PULSE 62
--- NOTE | 2020-12-27 14:07 | PCM.DCSUM1 ---
Discharge Summary - Hospital Course HPI Initial Comments: Ms. Hickey was initially admitted from the ED with A-Fib and a UTI. She has a history of CAD, HTN, Type 2 diabetes and CVA. She was treated with IV Levaquin 750 for 3 days while in IP. She will continue oral treatment once transferred to [facility] under Dr. Saavedra's care. Brief History: admitted for UTI and chronic A-Fib Diagnosis: Stroke: No - Discharge Data Discharge Date: 12/27/20 Discharge Disposition: DC/Tfer W/I Hosp To [facility] 61 Condition: Good - Referral to Home Health Primary Care Physician: PCP None - Discharge Diagnosis/Problem(s) (1) UTI (urinary tract infection) SNOMED Code(s): 87443813 ICD Code: N39.0 - URINARY TRACT INFECTION, SITE NOT SPECIFIED Status: Acute Priority: Medium Current Visit: Yes Qualifiers: Urinary tract infection type: acute cystitis Hematuria presence: without hematuria Qualified Code(s): N30.00 - Acute cystitis without hematuria (2) Atrial fibrillation SNOMED Code(s): 15140010 ICD Code: I48.91 - UNSPECIFIED ATRIAL FIBRILLATION Status: Acute Priority: Low Current Visit: Yes Qualifiers: Atrial fibrillation type: unspecified chronic Qualified Code(s): I48.20 - Chronic atrial fibrillation, unspecified; I48.2 - Chronic atrial fibrillation - Patient Summary/Data Consults: Consultations 12/26/20 15:36 OT Evaluation and Treatment [CONS] Routine Please Evaluate and Treat. OT Reason for Consult: ADL's This query below is only for informational purposes and is not editable. Admission Diagnosis/Problem: Atrial fibrillation with rapid ventricular response PT Evaluation and Treatment [CONS] Routine Please Evaluate and Treat. PT Reason for Consult: Strengthening This query below is only for informational purposes and is not editable. Admission Diagnosis/Problem: Atrial fibrillation with rapid ventricular response - Patient Instructions Diet: Heart Healthy Diet - Discharge Plan *PRESCRIPTION DRUG MONITORING PROGRAM REVIEWED*: Not Applicable Home Medications: Home Meds Sertraline HCl [Zoloft] 50 mg PO BEDTIME 03/22/17 [History] atorvaSTATin [Lipitor] 80 mg PO BEDTIME 03/22/17 [History] Levothyroxine 12.5 mcg PO ACBREAKFAST 12/08/18 [History] Pantoprazole [ProTONIX] 40 mg PO DAILY 12/22/18 [History] Metoprolol Tartrate 50 mg PO BEDTIME 01/14/19 [History] Aspirin 81 mg PO DAILY 12/06/20 [History] Calcium Carbonate [Calcium] 600 mg PO DAILY 12/06/20 [History] Ferrous Sulfate 325 mg PO BID 12/06/20 [History] Rivaroxaban [Xarelto] 15 mg PO BEDTIME 12/06/20 [History] Eszopiclone [Lunesta] 2 mg PO BEDTIME PRN 12/23/20 [History] lisinopriL [Prinivil] 2.5 mg PO DAILY 12/23/20 [History] Potassium Chloride [Klor-Con M20] 20 meq PO DAILY 12/27/20 [History] Simethicone 80 mg PO Q4H PRN 12/27/20 [History] Forms: ED Department Discharge Referrals: PCP,None [Primary Care Provider] - - Discharge Summary/Plan Comment DC Time >30 min.: No - General Info Date of Service: 12/27/20 Admission Dx/Problem (Free Text: A-Fib, UTI Functional Status: Reports: Pain Controlled - Review of Systems General: Reports: No Symptoms HEENT: Reports: No Symptoms Pulmonary: Reports: No Symptoms Cardiovascular: Reports: No Symptoms Gastrointestinal: Reports: No Symptoms Genitourinary: Reports: No Symptoms Musculoskeletal: Reports: No Symptoms Skin: Reports: No Symptoms Neurological: Reports: No Symptoms Psychiatric: Reports: No Symptoms - Patient Data Vitals - Most Recent: Last Vital Signs Temp 36.3 C 12/27/20 12:00 Pulse 62 12/27/20 12:00 Resp 18 12/27/20 12:00 BP 142/71 H 12/27/20 12:00 Pulse Ox 97 12/27/20 12:00 Weight - Most Recent: 102.058 kg I&O - Last 24 hours: Intake & Output 12/26/20 12/27/20 12/27/20 22:59 06:59 14:59 Intake Total 1230 200 Output Total 300 300 Balance 930 -100 Lab Results - Last 24 hrs: Laboratory Results - last 24 hr 12/26/20 12/27/20 12/27/20 Range/Units 14:00 09:15 10:47 WBC 15.0 H (4.0-11.0) K/uL RBC 5.58 (3.80-5.80) M/uL Hgb 15.0 (11.5-16.5) g/dL Hct 46.7 (37.0-47.0) % MCV 84 (76-96) fL MCH 26.9 L (27.0-32.0) pg MCHC 32.1 (31.0-35.0) g/dL RDW 24.1 H (11.0-16.0) % Plt Count 135 L (150-500) K/uL MPV 11.9 H (6.0-10.0) fL Neut % (Auto) 84.8 H (45.0-70.0) % Lymph % (Auto) 9.3 L (20.0-40.0) % [place] % (Auto) 3.8 (3.0-10.0) % Eos % (Auto) 1.7 (1.0-5.0) % Baso % (Auto) 0.4 (0.0-0.5) % Neut # (Auto) 12.70 H (2.00-7.50) K/uL Lymph # (Auto) 1.40 L (1.50-4.00) K/uL [place] # (Auto) 0.57 (0.20-0.80) K/uL Eos # (Auto) 0.26 (0.04-0.40) K/uL Baso # (Auto) 0.06 (0.02-0.10) K/uL Potassium 4.3 D 3.8 (3.5-5.1) mmol/L HOWIE Results - Last 24 hrs: Microbiology 12/25/20 14:42 MRSA Surveillance Culture - Final Nares, Unspecified NO MRSA ISOLATED Med Orders - Current: Current Medications Al Hydroxide/Mg Hydroxide (Mag-Al Plus) 30 ml PO Q4H PRN PRN Reason: Heartburn Aspirin (Halfprin) 81 mg PO DAILY [facility] Last Admin: 12/27/20 08:03 Dose: 81 mg Documented by: Atorvastatin Calcium (Lipitor) 80 mg PO BEDTIME [facility] Last Admin: 12/26/20 19:48 Dose: 80 mg Documented by: Calcium Carbonate/Glycine (Calcium Carbonate) 600 mg PO DAILY [facility] Last Admin: 12/27/20 08:04 Dose: 600 mg Documented by: Lactobacillus Acidophilus (Acidolphilus Extra Strength) 1 tab PO DAILY@1200 [facility] Levothyroxine Sodium (Levothyroxine) 12.5 mcg PO ACBREAKFAST [facility] Last Admin: 12/27/20 07:14 Dose: 12.5 mcg Documented by: Lisinopril (Prinivil) 2.5 mg PO DAILY [facility] Last Admin: 12/27/20 08:03 Dose: 2.5 mg Documented by: Metoprolol Tartrate (Lopressor) 50 mg PO BEDTIME [facility] Last Admin: 12/26/20 19:53 Dose: 50 mg Documented by: Nitroglycerin (Nitrostat) 0.4 mg SL Q5M PRN PRN Reason: Chest Pain Last Admin: 12/25/20 02:13 Dose: 0.4 mg Documented by: Eszopiclone (Lunesta ) 2 Mg Tab Own Med 2 mg PO BEDTIME PRN PRN Reason: Insomnia Last Admin: 12/26/20 19:51 Dose: 2 mg Documented by: Nystatin (Nystop) 0 gm TOP TID [facility] Last Admin: 12/26/20 20:04 Dose: 1 applic Documented by: Potassium Chloride (Klor-Con M20) 20 meq PO DAILY [facility] Last Admin: 12/27/20 08:03 Dose: 20 meq Documented by: Rivaroxaban (Xarelto) 15 mg PO BEDTIME [facility] Last Admin: 12/26/20 19:49 Dose: 15 mg Documented by: Sertraline HCl (Zoloft) 50 mg PO BEDTIME [facility] Last Admin: 12/26/20 19:48 Dose: 50 mg Documented by: Simethicone (Simethicone) 80 mg PO Q4H PRN PRN Reason: Gas Last Admin: 12/26/20 19:48 Dose: 80 mg Documented by: Discontinued Medications Al Hydroxide/Mg Hydroxide (Mag-Al Plus) Confirm Administered Dose 30 ml .ROUTE .STK-MED ONE Stop: 12/24/20 21:20 Last Admin: 12/24/20 21:35 Dose: 30 ml Documented by: Calcium Carbonate/Glycine (Tums) Confirm Administered Dose 500 mg .ROUTE .STK- MED ONE Stop: 12/24/20 21:04 Last Admin: 12/24/20 21:09 Dose: 500 mg Documented by: Ciprofloxacin (Ciprofloxacin Hcl) 500 mg PO BID [facility] Last Admin: 12/25/20 11:22 Dose: Not Given Documented by: Diltiazem HCl (Diltiazem) 20 mg IVPUSH ONETIME ONE Stop: 12/23/20 13:41 Last Admin: 12/23/20 13:47 Dose: 20 mg Documented by: Furosemide (Lasix) 20 mg IVPUSH NOW ONE Stop: 12/24/20 01:02 Last Admin: 12/24/20 01:35 Dose: 20 mg Documented by: Furosemide (Lasix) 20 mg IVPUSH ONETIME ONE Stop: 12/24/20 16:01 Last Admin: 12/24/20 16:21 Dose: 20 mg Documented by: Diltiazem HCl 100 mg/ Sodium (Chloride) 100 mls @ 5 mls/hr IV TITRATE DANN; Protocol Last Titration: 12/24/20 04:13 Dose: 5 mg/hr, 5 mls/hr Documented by: Sodium Chloride (Normal Saline) 1,000 mls @ 30 mls/hr IV ASDIRECTED [facility] Last Admin: 12/23/20 14:00 Dose: 30 mls/hr Documented by: Potassium Chloride (Kcl In Water 10 Meq/50 Ml) Confirm Administered Dose 100 mls @ as directed .ROUTE .STK-MED ONE Stop: 12/23/20 14:51 Last Admin: 12/23/20 15:44 Dose: Not Given Documented by: Potassium Chloride 10 meq/ (Premix) 50 mls @ 50 mls/hr IV Q1H [facility] Stop: 12/23/20 17:59 Last Admin: 12/23/20 21:31 Dose: 25 mls/hr Documented by: Sodium Chloride (Normal Saline) 1,000 mls @ 0 mls/hr IV ASDIRECTED [facility] Last Admin: 12/23/20 13:30 Dose: 30 mls/hr Documented by: Sodium Chloride (Normal Saline) 500 mls @ 30 mls/hr IV ASDIRECTED [facility] Last Admin: 12/27/20 03:52 Dose: 30 mls/hr Documented by: Potassium Chloride (Kcl In Water 10 Meq/50 Ml) Confirm Administered Dose 100 mls @ as directed .ROUTE .STK-MED ONE Stop: 12/24/20 10:08 Last Admin: 12/24/20 12:05 Dose: Not Given Documented by: Potassium Chloride/Sodium Chloride (Normal Saline With 40 Meq Kcl) 1,000 mls @ 250 mls/hr IV ASDIRECTED [facility] Last Admin: 12/24/20 12:15 Dose: 250 mls/hr Documented by: Potassium Chloride/Sodium Chloride (Normal Saline With 40 Meq Kcl) Confirm Administered Dose 1,000 mls @ as directed .ROUTE .STK-MED ONE Stop: 12/24/20 12:09 Last Admin: 12/24/20 13:45 Dose: Not Given Documented by: Diltiazem HCl 100 mg/ Sodium (Chloride) 100 mls @ 3 mls/hr IV TITRATE [facility]; Protocol Stop: 12/24/20 16:00 Last Admin: 12/24/20 10:45 Dose: 3 mg/hr, 3 mls/hr Documented by: Levofloxacin/Dextrose (Levaquin In D5w 750 Mg/150 Ml) 150 mls @ 100 mls/hr IV DAILY [facility] Stop: 12/27/20 23:59 Last Admin: 12/27/20 08:04 Dose: 100 mls/hr Documented by: Lidocaine/Prilocaine (Emla Crm) Confirm Administered Dose 5 gm .ROUTE .STK-MED ONE Stop: 12/23/20 21:26 Last Admin: 12/23/20 21:45 Dose: 5 mg Documented by: Nystatin (Nystop) Confirm Administered Dose 15 gm .ROUTE .[facility] ONE Stop: 12/24/20 16:54 Last Admin: 12/24/20 17:37 Dose: Not Given Documented by: Potassium Chloride (Potassium Chloride) 20 meq IV ONETIME ONE Stop: 12/23/20 15:01 Potassium Chloride (Klor-Con M20) 20 meq PO BID [facility] Stop: 12/26/20 23:59 Last Admin: 12/26/20 19:48 Dose: 20 meq Documented by: Rivaroxaban (Xarelto) 15 mg PO BEDTIME [facility] Last Admin: 12/23/20 20:03 Dose: 15 mg Documented by: Sodium Chloride (Saline Flush) 10 ml FLUSH ASDIRECTED PRN PRN Reason: Keep Vein Open - Exam Quality Assessment: Reports: DVT Prophylaxis General: Reports: Alert, Oriented HEENT: Reports: Pupils Equal, Pupils Reactive, EOMI Neck: Reports: Supple, Trachea Midline Lungs: Reports: Clear to Auscultation, Normal Respiratory Effort Cardiovascular: Reports: Regular Rate, Regular Rhythm GI/Abdominal Exam: Normal Bowel Sounds, Soft, Non-Tender (Female) Exam: Normal External Exam, Normal Speculum Exam Rectal (Female) Exam: Normal Exam, Normal Rectal Tone Back Exam: Reports: Normal Inspection, Full Range of Motion Extremities: Normal Inspection, Normal Range of Motion, Non-Tender Skin: Reports: Warm, Dry, Intact Neurological: Reports: No New Focal Deficit Psy/Mental Status: Reports: Alert, Normal Affect, Normal Mood *Q Meaningful Use (DIS) - VTE *Q VTE Mechanical Contraindications *Q: At Risk for Falls
== END 2020-12-27 14:00 | disposition swing bed (61) | DRG 690 ==
LOC: LB.ED 10:19 → LB.MS 13:52
PROVIDERS: ADMIT Surgery; ATTEND Surgery
DX: N30.00 Acute cystitis without hematuria (principal); I48.20 Chronic atrial fibrillation, unspecified; E87.6 Hypokalemia; I48.91 Unspecified atrial fibrillation; M81.0 Age-related osteoporosis without current pathological fracture; M19.90 Unspecified osteoarthritis, unspecified site; Z20.822 Contact with and (suspected) exposure to COVID-19; I25.2 Old myocardial infarction; R53.1 Weakness; R47.81 Slurred speech; E11.9 Type 2 diabetes mellitus without complications; E03.9 Hypothyroidism, unspecified; Z79.82 Long term (current) use of aspirin; Z79.890 Hormone replacement therapy; Z79.01 Long term (current) use of anticoagulants; Z79.899 Other long term (current) drug therapy; Z98.84 Bariatric surgery status; Z86.73 Personal history of transient ischemic attack (TIA), and cerebral infarction without residual deficits; Z95.5 Presence of coronary angioplasty implant and graft
CPT/HCPCS: 36415; 51702; 70450; 71045; 80048; 80053; 81001; 83605; 83880; 84132; 84484; 85025; 87493; 93005; 97110-GP; 97162-GP; 97165-GO; A0425; A0429; A9270-GY; J1940; J1956; J3480; J3490; J7030; U0002

== ENCOUNTER 2020-12-27 11:06 | Inpatient (IN) | payer MEDICARE ==
--- NOTE | 2020-12-27 13:32 | PCM.DCSUM1 ---
Discharge Summary - Discharge Data Discharge Disposition: Home, Self-Care 01 Condition: Good - Referral to Home Health Primary Care Physician: PCP None - Discharge Plan Home Medications: Home Meds Sertraline HCl [Zoloft] 50 mg PO BEDTIME 03/22/17 [History] atorvaSTATin [Lipitor] 80 mg PO BEDTIME 03/22/17 [History] Levothyroxine 12.5 mcg PO ACBREAKFAST 12/08/18 [History] Pantoprazole [ProTONIX] 40 mg PO DAILY 12/22/18 [History] Metoprolol Tartrate 50 mg PO BEDTIME 01/14/19 [History] Aspirin 81 mg PO DAILY 12/06/20 [History] Calcium Carbonate [Calcium] 600 mg PO DAILY 12/06/20 [History] Ferrous Sulfate 325 mg PO BID 12/06/20 [History] Rivaroxaban [Xarelto] 15 mg PO BEDTIME 12/06/20 [History] Eszopiclone [Lunesta] 2 mg PO BEDTIME PRN 12/23/20 [History] lisinopriL [Prinivil] 2.5 mg PO DAILY 12/23/20 [History] Potassium Chloride [Klor-Con M20] 20 meq PO DAILY 12/27/20 [History] Simethicone 80 mg PO Q4H PRN 12/27/20 [History]
[2020-12-27] MEDS ORDERED: Tuberculin, PPD 5 Units/0.1 ML 1 ML MDV IDERM ONE (15:43)
[2020-12-27] MEDS: Rivaroxaban 10 MG Tab PO SCH (20:03)
[2020-12-27] MEDS: Ferrous Sulfate 325 MG Tab PO SCH (20:03)
[2020-12-27] MEDS: Simethicone 80 MG Tab.Chew PO PRN (20:04)
[2020-12-27] MEDS: atorvaSTATin 80 MG Tab PO SCH (20:04)
[2020-12-27] MEDS: Metoprolol Tartrate 50 MG Tab PO SCH (20:04)
[2020-12-27] MEDS: Sertraline 50 MG Tab PO SCH (20:04)
[2020-12-28] MEDS: Levothyroxine 25 MCG Tab PO SCH (07:39)
[2020-12-28] MEDS: Potassium Chloride 20 MEQ Tab.ER PO SCH (07:40)
[2020-12-28] MEDS: Levofloxacin 750 MG Tab PO SCH (07:40)
[2020-12-28] MEDS: Aspirin 81 MG Tab.Chew PO SCH (07:40)
[2020-12-28] MEDS: Calcium Carbonate 600 MG Tab PO SCH (07:40)
[2020-12-28] MEDS: Pantoprazole 40 MG Tab.CR PO SCH (07:40)
[2020-12-28] MEDS: Lisinopril 2.5 MG Tab PO SCH (07:40)
[2020-12-28] MEDS: Ferrous Sulfate 325 MG Tab PO SCH ×2 (07:40→19:25)
[2020-12-28] MEDS: Lactobacillus Acidophilus/Lactobacillus Sporogenes (Probiotic) Tab PO SCH (12:30)
[2020-12-28] MEDS: Simethicone 80 MG Tab.Chew PO PRN (18:41)
[2020-12-28] MEDS: Sertraline 50 MG Tab PO SCH (19:25)
[2020-12-28] MEDS: atorvaSTATin 80 MG Tab PO SCH (19:25)
[2020-12-28] MEDS: Rivaroxaban 10 MG Tab PO SCH (19:25)
[2020-12-28] MEDS: Metoprolol Tartrate 50 MG Tab PO SCH (20:00)
[2020-12-29] MEDS: Levofloxacin 750 MG Tab PO SCH (07:45)
[2020-12-29] MEDS: Levothyroxine 25 MCG Tab PO SCH (07:46)
[2020-12-29] MEDS: Lisinopril 2.5 MG Tab PO SCH (07:46)
[2020-12-29] MEDS: Lactobacillus Acidophilus/Lactobacillus Sporogenes (Probiotic) Tab PO SCH (07:46)
[2020-12-29] MEDS: Ferrous Sulfate 325 MG Tab PO SCH ×2 (07:47→19:28)
[2020-12-29] MEDS: Aspirin 81 MG Tab.Chew PO SCH (07:47)
[2020-12-29] MEDS: Calcium Carbonate 600 MG Tab PO SCH (07:47)
[2020-12-29] MEDS: Pantoprazole 40 MG Tab.CR PO SCH (07:47)
[2020-12-29] MEDS: Potassium Chloride 20 MEQ Tab.ER PO SCH (07:50)
[2020-12-29] MEDS: Simethicone 80 MG Tab.Chew PO PRN (10:18)
[2020-12-29] MEDS: atorvaSTATin 80 MG Tab PO SCH (19:28)
[2020-12-29] MEDS: Metoprolol Tartrate 50 MG Tab PO SCH (19:28)
[2020-12-29] MEDS: Rivaroxaban 10 MG Tab PO SCH (19:29)
[2020-12-29] MEDS: Sertraline 50 MG Tab PO SCH (19:29)
[2020-12-29] MEDS ORDERED: Calcium Carbonate 500 MG Tab.Chew PO ONE (20:20)
[2020-12-29] MEDS ORDERED: Acetaminophen 325 MG Tab PO ONE (20:57)
[2020-12-30] MEDS: Lactobacillus Acidophilus/Lactobacillus Sporogenes (Probiotic) Tab PO SCH (07:39)
[2020-12-30] MEDS: Lisinopril 2.5 MG Tab PO SCH (07:39)
[2020-12-30] MEDS: Aspirin 81 MG Tab.Chew PO SCH (07:40)
[2020-12-30] MEDS: Ferrous Sulfate 325 MG Tab PO SCH ×2 (07:40→20:36)
[2020-12-30] MEDS: Levothyroxine 25 MCG Tab PO SCH (07:40)
[2020-12-30] MEDS: Potassium Chloride 20 MEQ Tab.ER PO SCH (07:40)
[2020-12-30] MEDS: Levofloxacin 750 MG Tab PO SCH (07:40)
[2020-12-30] MEDS: Pantoprazole 40 MG Tab.CR PO SCH (07:40)
[2020-12-30] MEDS: Calcium Carbonate 600 MG Tab PO SCH (07:40)
[2020-12-30] MEDS: traMADol 50 MG Tab PO PRN ×2 (09:00→20:35)
[2020-12-30] MEDS: atorvaSTATin 80 MG Tab PO SCH (20:36)
[2020-12-30] MEDS: Sertraline 50 MG Tab PO SCH (20:36)
[2020-12-30] MEDS: Rivaroxaban 10 MG Tab PO SCH (20:36)
[2020-12-30] MEDS: Metoprolol Tartrate 50 MG Tab PO SCH (20:57)
[2020-12-30] MEDS: Calcium Carbonate 500 MG Tab.Chew PO PRN (22:20)
[2020-12-31] MEDS ORDERED: Calcium Carbonate 500 MG Tab.Chew PO SCH
[2020-12-31] MEDS: Levothyroxine 25 MCG Tab PO SCH (06:50)
[2020-12-31] MEDS: Pantoprazole 40 MG Tab.CR PO SCH (06:51)
--- NOTE | 2020-12-31 08:00 | PCM.HP.2 ---
H&P History of Present Illness - General Date of Service: 12/27/20 Admit Problem/Dx: Admission Diagnosis/Problem Admission Diagnosis/Problem UTI (urinary tract infection), uncomplicated Source of Information: Patient, Old Records, RN Notes Reviewed, Other History Limitations: Reports: No Limitations - History of Present Illness Initial Comments - Free Text/Narative: Ms. Hickey was initially admitted from the ED to inpatient with A-Fib and a UTI. She has a history of CAD, HTN, Type 2 diabetes and CVA. She was treated with IV Levaquin 750 for 3 days while in IP and now admitted to swing bed for management of her deconditioning, weakness and continued confusion and memory loss. She is on oral Levaquin at this time. Onset of Symptoms: Reports: Unknown/Unsure Duration of Symptoms: Reports: Waxing/Waning Location: Reports: Generalized Severity: Moderate Improves with: Reports: None Worsens with: Reports: None Associated Symptoms: Reports: Confusion, Weakness Left Knee Pain Score (Numeric/FACES): 6 - Related Data Allergies/Adverse Reactions: Allergies Allergy/AdvReac Type Severity Reaction Status Date / Time No Known Allergies Allergy Verified 12/23/20 11:39 Home Medications: Home Meds Sertraline HCl [Zoloft] 50 mg PO BEDTIME 03/22/17 [History] atorvaSTATin [Lipitor] 80 mg PO BEDTIME 03/22/17 [History] Levothyroxine 12.5 mcg PO ACBREAKFAST 12/08/18 [History] Pantoprazole [ProTONIX] 40 mg PO DAILY 12/22/18 [History] Metoprolol Tartrate 50 mg PO BEDTIME 01/14/19 [History] Aspirin 81 mg PO DAILY 12/06/20 [History] Calcium Carbonate [Calcium] 600 mg PO DAILY 12/06/20 [History] Ferrous Sulfate 325 mg PO BID 12/06/20 [History] Rivaroxaban [Xarelto] 15 mg PO BEDTIME 12/06/20 [History] Eszopiclone [Lunesta] 2 mg PO BEDTIME PRN 12/23/20 [History] lisinopriL [Prinivil] 2.5 mg PO DAILY 12/23/20 [History] Potassium Chloride [Klor-Con M20] 20 meq PO DAILY 12/27/20 [History] Simethicone 80 mg PO Q4H PRN 12/27/20 [History] Past Medical History HEENT History: Reports: Impaired Vision Cardiovascular History: Reports: Afib, Angina, CAD, High Cholesterol, Hypertension, [place], Stents, Other (See Below) Other Cardiovascular History: Cartotid artery syndrome Respiratory History: Reports: None Gastrointestinal History: Reports: GERD Other Gastrointestinal History: Constipation related to vicodin Genitourinary History: Reports: None, UTI, Recurrent Other Genitourinary History: frequent urination, stopped oxybutin due to legs swelling from it [employer] History: Reports: Musculoskeletal History: Reports: Arthritis, Back Pain, Chronic, Fracture, Osteoarthritis, Osteoporosis Neurological History: Reports: CVA Other Neuro History: 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 Psychiatric History: Reports: Depression Endocrine/Metabolic History: Reports: Diabetes, Type II, Hypothyroidism Other Endocrine/Metabolic History: No longer treating diabetes. Hematologic History: Reports: B12 Deficiency, Other (See Below) Other Hematologic History: gets B 12 shots monthly Immunologic History: Reports: None Oncologic (Cancer) History: Reports: None Dermatologic History: Reports: Eczema, Other (See Below) Other Dermatologic History: Rash under abdominal fold and breasts - Infectious Disease History Infectious Disease History: Reports: C-Difficile - Past Surgical History HEENT Surgical History: Reports: None Cardiovascular Surgical History: Reports: None GI Surgical History: Reports: Bariatric Procedure, Hernia, Abdominal, Hernia Repair/Other Female Surgical History: Reports: Section, Hysterectomy Neurological Surgical History: Reports: None Musculoskeletal Surgical History: Reports: Other (See Below) Other Musculoskeletal Surgeries/Procedures:: Surgery to fix L wrist Social & Family History - Family History Family Medical History: No Pertinent Family History - Tobacco Use Tobacco Use Status *Q: Never Tobacco User - Caffeine Use Caffeine Use: Reports: Soda - Recreational Drug Use Recreational Drug Use: No H&P Review of Systems - Review of Systems: Review Of Systems: Comprehensive ROS is negative, except as noted in HPI. Exam - Exam Exam: See Below - Vital Signs Vital Signs: Last Vital Signs Temp 36.6 C 12/30/20 20:00 Pulse 67 12/30/20 20:57 Resp 18 12/30/20 20:00 BP 143/80 H 12/30/20 20:57 Pulse Ox 97 12/30/20 20:00 Weight: 102.058 kg - Exam General: Alert HEENT: PERRLA, Conjunctiva Clear, EACs Clear, EOMI Neck: Supple, Trachea Midline Lungs: Clear to Auscultation, Normal Respiratory Effort Cardiovascular: Regular Rate, Regular Rhythm GI/Abdominal Exam: Normal Bowel Sounds, Soft Extremities: Normal Inspection Skin: Warm, Dry, Intact Neuro Extensive - Mental Status: Disorientation to Time, Memory Loss-Recent Events Psychiatric: Alert, Normal Affect, Normal Mood Sepsis Event Note - Evaluation Sepsis Screening Result: No Definite Risk - Focused Exam Vital Signs: Vital Signs Temp Pulse Pulse Resp BP BP Pulse Ox 12/30/20 20:57 67 143/80 H 12/30/20 20:00 36.6 C 67 18 143/80 H 97 - Problem List (1) Confusion SNOMED Code(s): 596404747 ICD Code: R41.0 - DISORIENTATION, UNSPECIFIED Status: Acute Priority: High Current Visit: Yes (2) Altered mental status SNOMED Code(s): 515663685 ICD Code: R41.82 - ALTERED MENTAL STATUS, UNSPECIFIED Status: Acute Priority: High Current Visit: Yes Qualifiers: Altered mental status type: delirium Qualified Code(s): R41.0 - Disorientat ion, unspecified (3) Generalized muscle weakness SNOMED Code(s): 44429974, 40608670 ICD Code: M62.81 - MUSCLE WEAKNESS (GENERALIZED) Status: Acute Priority: [facility] Current Visit: Yes (4) Physical deconditioning SNOMED Code(s): 74540328434661 ICD Code: R53.81 - OTHER MALAISE Status: Acute Priority: High Current Visit: Yes Problem List Initiated/Reviewed/Updated: Yes Orders Last 24hrs: Active Orders 24 hr Category Date Time Status Calcium Carbonate [Tums] Med 12/30/20 22:23 Active 1,000 mg PO Q6H PRN traMADol [Ultram] Med 12/30/20 08:28 Active 50 mg PO TID PRN Medication Orders Aspirin (Aspirin) 81 mg PO DAILY [facility] Last Admin: 12/30/20 07:40 Dose: 81 mg Documented by: Admin: 12/29/20 07:47 Dose: 81 mg Documented by: Admin: 12/28/20 07:40 Dose: 81 mg Documented by: SARAHY Atorvastatin Calcium (Lipitor) 80 mg PO BEDTIME [facility]ANN Last Admin: 12/30/20 20:36 Dose: 80 mg Documented by: Admin: 12/29/20 19:28 Dose: 80 mg Documented by: Admin: 12/28/20 19:25 Dose: 80 mg Documented by: Admin: 12/27/20 20:04 Dose: 80 mg Documented by: MAIRAELENA Calcium Carbonate/Glycine (Calcium Carbonate) 600 mg PO DAILY [facility] Last Admin: 12/30/20 07:40 Dose: 600 mg Documented by: Admin: 12/29/20 07:47 Dose: 600 mg Documented by: Admin: 12/28/20 07:40 Dose: 600 mg Documented by: SARAHY Calcium Carbonate/Glycine (Tums) 1,000 mg PO Q6H PRN PRN Reason: Heartburn Last Admin: 12/30/20 22:20 Dose: 1,000 mg Documented by: JEREMIAS Ferrous Sulfate (Ferrous Sulfate) 325 mg PO BID [facility] Admin: 12/30/20 20:36 Dose: 325 mg Documented by: Admin: 12/30/20 07:40 Dose: 325 mg Documented by: Admin: 12/29/20 19:28 Dose: 325 mg Documented by: Admin: 12/29/20 07:47 Dose: 325 mg Documented by: Admin: 12/28/20 19:25 Dose: 325 mg Documented by: Admin: 12/28/20 07:40 Dose: 325 mg Documented by: Admin: 12/27/20 20:03 Dose: 325 mg Documented by: MARIAELENA Lactobacillus Acidophilus (Acidolphilus Extra Strength) 1 tab PO DAILY [facility] Last Admin: 12/30/20 07:39 Dose: 1 tab Documented by: Admin: 12/29/20 07:46 Dose: 1 tab Documented by: Admin: 12/28/20 12:30 Dose: 1 tab Documented by: SARAHY Levothyroxine Sodium (Levothyroxine) 12.5 mcg PO ACBREAKFAST [facility] Admin: 12/31/20 06:50 Dose: 12.5 mcg Documented by: Admin: 12/30/20 07:40 Dose: 12.5 mcg Documented by: Admin: 12/29/20 07:46 Dose: 12.5 mcg Documented by: Admin: 12/28/20 07:39 Dose: 12.5 mcg Documented by: SARAHY Lisinopril (Prinivil) 2.5 mg PO DAILY [facility] Last Admin: 12/30/20 07:39 Dose: 2.5 mg Documented by: Admin: 12/29/20 07:46 Dose: 2.5 mg Documented by: Admin: 12/28/20 07:40 Dose: 2.5 mg Documented by: SARAHY Metoprolol Tartrate (Lopressor) 50 mg PO BEDTIME [facility] Last Admin: 12/30/20 20:57 Dose: 50 mg Documented by: Admin: 12/29/20 19:28 Dose: 50 mg Documented by: Admin: 12/28/20 20:00 Dose: 50 mg Documented by: Admin: 12/27/20 20:04 Dose: 50 mg Documented by: MARIAELENA Eszopiclone (Lunesta () 2 Mg Tab) 0 mg PO BEDTIME PRN PRN Reason: Insomnia Last Admin: 12/29/20 19:30 Dose: 2 mg Documented by: Admin: 12/28/20 19:25 Dose: 2 mg Documented by: Admin: 12/27/20 20:03 Dose: 2 mg Documented by: MARIAELENA Pantoprazole Sodium (Protonix) 40 mg PO ACBREAKFAST [facility] Last Admin: 12/31/20 06:51 Dose: 40 mg Documented by: Admin: 12/30/20 07:40 Dose: 40 mg Documented by: Admin: 12/29/20 07:47 Dose: 40 mg Documented by: Admin: 12/28/20 07:40 Dose: 40 mg Documented by: SARAHY Potassium Chloride (Klor-Con M20) 20 meq PO DAILY [facility] Last Admin: 12/30/20 07:40 Dose: 20 meq Documented by: Admin: 12/29/20 07:50 Dose: 20 meq Documented by: Admin: 12/28/20 07:40 Dose: 20 meq Documented by: SARAHY Rivaroxaban (Xarelto) 15 mg PO BEDTIME [facility] Last Admin: 12/30/20 20:36 Dose: 15 mg Documented by: [email or web address] Admin: 12/29/20 19:29 Dose: 15 mg Documented by: [email or web address] Admin: 12/28/20 19:25 Dose: 15 mg Documented by: Admin: 12/27/20 20:03 Dose: 15 mg Documented by: MARIAELENA Sertraline HCl (Zoloft) 50 mg PO BEDTIME [facility] Last Admin: 12/30/20 20:36 Dose: 50 mg Documented by: [id number] Admin: 12/29/20 19:29 Dose: 50 mg Documented by: [email or web address] Admin: 12/28/20 19:25 Dose: 50 mg Documented by: [email or web address] Admin: 12/27/20 20:04 Dose: 50 mg Documented by: MARIAELENA Simethicone (Simethicone) 80 mg PO Q4H PRN PRN Reason: Dyspepsia Last Admin: 12/29/20 10:18 Dose: 80 mg Documented by: Admin: 12/28/20 18:41 Dose: 80 mg Documented by: Admin: 12/27/20 20:04 Dose: 80 mg Documented by: MARIAELENA Tramadol HCl (Ultram) 50 mg PO TID PRN PRN Reason: Pain Last Admin: 12/30/20 20:35 Dose: 50 mg Documented by: [email or web address] Admin: 12/30/20 09:00 Dose: 50 mg Documented by: SARAHY Assessment/Plan Comment:: Patient will require PT/OT and time for rehabilitation and monitoring of her confusion and further management of her altered mental state. Her memory loss if of recent events and she has generalized weakness with a very high fall risk. This patient may benefit from a care center admission.
--- NOTE | 2020-12-31 08:25 | PCM.PN ---
- General Info Date of Service: 12/31/20 - Review of Systems General: Reports: Weakness HEENT: Reports: No Symptoms Pulmonary: Reports: No Symptoms Cardiovascular: Reports: No Symptoms Gastrointestinal: Reports: No Symptoms Genitourinary: Reports: No Symptoms Musculoskeletal: Reports: No Symptoms Skin: Reports: No Symptoms Neurological: Reports: Confusion, Weakness Psychiatric: Reports: No Symptoms - Patient Data Vitals - Most Recent: Last Vital Signs Temp 36.6 C 12/30/20 20:00 Pulse 67 12/30/20 20:57 Resp 18 12/30/20 20:00 BP 143/80 H 12/30/20 20:57 Pulse Ox 97 12/30/20 20:00 Weight - Most Recent: 102.058 kg Med Orders - Current: Current Medications Aspirin (Aspirin) 81 mg PO DAILY [facility] Last Admin: 12/30/20 07:40 Dose: 81 mg Documented by: Atorvastatin Calcium (Lipitor) 80 mg PO BEDTIME [facility] Last Admin: 12/30/20 20:36 Dose: 80 mg Documented by: Calcium Carbonate/Glycine (Calcium Carbonate) 600 mg PO DAILY [facility] Last Admin: 12/30/20 07:40 Dose: 600 mg Documented by: Calcium Carbonate/Glycine (Tums) 1,000 mg PO Q6H PRN PRN Reason: Heartburn Last Admin: 12/30/20 22:20 Dose: 1,000 mg Documented by: Ferrous Sulfate (Ferrous Sulfate) 325 mg PO BID [facility] Last Admin: 12/30/20 20:36 Dose: 325 mg Documented by: Lactobacillus Acidophilus (Acidolphilus Extra Strength) 1 tab PO DAILY [facility] Last Admin: 12/30/20 07:39 Dose: 1 tab Documented by: Levothyroxine Sodium (Levothyroxine) 12.5 mcg PO ACBREAKFAST [facility] Last Admin: 12/31/20 06:50 Dose: 12.5 mcg Documented by: Lisinopril (Prinivil) 2.5 mg PO DAILY [facility] Last Admin: 12/30/20 07:39 Dose: 2.5 mg Documented by: Metoprolol Tartrate (Lopressor) 50 mg PO BEDTIME [facility] Last Admin: 12/30/20 20:57 Dose: 50 mg Documented by: Eszopiclone (Lunesta () 2 Mg Tab) 0 mg PO BEDTIME PRN PRN Reason: Insomnia Last Admin: 12/29/20 19:30 Dose: 2 mg Documented by: Pantoprazole Sodium (Protonix) 40 mg PO ACBREAKFAST [facility] Last Admin: 12/31/20 06:51 Dose: 40 mg Documented by: Potassium Chloride (Klor-Con M20) 20 meq PO DAILY [facility] Last Admin: 12/30/20 07:40 Dose: 20 meq Documented by: Rivaroxaban (Xarelto) 15 mg PO BEDTIME [facility] Last Admin: 12/30/20 20:36 Dose: 15 mg Documented by: Sertraline HCl (Zoloft) 50 mg PO BEDTIME [facility] Last Admin: 12/30/20 20:36 Dose: 50 mg Documented by: Simethicone (Simethicone) 80 mg PO Q4H PRN PRN Reason: Dyspepsia Last Admin: 12/29/20 10:18 Dose: 80 mg Documented by: Tramadol HCl (Ultram) 50 mg PO TID PRN PRN Reason: Pain Last Admin: 12/30/20 20:35 Dose: 50 mg Documented by: Discontinued Medications Acetaminophen (Tylenol) 650 mg PO NOW ONE Stop: 12/29/20 20:58 Last Admin: 12/29/20 21:11 Dose: 650 mg Documented by: Calcium Carbonate/Glycine (Tums) 1,000 mg PO ONETIME ONE Stop: 12/29/20 20:21 Last Admin: 12/29/20 20:37 Dose: 1,000 mg Documented by: Calcium Carbonate/Glycine (Tums) 1,000 mg PO Q6HR [facility] Levofloxacin (Levaquin) 750 mg PO Q24H [facility] Stop: 12/30/20 09:00 Last Admin: 12/30/20 07:40 Dose: 750 mg Documented by: Tuberculin PPD (Aplisol) 5 unit IDERM ONETIME ONE Stop: 12/27/20 15:44 Last Admin: 12/27/20 20:14 Dose: 5 unit Documented by: - Exam General: Alert, Cooperative HEENT: Pupils Equal, Pupils Reactive, EOMI Neck: Supple Lungs: Clear to Auscultation, Normal Respiratory Effort Cardiovascular: Irregular Rhythm GI/Abdominal Exam: Normal Bowel Sounds, Soft, Non-Tender Extremities: Normal Inspection Psy/Mental Status: Normal Affect, Normal Mood Sepsis Event Note - Evaluation Sepsis Screening Result: No Definite Risk - Focused Exam Vital Signs: Vital Signs Pulse BP 12/30/20 20:57 67 143/80 H - Problem List & Annotations (1) Confusion SNOMED Code(s): 699107630 Code(s): R41.0 - DISORIENTATION, UNSPECIFIED Status: Acute Priority: High Current Visit: Yes (2) Altered mental status SNOMED Code(s): 973195772 Code(s): R41.82 - ALTERED MENTAL STATUS, UNSPECIFIED Status: Acute Priority: High Current Visit: Yes Qualifiers: Altered mental status type: delirium Qualified Code(s): R41.0 - Disorientation, unspecified (3) Generalized muscle weakness SNOMED Code(s): 33100281, 08442443 Code(s): M62.81 - MUSCLE WEAKNESS (GENERALIZED) Status: Acute Priority: High Current Visit: Yes (4) Physical deconditioning SNOMED Code(s): 06041306245426 Code(s): R53.81 - OTHER MALAISE Status: Acute Priority: High Current Visit: Yes - Problem List Review Problem List Initiated/Reviewed/Updated: Yes - My Orders Last 24 Hours: My Active Orders 12/30/20 22:23 Calcium Carbonate [Tums] 1,000 mg PO Q6H PRN - Plan Plan:: Patient will require PT/OT and time for rehabilitation and monitoring of her confusion and further management of her altered mental state. Her memory loss if of recent events and she has generalized weakness with a very high fall risk. This patient may benefit from a care center admission. 12/31/20 Patient stable over the weekend. We will continue PT/OT and repeat labs today for her confusion and memory loss.
[2020-12-31] MEDS: Lisinopril 2.5 MG Tab PO SCH (08:53)
[2020-12-31] MEDS: Ferrous Sulfate 325 MG Tab PO SCH ×2 (08:53→19:11)
[2020-12-31] MEDS: traMADol 50 MG Tab PO PRN ×2 (08:53→17:21)
[2020-12-31] MEDS: Lactobacillus Acidophilus/Lactobacillus Sporogenes (Probiotic) Tab PO SCH (08:53)
[2020-12-31] MEDS: Aspirin 81 MG Tab.Chew PO SCH (08:53)
[2020-12-31] MEDS: Calcium Carbonate 600 MG Tab PO SCH (08:53)
[2020-12-31] MEDS: Potassium Chloride 20 MEQ Tab.ER PO SCH (08:53)
[2020-12-31] MEDS: Calcium Carbonate 500 MG Tab.Chew PO PRN (13:02)
[2020-12-31] MEDS: atorvaSTATin 80 MG Tab PO SCH (19:11)
[2020-12-31] MEDS: Metoprolol Tartrate 50 MG Tab PO SCH (19:12)
[2020-12-31] MEDS: Rivaroxaban 10 MG Tab PO SCH (19:12)
[2020-12-31] MEDS: Sertraline 50 MG Tab PO SCH (19:13)
[2021-01-01] MEDS: Aspirin 81 MG Tab.Chew PO SCH (07:53)
[2021-01-01] MEDS: Pantoprazole 40 MG Tab.CR PO SCH (07:53)
[2021-01-01] MEDS: Ferrous Sulfate 325 MG Tab PO SCH ×2 (07:53→19:12)
[2021-01-01] MEDS: Potassium Chloride 20 MEQ Tab.ER PO SCH (07:54)
[2021-01-01] MEDS: Calcium Carbonate 600 MG Tab PO SCH (07:54)
[2021-01-01] MEDS: Levothyroxine 25 MCG Tab PO SCH (07:54)
[2021-01-01] MEDS: Lisinopril 2.5 MG Tab PO SCH (07:54)
[2021-01-01] MEDS: Lactobacillus Acidophilus/Lactobacillus Sporogenes (Probiotic) Tab PO SCH (07:54)
[2021-01-01] MEDS: traMADol 50 MG Tab PO PRN (13:00)
[2021-01-01] MEDS: Calcium Carbonate 500 MG Tab.Chew PO PRN (18:57)
[2021-01-01] MEDS: DICLOFENAC SODIUM TOP PRN (18:58)
[2021-01-01] MEDS: atorvaSTATin 80 MG Tab PO SCH (19:12)
[2021-01-01] MEDS: Metoprolol Tartrate 50 MG Tab PO SCH (19:12)
[2021-01-01] MEDS: traMADol 50 MG Tab PO SCH (19:13)
[2021-01-01] MEDS: Rivaroxaban 10 MG Tab PO SCH (19:14)
[2021-01-01] MEDS: Sertraline 50 MG Tab PO SCH (19:15)
[2021-01-02] MEDS: Pantoprazole 40 MG Tab.CR PO SCH (06:01)
[2021-01-02] MEDS: Levothyroxine 25 MCG Tab PO SCH (06:02)
[2021-01-02] MEDS: Calcium Carbonate 500 MG Tab.Chew PO PRN (06:08)
[2021-01-02] MEDS: Calcium Carbonate 600 MG Tab PO SCH (07:46)
[2021-01-02] MEDS: Potassium Chloride 20 MEQ Tab.ER PO SCH (07:46)
[2021-01-02] MEDS: Lisinopril 2.5 MG Tab PO SCH (07:46)
[2021-01-02] MEDS: Lactobacillus Acidophilus/Lactobacillus Sporogenes (Probiotic) Tab PO SCH (07:47)
[2021-01-02] MEDS: traMADol 50 MG Tab PO SCH ×3 (07:47→20:05)
[2021-01-02] MEDS: Aspirin 81 MG Tab.Chew PO SCH (07:47)
[2021-01-02] MEDS: Ferrous Sulfate 325 MG Tab PO SCH ×2 (07:47→20:04)
[2021-01-02] MEDS: Rivaroxaban 10 MG Tab PO SCH (20:04)
[2021-01-02] MEDS: atorvaSTATin 80 MG Tab PO SCH (20:05)
[2021-01-02] MEDS: Sertraline 50 MG Tab PO SCH (20:05)
[2021-01-02] MEDS: Metoprolol Tartrate 50 MG Tab PO SCH (20:07)
[2021-01-02] MEDS: DICLOFENAC SODIUM TOP PRN (20:11)
[2021-01-03] MEDS: Pantoprazole 40 MG Tab.CR PO SCH (06:14)
[2021-01-03] MEDS: Levothyroxine 25 MCG Tab PO SCH (06:15)
[2021-01-03] MEDS: Lactobacillus Acidophilus/Lactobacillus Sporogenes (Probiotic) Tab PO SCH (08:25)
[2021-01-03] MEDS: Aspirin 81 MG Tab.Chew PO SCH (08:25)
[2021-01-03] MEDS: Ferrous Sulfate 325 MG Tab PO SCH ×2 (08:25→19:26)
[2021-01-03] MEDS: Potassium Chloride 20 MEQ Tab.ER PO SCH (08:26)
[2021-01-03] MEDS: Calcium Carbonate 600 MG Tab PO SCH (08:26)
[2021-01-03] MEDS: Lisinopril 2.5 MG Tab PO SCH (08:26)
[2021-01-03] MEDS: traMADol 50 MG Tab PO SCH ×3 (08:26→19:27)
[2021-01-03] MEDS: Rivaroxaban 10 MG Tab PO SCH (19:26)
[2021-01-03] MEDS: atorvaSTATin 80 MG Tab PO SCH (19:27)
[2021-01-03] MEDS: Sertraline 50 MG Tab PO SCH (19:27)
[2021-01-03] MEDS: Metoprolol Tartrate 50 MG Tab PO SCH (19:27)
[2021-01-04] MEDS: Simethicone 80 MG Tab.Chew PO PRN (02:00)
[2021-01-04] MEDS: Levothyroxine 25 MCG Tab PO SCH (06:08)
[2021-01-04] MEDS: Pantoprazole 40 MG Tab.CR PO SCH (06:08)
[2021-01-04] MEDS: Potassium Chloride 20 MEQ Tab.ER PO SCH (07:31)
[2021-01-04] MEDS: Lactobacillus Acidophilus/Lactobacillus Sporogenes (Probiotic) Tab PO SCH (07:31)
[2021-01-04] MEDS: Calcium Carbonate 600 MG Tab PO SCH (07:31)
[2021-01-04] MEDS: Lisinopril 2.5 MG Tab PO SCH (07:32)
[2021-01-04] MEDS: Ferrous Sulfate 325 MG Tab PO SCH (07:32)
[2021-01-04] MEDS: Aspirin 81 MG Tab.Chew PO SCH (07:32)
[2021-01-04] MEDS: traMADol 50 MG Tab PO SCH (07:35)
[2021-01-04 07:37] VITALS: BP 111/74
[2021-01-04 07:39] VITALS: PULSE 68
== END 2021-01-04 11:00 | disposition home or self-care (01) | DRG 948 ==
LOC: UNDOADMIN 11:06 → LB.MS 11:06
PROVIDERS: ADMIT Family Medicine; ATTEND Family Medicine
DX: R53.81 Other malaise (principal); N39.0 Urinary tract infection, site not specified; R41.0 Disorientation, unspecified; R41.3 Other amnesia; H54.7 Unspecified visual loss; I48.91 Unspecified atrial fibrillation; I25.10 Atherosclerotic heart disease of native coronary artery without angina pectoris; E78.00 Pure hypercholesterolemia, unspecified; I10 Essential (primary) hypertension; K21.9 Gastro-esophageal reflux disease without esophagitis; K59.00 Constipation, unspecified; M19.90 Unspecified osteoarthritis, unspecified site; M54.9 Dorsalgia, unspecified; G89.29 Other chronic pain; E03.9 Hypothyroidism, unspecified; F32.9 Major depressive disorder, single episode, unspecified; E53.8 Deficiency of other specified B group vitamins; M62.81 Muscle weakness (generalized); I25.2 Old myocardial infarction; Z95.5 Presence of coronary angioplasty implant and graft; Z86.73 Personal history of transient ischemic attack (TIA), and cerebral infarction without residual deficits; I69.392 Facial weakness following cerebral infarction; Z79.82 Long term (current) use of aspirin; Z79.890 Hormone replacement therapy; Z79.899 Other long term (current) drug therapy
CPT/HCPCS: 36415; 80048; 80053; 83735; 84443; 85025; 86580; 97110-GO; 97110-GP; 97535-GO; A9270-GY

== ENCOUNTER 2021-02-14 10:28 | Observation (INO) | payer MEDICARE ==
[2021-02-14 11:21] LABS: HEMOGLOBIN A1C 6.9 % (< 5.7)
--- NOTE | 2021-02-14 12:12 | CT ---
DATE OF SERVICE: 02/14/2021 CLINICAL DATA: Syncope Unenhanced brain CT: Multi slice acquisition through the brain without IV contrast was performed. Comparison is made to a prior exam dated 23 December 2020. No changes. No acute intracranial abnormalities. MTDD
--- NOTE | 2021-02-14 12:22 | EDM.PDOC ---
ED HPI GENERAL MEDICAL PROBLEM - General Chief Complaint: General Stated Complaint: DIZZINESS Time Seen by Provider: 02/14/21 10:30 Source of Information: Reports: Patient, EMS Notes Reviewed, Family, Retirement Records, Old Records History Limitations: Reports: No Limitations - History of Present Illness INITIAL COMMENTS - FREE TEXT/NARRATIVE: Patient is a 70yo F alert and oriented at this time. She notes she does not recall much of the incident and family (daughter) was present for the episode. Her daughter recalls talking to her mother at the kitchen table and then eugenio denly leaning forward and passing out briefly for seconds and less than a minute. She called the ambulance and was brought to the ER. She denies any current complaints but did not some epigastric/chest pain that was 7/10 and stabbing. She denies any current pain or issues. Onset: Sudden Duration: Resolved Prior to Arrival, Other (seconds) Location: Reports: Generalized Quality: Reports: Stabbing Severity: Severe (resolved pain) Improves with: Reports: None Worsens with: Reports: None Associated Symptoms: Reports: Syncope - Related Data Allergies Allergy/AdvReac Type Severity Reaction Status Date / Time No Known Allergies Allergy Verified 12/23/20 11:39 Home Meds: Home Meds Sertraline HCl [Zoloft] 50 mg PO BEDTIME 03/22/17 [History] atorvaSTATin [Lipitor] 80 mg PO BEDTIME 03/22/17 [History] Levothyroxine 25 mcg PO ACBREAKFAST 12/08/18 [History] Pantoprazole [ProTONIX] 40 mg PO DAILY 12/22/18 [History] Metoprolol Tartrate 50 mg PO BEDTIME 01/14/19 [History] Aspirin 81 mg PO DAILY 12/06/20 [History] Calcium Carbonate [Calcium] 600 mg PO DAILY 12/06/20 [History] Ferrous Sulfate 325 mg PO BID 12/06/20 [History] Rivaroxaban [Xarelto] 15 mg PO BEDTIME 12/06/20 [History] Eszopiclone [Lunesta] 2 mg PO BEDTIME PRN 12/23/20 [History] lisinopriL [Prinivil] 2.5 mg PO DAILY 12/23/20 [History] Potassium Chloride [Klor-Con M20] 20 meq PO DAILY 12/27/20 [History] Simethicone 80 mg PO Q4H PRN 12/27/20 [History] traMADol [Ultram] 50 mg PO TID 01/01/21 [History] Past Medical History HEENT History: Reports: Impaired Vision Cardiovascular History: Reports: Afib, Angina, CAD, High Cholesterol, Hypertension, [place], Stents, Other (See Below) Other Cardiovascular History: Cartotid artery syndrome Respiratory History: Reports: None Gastrointestinal History: Reports: GERD Other Gastrointestinal History: Constipation related to vicodin Genitourinary History: Reports: None, UTI, Recurrent Other Genitourinary History: frequent urination, stopped oxybutin due to legs swelling from it 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 Hematologic History: Reports: B12 Deficiency, Other (See Below) Other Hematologic History: gets B 12 shots monthly Immunologic History: Reports: None Oncologic (Cancer) History: Reports: None Dermatologic History: Reports: Eczema, Other (See Below) Other Dermatologic History: Rash under abdominal fold and breasts - Infectious Disease History Infectious Disease History: Reports: C-Difficile - Past Surgical History HEENT Surgical History: Reports: None Cardiovascular Surgical History: Reports: None GI Surgical History: Reports: Bariatric Procedure, Hernia, Abdominal, Hernia Repair/Other Female Surgical History: Reports: Section, Hysterectomy Neurological Surgical History: Reports: None Musculoskeletal Surgical History: Reports: Other (See Below) Other Musculoskeletal Surgeries/Procedures:: Surgery to fix L wrist Social & Family History - Family History Family Medical History: No Pertinent Family History - Caffeine Use Caffeine Use: Reports: Coffee - Recreational Drug Use Recreational Drug Use: No ED ROS GENERAL - Review of Systems Review Of Systems: Comprehensive ROS is negative, except as noted in HPI. ED EXAM, GENERAL - Physical Exam Exam: See Below Exam Limited By: No Limitations General Appearance: Alert, WD/WN, No Apparent Distress Eye Exam: Bilateral Eye: EOMI, PERRL Ears: Normal External Exam Nose: Normal Inspection Throat/Mouth: Normal Inspection Head: Atraumatic, Normocephalic Neck: Normal Inspection, Supple, Non-Tender Respiratory/Chest: No Respiratory Distress, Lungs Clear, Normal Breath Sounds Cardiovascular: Normal Peripheral Pulses, Systolic Murmur, Extra Beats, Irre gularly Irregular GI/Abdominal: Normal Bowel Sounds, Soft, Non-Tender Extremities: Normal Inspection Neurological: Alert, Oriented, CN II-XII Intact Psychiatric: Normal Affect, Normal Mood Skin Exam: Warm, Dry, Intact #1 Interpretation EKG Date: 02/14/21 Time: 10:45 Rhythm: NSR [place]: LAD-Left [place] Deviation P-Wave: Present QRS: Normal ST-T: Normal QT: Prolonged Comparison: Other: (fluctuating - this EKG is same to an earlier Nov 2020 EKG but slightly different in QT from the latter Nov EKG) Course - Vital Signs Last Recorded V/S: Last Vital Signs Temp 36.6 C 02/14/21 10:28 Pulse 87 02/14/21 11:21 Resp 16 02/14/21 11:21 BP 115/72 02/14/21 11:21 Pulse Ox 98 02/14/21 11:21 - Orders/Labs/Meds Orders: Active Orders 24 hr Category Date Time Status EKG Documentation Completion [RC] ASDIRECTED Care 02/14/21 10:48 Active Chest 1V Frontal [CR] Stat Exams 02/14/21 10:47 Taken CORONAVIRUS COVID-19 JOSSY [MOLEC] Stat Lab 02/14/21 11:07 Received PROLACTIN Stat Lab 02/14/21 11:00 Received EKG 12 Lead [EK] Routine Ther 02/14/21 10:48 Ordered Holter Monitor 8-15 Day [EK] Stat Ther 02/14/21 10:53 Ordered Labs: Laboratory Tests 02/14/21 02/14/21 02/14/21 Range/Units 10:48 10:48 11:00 WBC 15.4 H (4.0-11.0) K/uL RBC 5.56 (3.80-5.80) M/uL Hgb 16.1 (11.5-16.5) g/dL Hct 48.5 H (37.0-47.0) % MCV 87 (76-96) fL MCH 29.0 (27.0-32.0) pg MCHC 33.2 (31.0-35.0) g/dL RDW 23.5 H (11.0-16.0) % Plt Count 142 L (150-500) K/uL MPV 11.3 H (6.0-10.0) fL Neut % (Auto) 83.5 H (45.0-70.0) % Lymph % (Auto) 10.5 L (20.0-40.0) % [place] % (Auto) 4.2 (3.0-10.0) % Eos % (Auto) 1.2 (1.0-5.0) % Baso % (Auto) 0.6 H (0.0-0.5) % Neut # (Auto) 12.87 H (2.00-7.50) K/uL Lymph # (Auto) 1.62 (1.50-4.00) K/uL [place] # (Auto) 0.65 (0.20-0.80) K/uL Eos # (Auto) 0.19 (0.04-0.40) K/uL Baso # (Auto) 0.10 (0.02-0.10) K/uL PT (9.0-11.5) sec INR (1.0-3.5) Sodium (136-145) mmol/L Potassium (3.5-5.1) mmol/L Chloride (98-107) mmol/L Carbon Dioxide (21.0-32.0) mmol/L Anion Gap (5.0-15.0) mmol/L BUN (8-26) mg/dL Creatinine (0.55-1.02) mg/dL Est Cr Clr Drug Dosing mL/min Estimated GFR (MDRD) (>60) MLS/MIN BUN/Creatinine Ratio (6-25) Glucose (74-100) mg/dL Hemoglobin A1c (< 5.7) % Calcium (8.5-10.1) mg/dL Magnesium (1.8-2.4) mg/dL Total Bilirubin (0.0-1.0) mg/dL AST (15-37) U/L ALT (12-78) U/L Alkaline Phosphatase (46-116) U/L Troponin I (0.000-0.060) ng/mL B-Natriuretic Peptide (0-125) pg/mL Total Protein (6.4-8.2) g/dL Albumin (3.4-5.0) g/dL Globulin (2.2-4.2) g/dL Albumin/Globulin Ratio (0.8-2.0) TSH, Ultra Sensitive (0.358-3.740) uIU/mL Urine Color Yellow Urine Appearance Clear (CLEAR) Urine pH 5.5 (5.0-8.0) Ur Specific [place] 1.015 (1.003-1.030) Urine Protein Negative (NEGATIVE) mg/dL Urine Glucose (UA) Negative (NEGATIVE) mg/dL Urine Ketones Negative (NEGATIVE) mg/dL Urine Occult Blood Negative (NEGATIVE) Urine Nitrite Negative (NEGATIVE) Urine Bilirubin Negative (NEGATIVE) Urine Urobilinogen 0.2 (0.2-1.0) E.U./dL Ur Leukocyte Esterase Negative (NEGATIVE) Urine Opiates Screen Negative (NEGATIVE) Ur Oxycodone Screen Negative (NEGATIVE) Urine Methadone Screen Negative (NEGATIVE) Ur Barbiturates Screen Negative (NEGATIVE) Ur Tricyclics Screen Negative (NEGATIVE) Ur Phencyclidine Scrn Negative (NEGATIVE) Ur Amphetamine Screen Negative (NEGATIVE) U Methamphetamines Scrn Negative (NEGATIVE) Urine MDMA Screen Negative (NEGATIVE) U Benzodiazepines Scrn Negative (NEGATIVE) U Cocaine Metab Screen Negative (NEGATIVE) U Marijuana (THC) Screen Negative (NEGATIVE) Ethyl Alcohol (<3.0) mg/dL 02/14/21 02/14/21 02/14/21 Range/Units 11:00 11:00 11:00 WBC (4.0-11.0) K/uL RBC (3.80-5.80) M/uL Hgb (11.5-16.5) g/dL Hct (37.0-47.0) % MCV (76-96) fL MCH (27.0-32.0) pg MCHC (31.0-35.0) g/dL RDW (11.0-16.0) % Plt Count (150-500) K/uL MPV (6.0-10.0) fL Neut % (Auto) (45.0-70.0) % Lymph % (Auto) (20.0-40.0) % [place] % (Auto) (3.0-10.0) % Eos % (Auto) (1.0-5.0) % Baso % (Auto) (0.0-0.5) % Neut # (Auto) (2.00-7.50) K/uL Lymph # (Auto) (1.50-4.00) K/uL [place] # (Auto) (0.20-0.80) K/uL Eos # (Auto) (0.04-0.40) K/uL Baso # (Auto) (0.02-0.10) K/uL PT 13.3 H (9.0-11.5) sec INR 1.3 (1.0-3.5) Sodium 144 (136-145) mmol/L Potassium 2.8 L* (3.5-5.1) mmol/L Chloride 107 (98-107) mmol/L Carbon Dioxide 31.2 (21.0-32.0) mmol/L Anion Gap 8.6 (5.0-15.0) mmol/L BUN 8 D (8-26) mg/dL Creatinine 0.78 (0.55-1.02) mg/dL Est Cr Clr Drug Dosing 56.31 mL/min Estimated GFR (MDRD) > 60 (>60) MLS/MIN BUN/Creatinine Ratio 10.3 (6-25) Glucose 132 H (74-100) mg/dL Hemoglobin A1c (< 5.7) % Calcium 7.2 L (8.5-10.1) mg/dL Magnesium 1.8 (1.8-2.4) mg/dL Total Bilirubin 0.6 (0.0-1.0) mg/dL AST 32 (15-37) U/L ALT 27 (12-78) U/L Alkaline Phosphatase 204 H (46-116) U/L Troponin I 0.060 (0.000-0.060) ng/mL B-Natriuretic Peptide 3547 H (0-125) pg/mL Total Protein 5.5 L (6.4-8.2) g/dL Albumin 1.6 L (3.4-5.0) g/dL Globulin 3.9 (2.2-4.2) g/dL Albumin/Globulin Ratio 0.4 L (0.8-2.0) TSH, Ultra Sensitive 4.593 H D (0.358-3.740) uIU/mL Urine Color Urine Appearance (CLEAR) Urine pH (5.0-8.0) Ur Specific [place] (1.003-1.030) Urine Protein (NEGATIVE) mg/dL Urine Glucose (UA) (NEGATIVE) mg/dL Urine Ketones (NEGATIVE) mg/dL Urine Occult Blood (NEGATIVE) Urine Nitrite (NEGATIVE) Urine Bilirubin (NEGATIVE) Urine Urobilinogen (0.2-1.0) E.U./dL Ur Leukocyte Esterase (NEGATIVE) Urine Opiates Screen (NEGATIVE) Ur Oxycodone Screen (NEGATIVE) Urine Methadone Screen (NEGATIVE) Ur Barbiturates Screen (NEGATIVE) Ur Tricyclics Screen (NEGATIVE) Ur Phencyclidine Scrn (NEGATIVE) Ur Amphetamine Screen (NEGATIVE) U Methamphetamines Scrn (NEGATIVE) Urine MDMA Screen (NEGATIVE) U Benzodiazepines Scrn (NEGATIVE) U Cocaine Metab Screen (NEGATIVE) U Marijuana (THC) Screen (NEGATIVE) Ethyl Alcohol < 0.0 L (<3.0) mg/dL 02/14/21 Range/Units 11:00 WBC (4.0-11.0) K/uL RBC (3.80-5.80) M/uL Hgb (11.5-16.5) g/dL Hct (37.0-47.0) % MCV (76-96) fL MCH (27.0-32.0) pg MCHC (31.0-35.0) g/dL RDW (11.0-16.0) % Plt Count (150-500) K/uL MPV (6.0-10.0) fL Neut % (Auto) (45.0-70.0) % Lymph % (Auto) (20.0-40.0) % [place] % (Auto) (3.0-10.0) % Eos % (Auto) (1.0-5.0) % Baso % (Auto) (0.0-0.5) % Neut # (Auto) (2.00-7.50) K/uL Lymph # (Auto) (1.50-4.00) K/uL [place] # (Auto) (0.20-0.80) K/uL Eos # (Auto) (0.04-0.40) K/uL Baso # (Auto) (0.02-0.10) K/uL PT (9.0-11.5) sec INR (1.0-3.5) Sodium (136-145) mmol/L Potassium (3.5-5.1) mmol/L Chloride (98-107) mmol/L Carbon Dioxide (21.0-32.0) mmol/L Anion Gap (5.0-15.0) mmol/L BUN (8-26) mg/dL Creatinine (0.55-1.02) mg/dL Est Cr Clr Drug Dosing mL/min Estimated GFR (MDRD) (>60) MLS/MIN BUN/Creatinine Ratio (6-25) Glucose (74-100) mg/dL Hemoglobin A1c 6.9 H (< 5.7) % Calcium (8.5-10.1) mg/dL Magnesium (1.8-2.4) mg/dL Total Bilirubin (0.0-1.0) mg/dL AST (15-37) U/L ALT (12-78) U/L Alkaline Phosphatase (46-116) U/L Troponin I (0.000-0.060) ng/mL B-Natriuretic Peptide (0-125) pg/mL Total Protein (6.4-8.2) g/dL Albumin (3.4-5.0) g/dL Globulin (2.2-4.2) g/dL Albumin/Globulin Ratio (0.8-2.0) TSH, Ultra Sensitive (0.358-3.740) uIU/mL Urine Color Urine Appearance (CLEAR) Urine pH (5.0-8.0) Ur Specific [place] (1.003-1.030) Urine Protein (NEGATIVE) mg/dL Urine Glucose (UA) (NEGATIVE) mg/dL Urine Ketones (NEGATIVE) mg/dL Urine Occult Blood (NEGATIVE) Urine Nitrite (NEGATIVE) Urine Bilirubin (NEGATIVE) Urine Urobilinogen (0.2-1.0) E.U./dL Ur Leukocyte Esterase (NEGATIVE) Urine Opiates Screen (NEGATIVE) Ur Oxycodone Screen (NEGATIVE) Urine Methadone Screen (NEGATIVE) Ur Barbiturates Screen (NEGATIVE) Ur Tricyclics Screen (NEGATIVE) Ur Phencyclidine Scrn (NEGATIVE) Ur Amphetamine Screen (NEGATIVE) U Methamphetamines Scrn (NEGATIVE) Urine MDMA Screen (NEGATIVE) U Benzodiazepines Scrn (NEGATIVE) U Cocaine Metab Screen (NEGATIVE) U Marijuana (THC) Screen (NEGATIVE) Ethyl Alcohol (<3.0) mg/dL Departure - Departure Time of Disposition: 13:00 Disposition: Refer to Observation Condition: Good Clinical Impression: Syncope and collapse, QT prolongation Chest pain Qualifiers: Chest pain type: unspecified Qualified Code(s): R07.9 - Chest pain, unspecified - Discharge Information Referrals: PCP,None [Primary Care Provider] - Sepsis Event Note (ED) - Evaluation Sepsis Screening Result: No Definite Risk - Focused Exam Vital Signs: Vital Signs Temp Pulse Resp BP Pulse Ox 02/14/21 11:21 87 16 115/72 98 02/14/21 11:05 83 15 120/79 97 02/14/21 10:30 92 140/78 02/14/21 10:28 36.6 C 78 16 134/80 96 - Problem List & Annotations (1) Syncope and collapse SNOMED Code(s): 999904106 Code(s): R55 - SYNCOPE AND COLLAPSE Status: Acute Priority: High Current Visit: Yes (2) QT prolongation SNOMED Code(s): 637894557 Code(s): R94.31 - ABNORMAL ELECTROCARDIOGRAM [ECG] [EKG] Status: Acute Priority: High Current Visit: Yes (3) Chest pain SNOMED Code(s): 51704565 Code(s): R07.9 - CHEST PAIN, UNSPECIFIED Status: Resolved Priority: High Current Visit: Yes Qualifiers: Chest pain type: unspecified Qualified Code(s): R07.9 - Chest pain, unspecified - Problem List Review Problem List Initiated/Reviewed/Updated: Yes - My Orders Last 24 Hours: My Active Orders 02/14/21 10:47 Chest 1V Frontal [CR] Stat 02/14/21 10:48 EKG Documentation Completion [RC] ASDIRECTED EKG 12 Lead [EK] Routine 02/14/21 10:53 Holter Monitor 8-15 Day [EK] Stat 02/14/21 11:00 PROLACTIN Stat 02/14/21 11:07 CORONAVIRUS COVID-19 JOSSY [MOLEC] Stat - Assessment/Plan Last 24 Hours: My Active Orders 02/14/21 10:47 Chest 1V Frontal [CR] Stat 02/14/21 10:48 EKG Documentation Completion [RC] ASDIRECTED EKG 12 Lead [EK] Routine 02/14/21 10:53 Holter Monitor 8-15 Day [EK] Stat 02/14/21 11:00 PROLACTIN Stat 02/14/21 11:07 CORONAVIRUS COVID-19 JOSSY [MOLEC] Stat Plan: Patient to be placed in observation and telemetry. Holter monitor to be placed for future f/u in clinic. We will hold Sertraline and repeat EKG in the AM. Serial troponins to be done per protocol due to chest pain and syncope. We will supplement potassium for hypokalemia. F/u labs and troponins.
[2021-02-14] MEDS ORDERED: Sodium Chloride 0.9% 10 ML Syringe FLUSH PRN (12:26)
[2021-02-14] MEDS ORDERED: ESZOPICLONE 2 MG PO PRN (12:59)
[2021-02-14] MEDS ORDERED: Simethicone 80 MG Tab.Chew PO PRN (12:59)
[2021-02-14] MEDS: Sodium Chloride 0.9% 1,000 ML IV SCH (13:45)
[2021-02-14] MEDS: Potassium Chloride 20 MEQ Tab.ER PO SCH ×3 (14:10→19:24)
[2021-02-14] MEDS ORDERED: Rivaroxaban 10 MG Tab PO SCH (18:00)
[2021-02-14] MEDS: Ferrous Sulfate 325 MG Tab PO SCH (19:23)
[2021-02-14] MEDS ORDERED: atorvaSTATin 80 MG Tab PO SCH (20:00)
[2021-02-14] MEDS ORDERED: RIVAROXABAN 15 MG PO SCH (20:00)
[2021-02-15] MEDS: Sodium Chloride 0.9% 1,000 ML IV SCH (06:33)
[2021-02-15] MEDS ORDERED: Levothyroxine 25 MCG Tab PO SCH (07:00)
[2021-02-15] MEDS ORDERED: Pantoprazole 40 MG Tab.CR PO SCH (08:00)
[2021-02-15] MEDS ORDERED: Calcium Carbonate 600 MG Tab PO SCH (08:00)
[2021-02-15] MEDS ORDERED: Lisinopril 2.5 MG Tab PO SCH (08:00)
[2021-02-15] MEDS ORDERED: Metoprolol Succinate 50 MG Tab.ER PO SCH (08:00)
[2021-02-15] MEDS ORDERED: Aspirin 81 MG Tab.Chew PO SCH (08:00)
[2021-02-15] MEDS: Ferrous Sulfate 325 MG Tab PO SCH (08:37)
[2021-02-15] MEDS: Potassium Chloride 20 MEQ Tab.ER PO SCH ×2 (08:37→08:38)
[2021-02-15 08:38] VITALS: BP 163/97; PULSE 87
--- NOTE | 2021-02-15 09:51 | PCM.DCSUM1 ---
Discharge Summary - Hospital Course Diagnosis: Stroke: No Modified Estela Scale: No Symptoms at All Modified Estela Scale Score: 0 - Discharge Data Discharge Date: 02/15/21 Discharge Disposition: Home, Self-Care 01 Condition: Good - Referral to Home Health Date of Face to Face Encounter: 02/15/21 Primary Care Physician: PCP None - Discharge Diagnosis/Problem(s) (1) Atypical chest pain SNOMED Code(s): 380738816 ICD Code: R07.89 - OTHER CHEST PAIN Status: Acute Priority: Medium Current Visit: No (2) Light headedness SNOMED Code(s): 326532437 ICD Code: R42 - DIZZINESS AND GIDDINESS Status: Acute Priority: Low Current Visit: No (3) Leucocytosis SNOMED Code(s): 004333430, 578409368 ICD Code: D72.829 - ELEVATED WHITE BLOOD CELL COUNT, UNSPECIFIED Status: Acute Priority: Low Current Visit: No Qualifiers: Leukocytosis type: unspecified Qualified Code(s): D72.829 - Elevated white blood cell count, unspecified (4) Hypokalemia SNOMED Code(s): 67096449 ICD Code: E87.6 - HYPOKALEMIA Status: Acute Priority: Medium Current Visit: No Onset Date: ~12/06/20 - Patient Summary/Data Hospital Course: patient was admitted to the floor for observation yesterday after an episode of dizziness at home. In the ER, EKG was NSR, no acute ischemic changes and CT head didn't show any acute changes. Labs were significant for moderate hypokalemia. Trop was WNL. Patient was connected to Puja Patch and tele over night. K was replaced TID via PO. Trop was trended x4 WNL. K repeat today was WNL./ No arrhythmias overnight. stable vitals and patient reports feeling much better and more energetic than before,. Tolerated PO intake and good UOP - Patient Instructions Diet: Heart Healthy Diet - Discharge Plan *PRESCRIPTION DRUG MONITORING PROGRAM REVIEWED*: Not Applicable *COPY OF PRESCRIPTION DRUG MONITORING REPORT IN PATIENT SUSAN: Not Applicable Home Medications: Home Meds atorvaSTATin [Lipitor] 80 mg PO BEDTIME 03/22/17 [History] Levothyroxine 25 mcg PO ACBREAKFAST 12/08/18 [History] Pantoprazole [ProTONIX] 40 mg PO DAILY 12/22/18 [History] Aspirin 81 mg PO DAILY 12/06/20 [History] Calcium Carbonate [Calcium] 600 mg PO DAILY 12/06/20 [History] Ferrous Sulfate 325 mg PO BID 12/06/20 [History] Rivaroxaban [Xarelto] 20 mg PO BEDTIME 12/06/20 [History] Eszopiclone [Lunesta] 2 mg PO BEDTIME PRN 12/23/20 [History] lisinopriL [Prinivil] 2.5 mg PO DAILY 12/23/20 [History] Potassium Chloride [Klor-Con M20] 20 meq PO TID 12/27/20 [History] Simethicone 80 mg PO Q4H PRN 12/27/20 [History] Metoprolol Succinate 50 mg PO DAILY 02/14/21 [History] Forms: ED Department Discharge Referrals: PCP,None [Primary Care Provider] - - Discharge Summary/Plan Comment DC Time >30 min.: Yes Discharge Summary/Plan Comment: - continue with Puja patch for 14 days total - continue K supplements - follow up with PCP in 2 weeks - General Info Date of Service: 02/15/21 Functional Status: Reports: Tolerating Diet, Urinating, New Symptoms - Review of Systems General: Reports: No Symptoms HEENT: Reports: No Symptoms Pulmonary: Reports: No Symptoms Cardiovascular: Reports: No Symptoms Gastrointestinal: Reports: No Symptoms Genitourinary: Reports: Incontinence Neurological: Reports: No Symptoms Psychiatric: Reports: No Symptoms - Patient Data Vitals - Most Recent: Last Vital Signs Temp 36.4 C 02/15/21 08:00 Pulse 87 02/15/21 08:38 Resp 16 02/15/21 08:00 BP 163/97 H 02/15/21 08:38 Pulse Ox 96 02/15/21 08:00 Weight - Most Recent: 87.203 kg I&O - Last 24 hours: Intake & Output 02/14/21 02/15/21 02/15/21 22:59 06:59 14:59 Intake Total 225 890 Output Total 300 Balance -75 890 Lab Results - Last 24 hrs: Laboratory Results - last 24 hr 02/14/21 02/14/21 02/14/21 Range/Units 10:48 10:48 11:00 WBC 15.4 H (4.0-11.0) K/uL RBC 5.56 (3.80-5.80) M/uL Hgb 16.1 (11.5-16.5) g/dL Hct 48.5 H (37.0-47.0) % MCV 87 (76-96) fL MCH 29.0 (27.0-32.0) pg MCHC 33.2 (31.0-35.0) g/dL RDW 23.5 H (11.0-16.0) % Plt Count 142 L (150-500) K/uL MPV 11.3 H (6.0-10.0) fL Neut % (Auto) 83.5 H (45.0-70.0) % Lymph % (Auto) 10.5 L (20.0-40.0) % [place] % (Auto) 4.2 (3.0-10.0) % Eos % (Auto) 1.2 (1.0-5.0) % Baso % (Auto) 0.6 H (0.0-0.5) % Neut # (Auto) 12.87 H (2.00-7.50) K/uL Lymph # (Auto) 1.62 (1.50-4.00) K/uL [place] # (Auto) 0.65 (0.20-0.80) K/uL Eos # (Auto) 0.19 (0.04-0.40) K/uL Baso # (Auto) 0.10 (0.02-0.10) K/uL PT (9.0-11.5) sec INR (1.0-3.5) Sodium (136-145) mmol/L Potassium (3.5-5.1) mmol/L Chloride (98-107) mmol/L Carbon Dioxide (21.0-32.0) mmol/L Anion Gap (5.0-15.0) mmol/L BUN (8-26) mg/dL Creatinine (0.55-1.02) mg/dL Est Cr Clr Drug Dosing mL/min Estimated GFR (MDRD) (>60) MLS/MIN BUN/Creatinine Ratio (6-25) Glucose (74-100) mg/dL POC Glucose (74-110) mg/dL Hemoglobin A1c (< 5.7) % Calcium (8.5-10.1) mg/dL Magnesium (1.8-2.4) mg/dL Total Bilirubin (0.0-1.0) mg/dL AST (15-37) U/L ALT (12-78) U/L Alkaline Phosphatase (46-116) U/L Troponin I (0.000-0.060) ng/mL B-Natriuretic Peptide (0-125) pg/mL Total Protein (6.4-8.2) g/dL Albumin (3.4-5.0) g/dL Globulin (2.2-4.2) g/dL Albumin/Globulin Ratio (0.8-2.0) TSH, Ultra Sensitive (0.358-3.740) uIU/mL Urine Color Yellow Urine Appearance Clear (CLEAR) Urine pH 5.5 (5.0-8.0) Ur Specific [place] 1.015 (1.003-1.030) Urine Protein Negative (NEGATIVE) mg/dL Urine Glucose (UA) Negative (NEGATIVE) mg/dL Urine Ketones Negative (NEGATIVE) mg/dL Urine Occult Blood Negative (NEGATIVE) Urine Nitrite Negative (NEGATIVE) Urine Bilirubin Negative (NEGATIVE) Urine Urobilinogen 0.2 (0.2-1.0) E.U./dL Ur Leukocyte Esterase Negative (NEGATIVE) Urine Opiates Screen Negative (NEGATIVE) Ur Oxycodone Screen Negative (NEGATIVE) Urine Methadone Screen Negative (NEGATIVE) Ur Barbiturates Screen Negative (NEGATIVE) Ur Tricyclics Screen Negative (NEGATIVE) Ur Phencyclidine Scrn Negative (NEGATIVE) Ur Amphetamine Screen Negative (NEGATIVE) U Methamphetamines Scrn Negative (NEGATIVE) Urine MDMA Screen Negative (NEGATIVE) U Benzodiazepines Scrn Negative (NEGATIVE) U Cocaine Metab Screen Negative (NEGATIVE) U Marijuana (THC) Screen Negative (NEGATIVE) Ethyl Alcohol (<3.0) mg/dL SARS-CoV-2 RNA (JOSSY) (NEGATIVE) 02/14/21 02/14/21 02/14/21 Range/Units 11:00 11:00 11:00 WBC (4.0-11.0) K/uL RBC (3.80-5.80) M/uL Hgb (11.5-16.5) g/dL Hct (37.0-47.0) % MCV (76-96) fL MCH (27.0-32.0) pg MCHC (31.0-35.0) g/dL RDW (11.0-16.0) % Plt Count (150-500) K/uL MPV (6.0-10.0) fL Neut % (Auto) (45.0-70.0) % Lymph % (Auto) (20.0-40.0) % [place] % (Auto) (3.0-10.0) % Eos % (Auto) (1.0-5.0) % Baso % (Auto) (0.0-0.5) % Neut # (Auto) (2.00-7.50) K/uL Lymph # (Auto) (1.50-4.00) K/uL [place] # (Auto) (0.20-0.80) K/uL Eos # (Auto) (0.04-0.40) K/uL Baso # (Auto) (0.02-0.10) K/uL PT 13.3 H (9.0-11.5) sec INR 1.3 (1.0-3.5) Sodium 144 (136-145) mmol/L Potassium 2.8 L* (3.5-5.1) mmol/L Chloride 107 (98-107) mmol/L Carbon Dioxide 31.2 (21.0-32.0) mmol/L Anion Gap 8.6 (5.0-15.0) mmol/L BUN 8 D (8-26) mg/dL Creatinine 0.78 (0.55-1.02) mg/dL Est Cr Clr Drug Dosing 56.31 mL/min Estimated GFR (MDRD) > 60 (>60) MLS/MIN BUN/Creatinine Ratio 10.3 (6-25) Glucose 132 H (74-100) mg/dL POC Glucose (74-110) mg/dL Hemoglobin A1c (< 5.7) % Calcium 7.2 L (8.5-10.1) mg/dL Magnesium 1.8 (1.8-2.4) mg/dL Total Bilirubin 0.6 (0.0-1.0) mg/dL AST 32 (15-37) U/L ALT 27 (12-78) U/L Alkaline Phosphatase 204 H (46-116) U/L Troponin I 0.060 (0.000-0.060) ng/mL B-Natriuretic Peptide 3547 H (0-125) pg/mL Total Protein 5.5 L (6.4-8.2) g/dL Albumin 1.6 L (3.4-5.0) g/dL Globulin 3.9 (2.2-4.2) g/dL Albumin/Globulin Ratio 0.4 L (0.8-2.0) TSH, Ultra Sensitive 4.593 H D (0.358-3.740) uIU/mL Urine Color Urine Appearance (CLEAR) Urine pH (5.0-8.0) Ur Specific [place] (1.003-1.030) Urine Protein (NEGATIVE) mg/dL Urine Glucose (UA) (NEGATIVE) mg/dL Urine Ketones (NEGATIVE) mg/dL Urine Occult Blood (NEGATIVE) Urine Nitrite (NEGATIVE) Urine Bilirubin (NEGATIVE) Urine Urobilinogen (0.2-1.0) E.U./dL Ur Leukocyte Esterase (NEGATIVE) Urine Opiates Screen (NEGATIVE) Ur Oxycodone Screen (NEGATIVE) Urine Methadone Screen (NEGATIVE) Ur Barbiturates Screen (NEGATIVE) Ur Tricyclics Screen (NEGATIVE) Ur Phencyclidine Scrn (NEGATIVE) Ur Amphetamine Screen (NEGATIVE) U Methamphetamines Scrn (NEGATIVE) Urine MDMA Screen (NEGATIVE) U Benzodiazepines Scrn (NEGATIVE) U Cocaine Metab Screen (NEGATIVE) U Marijuana (THC) Screen (NEGATIVE) Ethyl Alcohol < 0.0 L (<3.0) mg/dL SARS-CoV-2 RNA (JOSSY) (NEGATIVE) 02/14/21 02/14/21 02/14/21 Range/Units 11:00 11:07 14:11 WBC (4.0-11.0) K/uL RBC (3.80-5.80) M/uL Hgb (11.5-16.5) g/dL Hct (37.0-47.0) % MCV (76-96) fL MCH (27.0-32.0) pg MCHC (31.0-35.0) g/dL RDW (11.0-16.0) % Plt Count (150-500) K/uL MPV (6.0-10.0) fL Neut % (Auto) (45.0-70.0) % Lymph % (Auto) (20.0-40.0) % [place] % (Auto) (3.0-10.0) % Eos % (Auto) (1.0-5.0) % Baso % (Auto) (0.0-0.5) % Neut # (Auto) (2.00-7.50) K/uL Lymph # (Auto) (1.50-4.00) K/uL [place] # (Auto) (0.20-0.80) K/uL Eos # (Auto) (0.04-0.40) K/uL Baso # (Auto) (0.02-0.10) K/uL PT (9.0-11.5) sec INR (1.0-3.5) Sodium (136-145) mmol/L Potassium (3.5-5.1) mmol/L Chloride (98-107) mmol/L Carbon Dioxide (21.0-32.0) mmol/L Anion Gap (5.0-15.0) mmol/L BUN (8-26) mg/dL Creatinine (0.55-1.02) mg/dL Est Cr Clr Drug Dosing mL/min Estimated GFR (MDRD) (>60) MLS/MIN BUN/Creatinine Ratio (6-25) Glucose (74-100) mg/dL POC Glucose (74-110) mg/dL Hemoglobin A1c 6.9 H (< 5.7) % Calcium (8.5-10.1) mg/dL Magnesium (1.8-2.4) mg/dL Total Bilirubin (0.0-1.0) mg/dL AST (15-37) U/L ALT (12-78) U/L Alkaline Phosphatase (46-116) U/L Troponin I 0.057 (0.000-0.060) ng/mL B-Natriuretic Peptide (0-125) pg/mL Total Protein (6.4-8.2) g/dL Albumin (3.4-5.0) g/dL Globulin (2.2-4.2) g/dL Albumin/Globulin Ratio (0.8-2.0) TSH, Ultra Sensitive (0.358-3.740) uIU/mL Urine Color Urine Appearance (CLEAR) Urine pH (5.0-8.0) Ur Specific [place] (1.003-1.030) Urine Protein (NEGATIVE) mg/dL Urine Glucose (UA) (NEGATIVE) mg/dL Urine Ketones (NEGATIVE) mg/dL Urine Occult Blood (NEGATIVE) Urine Nitrite (NEGATIVE) Urine Bilirubin (NEGATIVE) Urine Urobilinogen (0.2-1.0) E.U./dL Ur Leukocyte Esterase (NEGATIVE) Urine Opiates Screen (NEGATIVE) Ur Oxycodone Screen (NEGATIVE) Urine Methadone Screen (NEGATIVE) Ur Barbiturates Screen (NEGATIVE) Ur Tricyclics Screen (NEGATIVE) Ur Phencyclidine Scrn (NEGATIVE) Ur Amphetamine Screen (NEGATIVE) U Methamphetamines Scrn (NEGATIVE) Urine MDMA Screen (NEGATIVE) U Benzodiazepines Scrn (NEGATIVE) U Cocaine Metab Screen (NEGATIVE) U Marijuana (THC) Screen (NEGATIVE) Ethyl Alcohol (<3.0) mg/dL SARS-CoV-2 RNA (JOSSY) Negative (NEGATIVE) 02/14/21 02/15/21 02/15/21 Range/Units 17:04 07:59 08:45 WBC 16.9 H (4.0-11.0) K/uL RBC 5.69 (3.80-5.80) M/uL Hgb 16.5 (11.5-16.5) g/dL Hct 49.4 H (37.0-47.0) % MCV 87 (76-96) fL MCH 29.0 (27.0-32.0) pg MCHC 33.4 (31.0-35.0) g/dL RDW 23.6 H (11.0-16.0) % Plt Count 135 L (150-500) K/uL MPV 11.2 H (6.0-10.0) fL Neut % (Auto) 83.1 H (45.0-70.0) % Lymph % (Auto) 11.4 L (20.0-40.0) % [place] % (Auto) 3.8 (3.0-10.0) % Eos % (Auto) 1.3 (1.0-5.0) % Baso % (Auto) 0.4 (0.0-0.5) % Neut # (Auto) 14.02 H (2.00-7.50) K/uL Lymph # (Auto) 1.93 (1.50-4.00) K/uL [place] # (Auto) 0.64 (0.20-0.80) K/uL Eos # (Auto) 0.22 (0.04-0.40) K/uL Baso # (Auto) 0.07 (0.02-0.10) K/uL PT (9.0-11.5) sec INR (1.0-3.5) Sodium (136-145) mmol/L Potassium (3.5-5.1) mmol/L Chloride (98-107) mmol/L Carbon Dioxide (21.0-32.0) mmol/L Anion Gap (5.0-15.0) mmol/L BUN (8-26) mg/dL Creatinine (0.55-1.02) mg/dL Est Cr Clr Drug Dosing mL/min Estimated GFR (MDRD) (>60) MLS/MIN BUN/Creatinine Ratio (6-25) Glucose (74-100) mg/dL POC Glucose 96 (74-110) mg/dL Hemoglobin A1c (< 5.7) % Calcium (8.5-10.1) mg/dL Magnesium (1.8-2.4) mg/dL Total Bilirubin (0.0-1.0) mg/dL AST (15-37) U/L ALT (12-78) U/L Alkaline Phosphatase (46-116) U/L Troponin I 0.053 (0.000-0.060) ng/mL B-Natriuretic Peptide (0-125) pg/mL Total Protein (6.4-8.2) g/dL Albumin (3.4-5.0) g/dL Globulin (2.2-4.2) g/dL Albumin/Globulin Ratio (0.8-2.0) TSH, Ultra Sensitive (0.358-3.740) uIU/mL Urine Color Urine Appearance (CLEAR) Urine pH (5.0-8.0) Ur Specific [place] (1.003-1.030) Urine Protein (NEGATIVE) mg/dL Urine Glucose (UA) (NEGATIVE) mg/dL Urine Ketones (NEGATIVE) mg/dL Urine Occult Blood (NEGATIVE) Urine Nitrite (NEGATIVE) Urine Bilirubin (NEGATIVE) Urine Urobilinogen (0.2-1.0) E.U./dL Ur Leukocyte Esterase (NEGATIVE) Urine Opiates Screen (NEGATIVE) Ur Oxycodone Screen (NEGATIVE) Urine Methadone Screen (NEGATIVE) Ur Barbiturates Screen (NEGATIVE) Ur Tricyclics Screen (NEGATIVE) Ur Phencyclidine Scrn (NEGATIVE) Ur Amphetamine Screen (NEGATIVE) U Methamphetamines Scrn (NEGATIVE) Urine MDMA Screen (NEGATIVE) U Benzodiazepines Scrn (NEGATIVE) U Cocaine Metab Screen (NEGATIVE) U Marijuana (THC) Screen (NEGATIVE) Ethyl Alcohol (<3.0) mg/dL SARS-CoV-2 RNA (JOSSY) (NEGATIVE) 02/15/21 Range/Units 08:45 WBC (4.0-11.0) K/uL RBC (3.80-5.80) M/uL Hgb (11.5-16.5) g/dL Hct (37.0-47.0) % MCV (76-96) fL MCH (27.0-32.0) pg MCHC (31.0-35.0) g/dL RDW (11.0-16.0) % Plt Count (150-500) K/uL MPV (6.0-10.0) fL Neut % (Auto) (45.0-70.0) % Lymph % (Auto) (20.0-40.0) % [place] % (Auto) (3.0-10.0) % Eos % (Auto) (1.0-5.0) % Baso % (Auto) (0.0-0.5) % Neut # (Auto) (2.00-7.50) K/uL Lymph # (Auto) (1.50-4.00) K/uL [place] # (Auto) (0.20-0.80) K/uL Eos # (Auto) (0.04-0.40) K/uL Baso # (Auto) (0.02-0.10) K/uL PT (9.0-11.5) sec INR (1.0-3.5) Sodium 145 (136-145) mmol/L Potassium 3.5 D (3.5-5.1) mmol/L Chloride 109 H (98-107) mmol/L Carbon Dioxide 29.8 (21.0-32.0) mmol/L Anion Gap 9.7 (5.0-15.0) mmol/L BUN 9 (8-26) mg/dL Creatinine 0.72 (0.55-1.02) mg/dL Est Cr Clr Drug Dosing 61.00 mL/min Estimated GFR (MDRD) > 60 (>60) MLS/MIN BUN/Creatinine Ratio 12.5 (6-25) Glucose 119 H (74-100) mg/dL POC Glucose (74-110) mg/dL Hemoglobin A1c (< 5.7) % Calcium 7.5 L (8.5-10.1) mg/dL Magnesium (1.8-2.4) mg/dL Total Bilirubin (0.0-1.0) mg/dL AST (15-37) U/L ALT (12-78) U/L Alkaline Phosphatase (46-116) U/L Troponin I 0.042 (0.000-0.060) ng/mL B-Natriuretic Peptide (0-125) pg/mL Total Protein (6.4-8.2) g/dL Albumin (3.4-5.0) g/dL Globulin (2.2-4.2) g/dL Albumin/Globulin Ratio (0.8-2.0) TSH, Ultra Sensitive (0.358-3.740) uIU/mL Urine Color Urine Appearance (CLEAR) Urine pH (5.0-8.0) Ur Specific [place] (1.003-1.030) Urine Protein (NEGATIVE) mg/dL Urine Glucose (UA) (NEGATIVE) mg/dL Urine Ketones (NEGATIVE) mg/dL Urine Occult Blood (NEGATIVE) Urine Nitrite (NEGATIVE) Urine Bilirubin (NEGATIVE) Urine Urobilinogen (0.2-1.0) E.U./dL Ur Leukocyte Esterase (NEGATIVE) Urine Opiates Screen (NEGATIVE) Ur Oxycodone Screen (NEGATIVE) Urine Methadone Screen (NEGATIVE) Ur Barbiturates Screen (NEGATIVE) Ur Tricyclics Screen (NEGATIVE) Ur Phencyclidine Scrn (NEGATIVE) Ur Amphetamine Screen (NEGATIVE) U Methamphetamines Scrn (NEGATIVE) Urine MDMA Screen (NEGATIVE) U Benzodiazepines Scrn (NEGATIVE) U Cocaine Metab Screen (NEGATIVE) U Marijuana (THC) Screen (NEGATIVE) Ethyl Alcohol (<3.0) mg/dL SARS-CoV-2 RNA (JOSSY) (NEGATIVE) Med Orders - Current: Current Medications Aspirin (Aspirin 81 Mg Tab.Chew) 81 mg PO DAILY DANN Last Admin: 02/15/21 08:37 Dose: 81 mg Documented by: Atorvastatin Calcium (Atorvastatin 80 Mg Tab) 80 mg PO BEDTIME [facility] Last Admin: 02/14/21 19:23 Dose: 80 mg Documented by: Calcium Carbonate/Glycine (Calcium Carbonate 600 Mg Tab) 600 mg PO DAILY [facility] Last Admin: 02/15/21 08:37 Dose: 600 mg Documented by: Ferrous Sulfate (Ferrous Sulfate 325 Mg Tab) 325 mg PO BID [facility] Last Admin: 02/15/21 08:37 Dose: 325 mg Documented by: Sodium Chloride (Normal Saline) 1,000 mls @ 75 mls/hr IV ASDIRECTED [facility] Last Admin: 02/15/21 06:33 Dose: 75 mls/hr Documented by: Levothyroxine Sodium (Levothyroxine 25 Mcg Tab) 25 mcg PO ACBREAKFAST [facility] Last Admin: 02/15/21 06:33 Dose: 25 mcg Documented by: Lisinopril (Lisinopril 2.5 Mg Tab) 2.5 mg PO DAILY [facility] Last Admin: 02/15/21 08:38 Dose: 2.5 mg Documented by: Metoprolol Succinate (Metoprolol Succinate 50 Mg Tab.Er) 50 mg PO DAILY [facility] Last Admin: 02/15/21 08:38 Dose: 50 mg Documented by: Non-Formulary Medication (Eszopiclone [Lunesta]) 2 mg PO BEDTIME PRN PRN Reason: Insomnia Pantoprazole Sodium (Pantoprazole 40 Mg Tab.Cr) 40 mg PO DAILY [facility] Last Admin: 02/15/21 08:37 Dose: 40 mg Documented by: Potassium Chloride (Potassium Chloride 20 Meq Tab.Er) 20 meq PO TID [facility] Last Admin: 02/15/21 08:37 Dose: 20 meq Documented by: Potassium Chloride (Potassium Chloride 20 Meq Tab.Er) 20 meq PO TID [facility] Last Admin: 02/15/21 08:38 Dose: Not Given Documented by: Rivaroxaban (Rivaroxaban 10 Mg Tab) 20 mg PO WITHDINNER [facility] Last Admin: 02/14/21 17:34 Dose: 20 mg Documented by: Simethicone (Simethicone 80 Mg Tab.Chew) 80 mg PO Q4H PRN PRN Reason: Dyspepsia Sodium Chloride (Sodium Chloride 0.9% 10 Ml Syringe) 10 ml FLUSH ASDIRECTED PRN PRN Reason: Keep Vein Open Last Admin: 02/14/21 14:49 Dose: 10 ml Documented by: - Exam Quality Assessment: Denies: Supplemental Oxygen, Central Line/PICC, Urine Catheter, Skin Breakdown General: Reports: Alert, Oriented HEENT: Reports: Pupils Equal, Pupils Reactive, EOMI Lungs: Reports: Clear to Auscultation, Normal Respiratory Effort Cardiovascular: Reports: Regular Rate, Regular Rhythm GI/Abdominal Exam: Normal Bowel Sounds, Soft, Non-Tender Extremities: Normal Inspection, Pedal Edema Neurological: Reports: No New Focal Deficit Psy/Mental Status: Reports: Alert, Normal Affect
--- NOTE | 2021-02-15 15:10 | CR ---
DATE OF SERVICE: 02/14/2021 CLINICAL DATA: Chest pain - epigastric. AP CHEST: Comparison is made to a prior exam dated 12/23/2020. The heart size is within normal limits. The lungs are clear. No pneumothorax. No pleural effusions. No evidence of acute intrathoracic disease. [id number] MTDD
== END 2021-02-15 11:20 | disposition home or self-care (01) ==
LOC: LB.ED 10:28 → LB.MS 12:26
PROVIDERS: ADMIT Family Medicine; ATTEND Family Medicine
DX: R55 Syncope and collapse (principal); R07.89 Other chest pain; R94.31 Abnormal electrocardiogram [ECG] [EKG]; I48.91 Unspecified atrial fibrillation; I25.10 Atherosclerotic heart disease of native coronary artery without angina pectoris; E78.00 Pure hypercholesterolemia, unspecified; I10 Essential (primary) hypertension; I25.2 Old myocardial infarction; E11.9 Type 2 diabetes mellitus without complications; E03.9 Hypothyroidism, unspecified; K21.9 Gastro-esophageal reflux disease without esophagitis; D72.829 Elevated white blood cell count, unspecified; E87.6 Hypokalemia; Z20.822 Contact with and (suspected) exposure to COVID-19; Z79.899 Other long term (current) drug therapy; Z79.82 Long term (current) use of aspirin; Z95.5 Presence of coronary angioplasty implant and graft; Z86.73 Personal history of transient ischemic attack (TIA), and cerebral infarction without residual deficits; Z79.890 Hormone replacement therapy; Z98.890 Other specified postprocedural states
CPT/HCPCS: 36415; 70450; 71045; 80048; 80053; 80307; 81003; 82947; 83036; 83735; 83880; 84146; 84443; 84484; 85025; 85610; 93005; 93246; 93247; 99217; 99220; A0425; A0429; A9270-GY; J7030; U0002

== ENCOUNTER 2021-04-05 15:32 | Emergency (ER) | payer MEDICARE ==
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
[2021-04-05] MEDS ORDERED: ESZOPICLONE 2 MG PO PRN (19:17)
[2021-04-05] MEDS ORDERED: Aspirin 81 MG Tab.Chew PO SCH (19:30)
[2021-04-05] MEDS ORDERED: Lisinopril 2.5 MG Tab PO SCH (19:30)
[2021-04-05] MEDS ORDERED: XARELTO 20 MG PO SCH (20:00)
[2021-04-05] MEDS ORDERED: RIVAROXABAN 15 MG PO SCH (20:00)
[2021-04-05] MEDS ORDERED: ATORVASTATIN 80 MG PO SCH (20:00)
[2021-04-05] MEDS ORDERED: DIPHENHYDRAMINE 25 MG PO SCH (20:00)
[2021-04-05] MEDS ORDERED: atorvaSTATin 80 MG Tab PO SCH (20:00)
[2021-04-05] MEDS ORDERED: Metoprolol Succinate 50 MG Tab.ER PO SCH (22:30)
[2021-04-05] MEDS ORDERED: diphenhydrAMINE 25 MG Cap PO SCH (22:39)
[2021-04-05] MEDS ORDERED: Potassium Chloride 20 MEQ Tab.ER PO SCH (22:45)
[2021-04-05] MEDS ORDERED: Metoprolol Succinate 50 MG Tab.ER**OWN MED PO SCH (23:30)
[2021-04-05] MEDS: Potassium Chloride 20 MEQ Tab.ER**OWN MED PO SCH (23:31)
[2021-04-05 23:33] VITALS: PULSE 86
[2021-04-06] MEDS ORDERED: Levothyroxine 25 MCG Tab PO SCH (07:00)
[2021-04-06] MEDS ORDERED: Levothyroxine 25 MCG Tab**OWN MED PO SCH (07:00)
[2021-04-06] MEDS ORDERED: Aspirin 81 MG Tab.Chew**OWN MED PO SCH (08:00)
[2021-04-06] MEDS ORDERED: Sertraline 50 MG Tab**OWN MED PO SCH (08:00)
[2021-04-06] MEDS ORDERED: Metoprolol Succinate 50 MG Tab.ER PO SCH (08:00)
[2021-04-06] MEDS ORDERED: LISINOPRIL 2.5 MG PO SCH (08:00)
[2021-04-06] MEDS: Potassium Chloride 20 MEQ Tab.ER**OWN MED PO SCH (08:15)
[2021-04-06 08:16] VITALS: BP 191/99
[2021-04-08] MEDS ORDERED: Calcium Carbonate 500 MG Tab.Chew PO PRN (10:11)
== END 2021-04-05 20:06 | disposition other institution (70) ==
LOC: LB.ED 15:32 → UNDOADMOB 17:30 → LB.MS 17:30 → LB.ED 20:06
DX: T74.01XA Adult neglect or abandonment, confirmed, initial encounter (principal); I10 Essential (primary) hypertension; E66.9 Obesity, unspecified; I48.91 Unspecified atrial fibrillation; I25.10 Atherosclerotic heart disease of native coronary artery without angina pectoris; E78.00 Pure hypercholesterolemia, unspecified; I25.2 Old myocardial infarction; K21.9 Gastro-esophageal reflux disease without esophagitis; Z79.82 Long term (current) use of aspirin; E11.9 Type 2 diabetes mellitus without complications; E03.9 Hypothyroidism, unspecified; M19.90 Unspecified osteoarthritis, unspecified site; Z79.899 Other long term (current) drug therapy; Z91.14 Patient's other noncompliance with medication regimen; Z95.5 Presence of coronary angioplasty implant and graft; Z86.73 Personal history of transient ischemic attack (TIA), and cerebral infarction without residual deficits; Z20.822 Contact with and (suspected) exposure to COVID-19
CPT/HCPCS: 36415; 80048; 84443; 85027; 93005; 99285-25; A9270-GY; U0002

== ENCOUNTER 2021-04-05 19:19 | Inpatient (IN) | payer OTHER ==
[2021-04-06] MEDS: Potassium Chloride 20 MEQ Tab.ER**OWN MED PO SCH (17:24)
[2021-04-06] MEDS: ATORVASTATIN 80 MG PO SCH (19:17)
[2021-04-06] MEDS: DIPHENHYDRAMINE 25 MG PO SCH (19:17)
[2021-04-06] MEDS: Metoprolol Succinate 50 MG Tab.ER**OWN MED PO SCH (19:18)
[2021-04-06] MEDS: RIVAROXABAN 20 MG PO SCH (19:18)
[2021-04-06] MEDS ORDERED: atorvaSTATin 80 MG Tab PO SCH (20:00)
[2021-04-06] MEDS ORDERED: Non-Formulary Medication 1 Each (Metoprolol Succinate [Metoprolol Succinate] 50 MG Tab.Er. PO SCH (20:00)
[2021-04-06] MEDS ORDERED: Nystatin Topical Powder 15 GM Bottle TOP PRN (20:51)
[2021-04-06] MEDS: Ciprofloxacin 500 MG Tab PO SCH (23:25)
[2021-04-07] MEDS ORDERED: Levothyroxine 25 MCG Tab PO SCH (07:00)
[2021-04-07] MEDS ORDERED: Aspirin 81 MG Tab.Chew PO SCH (08:00)
[2021-04-07] MEDS: Ciprofloxacin 500 MG Tab PO SCH ×2 (08:15→19:54)
[2021-04-07] MEDS: Aspirin 81 MG Tab.Chew**OWN MED PO SCH (08:15)
[2021-04-07] MEDS: LISINOPRIL 2.5 MG PO SCH (08:15)
[2021-04-07] MEDS: Levothyroxine 25 MCG Tab**OWN MED PO SCH (08:16)
[2021-04-07] MEDS: Sertraline 50 MG Tab**OWN MED PO SCH (08:16)
[2021-04-07] MEDS: Potassium Chloride 20 MEQ Tab.ER**OWN MED PO SCH ×2 (08:16→18:24)
[2021-04-07] MEDS: ATORVASTATIN 80 MG PO SCH (19:53)
[2021-04-07] MEDS: RIVAROXABAN 20 MG PO SCH (19:53)
[2021-04-07] MEDS: DIPHENHYDRAMINE 25 MG PO SCH (19:54)
[2021-04-07] MEDS: Metoprolol Succinate 50 MG Tab.ER**OWN MED PO SCH (19:54)
[2021-04-08] MEDS: Levothyroxine 25 MCG Tab**OWN MED PO SCH ×2 (05:33→06:08)
[2021-04-08 07:43] VITALS: BP 176/98; PULSE 66
[2021-04-08] MEDS: Potassium Chloride 20 MEQ Tab.ER**OWN MED PO SCH (07:45)
[2021-04-08] MEDS: Ciprofloxacin 500 MG Tab PO SCH (07:45)
[2021-04-08] MEDS: LISINOPRIL 2.5 MG PO SCH (07:46)
[2021-04-08] MEDS: Aspirin 81 MG Tab.Chew**OWN MED PO SCH (07:46)
[2021-04-08] MEDS: Sertraline 50 MG Tab**OWN MED PO SCH (07:46)
[2021-04-08] MEDS ORDERED: Calcium Carbonate 500 MG Tab.Chew PO PRN (10:15)
== END 2021-04-08 15:15 | DRG 951 ==
LOC: LB.MS 19:19
PROVIDERS: ADMIT Surgery; ATTEND Surgery
DX: Z51.5 Encounter for palliative care (principal); T74.01XA Adult neglect or abandonment, confirmed, initial encounter; I69.351 Hemiplegia and hemiparesis following cerebral infarction affecting right dominant side; R51.9 Headache, unspecified; R42 Dizziness and giddiness; H54.7 Unspecified visual loss; I48.91 Unspecified atrial fibrillation; I25.10 Atherosclerotic heart disease of native coronary artery without angina pectoris; I10 Essential (primary) hypertension; E78.5 Hyperlipidemia, unspecified; K21.9 Gastro-esophageal reflux disease without esophagitis; E11.9 Type 2 diabetes mellitus without complications; Z75.5 Holiday relief care; E03.9 Hypothyroidism, unspecified; Z98.890 Other specified postprocedural states; Z90.710 Acquired absence of both cervix and uterus; Z68.34 Body mass index [BMI] 34.0-34.9, adult; Z79.01 Long term (current) use of anticoagulants; I25.2 Old myocardial infarction; Z87.01 Personal history of pneumonia (recurrent); Z91.14 Patient's other noncompliance with medication regimen; Z87.440 Personal history of urinary (tract) infections; Z79.4 Long term (current) use of insulin; Z95.5 Presence of coronary angioplasty implant and graft
CPT/HCPCS: A9270-GY

== ENCOUNTER 2021-04-26 16:20 | Emergency (ER) | payer MEDICARE ==
[2021-04-26] MEDS ORDERED: Sodium Chloride 0.9% 10 ML Syringe FLUSH PRN (16:34)
--- NOTE | 2021-04-26 16:35 | EDM.PDOC ---
ED HPI GENERAL MEDICAL PROBLEM - General Chief Complaint: Chest Pain Stated Complaint: CHEST PAIN Time Seen by Provider: 04/26/21 16:35 Source of Information: Reports: Patient History Limitations: Reports: No Limitations - History of Present Illness INITIAL COMMENTS - FREE TEXT/NARRATIVE: patient from [place] - presented to the ER with a c/o CP - since the morning. was given Nitro SL earlier - which took care of the pain - but symptoms recurred later on. No SOB or fever/chills. h/o CAD in the past - s/p stents placement - currently on ASA 81mg and Xarelto. Reports mild substernal CP. non radiating. Pain no exacerbated with activities or food. Right Middle Chest Pain Score (Numeric/FACES): 7 - Related Data Allergies Allergy/AdvReac Type Severity Reaction Status Date / Time No Known Allergies Allergy Verified 04/26/21 17:17 Home Meds: Home Meds atorvaSTATin [Lipitor] 80 mg PO BEDTIME 03/22/17 [History] Levothyroxine 25 mcg PO ACBREAKFAST 12/08/18 [History] Pantoprazole [ProTONIX] 40 mg PO DAILY 12/22/18 [History] Aspirin 81 mg PO DAILY 12/06/20 [History] Ferrous Sulfate 325 mg PO BID 12/06/20 [History] lisinopriL [Prinivil] 2.5 mg PO DAILY 12/23/20 [History] Potassium Chloride [Klor-Con M20] 20 meq PO BID 12/27/20 [History] Metoprolol Succinate 50 mg PO DAILY 02/14/21 [History] Sertraline [Zoloft] 1 tab PO QPM 04/05/21 [History] diphenhydrAMINE HCL [Diphenhydramine HCl] 50 mg PO BEDTIME 04/05/21 [History] traMADol [Ultram] 1 tab PO TID PRN 04/05/21 [History] Acetaminophen [Tylenol Arthritis Pain] 650 mg PO Q6HR PRN 04/08/21 [History] Calcium Carbonate [Tums] 1,000 mg PO Q2HR PRN tab.chew 04/08/21 [Rx] Calcium Carbonate [Tums] 2 tab PO Q6HR PRN 04/08/21 [History] Calcium Citrate/Vitamin D3 [Calcium Citrate-Vit D Caplet] 1 tab PO QAM 04/08/21 [History] Diclofenac Sodium [Voltaren 1% Gel] 1 applic TOP QID PRN 04/08/21 [History] Eszopiclone [Lunesta] 2 mg PO BEDTIME PRN 04/08/21 [History] Nitroglycerin [Nitrostat] 0.4 mg SL PRN 04/08/21 [History] Nystatin 15 gm TP BID 04/08/21 [History] Rivaroxaban [Xarelto] 20 mg PO BEDTIME 04/08/21 [Rx] Rivaroxaban [Xarelto] 20 mg PO QPM 04/08/21 [History] Simethicone [Gas Relief] 80 mg PO Q4HR PRN 04/08/21 [History] Past Medical History HEENT History: Reports: Impaired Vision, Other (See Below) Other HEENT History: dentures Cardiovascular History: Reports: Afib, Angina, CAD, High Cholesterol, Hype rtension, [place], Stents, Other (See Below) Other Cardiovascular History: Cartotid artery syndrome Respiratory History: Reports: Pneumonia, Recurrent Gastrointestinal History: Reports: GERD Other Gastrointestinal History: Constipation related to vicodin Genitourinary History: Reports: Urinary Incontinence, UTI, Recurrent Other Genitourinary History: frequent urination, stopped oxybutin due to legs swelling from it 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 Hematologic History: Reports: B12 Deficiency, Other (See Below) Other Hematologic History: gets B 12 shots monthly Immunologic History: Reports: None Oncologic (Cancer) History: Reports: None Dermatologic History: Reports: Eczema, Other (See Below) Other Dermatologic History: 04/05/21 rash to right groin and minimal rash under right breast - Infectious Disease History Infectious Disease History: Reports: C-Difficile - Past Surgical History HEENT Surgical History: Reports: None Cardiovascular Surgical History: Reports: None GI Surgical History: Reports: Bariatric Procedure, Hernia, Abdominal, Hernia Repair/Other Female Surgical History: Reports: Section, Hysterectomy Neurological Surgical History: Reports: None Musculoskeletal Surgical History: Reports: Other (See Below) Other Musculoskeletal Surgeries/Procedures:: Surgery to fix L wrist Social & Family History - Family History Family Medical History: No Pertinent Family History Neurological: Reports: Other (See Below) Other Neurological Family History: Daughter has TBI - Caffeine Use Caffeine Use: Reports: Coffee, Soda, Tea ED ROS GENERAL - Review of Systems Review Of Systems: See Below Constitutional: Reports: No Symptoms HEENT: Reports: No Symptoms Respiratory: Reports: No Symptoms Cardiovascular: Reports: Chest Pain Endocrine: Reports: No Symptoms GI/Abdominal: Reports: No Symptoms Musculoskeletal: Reports: No Symptoms Skin: Reports: Bruising Neurological: Reports: No Symptoms ED EXAM, GENERAL - Physical Exam Exam: See Below Exam Limited By: No Limitations General Appearance: Alert, WD/WN, No Apparent Distress Eye Exam: Bilateral Eye: EOMI, PERRL Head: Atraumatic, Normocephalic Respiratory/Chest: No Respiratory Distress, Lungs Clear, Normal Breath Sounds Cardiovascular: Normal Peripheral Pulses, Regular Rate, Rhythm, No Edema GI/Abdominal: Normal Bowel Sounds, Soft, Non-Tender Back Exam: Normal Inspection, Full Range of Motion Extremities: Normal Inspection, Normal Range of Motion Neurological: Alert, Oriented, Normal Cognition, No Motor/Sensory Deficits Skin Exam: Warm, Dry, Other (bruises) #1 Interpretation EKG Date: 04/26/21 Rhythm: NSR [place]: Normal P-Wave: Present QRS: Normal ST-T: Normal QT: Normal Course - Vital Signs Last Recorded V/S: Last Vital Signs Temp 36.5 C 04/26/21 16:35 Pulse 80 04/26/21 19:02 Resp 16 04/26/21 17:41 BP 127/69 04/26/21 19:02 Pulse Ox 94 L 04/26/21 17:41 - Orders/Labs/Meds Orders: Active Orders 24 hr Category Date Time Status EKG Documentation Completion [RC] ASDIRECTED Care 04/26/21 16:34 Active Sodium Chloride 0.9% [Saline Flush] Med 04/26/21 16:34 Active 10 ml FLUSH ASDIRECTED PRN Saline Lock Insert [OM.PC] Routine Oth 04/26/21 16:34 Ordered Medication Orders Sodium Chloride (Sodium Chloride 0.9% 10 Ml Syringe) 10 ml FLUSH ASDIRECTED PRN PRN Reason: Keep Vein Open Labs: Laboratory Tests 04/26/21 04/26/21 04/26/21 Range/Units 16:55 16:55 18:44 WBC 14.9 H (4.0-11.0) K/uL RBC 4.65 (3.80-5.80) M/uL Hgb 15.1 (11.5-16.5) g/dL Hct 46.2 (37.0-47.0) % MCV 99 H (76-96) fL MCH 32.5 H (27.0-32.0) pg MCHC 32.7 (31.0-35.0) g/dL RDW 18.4 H (11.0-16.0) % Plt Count 174 (150-500) K/uL MPV 12.5 H (6.0-10.0) fL Sodium 143 (136-145) mmol/L Potassium 5.2 H D (3.5-5.1) mmol/L Chloride 113 H (98-107) mmol/L Carbon Dioxide 19.8 L D (21.0-32.0) mmol/L Anion Gap 15.4 H (5.0-15.0) mmol/L BUN 18 (8-26) mg/dL Creatinine 0.71 (0.55-1.02) mg/dL Est Cr Clr Drug Dosing 61.86 mL/min Estimated GFR (MDRD) > 60 (>60) MLS/MIN BUN/Creatinine Ratio 25.4 H (6-25) Glucose 108 H (74-100) mg/dL Calcium 7.9 L (8.5-10.1) mg/dL Troponin I < 0.017 D < 0.017 (0.000-0.060) ng/mL Meds: Medications Generic Name Dose Route Start Last Admin Trade Name Freq PRN Reason Stop Dose Admin Sodium Chloride 10 ml 04/26/21 16:34 Sodium Chloride 0.9% 10 Ml Syringe FLUSH ASDIRECTED PRN Keep Vein Open Discontinued Medications Generic Name Dose Route Start Last Admin Trade Name Freq PRN Reason Stop Dose Admin Nitroglycerin 0.4 mg 04/26/21 17:24 04/26/21 17:22 Nitroglycerin 0.4 Mg Tab.Sl SL 04/26/21 17:25 0.4 mg ONETIME ONE Administration - Re-Assessments/Exams Free Text/Narrative Re-Assessment/Exam: was connected to a monitor normal vitals EKG - NSR - no ischemic changes labs were ordered - normal trop,, mild elevation in K level Nitro SL was given - reports resolution of symptoms 04/26/21 19:10 troponin repeat still WNL patient reports symptoms free and is asking to be d/cd back to the [place] Departure - Departure Time of Disposition: 19:10 Disposition: Home, Self-Care 01 Condition: Good Clinical Impression: Atypical chest pain Instructions: Nonspecific Chest Pain, Adult, [id number] Referrals: PCP,None [Primary Care Provider] - Forms: ED Department Discharge Additional Instructions: - take one tab of potassium daily - resume home meds as before - follow up with your PCP in 1-2 weeks - return to the ER if symptoms got worse or any concerns Sepsis Event Note (ED) - Focused Exam Vital Signs: Vital Signs Temp Pulse Resp BP BP Pulse Ox 04/26/21 19:02 80 127/69 04/26/21 18:20 76 128/68 04/26/21 18:02 66 114/67 04/26/21 17:41 69 16 109/67 94 L 04/26/21 17:23 66 16 116/76 98 04/26/21 17:22 166/76 H 04/26/21 16:35 36.5 C 69 16 128/75 95 - Problem List & Annotations (1) Atypical chest pain SNOMED Code(s): 818574317 Code(s): R07.89 - OTHER CHEST PAIN Status: Acute Priority: Medium Current Visit: Yes - Problem List Review Problem List Initiated/Reviewed/Updated: Yes - My Orders Last 24 Hours: My Active Orders 04/26/21 16:34 EKG Documentation Completion [RC] ASDIRECTED Sodium Chloride 0.9% [Saline Flush] 10 ml FLUSH ASDIRECTED PRN Saline Lock Insert [OM.PC] Routine - Assessment/Plan Last 24 Hours: My Active Orders 04/26/21 16:34 EKG Documentation Completion [RC] ASDIRECTED Sodium Chloride 0.9% [Saline Flush] 10 ml FLUSH ASDIRECTED PRN Saline Lock Insert [OM.PC] Routine Plan: - take one tab of potassium daily - resume home meds as before - follow up with your PCP in 1-2 weeks - return to the ER if symptoms got worse or any concerns
[2021-04-26] MEDS: Nitroglycerin 0.4 MG Tab.SL SL ONE (17:22)
[2021-04-26 19:03] VITALS: BP 127/69; PULSE 80
== END 2021-04-26 19:20 | disposition home or self-care (01) ==
LOC: LB.ED 16:20
DX: R07.2 Precordial pain (principal); R07.89 Other chest pain; I48.91 Unspecified atrial fibrillation; I25.10 Atherosclerotic heart disease of native coronary artery without angina pectoris; E78.00 Pure hypercholesterolemia, unspecified; I10 Essential (primary) hypertension; I25.2 Old myocardial infarction; E11.9 Type 2 diabetes mellitus without complications; E03.9 Hypothyroidism, unspecified; K21.9 Gastro-esophageal reflux disease without esophagitis; Z79.01 Long term (current) use of anticoagulants; Z79.4 Long term (current) use of insulin; Z79.82 Long term (current) use of aspirin; Z79.899 Other long term (current) drug therapy
CPT/HCPCS: 36415; 80048; 84484; 85027; 93005; 99285-25

== ENCOUNTER 2021-05-06 15:38 | Inpatient (IN) | payer MEDICARE ==
[2021-05-06] MEDS: Ondansetron 4 MG Tab.DIS PO ONE (16:07)
[2021-05-06] MEDS: Sodium Chloride 0.9% 1,000 ML IV ONE (16:38)
[2021-05-06] MEDS: Ondansetron 4 MG Tab.DIS ONE (16:39)
[2021-05-06] MEDS: ceFAZolin 1 GM in Premix Bag 1 BAG IV ONE (16:47)
[2021-05-06] MEDS: ceFAZolin 1 GM Vial ONE (16:50)
[2021-05-06] MEDS: Piperacillin/Tazobactam 3.375 GM in Sodium Chloride 0.9% 100 ML IV ONE (17:32)
[2021-05-06] MEDS ORDERED: traMADol 50 MG Tab PO PRN (17:49)
[2021-05-06] MEDS ORDERED: Nitroglycerin 0.4 MG Tab.SL SL PRN (17:49)
[2021-05-06] MEDS ORDERED: Acetaminophen 650 MG Tab.ER PO PRN (17:49)
[2021-05-06] MEDS ORDERED: ESZOPICLONE 2 MG PO PRN (17:49)
[2021-05-06] MEDS ORDERED: Sodium Chloride 0.9% 1,000 ML IV ONE (17:57)
[2021-05-06] MEDS ORDERED: Sodium Chloride 0.9% 10 ML Syringe FLUSH PRN (17:57)
[2021-05-06 18:48] VITALS: BP 77/42; PULSE 120
[2021-05-06] MEDS: Norepinephrine 8 MG in Dextrose 5% in Water 250 ML IV SCH ×2 (19:21)
[2021-05-06] MEDS: Sertraline 50 MG Tab PO SCH (20:00)
[2021-05-06] MEDS ORDERED: DIPHENHYDRAMINE HCL 25 MG PO SCH (20:00)
[2021-05-06] MEDS ORDERED: Non-Formulary Medication 1 Each (Rivaroxaban [Xarelto] 20 MG) PO SCH (20:00)
[2021-05-06] MEDS ORDERED: Non-Formulary Medication 1 Each (Rivaroxaban [Xarelto] 20 MG Tablet) PO SCH (20:00)
[2021-05-07] MEDS ORDERED: Levothyroxine 25 MCG Tab PO SCH (07:00)
[2021-05-07] MEDS ORDERED: Aspirin 81 MG Tab.Chew PO SCH (08:00)
[2021-05-07] MEDS ORDERED: Metoprolol Succinate 50 MG Tab.ER PO SCH (08:00)
[2021-05-07] MEDS ORDERED: Pantoprazole 40 MG Tab.CR PO SCH (08:00)
[2021-05-07] MEDS ORDERED: Nystatin Topical Powder 15 GM Bottle TOP SCH (08:00)
[2021-05-07] MEDS ORDERED: Potassium Chloride 20 MEQ Tab.ER PO SCH (08:00)
--- NOTE | 2021-05-07 09:52 | EDM.PDOC ---
ED HPI GENERAL MEDICAL PROBLEM - General Chief Complaint: General Stated Complaint: DEHYDRATED, A-FIBB Time Seen by Provider: 05/06/21 15:40 Source of Information: Reports: Other (Clinic provider.) - History of Present Illness INITIAL COMMENTS - FREE TEXT/NARRATIVE: This is a patient being sent from the clinic to the emergency room. I did consult with Abby Bejarano NP at the clinic who saw this patient today for a recheck for chest discomfort and atrial fibrillation which is chronic. Upon arrival to the clinic the patient was not feeling well with complaints of weakness and looking pale her blood pressure was low at 80/60 and she vomited at the clinic. An EKG was obtained this morning showing atrial fibrillation with a ventricular rate of 138. Labs include a CBC showing an elevated white count of 30.9 basic metabolic panel shows a glucose of 180 GFR at 54 otherwise unremarkable chest x-ray done today shows no obvious infiltrate. It was decided to bring the patient over to the ER for further evaluation and work-up due to her acute symptoms. Onset: Gradual - Related Data Allergies Allergy/AdvReac Type Severity Reaction Status Date / Time No Known Allergies Allergy Verified 05/06/21 16:03 Home Meds: Home Meds atorvaSTATin [Lipitor] 80 mg PO BEDTIME 03/22/17 [History] Levothyroxine 25 mcg PO ACBREAKFAST 12/08/18 [History] Pantoprazole [ProTONIX] 40 mg PO DAILY 12/22/18 [History] Aspirin 81 mg PO DAILY 12/06/20 [History] Ferrous Sulfate 325 mg PO BID 12/06/20 [History] lisinopriL [Prinivil] 2.5 mg PO DAILY 12/23/20 [History] Potassium Chloride [Klor-Con M20] 20 meq PO DAILY 12/27/20 [History] Metoprolol Succinate 50 mg PO DAILY 02/14/21 [History] Sertraline [Zoloft] 1 tab PO QPM 04/05/21 [History] diphenhydrAMINE HCL [Diphenhydramine HCl] 50 mg PO BEDTIME 04/05/21 [History] traMADol [Ultram] 1 tab PO TID PRN 04/05/21 [History] Acetaminophen [Tylenol Arthritis Pain] 650 mg PO Q6HR PRN 04/08/21 [History] Calcium Carbonate [Tums] 1,000 mg PO Q2HR PRN tab.chew 04/08/21 [Rx] Calcium Citrate/Vitamin D3 [Calcium Citrate-Vit D Caplet] 1 tab PO QAM 04/08/21 [History] Diclofenac Sodium [Voltaren 1% Gel] 1 applic TOP QID PRN 04/08/21 [History] Eszopiclone [Lunesta] 2 mg PO BEDTIME PRN 04/08/21 [History] Nitroglycerin [Nitrostat] 0.4 mg SL PRN 04/08/21 [History] Nystatin 15 gm TP BID 04/08/21 [History] Rivaroxaban [Xarelto] 20 mg PO QPM 04/08/21 [History] Simethicone [Gas Relief] 80 mg PO Q4HR PRN 04/08/21 [History] Phenyleph/Pramoxin/Glycr/w.Pet [Preparation H Cream] 26 gm RC PRN 05/06/21 [History] hydroCHLOROthiazide [Hydrochlorothiazide] 12.5 mg PO DAILY 05/06/21 [History] Past Medical History HEENT History: Reports: Impaired Vision, Other (See Below) Other HEENT History: dentures Cardiovascular History: Reports: Afib, Angina, CAD, High Cholesterol, Hypertension, [place], Stents, Other (See Below) Other Cardiovascular History: Cartotid artery syndrome Respiratory History: Reports: Pneumonia, Recurrent Gastrointestinal History: Reports: GERD Other Gastrointestinal History: Constipation related to vicodin Genitourinary History: Reports: Urinary Incontinence, UTI, Recurrent Other Genitourinary History: frequent urination, stopped oxybutin due to legs swelling from it 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 Hematologic History: Reports: B12 Deficiency, Other (See Below) Other Hematologic History: gets B 12 shots monthly Immunologic History: Reports: None Oncologic (Cancer) History: Reports: None Dermatologic History: Reports: Eczema, Other (See Below) Other Dermatologic History: 04/05/21 rash to right groin and minimal rash under right breast - Infectious Disease History Infectious Disease History: Reports: C-Difficile - Past Surgical History HEENT Surgical History: Reports: None Cardiovascular Surgical History: Reports: None GI Surgical History: Reports: Bariatric Procedure, Hernia, Abdominal, Hernia Repair/Other Female Surgical History: Reports: Section, Hysterectomy Neurological Surgical History: Reports: None Musculoskeletal Surgical History: Reports: Other (See Below) Other Musculoskeletal Surgeries/Procedures:: Surgery to fix L wrist Social & Family History - Family History Family Medical History: No Pertinent Family History Neurological: Reports: Other (See Below) Other Neurological Family History: Daughter has TBI - Tobacco Use Tobacco Use Status *Q: Never Tobacco User Second Hand Smoke Exposure: No - Caffeine Use Caffeine Use: Reports: Coffee, Soda - Recreational Drug Use Recreational Drug Use: No ED ROS GENERAL - Review of Systems Review Of Systems: Comprehensive ROS is negative, except as noted in HPI. Constitutional: Reports: Weakness GI/Abdominal: Reports: Nausea Free Text/Narrative/Comment: Patient is awake and alert she is resting quietly. She does look pale. She tells me that she feels weak and nauseated but denies any pain. She has not been coughing very much and denies any trouble breathing. She denies any chest pain. ED EXAM, GENERAL - Physical Exam Exam: See Below Exam Limited By: No Limitations General Appearance: Other (She is lying quietly on the bed. No Respiratory distress,) Ears: Normal External Exam, Normal Canal, Hearing Grossly Normal, Normal TMs Ear Exam: Bilateral Ear: Auricle Normal, Canal Normal, TM normal Nose: Normal Inspection, Normal Mucosa, No Blood Throat/Mouth: Other (Mucous membranes are dry.) Head: Atraumatic, Normocephalic Neck: Normal Inspection, Supple, Non-Tender, Full Range of Motion Respiratory/Chest: Other (mild decrease in breath sounds.) Cardiovascular: Irregularly Irregular GI/Abdominal: Normal Bowel Sounds, Soft, Non-Tender, No Organomegaly, No Distention, No Abnormal Bruit, No Mass (Female) Exam: Normal Speculum Exam, Normal Bimanual Exam, Deferred Rectal (Female) Exam: Normal Exam, Normal Rectal Tone Back Exam: Normal Inspection, Full Range of Motion, NT Extremities: Normal Inspection, Normal Range of Motion, Non-Tender, Normal Capillary Refill, No Pedal Edema Neurological: Alert, Oriented, CN II-XII Intact, Normal Cognition, Normal Gait, Normal Reflexes, No Motor/Sensory Deficits Psychiatric: Normal Affect, Normal Mood Skin Exam: Warm, Dry, Intact, Normal Color, No Rash Lymphatic: No Adenopathy Course - Vital Signs Text/Narrative:: The patient's blood pressure remained low in the emergency room with readings as low as 66/44. pulse remained in the 110 to 130s in atrial fibrillation. An IV was started after multiple attempts and patient was given Ancef 1 g followed by Zosyn IV. Fluids were started NS at 500 mL an hour that was as fast as nursing staff dared to run the IV for fear that it would not last. Last Recorded V/S: Last Vital Signs Temp 96.3 F L 05/06/21 16:19 Pulse 120 H 05/06/21 18:31 Resp 19 05/06/21 18:31 BP 77/42 L 05/06/21 18:31 Pulse Ox 94 L 05/06/21 18:31 - Orders/Labs/Meds Orders: Active Orders 24 hr Category Date Time Status CULTURE BLOOD [BC] Stat Lab 05/06/21 15:00 Received CULTURE BLOOD [BC] Stat Lab 05/06/21 16:35 Received Saline Lock Insert [OM.PC] Stat Oth 05/06/21 17:57 Ordered Severe Sepsis Onset Time [OM.PC] Stat Oth 05/06/21 17:57 Ordered Labs: Laboratory Tests 05/06/21 05/06/21 Range/Units 16:45 16:45 PT 16.1 H D (9.0-11.5) sec INR 1.6 D (1.0-3.5) Lactic Acid 2.7 H (0.4-2.0) mmol/L Meds: Medications Discontinued Medications Generic Name Dose Route Start Last Admin Trade Name Freq PRN Reason Stop Dose Admin Acetaminophen 650 mg 05/06/21 17:49 Acetaminophen 650 Mg Tab.Er PO Q6HR PRN Pain Aspirin 81 mg 05/07/21 08:00 Aspirin 81 Mg Tab.Chew PO DAILY DANN Cefazolin Sodium Confirm 05/06/21 16:52 05/06/21 16:50 Cefazolin 1 Gm Vial Administered 05/06/21 16:53 Not Given Dose 1 gm .ROUTE .STK-MED ONE Sodium Chloride 1,000 mls @ 500 mls/hr 05/06/21 16:00 05/06/21 16:38 Normal Saline IV 05/06/21 17:59 500 mls/hr .BOLUS ONE Administration Cefazolin Sodium/Dextrose 1 gm 50 mls @ 100 mls/hr 05/06/21 16:37 05/06/21 16:47 / Premix IV 05/06/21 17:06 100 mls/hr ONETIME ONE Administration Piperacillin Sod/Tazobactam 100 mls @ 100 mls/hr 05/06/21 17:30 05/06/21 17:32 Sod 3.375 gm/ Sodium Chloride IV 05/06/21 18:29 100 mls/hr ONETIME ONE Administration Sodium Chloride 1,000 mls @ 500 mls/hr 05/06/21 17:57 Normal Saline IV 05/06/21 19:56 BOLUS ONE Protocol Norepinephrine Bitartrate 8 mg 258 mls @ 3.87 mls/hr 05/06/21 19:00 / Dextrose/Water IV TITRATE DANN Protocol 2 MCG/MIN Levothyroxine Sodium 25 mcg 05/07/21 07:00 Levothyroxine 25 Mcg Tab PO ACBREAKFAST [facility] Metoprolol Succinate 50 mg 05/07/21 08:00 Metoprolol Succinate 50 Mg Tab.Er PO DAILY DANN Nitroglycerin 0.4 mg 05/06/21 17:49 Nitroglycerin 0.4 Mg Tab.Sl SL Q5M PRN Chest Pain Non-Formulary Medication 50 mg 05/06/21 20:00 Diphenhydramine Hcl [Diphenhydramine Hcl] PO BEDTIME DANN Non-Formulary Medication 2 mg 05/06/21 17:49 Eszopiclone [Lunesta] PO BEDTIME PRN Sleep Non-Formulary Medication 20 mg 05/06/21 20:00 Rivaroxaban [Xarelto] PO QPM DANN Non-Formulary Medication 20 mg 05/06/21 20:00 Rivaroxaban [Xarelto] PO BEDTIME DANN Nystatin 15 gm 05/07/21 08:00 Nystatin Topical Powder 15 Gm Bottle TOP BID DANN Ondansetron HCl 4 mg 05/06/21 16:00 05/06/21 16:07 Ondansetron 4 Mg Tab.Dis PO 05/06/21 16:01 4 mg ONETIME ONE Administration Ondansetron HCl Confirm 05/06/21 16:17 05/06/21 16:39 Ondansetron 4 Mg Tab.Dis Administered 05/06/21 16:18 Not Given Dose 4 mg .ROUTE .STK-MED ONE Pantoprazole Sodium 40 mg 05/07/21 08:00 Pantoprazole 40 Mg Tab.Cr PO DAILY DANN Potassium Chloride 20 meq 05/07/21 08:00 Potassium Chloride 20 Meq Tab.Er PO BID DANN Sertraline HCl 50 mg 05/06/21 20:00 Sertraline 50 Mg Tab PO QPM DANN Sodium Chloride 10 ml 05/06/21 17:57 Sodium Chloride 0.9% 10 Ml Syringe FLUSH ASDIRECTED PRN Keep Vein Open Tramadol HCl 50 mg 05/06/21 17:49 Tramadol 50 Mg Tab PO TID PRN Pain - Re-Assessments/Exams Free Text/Narrative Re-Assessment/Exam: Chest x-ray was reviewed and did not show any obvious pneumonia. Lab results show a lactic acid of 2.7 which is elevated and the white count as previously mentioned at 30.9 thousand. 05/07/21 10:01 05/07/21 10:02 Departure - Departure Time of Disposition: 19:55 Disposition: DC/Tfer to [facility] Condition: Critical Clinical Impression: Sepsis associated hypotension Atrial fibrillation Qualifiers: Atrial fibrillation type: unspecified chronic Qualified Code(s): I48.20 - Chronic atrial fibrillation, unspecified - Discharge Information *PRESCRIPTION DRUG MONITORING PROGRAM REVIEWED*: Yes *COPY OF PRESCRIPTION DRUG MONITORING REPORT IN PATIENT SUSAN: Yes Sepsis Event Note (ED) - Evaluation Sepsis Screening Result: Possible Severe Sepsis Risk - My Orders Last 24 Hours: My Active Orders 05/06/21 15:00 CULTURE BLOOD [BC] Stat 05/06/21 16:35 CULTURE BLOOD [BC] Stat 05/06/21 17:57 Saline Lock Insert [OM.PC] Stat Severe Sepsis Onset Time [OM.PC] Stat - Assessment/Plan Last 24 Hours: My Active Orders 05/06/21 15:00 CULTURE BLOOD [BC] Stat 05/06/21 16:35 CULTURE BLOOD [BC] Stat 05/06/21 17:57 Saline Lock Insert [OM.PC] Stat Severe Sepsis Onset Time [OM.PC] Stat Plan: Initial treatment plan for this patient was to consider admission here as an inpatient for IV fluids, antibiotics and close monitoring. I did consult with the ED hospitalist physician who informed me that the patient's condition was too critical to stay at our facility and she needs to go to a critical care unit. At this point arrangements were made to have the patient transferred to [facility] in [place] with [facility]. She was on our medical floor temporarily while these arrangements were being made. A second IV was started and IV fluids were given as well as Levophed being started per hospitalist direction. Upon leaving our facility the patient was awake no respiratory distress she denies any pain and is wondering why she is going somewhere else.
== END 2021-05-06 20:22 | DRG 872 ==
LOC: LB.ED 15:38 → LB.MS 18:00 → UNDOADMIN 18:00 → LB.MS 18:30 → UNDODISIN 20:22
PROVIDERS: ADMIT Physician Assistant; ATTEND Physician Assistant
DX: A41.9 Sepsis, unspecified organism (principal); I48.20 Chronic atrial fibrillation, unspecified; H54.7 Unspecified visual loss; I25.10 Atherosclerotic heart disease of native coronary artery without angina pectoris; E78.00 Pure hypercholesterolemia, unspecified; I10 Essential (primary) hypertension; I25.2 Old myocardial infarction; K59.00 Constipation, unspecified; Z95.5 Presence of coronary angioplasty implant and graft; K21.9 Gastro-esophageal reflux disease without esophagitis; R32 Unspecified urinary incontinence; M19.90 Unspecified osteoarthritis, unspecified site; G89.29 Other chronic pain; M54.9 Dorsalgia, unspecified; I69.392 Facial weakness following cerebral infarction; F32.9 Major depressive disorder, single episode, unspecified; F41.9 Anxiety disorder, unspecified; E11.9 Type 2 diabetes mellitus without complications; Z98.84 Bariatric surgery status; Z90.710 Acquired absence of both cervix and uterus; E03.9 Hypothyroidism, unspecified; E53.8 Deficiency of other specified B group vitamins; Z79.01 Long term (current) use of anticoagulants; Z79.82 Long term (current) use of aspirin; Z87.01 Personal history of pneumonia (recurrent); Z87.440 Personal history of urinary (tract) infections; Z86.73 Personal history of transient ischemic attack (TIA), and cerebral infarction without residual deficits; Z79.890 Hormone replacement therapy; Z79.899 Other long term (current) drug therapy; Z20.822 Contact with and (suspected) exposure to COVID-19
CPT/HCPCS: 36415; 83605; 85610; 87040 ×2; A9270; J0690; J2543; J7030; 51702; 96365; 96375; 99285-25; J7060; U0002

== ENCOUNTER 2021-05-23 17:45 | Emergency (ER) | payer MEDICARE ==
[2021-05-23] MEDS ORDERED: Ciprofloxacin 250 MG Tab ONE (18:00)
[2021-05-23 18:37] VITALS: BP 133/80; PULSE 62
[2021-05-23] MEDS ORDERED: Ciprofloxacin 250 MG Tab PO ONE (18:53)
--- NOTE | 2021-05-23 18:57 | EDM.PDOC ---
ED HPI GENERAL MEDICAL PROBLEM - General Chief Complaint: General Stated Complaint: LEUKOCYTOSIS Time Seen by Provider: 05/23/21 17:50 - History of Present Illness INITIAL COMMENTS - FREE TEXT/NARRATIVE: Pt comes over from [facility] with abnormal labs. Her WBC is 20 today. She has C/O occasional Abd pain, but denies any pain now. She is eating fairly well. No cough, nausea, vomiting. - Related Data Allergies Allergy/AdvReac Type Severity Reaction Status Date / Time No Known Allergies Allergy Verified 05/06/21 16:03 Home Meds: Home Meds atorvaSTATin [Lipitor] 80 mg PO BEDTIME 03/22/17 [History] Levothyroxine 25 mcg PO ACBREAKFAST 12/08/18 [History] Pantoprazole [ProTONIX] 40 mg PO DAILY 12/22/18 [History] Aspirin 81 mg PO DAILY 12/06/20 [History] Ferrous Sulfate 325 mg PO BID 12/06/20 [History] lisinopriL [Prinivil] 2.5 mg PO DAILY 12/23/20 [History] Potassium Chloride [Klor-Con M20] 20 meq PO DAILY 12/27/20 [History] Metoprolol Succinate 50 mg PO DAILY 02/14/21 [History] Sertraline [Zoloft] 1 tab PO QPM 04/05/21 [History] diphenhydrAMINE HCL [Diphenhydramine HCl] 50 mg PO BEDTIME 04/05/21 [History] traMADol [Ultram] 1 tab PO TID PRN 04/05/21 [History] Acetaminophen [Tylenol Arthritis Pain] 650 mg PO Q6HR PRN 04/08/21 [History] Calcium Carbonate [Tums] 1,000 mg PO Q2HR PRN tab.chew 04/08/21 [Rx] Calcium Citrate/Vitamin D3 [Calcium Citrate-Vit D Caplet] 1 tab PO QAM 04/08/21 [History] Diclofenac Sodium [Voltaren 1% Gel] 1 applic TOP QID PRN 04/08/21 [History] Eszopiclone [Lunesta] 2 mg PO BEDTIME PRN 04/08/21 [History] Nitroglycerin [Nitrostat] 0.4 mg SL PRN 04/08/21 [History] Nystatin 15 gm TP BID 04/08/21 [History] Rivaroxaban [Xarelto] 20 mg PO QPM 04/08/21 [History] Simethicone [Gas Relief] 80 mg PO Q4HR PRN 04/08/21 [History] Phenyleph/Pramoxin/Glycr/w.Pet [Preparation H Cream] 26 gm RC PRN 05/06/21 [History] hydroCHLOROthiazide [Hydrochlorothiazide] 12.5 mg PO DAILY 05/06/21 [History] Past Medical History HEENT History: Reports: Impaired Vision, Other (See Below) Other HEENT History: dentures Cardiovascular History: Reports: Afib, Angina, CAD, High Cholesterol, Hypertension, [place], Stents, Other (See Below) Other Cardiovascular History: Cartotid artery syndrome Respiratory History: Reports: Pneumonia, Recurrent Gastrointestinal History: Reports: GERD Other Gastrointestinal History: Constipation related to vicodin Genitourinary History: Reports: Urinary Incontinence, UTI, Recurrent Other Genitourinary History: frequent urination, stopped oxybutin due to legs swelling from it 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 Hematologic History: Reports: B12 Deficiency, Other (See Below) Other Hematologic History: gets B 12 shots monthly Immunologic History: Reports: None Oncologic (Cancer) History: Reports: None Dermatologic History: Reports: Eczema, Other (See Below) Other Dermatologic History: 04/05/21 rash to right groin and minimal rash under right breast - Infectious Disease History Infectious Disease History: Reports: C-Difficile - Past Surgical History HEENT Surgical History: Reports: None Cardiovascular Surgical History: Reports: None GI Surgical History: Reports: Bariatric Procedure, Hernia, Abdominal, Hernia Repair/Other Female Surgical History: Reports: Section, Hysterectomy Neurological Surgical History: Reports: None Musculoskeletal Surgical History: Reports: Other (See Below) Other Musculoskeletal Surgeries/Procedures:: Surgery to fix L wrist Social & Family History - Family History Family Medical History: No Pertinent Family History Neurological: Reports: Other (See Below) Other Neurological Family History: Daughter has TBI - Tobacco Use Tobacco Use Status *Q: Never Tobacco User - Caffeine Use Caffeine Use: Reports: None - Recreational Drug Use Recreational Drug Use: No ED ROS GENERAL - Review of Systems Review Of Systems: Comprehensive ROS is negative, except as noted in HPI. Hematologic/Lymphatic: Reports: Other (Abnormal labs today.) ED EXAM, GENERAL - Physical Exam Exam: See Below Free Text/Narrative:: Pt is awake and alert. V.S. are reviewed and are nml. Course - Vital Signs Last Recorded V/S: Last Vital Signs Temp 97.1 F 05/23/21 18:00 Pulse 62 05/23/21 18:36 Resp 14 05/23/21 18:36 BP 133/80 05/23/21 18:36 Pulse Ox 95 05/23/21 18:00 - Orders/Labs/Meds Orders: Active Orders 24 hr Category Date Time Status Chest 1V Frontal [CR] Stat Exams 05/23/21 17:59 Ordered CULTURE URINE [RM] Stat Lab 05/23/21 18:51 Ordered Labs: Laboratory Tests 05/23/21 05/23/21 Range/Units 17:58 18:21 TSH, Ultra Sensitive 5.577 H (0.358-3.740) uIU/mL Urine Color Yellow Urine Appearance Cloudy (CLEAR) Urine pH 5.0 (5.0-8.0) Ur Specific [place] 1.025 (1.003-1.030) Urine Protein Negative (NEGATIVE) mg/dL Urine Glucose (UA) Negative (NEGATIVE) mg/dL Urine Ketones Negative (NEGATIVE) mg/dL Urine Occult Blood Moderate H (NEGATIVE) Urine Nitrite Negative (NEGATIVE) Urine Bilirubin Negative (NEGATIVE) Urine Urobilinogen 0.2 (0.2-1.0) E.U./dL Ur Leukocyte Esterase Small H (NEGATIVE) Urine RBC 10-20 H /HPF Urine WBC 5-10 H /HPF Ur Squamous Epith Cells Moderate /HPF Urine Bacteria Few /HPF - Re-Assessments/Exams Free Text/Narrative Re-Assessment/Exam: 05/23/21 18:55 Pt ate her evening meal in The ER while waiting for lab results. UA shows a mild infection. TSH is also slightly elevated. I will start her on Cipro and get a urine culture. And increase her Synthroid to 1.5 tabs a day. Re check with PCP in a week, sooner prn. Departure - Departure Time of Disposition: 19:50 Disposition: DC/Tfer to [facility] Condition: Fair Clinical Impression: UTI, Urinary tract infectious disease Hypothyroid Qualifiers: Hypothyroidism type: unspecified Qualified Code(s): E03.9 - Hypothyroidism, unspecified - Discharge Information Sepsis Event Note (ED) - Evaluation Sepsis Screening Result: No Definite Risk - Focused Exam Vital Signs: Vital Signs Temp Pulse Resp BP Pulse Ox 05/23/21 18:36 62 14 133/80 05/23/21 18:15 14 134/84 05/23/21 18:00 97.1 F 67 14 150/81 H 95 05/23/21 17:45 97.1 F 67 16 150/81 H 95 - My Orders Last 24 Hours: My Active Orders 05/23/21 17:59 Chest 1V Frontal [CR] Stat 05/23/21 18:51 CULTURE URINE [RM] Stat - Assessment/Plan Last 24 Hours: My Active Orders 05/23/21 17:59 Chest 1V Frontal [CR] Stat 05/23/21 18:51 CULTURE URINE [RM] Stat
--- NOTE | 2021-05-24 16:13 | CR ---
CLINICAL DATA: Elevated WBC. AP CHEST, 23 MAY 2021: Comparison is made to a prior exam dated 06 May 2021. The patient has taken a very poor inspiration. The heart size is within normal limits. There is calcification of the aortic arch. There are mild atelectatic changes in both lower lungs. The lungs are otherwise clear. No pneumothorax. No pleural effusion. Job: [id number] MTDD
== END 2021-05-23 18:57 ==
LOC: LB.ED 17:45
DX: N39.0 Urinary tract infection, site not specified (principal); E03.9 Hypothyroidism, unspecified; I48.91 Unspecified atrial fibrillation; I25.10 Atherosclerotic heart disease of native coronary artery without angina pectoris; I10 Essential (primary) hypertension; E11.9 Type 2 diabetes mellitus without complications; I25.2 Old myocardial infarction; Z95.5 Presence of coronary angioplasty implant and graft; Z79.82 Long term (current) use of aspirin; Z79.899 Other long term (current) drug therapy; Z79.01 Long term (current) use of anticoagulants; Z86.73 Personal history of transient ischemic attack (TIA), and cerebral infarction without residual deficits
CPT/HCPCS: 36415; 71045; 81001; 84443; 87086; 87088; 87186; 99284; A9270

== ENCOUNTER 2021-07-16 10:13 | Emergency (ER) | payer MEDICARE ==
[2021-07-16] MEDS ORDERED: GI Cocktail Oral Solution 30 ML PO ONE (10:47)
[2021-07-16 13:22] VITALS: BP 96/64; PULSE 88
--- NOTE | 2021-07-16 14:19 | EDM.PDOC ---
ED HPI GENERAL MEDICAL PROBLEM - General Chief Complaint: Cardiovascular Problem Stated Complaint: ANXIETY Time Seen by Provider: 07/16/21 10:25 Source of Information: Reports: [facility] Records - History of Present Illness INITIAL COMMENTS - FREE TEXT/NARRATIVE: [facility] with C/O chest pain, drowsiness, and not taking her medications recently. She has been hallucinating lately and has just been started on Zyprexa. No SOB, wheezing, or GI symptoms. Mid-Sternal Chest Pain Score (Numeric/FACES): 10 - Related Data Allergies Allergy/AdvReac Type Severity Reaction Status Date / Time No Known Allergies Allergy Verified 07/16/21 13:01 Home Meds: Home Meds atorvaSTATin [Lipitor] 80 mg PO BEDTIME 03/22/17 [History] Levothyroxine 25 mcg PO ACBREAKFAST 12/08/18 [History] Pantoprazole [ProTONIX] 40 mg PO DAILY 12/22/18 [History] Aspirin 81 mg PO DAILY 12/06/20 [History] Ferrous Sulfate 325 mg PO BID 12/06/20 [History] lisinopriL [Prinivil] 2.5 mg PO DAILY 12/23/20 [History] Potassium Chloride [Klor-Con M20] 20 meq PO DAILY 12/27/20 [History] Metoprolol Succinate 50 mg PO DAILY 02/14/21 [History] Sertraline [Zoloft] 1 tab PO QPM 04/05/21 [History] diphenhydrAMINE HCL [Diphenhydramine HCl] 50 mg PO BEDTIME 04/05/21 [History] traMADol [Ultram] 1 tab PO TID PRN 04/05/21 [History] Acetaminophen [Tylenol Arthritis Pain] 650 mg PO Q6HR PRN 04/08/21 [History] Calcium Carbonate [Tums] 1,000 mg PO Q2HR PRN tab.chew 04/08/21 [Rx] Calcium Citrate/Vitamin D3 [Calcium Citrate-Vit D Caplet] 1 tab PO QAM 04/08/21 [History] Diclofenac Sodium [Voltaren 1% Gel] 1 applic TOP QID PRN 04/08/21 [History] Eszopiclone [Lunesta] 2 mg PO BEDTIME PRN 04/08/21 [History] Nitroglycerin [Nitrostat] 0.4 mg SL PRN 04/08/21 [History] Nystatin 15 gm TP BID 04/08/21 [History] Rivaroxaban [Xarelto] 20 mg PO QPM 04/08/21 [History] Simethicone [Gas Relief] 80 mg PO Q4HR PRN 04/08/21 [History] Phenyleph/Pramoxin/Glycr/w.Pet [Preparation H Cream] 26 gm RC PRN 05/06/21 [History] hydroCHLOROthiazide [Hydrochlorothiazide] 12.5 mg PO DAILY 05/06/21 [History] Past Medical History HEENT History: Reports: Impaired Vision, Other (See Below) Other HEENT History: dentures Cardiovascular History: Reports: Afib, Angina, CAD, High Cholesterol, Hypertension, [place], Stents, Other (See Below) Other Cardiovascular History: Cartotid artery syndrome Respiratory History: Reports: Pneumonia, Recurrent Gastrointestinal History: Reports: GERD Other Gastrointestinal History: Constipation related to vicodin Genitourinary History: Reports: Urinary Incontinence, UTI, Recurrent Other Genitourinary History: frequent urination, stopped oxybutin due to legs swelling from it CONTROL SYSTEMS ENG History: Reports: Musculoskeletal History: Reports: Arthritis, Back Pain, Chronic, Fracture, Osteoarthritis, Osteoporosis Neurological History: Reports: CVA Other Neuro History: 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 Hematologic History: Reports: B12 Deficiency, Other (See Below) Other Hematologic History: gets B 12 shots monthly Immunologic History: Reports: None Oncologic (Cancer) History: Reports: None Dermatologic History: Reports: Eczema, Other (See Below) Other Dermatologic History: 04/05/21 rash to right groin and minimal rash under right breast - Infectious Disease History Infectious Disease History: Reports: C-Difficile - Past Surgical History HEENT Surgical History: Reports: None Cardiovascular Surgical History: Reports: None GI Surgical History: Reports: Bariatric Procedure, Hernia, Abdominal, Hernia Repair/Other Female Surgical History: Reports: Section, Hysterectomy Neurological Surgical History: Reports: None Musculoskeletal Surgical History: Reports: Other (See Below) Other Musculoskeletal Surgeries/Procedures:: Surgery to fix L wrist Social & Family History - Family History Family Medical History: No Pertinent Family History Neurological: Reports: Other (See Below) Other Neurological Family History: Daughter has TBI - Tobacco Use Tobacco Use Status *Q: Never Tobacco User - Caffeine Use Caffeine Use: Reports: None ED ROS GENERAL - Review of Systems Review Of Systems: Comprehensive ROS is negative, except as noted in HPI. Constitutional: Reports: Other (Drowsiness.) HEENT: Reports: Eye Discharge Cardiovascular: Reports: Chest Pain ED EXAM, GENERAL - Physical Exam Exam: See Below Free Text/Narrative:: PT is sleeping, but does respond to verbal stimuli. She points to the lower sternum area when describing the area of pain. No SOB, coughing, or wheezing at this time. Eye Exam: Bilateral Eye: Conjunctival Injection (Sclera has mutiple dilated vessels bilateral with yellow drainage.) Respiratory/Chest: Decreased Breath Sounds Course - Vital Signs Last Recorded V/S: Last Vital Signs Temp 98.2 F 07/16/21 10:25 Pulse 88 07/16/21 10:25 Resp 18 07/16/21 10:25 BP 96/64 07/16/21 10:25 Pulse Ox 94 L 07/16/21 10:25 - Orders/Labs/Meds Orders: Active Orders 24 hr Category Date Time Status Chest 1V Frontal [CR] Stat Exams 07/16/21 10:43 Taken EKG 12 Lead [EK] Routine Ther 07/16/21 10:43 Ordered Labs: Laboratory Tests 07/16/21 07/16/21 07/16/21 Range/Units 11:20 11:30 11:30 WBC 14.0 H D (4.0-11.0) K/uL RBC 5.45 (3.80-5.80) M/uL Hgb 15.9 (11.5-16.5) g/dL Hct 47.6 H (37.0-47.0) % MCV 87 (76-96) fL MCH 29.2 (27.0-32.0) pg MCHC 33.4 (31.0-35.0) g/dL RDW 18.8 H (11.0-16.0) % Plt Count 45 L* D (150-500) K/uL Neut % (Auto) 75.6 H (45.0-70.0) % Lymph % (Auto) 17.8 L (20.0-40.0) % Meagher % (Auto) 4.2 (3.0-10.0) % Eos % (Auto) 2.1 (1.0-5.0) % Baso % (Auto) 0.3 (0.0-0.5) % Neut # (Auto) 10.57 H (2.00-7.50) K/uL Lymph # (Auto) 2.49 (1.50-4.00) K/uL Meagher # (Auto) 0.59 (0.20-0.80) K/uL Eos # (Auto) 0.30 (0.04-0.40) K/uL Baso # (Auto) 0.04 (0.02-0.10) K/uL Sodium 136 (136-145) mmol/L Potassium 3.5 (3.5-5.1) mmol/L Chloride 106 (98-107) mmol/L Carbon Dioxide 24.0 (21.0-32.0) mmol/L Anion Gap 9.5 (5.0-15.0) mmol/L BUN 24 D (8-26) mg/dL Creatinine 0.79 D (0.55-1.02) mg/dL Est Cr Clr Drug Dosing TNP Estimated GFR (MDRD) > 60 (>60) MLS/MIN BUN/Creatinine Ratio 30.4 H (6-25) Glucose 105 H (74-100) mg/dL Calcium 8.1 L (8.5-10.1) mg/dL Troponin I < 0.017 (0.000-0.060) ng/mL Meds: Medications Discontinued Medications Generic Name Dose Route Start Last Admin Trade Name Brittany PRN Reason Stop Dose Admin Al Hydroxide/Mg Hydroxide 30 ml 07/16/21 10:47 Gi Cocktail Oral Solution 30 Ml PO 07/16/21 10:48 ONETIME ONE - Re-Assessments/Exams Free Text/Narrative Re-Assessment/Exam: 07/16/21 14:[address] elevation or depression. Labs are basically nml. She is more awake now. I think the Zyprexa is making her drowsy. She tells me her chest pain is much better now. I suggest we hold the Zyprexa for 2 days. Start Gentak for conjunctivitis. Re check with PCP in 2-3 days. 07/16/21 14:20 Departure - Departure Time of Disposition: 11:30 Disposition: Home, Self-Care 01 Condition: Fair Clinical Impression: Chest pain not due to acute coronary syndrome Conjunctivitis Qualifiers: Conjunctivitis type: acute Acute conjunctivitis type: bacterial Laterality: bilateral Qualified Code(s): H10.33 - Unspecified acute conjunctivitis, bilateral Instructions: Olanzapine tablets Referrals: Ronald Saavedra MD [Primary Care Provider] - Forms: ED Department Discharge Additional Instructions: Stop taking Zyprexa for 2 days and follow up with PCP. Gentak eye drops 1 drop in both eyes 4 times a day for 7 days. Sepsis Event Note (ED) - Evaluation Sepsis Screening Result: No Definite Risk - Focused Exam Vital Signs: Vital Signs Temp Pulse Resp BP Pulse Ox 07/16/21 10:25 98.2 F 88 18 96/64 94 L - My Orders Last 24 Hours: My Active Orders 07/16/21 10:43 Chest 1V Frontal [CR] Stat EKG 12 Lead [EK] Routine - Assessment/Plan Last 24 Hours: My Active Orders 07/16/21 10:43 Chest 1V Frontal [CR] Stat EKG 12 Lead [EK] Routine
--- NOTE | 2021-07-17 08:20 | CR ---
Date of Service: 07/16/21 Clinical Data: chest pain AP CHEST: Comparison is made to a prior exam dated 05/23/21. The patient has taken a very poor inspiration The heart size is within normal limits. There are poorly defined patchy ground-glass opacities at both lungs that were not present on the prior exam. Viral pneumonia should be considered. No pneumothorax. No pleural effusions. [id number] [facility]
== END 2021-07-16 11:45 | disposition home or self-care (01) ==
LOC: LB.ED 10:13
DX: R07.9 Chest pain, unspecified (principal); H10.33 Unspecified acute conjunctivitis, bilateral; I10 Essential (primary) hypertension; E78.00 Pure hypercholesterolemia, unspecified; I25.2 Old myocardial infarction; I25.10 Atherosclerotic heart disease of native coronary artery without angina pectoris; K21.9 Gastro-esophageal reflux disease without esophagitis; E11.9 Type 2 diabetes mellitus without complications; E03.9 Hypothyroidism, unspecified; Z79.01 Long term (current) use of anticoagulants; Z79.899 Other long term (current) drug therapy; Z79.82 Long term (current) use of aspirin
CPT/HCPCS: 36415; 71045; 80048; 84484; 85025; 93005; 99285; A9270